=== PATIENT | male | born 1955 | race Hispanic/Latino ===

== ENCOUNTER 2017-11-22 03:49 | Inpatient (IN) | payer BC ==
[2017-11-22 03:50] VITALS: BMI 34.5
--- NOTE | 2017-11-22 04:17 | C.PDOC ---
History Of Present Illness 62 year old male with PMHx of HTN, HLD, DM, Peripheral neuropathy , CAD with 1 STENT is a transferred from [facility] for acute renal failure. Patient was brought to [facility] today for evaluation of altered mental status, hypoglycemia with sugar at 24. At [facility] patient received AMP dextrose 50 with sugar went up to 94 then dropped back down to 32 again after which another AMP was given. Patient last creatinine was 7 on Thursday, today at [facility] BUN was 85, Creatinine 11, K 4.6 not currently on dialysis. On arrival patient's blood sugar was 144 currently alert, awake and oriented. [facility] communicated with Dr. Newman and also Dr. Balbuena. Time Seen by Provider: 11/22/17 03:53 Chief Complaint (Nursing): Abnormal Labs History Per: Patient, EMS History/Exam Limitations: no limitations Onset/Duration Of Symptoms: Days Current Symptoms Are (Timing): Still Present Reports Recently: Seen In ED ([facility]) Recent travel outside of the [place]: No Additional History Per: Patient Past Medical History Reviewed: Historical Data, Nursing Documentation, Vital Signs Vital Signs: Last Vital Signs Temp Pulse 108 H 11/22/17 04:46 Resp 16 11/22/17 04:46 BP 116/61 11/22/17 04:46 Pulse Ox 99 11/22/17 04:46 - Medical History PMH: CAD, Diabetes, HTN, Hypercholesterolemia Other PMH: Peripheral neuropathy Other Surgeries: STENT X1 Family History: States: Unknown Family Hx - Social History Hx Alcohol Use: No Hx Substance Use: No Review Of Systems Constitutional: Positive for: Weakness. Negative for: Fever, Chills, Sweats Eyes: Negative for: Pain, Vision Change ENT: Negative for: Ear Pain, Ear Discharge, Nose Pain Cardiovascular: Positive for: Palpitations, Light Headedness. Negative for: Chest Pain, Orthopnea, Paroxysmal Noc. Dyspnea, Edema Respiratory: Negative for: Cough, Shortness of Breath, Hemoptysis, SOB with Excertion, Pleuritic Pain Gastrointestinal: Negative for: Vomiting, Abdominal Pain, Constipation, Melena Genitourinary: Negative for: Dysuria, Frequency, Incontinence Musculoskeletal: Negative for: Neck Pain, Shoulder Pain Skin: Negative for: Rash Neurological: Positive for: Confusion. Negative for: Weakness, Numbness, Headache, Dizziness Physical Exam - Physical Exam Appears: Non-toxic, No Acute Distress, In Acute Distress Skin: Normal Color, Warm, Dry Head: Atraumatic, Normacephalic Eye(s): bilateral: Normal Inspection Ear(s): Bilateral: Normal Oral Mucosa: Moist Tongue: Normal Appearing Lips: Normal Appearing Teeth: Normal Dentition Gingiva: Normal Appearing Neck: Normal ROM, Supple Chest: Symmetrical Cardiovascular: Rhythm Irregular, No Friction Rub, No Murmur, No JVD Respiratory: Normal Breath Sounds, No Rales, No Rhonchi, No Wheezing Gastrointestinal/Abdominal: Soft, No Tenderness, No Guarding, No Rebound Back: No Normal Inspection, No CVA Tenderness Male Genital: No Normal Inspection Extremity: Normal ROM, No Tenderness, No Swelling Extremity: Bilateral: Atraumatic, No Pedal Edema, Normal Color And Temperature, Normal ROM Neurological/Psych: Oriented x3, Normal Speech Gait: Unable To Assess ED Course And Treatment - Laboratory Results Result Diagrams: 11/22/17 05:25 O2 Sat by Pulse Oximetry: 99 (ON RA) Pulse Ox Interpretation: Normal Critical Care Time - Critical Care Note Total Time (in mins): 45 Documented critical care: time excludes all time spent performing seperately billable procedures. Medical Decision Making Medical Decision Making: Impression: [facility] transfer Plan: * VBG * Labs * CXR * UA 1st EKG showed HR 147 with Aflutter with 2-1 block. QS 92 QT 298 QTC 461 Cardizem 15 mg was pushed and HR went down to 130. 2nd EKG ordered, showed sinus tachycardia at 128, another cardizem 10 mg was pushed. NM 176 QRS 86 QT 316 QTC 461 no ischemic changes 3rd EKG done showed sinus tach with PVC HR at 106 QR 190 QRS 90 QT 352 QTC 462 no ischemic changes Disposition Counseled Patient/Family Regarding: Diagnosis - Disposition Disposition: HOSPITALIZED Disposition Time: 05:53 Condition: GUARDED - POA Present On Arrival: Cath Associated UTI - Clinical Impression Clinical Impression: Hypoglycemia, Fluttering sensation of heart, Atrial flutter - Scribe Statement The provider has reviewed the documentation as recorded by the Scribe Russell Beck All medical record entries made by the Scribe were at my direction and personally dictated by me. I have reviewed the chart and agree that the record accurately reflects my personal performance of the history, physical exam, medical decision making, and the department course for this patient. I have also personally directed, reviewed, and agree with the discharge instructions and disposition.
[2017-11-22] MEDS ORDERED: Magnesium Sulfate 1 gm in D5W 1 GM/100 ML BAG IVPB ONE (05:21)
[2017-11-22 05:28] LABS: BASO # 0.1 K/uL (0.0-0.2); BASO % 0.4 % (0.0-2.0); EOS # 0.1 K/uL (0.0-0.7); EOS % 0.4 % (0.0-4.0); HEMOGLOBIN 9.9 g/dL (12.0-18.0); MEAN CELL VOLUME 91.6 fL (80.0-94.0); MEAN CORPUSCULAR HEMOGLOBIN 29.8 pg (27.0-31.0); MEAN CORPUSCULAR HGB CONC 32.5 g/dL (33.0-37.0); MEAN PLATELET VOLUME 10.3 fL (7.2-11.7); MONO # 0.9 K/uL (0.0-0.8); MONO % 5.5 % (0.0-10.0); NEUT # 14.2 K/uL (1.8-7.0); NEUT % 87.7 % (50.0-75.0); PLATELET COUNT 236 K/uL (130-400); RBC 3.34 Mil/uL (4.40-5.90); RED CELL DISTRIBUTION WIDTH 13.9 % (11.5-14.5); WHITE BLOOD COUNT 16.2 K/uL (4.8-10.8)
[2017-11-22 05:52] LABS: VENOUS BLOOD GAS BASE EXCESS -17.8 mmol/L (0.0-2.0); VENOUS BLOOD GAS PCO2 32 mmHg (40-60); VENOUS BLOOD GAS PO2 37 mm/Hg (30-55); VENOUS BLOOD PH 7.12 (7.32-7.43)
--- NOTE | 2017-11-22 05:53 | CP.PCM.HP ---
<Arely Stark - Last Filed: 11/22/17 05:51> History of Present Illness - History of Present Illness History of Present Illness: HPI: Patient is a 62 year old male with a past medical history of DM, HTN, HLD, CAD w/stent, and [place] (2012), who [place] [facility] [place] [facility] for ARF possibly requiring dialysis. Patient recently went to his PMD who told him his creatinine was increasing. Patient was directed to stop taking his metformin 500mg BID and to continue taking his Glipizide 5mg PO daily approximately 2 months ago. He has been taking his glipizide on an as-needed basis depending on his glucometer readings. He has noticed a decreased appetite over the last few weeks for unknown reasons. On Thursday afternoon, he took his medications, started to feel weak and unable to move. He called his longtime partner to let her know and then the he woke up Thursday afternoon with his partner and paramedics surrounding him. He states he was able to hear them, but unable to move or speak. EMS took his glucose which was 24 and was given an amp of D50. Patient was taken [place] [facility] labs were drawn and showed worsening kidney function. Patient currently feels better but still weak and feels very dehydrated. Patient denies chest pain, dyspnea, abdominal pain, nausea, vomiting , leg pain and swelling. PMD: Dr. 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 Allergies: NKDA Medications: Metoprolol 50mg PO daily, Glipizide 5mg PO daily/prn, statin, asa 81mg po bid Present on Admission - Present on Admission Any Indicators Present on Admission: Yes History of Uncontrolled Diabetes: Yes Review of Systems - Constitutional Constitutional: Weakness. absent: Chills, Fever, Headache - EENT Eyes: absent: Change in Vision Ears: absent: Dizziness - Cardiovascular Cardiovascular: absent: Chest Pain, Dyspnea, Leg Edema, Palpitations - Respiratory Respiratory: absent: Cough, Dyspnea - Gastrointestinal Gastrointestinal: absent: Abdominal Pain, Constipation, Diarrhea, Nausea, Vomiting - Genitourinary Genitourinary: Change in Urinary Stream. absent: Urinary Incontinence - Musculoskeletal Musculoskeletal: Muscle Weakness - Neurological Neurological: Abnormal Movements. absent: Dizziness, Headaches Past Patient History - Infectious Disease Hx of Infectious Diseases: None - Past Social History Smoking Status: Current Some Days Smoker - CARDIAC Hx Hypercholesterolemia: Yes Hx Hypertension: Yes - ENDOCRINE/METABOLIC Hx Diabetes Mellitus Type 2: Yes - PSYCHIATRIC Hx Substance Use: No - SURGICAL HISTORY Hx Surgeries: Yes Hx Coronary Stent: Yes Meds Allergies/Adverse Reactions: Allergies Allergy/AdvReac Type Severity Reaction Status Date / Time No Known Allergies Allergy Verified 11/22/17 00:10 Physical Exam - Head Exam Head Exam: ATRAUMATIC, NORMAL INSPECTION - Eye Exam Eye Exam: EOMI, Normal appearance, PERRL - ENT Exam ENT Exam: Mucous Membranes Dry - Neck Exam Neck exam: Positive for: Normal Inspection - Respiratory Exam Respiratory Exam: Decreased Breath Sounds, Clear to Auscultation Bilateral, NORMAL BREATHING PATTERN. absent: Rales, Rhonchi, Wheezes, Respiratory Distress - Cardiovascular Exam Cardiovascular Exam: Tachycardia, REGULAR RHYTHM, +S1, +S2 - GI/Abdominal Exam GI & Abdominal Exam: Normal Bowel Sounds, Soft. absent: Distended, Firm, Tenderness - Extremities Exam Extremities exam: Positive for: pedal pulses present. Negative for: full ROM ( weakness,fatigue), tenderness - Neurological Exam Neurological exam: Alert, CN II-XII Intact, Oriented x3 - Psychiatric Exam Psychiatric exam: Normal Affect, Normal Mood - Skin Skin Exam: Dry, Intact, Warm Results - Vital Signs Recent Vital Signs: Last Vital Signs Temp Pulse 108 H 11/22/17 04:46 Resp 16 11/22/17 04:46 BP 116/61 11/22/17 04:46 Pulse Ox 99 11/22/17 04:46 - Labs Result Diagrams: 11/22/17 05:25 Labs: Laboratory Results - last 24 hr 11/22/17 11/22/17 03:54 05:25 WBC 16.2 H RBC 3.34 L Hgb 9.9 L Hct 30.6 L MCV 91.6 MCH 29.8 MCHC 32.5 L RDW 13.9 Plt Count 236 MPV 10.3 Neut % (Auto) 87.7 H Lymph % (Auto) 6.0 L [place] % (Auto) 5.5 Eos % (Auto) 0.4 Baso % (Auto) 0.4 Neut # (Auto) 14.2 H Lymph # (Auto) 1.0 [place] # (Auto) 0.9 H Eos # (Auto) 0.1 Baso # (Auto) 0.1 POC Glucose (mg/dL) 144 H Assessment & Plan (1) Acute renal failure Assessment and Plan: At admission- BUN85, Cr 11.1 Automat Car Attendant, Dr. Balbuena, consulted- help appreciated Bladder scan: 160cc Davenport placed UA: +protein, moderate blood, trace LE Abdomen/Pelvic CT ordered: f/u IV Fluids Status: Acute (2) Hypoglycemia Assessment and Plan: Was found to have glucose 24 prior to admission; was given total of two [id number]. Admitted to ICU VBG pH 7.01, anion gap 23 Dextrose+Bicarb 150mEq @150mls/hr Accuchecks Continue to monitor Status: Acute (3) Dehydration Assessment and Plan: IV fluids- dextrose + bicarb 150mEq @150mls/hr Continue to monitor Status: Acute (4) HTN (hypertension) Assessment and Plan: Home medication: Metoprolol 50mg PO daily Continue to monitor Status: Acute (5) CAD (coronary artery disease) Assessment and Plan: Patient takes metoprolol 50mg po daily, asa 81po, and a statin Continue Metoprolol 50mg PO daily, ASA 81mg PO daily, and Crestor 10mg PO HS. Status: Acute (6) Prophylactic measure Assessment and Plan: DVT: Heparin 5000u SC Q12h GI: Protonix 40mg PO Daily Diabetic diet Status: Acute <Jose Francisco Berrios P - Last Filed: 11/22/17 06:44> Results - Vital Signs Recent Vital Signs: Last Vital Signs Temp Pulse 108 H 11/22/17 04:46 Resp 16 11/22/17 04:46 BP 116/61 11/22/17 04:46 Pulse Ox 99 11/22/17 05:54 - Labs Result Diagrams: 11/22/17 05:25 11/22/17 05:25 Labs: Laboratory Results - last 24 hr 11/22/17 11/22/17 11/22/17 03:54 05:25 05:25 WBC 16.2 H RBC 3.34 L Hgb 9.9 L Hct 30.6 L MCV 91.6 MCH 29.8 MCHC 32.5 L RDW 13.9 Plt Count 236 MPV 10.3 Neut % (Auto) 87.7 H Lymph % (Auto) 6.0 L [place] % (Auto) 5.5 Eos % (Auto) 0.4 Baso % (Auto) 0.4 Neut # (Auto) 14.2 H Lymph # (Auto) 1.0 [place] # (Auto) 0.9 H Eos # (Auto) 0.1 Baso # (Auto) 0.1 Neutrophils % (Manual) 83 H Band Neutrophils % 1 Lymphocytes % (Manual) 7 L Monocytes % (Manual) 8 Eosinophils % (Manual) 1 Platelet Estimate Normal pO2 VBG pH VBG pCO2 VBG HCO3 VBG Total CO2 VBG O2 Sat (Calc) VBG Base Excess VBG Potassium Glucose Lactate Crit Value Called To Crit Value Called By Crit Value Read Back Blood Gas Notified Time Sodium Cancelled Potassium Cancelled Chloride Cancelled Carbon Dioxide Cancelled Anion Gap Cancelled BUN Cancelled Creatinine Cancelled Est GFR ( Amer) Cancelled Est GFR (Non-Af Amer) Cancelled POC Glucose (mg/dL) 144 H Random Glucose Cancelled Calcium Cancelled Total Bilirubin Cancelled AST Cancelled ALT Cancelled Alkaline Phosphatase Cancelled Troponin I Cancelled NT-Pro-B Natriuret Pep Cancelled Total Protein Cancelled Albumin Cancelled Globulin Cancelled Albumin/Globulin Ratio Cancelled Venous Blood Potassium 11/22/17 05:45 WBC RBC Hgb Hct MCV MCH MCHC RDW Plt Count MPV Neut % (Auto) Lymph % (Auto) [place] % (Auto) Eos % (Auto) Baso % (Auto) Neut # (Auto) Lymph # (Auto) [place] # (Auto) Eos # (Auto) Baso # (Auto) Neutrophils % (Manual) Band Neutrophils % Lymphocytes % (Manual) Monocytes % (Manual) Eosinophils % (Manual) Platelet Estimate pO2 37 VBG pH 7.12 L* VBG pCO2 32 L VBG HCO3 9.7 VBG Total CO2 11.4 L VBG O2 Sat (Calc) 71.5 H VBG Base Excess -17.8 L VBG Potassium 4.1 Glucose 96 Lactate 1.0 Crit Value Called To Dr berrios Crit Value Called By M.jossue rt Crit Value Read Back Y Blood Gas Notified Time 600 Sodium 141.0 Potassium Chloride 114.0 H Carbon Dioxide Anion Gap BUN Creatinine Est GFR ( Amer) Est GFR (Non-Af Amer) POC Glucose (mg/dL) Random Glucose Calcium Total Bilirubin AST ALT Alkaline Phosphatase Troponin I NT-Pro-B Natriuret Pep Total Protein Albumin Globulin Albumin/Globulin Ratio Venous Blood Potassium 4.1 Attending/Attestation - Attestation I have personally seen and examined this patient.: Yes I have fully participated in the care of the patient.: Yes I have reviewed all pertinent clinical information: Yes Notes (Text): 11/22/17 06:44 See progress note done my me on the same day.
--- NOTE | 2017-11-22 06:00 | CP.PCM.PN ---
Subjective - Date & Time of Evaluation Date of Evaluation: 11/22/17 Time of Evaluation: 05:52 - Subjective Subjective: Assessment * MEENA, ph of 7.01, anion gap, K 4.9, secondary PVC, tachy arrhythmia * Clinically dry, hence above likely pre renal on top of prior renal insufficiency * Hypoglycemia with OHA, could be from worsening renal function, and contributed to dehydration, unable to get up for> 24 hrs * H/o type 2dm * H/o CAD s/p pci and still has 2 more vessel disease * H/o intermittent spastic paralysis in left leg * tobacco abuse Plan * Bicarb drip in dextrose, control of arrhythmia, acidosis, hypoglycemia, hydration, renal function may improve, may not need immediate CLOTH FEEDER. * Monitor calcium, mag, replace * GI/DVT prophylaxis * ICU admission * Abd ct to r/o obstructive causes * Davenport for accurate output * Nephrology consult. Objective - Vital Signs/Intake and Output Vital Signs (last 24 hours): Temp Pulse Resp BP Pulse Ox 108 H 16 116/61 99 11/22/17 04:46 11/22/17 04:46 11/22/17 04:46 11/22/17 04:46 - Medications Medications: Current Medications Heparin Sodium (Porcine) (Heparin) 5,000 units SC Q12 DOLLY Sodium Bicarbonate 150 meq/ (Dextrose) 1,000 mls @ 150 mls/hr IV .Q6H40M DOLLY Magnesium Sulfate/Dextrose (Magnesium Sulfate 1 Gm/100 Ml D5w) 1 gm in 100 mls @ 200 mls/hr IVPB ONCE ONE Stop: 11/22/17 05:50 Pantoprazole Sodium (Protonix Ec Tab) 40 mg PO DAILY DOLLY - Labs Labs: 11/22/17 05:25
[2017-11-22 06:26] LABS: BANDS 1 % (0-2); EOSINOPHIL 1 % (0-4); LYMPHOCYTE 7 % (20-40); MONOCYTE 8 % (0-10); NEUTROPHIL 83 % (50-75); PLATELET ESTIMATE NORMAL (NORMAL); TOTAL CELLS COUNTED 100
[2017-11-22 06:45] LABS: TROPONIN I 0.066 ng/mL (0.00-0.120)
[2017-11-22] MEDS: Sodium Bicarbonate 8.4% 150 MEQ in Dextrose 5% In Water 850 ML IV SCH ×4 (07:00→21:33)
[2017-11-22 07:02] LABS: ALB/GLOB RATIO 1.1 (1.0-2.1); ALBUMIN 3.4 g/dL (3.5-5.0); CALCIUM 6.8 mg/dl (8.6-10.4)
--- NOTE | 2017-11-22 10:09 | CP.PCM.PN ---
Subjective - Date & Time of Evaluation Date of Evaluation: 11/22/17 Time of Evaluation: 10:17 - Subjective Subjective: Seen and examined by me,Patient feels much better. He was not feeling well last 3 weeks. poor appetite and nauseous He was not able to move and very weak when paramedics arrived to pick him. Denies pain,no chest pain,no sob,no fever,Little nauseous and feeling tired Objective - Vital Signs/Intake and Output Vital Signs (last 24 hours): Temp Pulse Resp BP Pulse Ox 105 H 12 122/54 L 99 11/22/17 09:50 11/22/17 09:50 11/22/17 09:01 11/22/17 09:50 - Medications Medications: Current Medications Aspirin (Aspirin Chewable) 81 mg PO DAILY DOLLY Calcitriol (Rocaltrol) 0.5 mcg PO DAILY DOLLY Heparin Sodium (Porcine) (Heparin) 5,000 units SC Q12 DOLLY Sodium Bicarbonate 150 meq/ (Dextrose) 1,000 mls @ 150 mls/hr IV .Q6H40M DOLLY Metoclopramide HCl (Reglan) 10 mg PO ACHS DOLLY Metoprolol Tartrate (Lopressor) 50 mg PO DAILY DOLLY Nicotine (Nicoderm Cq) 1 patch TD DAILY DOLLY Pantoprazole Sodium (Protonix Ec Tab) 40 mg PO DAILY DOLLY Rosuvastatin Calcium (Crestor) 10 mg PO HS DOLLY Sodium Bicarbonate (Sodium Bicarbonate Tab) 650 mg PO TID ODLLY Vitamin B Complex/Vit C/Folic Acid (Nephro-Avelino) 1 tab PO 0800 DOLLY - Labs Labs: 11/22/17 05:25 11/22/17 06:16 - Constitutional Appears: Non-toxic - Head Exam Head Exam: NORMAL INSPECTION - Eye Exam Eye Exam: Normal appearance - ENT Exam ENT Exam: Mucous Membranes Moist - Neck Exam Neck Exam: Full ROM - Respiratory Exam Respiratory Exam: Clear to Ausculation Bilateral, NORMAL BREATHING PATTERN - Cardiovascular Exam Cardiovascular Exam: REGULAR RHYTHM - GI/Abdominal Exam GI & Abdominal Exam: Distended, Soft, Normal Bowel Sounds. absent: Tenderness - Extremities Exam Extremities Exam: Full ROM - Back Exam Back Exam: NORMAL INSPECTION - Neurological Exam Neurological Exam: Awake, Oriented x3 - Psychiatric Exam Psychiatric exam: Normal Mood - Skin Skin Exam: Dry Assessment and Plan - Assessment and Plan (Free Text) Assessment: This is a 62 years old male with history of Chronic renal failure,hypertension, diabetes mellitus ,hyperlipidemia and CAD w/stent, [place] (2012) was brought in for acute renal failure Plan: 1. Acute renal failure No pulmonary edema,no vomting,no leg edema Discussed with Artillery Specialist Dr. Esha Willis dextrose with bicar at 150ml/hour follow creatinine Dr Balbuena discussed with the patient about the plan/may need dialysis if he is not improving Follow CT abdomen and pelvis to r/o obstructive uropathy 2. Diabetes mellitus and s/p Hypoglycemia Was found to have glucose 24mg/dl likely due to oral meds with RF3 Dextrose+Bicarb 150mEq @150mls/hr Montior sugar' Stop his oral meds,Insulin coverage as needed Do HA1c 3. Leukocytosis follow urine and blood cultures follow wbc 4. Dehydration Poor intake and nausea continue fluids Hydrate and follow bun/creatinine 5. HTN continue metoprolol 6.coronary artery disease Continue Metoprolol 50mg PO daily, ASA 81mg PO daily, and Crestor 10mg PO HS. 7. Elevated ProBNP and High LFT Do Echo 7. Prophylactic measure Continue heparin and protonix
[2017-11-22] MEDS: Pantoprazole 40 mg EC Tab PO SCH (10:37)
--- NOTE | 2017-11-22 12:19 | CT ---
PROCEDURE: CT Chest, Abdomen and Pelvis without intravenous contrast HISTORY: MEENA COMPARISON: None. TECHNIQUE: CT scan of the chest, abdomen and pelvis was performed without administration of intravenous contrast. Oral contrast was not administered. Coronal and sagittal reformatted images were obtained. Radiation dose: Total exam DLP = 1598.74 mGy-cm. This CT exam was performed using one or more of the following dose reduction techniques: Automated exposure control, adjustment of the mA and/or kV according to patient size, and/or use of iterative reconstruction technique. FINDINGS: CT CHEST WITHOUT CONTRAST: LUNGS: The lungs are well inflated and clear. No nodule, mass or consolidation. There are no endobronchial lesions. MEDIASTINUM: The heart is normal in size. Normal caliber aorta and pulmonary arterial trunk. No pericardial effusion. There atherosclerotic coronary artery calcifications. LYMPH NODES: No pathologic mediastinal adenopathy. PLEURA: No pneumothorax. No pleural fluid. BONES: No acute fracture. Within normal limits for the patient's age. OTHER FINDINGS: There is a multinodular thyroid gland with a dominant low-attenuation nodule in the left lower pole. CT ABDOMEN AND PELVIS: LIVER: Normal in size. No gross lesion or ductal dilatation. GALLBLADDER AND BILE DUCTS: The gallbladder is distended and there are are multiple small calcified gallstones. PANCREAS: Mild fatty atrophy of the pancreas. No gross lesion or ductal dilatation. SPLEEN: Normal in size. ADRENALS: No discrete nodule. KIDNEYS AND URETERS: Normal in size. There is nonspecific perinephric fat stranding. No hydronephrosis. There is a large exophytic cyst in the interpolar region of the right kidney. There is a smaller simple cyst in the lower pole of the right kidney VASCULATURE: No aortic aneurysm. BOWEL: The small bowel loops are normal in caliber. There is large amount of stool in the ascending and transverse colon. No bowel dilatation or obstruction. APPENDIX: Normal appendix. PERITONEUM: No free fluid. No free air. LYMPH NODES: No enlarged lymph nodes. BLADDER: Indwelling Davenport catheter with subsequent decompression an expected intraluminal air go. REPRODUCTIVE: Unremarkable. BONES: No acute fracture. Within normal limits for the patient's age. OTHER FINDINGS: There is a small sliding hiatal hernia. IMPRESSION: No active pulmonary disease. Clear lungs. Cholelithiasis and distended gallbladder. If clinically indicated, correlation with right upper quadrant ultrasound may be performed. Large exophytic simple cyst in the interpolar region of the right kidney. Extensive nonspecific perinephric fat stranding which may be a sequela of remote infection. Constipation. No bowel obstruction. A preliminary report was provided by [facility].
--- NOTE | 2017-11-22 13:42 | RAD ---
PROCEDURE: CHEST RADIOGRAPH, 1 VIEW HISTORY: Shortness of breath COMPARISON: None available. FINDINGS: LUNGS: The lungs are well inflated and clear. PLEURA: No pneumothorax or pleural fluid seen. CARDIOVASCULAR: Normal. OSSEOUS STRUCTURES: No significant abnormalities. VISUALIZED UPPER ABDOMEN: Normal. OTHER FINDINGS: None. IMPRESSION: No active pulmonary disease.
[2017-11-22 14:13] LABS: SQUAMOUS EPITHIAL 1 /hpf (0-5); URINE BACTERIA RARE (<OCC); URINE BILIRUBIN NEGATIVE (NEGATIVE); URINE BLOOD 3+ (NEGATIVE); URINE CLARITY Hazy (Clear); URINE COLOR Yellow (YELLOW); URINE GLUCOSE (UA) 1+ mg/dL (Normal); URINE LEUKOCYTE ESTERASE 3+ Leu/uL (Negative); URINE PROTEIN 1+ mg/dL (NEGATIVE); URINE UROBILINOGEN NORMAL mg/dL (0.2-1.0)
[2017-11-22 15:08] LABS: FOLATE 6.1 ng/mL
[2017-11-22] MEDS ORDERED: Pneumococcal 23-Valent Vaccine IM ONE (15:31)
--- NOTE | 2017-11-22 17:17 | CP.PCM.CON ---
History of Present Illness - History of Present Illness History of Present Illness: RENAL CONSULT 62 yo M w/ pmh of CKD, HTN, DM, CAD that prsented w/ MEENA. Pt recently went to his home economist this past thursday - blo[place] was drawn and he was found to have a Cr of 7. A renal US was scheduled as an outpt but he developed hypoglycemic episode and altered mental status. He was found to have even worse kidney function and acidosis and admitted for further evaluation. He was recently on metformin but it was discontinued. He has had uremic symptoms of naussea and reduced appetite for about 2 weeks or so. He states he has been urinating normally. He endorses poor po intake last 24-48 hours. He denies any NSAID use. ROS: a full detailed ROS is negative except as in my HPI PMHx: CKD Stage? HTN, HLD, DM, CAD w/stent, CO (2012), parapresis SurgHx: left knee surgery (1986), Cardiac stent (2012) FamHx: father on dialysis SocHx: + smoking hx, no etoh or ivdu all: nkda meds as below. pe: vs as below gen: nad sclera: anicteric op: clear neck: supple no thyromegaly cv:+s1+s2 no rub abd soft no orgnomegaly lungsCTA b/l ext trace edema neuro: A+OX3 very faint asterixis psych: nml affect gu: weinberg skin no rash labs and imaging reviewed reviewed ct imaging no hydronephrosis appreciated imp: arf / acidosis /anemia of renal disease/ UTI? / diabetic kidney disease/ secondary hyperpara plan: MEENA - etiology not clear if just progression or alternative etiology. Will discuss w/ primary home economist to find out baseline renal function prior to this episode. Given uremic symptoms for about 2 weeks suspect may need to initiate [employer] DES[employer]. Discussed in detail w/ pt. Will continue hco3 gtt for now. discussed w/ hospitalist to recheck labs to make sure improving. Currently non- oliguric. Holding metformin. will check iron profile, ferritin, phos, upcr, cpk spep, immunofixation, sflca on calcitriol for secondary hyperpar discussed w/ hospitalist and armhole baster hand. Past Patient History - Infectious Disease Hx of Infectious Diseases: None - Past Social History Smoking Status: Heavy Smoker > 10 Cigarettes Daily - CARDIAC Hx Congestive Heart Failure: Yes Hx Hypercholesterolemia: Yes Hx Hypertension: Yes - RENAL Other/Comment: MEENA - ENDOCRINE/METABOLIC Hx Diabetes Mellitus Type 2: Yes - MUSCULOSKELETAL/RHEUMATOLOGICAL Hx Falls: Yes - PSYCHIATRIC Hx Substance Use: No - SURGICAL HISTORY Hx Surgeries: Yes Hx Coronary Stent: Yes - ANESTHESIA Hx Anesthesia: Yes Hx Anesthesia Reactions: No Meds Allergies/Adverse Reactions: Allergies Allergy/AdvReac Type Severity Reaction Status Date / Time No Known Allergies Allergy Verified 11/22/17 00:10 - Medications Medications: Current Medications Aspirin (Aspirin Chewable) 81 mg PO DAILY [facility] Last Admin: 11/22/17 10:37 Dose: 81 mg Calcitriol (Rocaltrol) 0.5 mcg PO DAILY [facility] Last Admin: 11/22/17 10:37 Dose: 0.5 mcg Heparin Sodium (Porcine) (Heparin) 5,000 units SC Q12 [facility] Last Admin: 11/22/17 10:37 Dose: 5,000 units Sodium Bicarbonate 150 meq/ (Dextrose) 1,000 mls @ 150 mls/hr IV .[id number] [facility] Last Admin: 11/22/17 14:14 Dose: Not Given Metoclopramide HCl (Reglan) 10 mg PO ACHS [facility] Last Admin: 11/22/17 10:42 Dose: 10 mg Metoprolol Tartrate (Lopressor) 50 mg PO DAILY [facility] Last Admin: 11/22/17 10:37 Dose: 50 mg Nicotine (Nicoderm Cq) 1 patch TD DAILY [facility] Last Admin: 11/22/17 10:37 Dose: 1 patch Pantoprazole Sodium (Protonix Ec Tab) 40 mg PO DAILY [facility] Last Admin: 11/22/17 10:37 Dose: 40 mg Rosuvastatin Calcium (Crestor) 10 mg PO HS [facility] Sodium Bicarbonate (Sodium Bicarbonate Tab) 650 mg PO TID [facility] Last Admin: 11/22/17 13:12 Dose: 650 mg Vitamin B Complex/Vit C/Folic Acid (Nephro-Avelino) 1 tab PO 0800 [facility] Results - Vital Signs Recent Vital Signs: Last Vital Signs Temp 98.4 F 11/22/17 16:00 Pulse 92 H 11/22/17 16:50 Resp 16 11/22/17 16:50 BP 107/53 L 11/22/17 16:03 Pulse Ox 97 11/22/17 16:50 - Labs Result Diagrams: 11/22/17 05:25 11/22/17 06:16 Labs: Laboratory Results - last 24 hr 11/22/17 11/22/17 11/22/17 03:54 05:25 05:25 WBC 16.2 H RBC 3.34 L Hgb 9.9 L Hct 30.6 L MCV 91.6 MCH 29.8 MCHC 32.5 L RDW 13.9 Plt Count 236 MPV 10.3 Neut % (Auto) 87.7 H Lymph % (Auto) 6.0 L [place] % (Auto) 5.5 Eos % (Auto) 0.4 Baso % (Auto) 0.4 Neut # (Auto) 14.2 H Lymph # (Auto) 1.0 [place] # (Auto) 0.9 H Eos # (Auto) 0.1 Baso # (Auto) 0.1 Neutrophils % (Manual) 83 H Band Neutrophils % 1 Lymphocytes % (Manual) 7 L Monocytes % (Manual) 8 Eosinophils % (Manual) 1 Platelet Estimate Normal pO2 VBG pH VBG pCO2 VBG HCO3 VBG Total CO2 VBG O2 Sat (Calc) VBG Base Excess VBG Potassium Glucose Lactate Crit Value Called To Crit Value Called By Crit Value Read Back Blood Gas Notified Time Sodium Cancelled Potassium Cancelled Chloride Cancelled Carbon Dioxide Cancelled Anion Gap Cancelled BUN Cancelled Creatinine Cancelled Est GFR ( Amer) Cancelled Est GFR (Non-Af Amer) Cancelled POC Glucose (mg/dL) 144 H Random Glucose Cancelled Calcium Cancelled Total Bilirubin Cancelled AST Cancelled ALT Cancelled Alkaline Phosphatase Cancelled Troponin I Cancelled NT-Pro-B Natriuret Pep Cancelled Total Protein Cancelled Albumin Cancelled Globulin Cancelled Albumin/Globulin Ratio Cancelled Vitamin B12 Folate TSH 3rd Generation Venous Blood Potassium Urine Color Urine Clarity Urine pH Ur Specific [place] Urine Protein Urine Glucose (UA) Urine Ketones Urine Blood Urine Nitrate Urine Bilirubin Urine Urobilinogen Ur Leukocyte Esterase Urine WBC (Auto) Urine RBC (Auto) Ur Squamous Epith Cells Urine Bacteria 11/22/17 11/22/17 11/22/17 05:45 06:16 10:51 WBC RBC Hgb Hct MCV MCH MCHC RDW Plt Count MPV Neut % (Auto) Lymph % (Auto) [place] % (Auto) Eos % (Auto) Baso % (Auto) Neut # (Auto) Lymph # (Auto) [place] # (Auto) Eos # (Auto) Baso # (Auto) Neutrophils % (Manual) Band Neutrophils % Lymphocytes % (Manual) Monocytes % (Manual) Eosinophils % (Manual) Platelet Estimate pO2 37 VBG pH 7.12 L* VBG pCO2 32 L VBG HCO3 9.7 VBG Total CO2 11.4 L VBG O2 Sat (Calc) 71.5 H VBG Base Excess -17.8 L VBG Potassium 4.1 Glucose 96 Lactate 1.0 Crit Value Called To Dr mays Crit Value Called By Nick rt Crit Value Read Back Y Blood Gas Notified Time 600 Sodium 141.0 142 Potassium 3.9 Chloride 114.0 H 113 H Carbon Dioxide 9 L* Anion Gap 23 H BUN 80 H Creatinine 10.5 H* Est GFR ( Amer) 6 Est GFR (Non-Af Amer) 5 POC Glucose (mg/dL) 198 H Random Glucose 91 Calcium 6.8 L Total Bilirubin 0.4 AST 12 L ALT 18 L Alkaline Phosphatase 86 Troponin I 0.0660 NT-Pro-B Natriuret Pep 41924 H Total Protein 6.4 Albumin 3.4 L Globulin 3.0 Albumin/Globulin Ratio 1.1 Vitamin B12 Folate TSH 3rd Generation Venous Blood Potassium 4.1 Urine Color Urine Clarity Urine pH Ur Specific [place] Urine Protein Urine Glucose (UA) Urine Ketones Urine Blood Urine Nitrate Urine Bilirubin Urine Urobilinogen Ur Leukocyte Esterase Urine WBC (Auto) Urine RBC (Auto) Ur Squamous Epith Cells Urine Bacteria 11/22/17 11/22/17 11/22/17 11:33 13:45 13:45 WBC RBC Hgb Hct MCV MCH MCHC RDW Plt Count MPV Neut % (Auto) Lymph % (Auto) [place] % (Auto) Eos % (Auto) Baso % (Auto) Neut # (Auto) Lymph # (Auto) [place] # (Auto) Eos # (Auto) Baso # (Auto) Neutrophils % (Manual) Band Neutrophils % Lymphocytes % (Manual) Monocytes % (Manual) Eosinophils % (Manual) Platelet Estimate pO2 VBG pH VBG pCO2 VBG HCO3 VBG Total CO2 VBG O2 Sat (Calc) VBG Base Excess VBG Potassium Glucose Lactate Crit Value Called To Crit Value Called By Crit Value Read Back Blood Gas Notified Time Sodium Potassium Chloride Carbon Dioxide Anion Gap BUN Creatinine Est GFR ( Amer) Est GFR (Non-Af Amer) POC Glucose (mg/dL) 235 H Random Glucose Calcium Total Bilirubin AST ALT Alkaline Phosphatase Troponin I NT-Pro-B Natriuret Pep Total Protein Albumin Globulin Albumin/Globulin Ratio Vitamin B12 335 Folate 6.1 TSH 3rd Generation 0.42 L Venous Blood Potassium Urine Color Yellow Urine Clarity Hazy Urine pH 5.0 Ur Specific [place] 1.005 Urine Protein 1+ H Urine Glucose (UA) 1+ H Urine Ketones Negative Urine Blood 3+ H Urine Nitrate Negative Urine Bilirubin Negative Urine Urobilinogen Normal Ur Leukocyte Esterase 3+ H Urine WBC (Auto) 41 H Urine RBC (Auto) 82 H Ur Squamous Epith Cells 1 Urine Bacteria Rare 11/22/17 15:48 WBC RBC Hgb Hct MCV MCH MCHC RDW Plt Count MPV Neut % (Auto) Lymph % (Auto) [place] % (Auto) Eos % (Auto) Baso % (Auto) Neut # (Auto) Lymph # (Auto) [place] # (Auto) Eos # (Auto) Baso # (Auto) Neutrophils % (Manual) Band Neutrophils % Lymphocytes % (Manual) Monocytes % (Manual) Eosinophils % (Manual) Platelet Estimate pO2 VBG pH VBG pCO2 VBG HCO3 VBG Total CO2 VBG O2 Sat (Calc) VBG Base Excess VBG Potassium Glucose Lactate Crit Value Called To Crit Value Called By Crit Value Read Back Blood Gas Notified Time Sodium Potassium Chloride Carbon Dioxide Anion Gap BUN Creatinine Est GFR ( Amer) Est GFR (Non-Af Amer) POC Glucose (mg/dL) 177 H Random Glucose Calcium Total Bilirubin AST ALT Alkaline Phosphatase Troponin I NT-Pro-B Natriuret Pep Total Protein Albumin Globulin Albumin/Globulin Ratio Vitamin B12 Folate TSH 3rd Generation Venous Blood Potassium Urine Color Urine Clarity Urine pH Ur Specific [place] Urine Protein Urine Glucose (UA) Urine Ketones Urine Blood Urine Nitrate Urine Bilirubin Urine Urobilinogen Ur Leukocyte Esterase Urine WBC (Auto) Urine RBC (Auto) Ur Squamous Epith Cells Urine Bacteria
[2017-11-22 18:33] LABS: IRON 63 ug/dL (49-181)
[2017-11-22 18:42] LABS: % IRON SATURATION 34 (20-55); TOTAL IRON BINDING CAPACITY 185 ug/dL (250-450)
[2017-11-22 18:43] LABS: ALB/GLOB RATIO 1.1 (1.0-2.1); ALBUMIN 2.9 g/dL (3.5-5.0); CALCIUM 6.2 mg/dl (8.6-10.4)
[2017-11-23] MEDS: Sodium Bicarbonate 8.4% 150 MEQ in Dextrose 5% In Water 850 ML IV SCH ×5 (01:28→22:48)
[2017-11-23 06:39] LABS: BASO % 0.4 % (0.0-2.0); EOS # 0.3 K/uL (0.0-0.7); HEMOGLOBIN 8.4 g/dL (12.0-18.0); LYMPH # 1.4 K/uL (1.0-4.3); MEAN CELL VOLUME 89.8 fL (80.0-94.0); MEAN CORPUSCULAR HEMOGLOBIN 30.4 pg (27.0-31.0); MEAN CORPUSCULAR HGB CONC 33.9 g/dL (33.0-37.0); MEAN PLATELET VOLUME 10.5 fL (7.2-11.7); MONO # 0.9 K/uL (0.0-0.8); MONO % 8.1 % (0.0-10.0); NEUT # 8.8 K/uL (1.8-7.0); NEUT % 76.5 % (50.0-75.0); RBC 2.75 Mil/uL (4.40-5.90); RED CELL DISTRIBUTION WIDTH 13.8 % (11.5-14.5); WHITE BLOOD COUNT 11.5 K/uL (4.8-10.8)
[2017-11-23 06:55] LABS: ALB/GLOB RATIO 1.2 (1.0-2.1); ALBUMIN 2.9 g/dL (3.5-5.0); CALCIUM 5.8 mg/dl (8.6-10.4)
--- NOTE | 2017-11-23 07:35 | CP.CCUPN ---
<Tamica Mckeon - Last Filed: 11/23/17 10:57> CCU Subjective - Physician Review Subjective (Free Text): Patient seen and examined at bedside. Patient is OOB to chair, breathing well, tolerating diet. No acute complaints. Reports his nausea, vomiting, and abdominal pain have resolved. CCU Objective - Vital Signs / Intake & Output Vital Signs (Last 4 hours): Vital Signs Temp Pulse Resp BP Pulse Ox 11/23/17 07:00 96 H 12 137/53 L 88 L 11/23/17 06:00 94 H 10 L 124/57 L 96 11/23/17 05:00 96 H 15 132/52 L 97 11/23/17 04:01 84 11 L 133/58 L 96 11/23/17 04:00 97.5 F L 92 H 11 L 95 Intake and Output (Last 8hrs): Intake & Output 11/22/17 11/23/17 11/23/17 22:59 06:59 14:59 Intake Total 1400 1700 150 Output Total 420 700 Balance 980 1000 150 Weight 227 lb 11.8 oz Intake: Intake, IV Amount 1200 1200 150 Left Wrist 1200 1200 150 Oral 200 500 Output: Urine 420 700 Urethral (Weinberg) 420 700 Other: # Bowel Movements 0 - Physical Exam Head: Positive for: Atraumatic, Normocephalic Pupils: Positive for: PERRL Extroacular Muscles: Positive for: EOMI Conjunctiva: Positive for: Normal Mouth: Positive for: Moist Mucous Membranes Neck: Positive for: Normal Range of Motion Respiratory/Chest: Positive for: Clear to Auscultation Cardiovascular: Positive for: Regular Rate and Rhythm Abdomen: Positive for: Normal Bowel Sounds. Negative for: Tenderness, Distention Upper Extremity: Positive for: Normal Inspection, NORMAL PULSES, Capillary Refill < 2s, Norm 2-Pt Discrimination Lower Extremity: Positive for: Normal Inspection, NORMAL PULSES, Neurovascularly Intact, Capillary Refill < 2 s Neurological: Positive for: GCS=15, CN II-XII Intact Skin: Positive for: Warm, Dry, Normal Color Psychiatric: Positive for: Alert, Oriented x 3, Normal Insight, Normal Concentration - Medications Active Medications: Active Medications Generic Name Dose Route Start Last Admin Trade Name Freq PRN Reason Stop Dose Admin Aspirin 81 mg 11/22/17 10:00 11/22/17 10:37 Aspirin Chewable PO 81 mg DAILY DOLLY Administration Calcitriol 0.5 mcg 11/22/17 10:00 11/22/17 10:37 Rocaltrol PO 0.5 mcg DAILY DOLLY Administration Heparin Sodium (Porcine) 5,000 units 11/22/17 10:00 11/22/17 21:26 Heparin SC 5,000 units Q12 DOLLY Administration Sodium Bicarbonate 150 meq/ 1,000 mls @ 150 mls/hr 11/22/17 05:15 11/23/17 05 :15 Dextrose IV 150 mls/hr .[id number] DOLLY Administration Metoclopramide HCl 10 mg 11/22/17 11:30 11/22/17 21:26 Reglan PO 10 mg ACHS DOLLY Administration Metoprolol Tartrate 50 mg 11/22/17 10:00 11/22/17 10:37 Lopressor PO 50 mg DAILY DOLLY Administration Nicotine 1 patch 11/22/17 10:00 11/22/17 10:37 Nicoderm Cq TD 1 patch DAILY [facility] Administration Pantoprazole Sodium 40 mg 11/22/17 10:00 11/22/17 10:37 Protonix Ec Tab PO 40 mg DAILY [facility] Administration Pneumococcal Polyvalent Vaccine 0.5 ml 11/24/17 10:00 Pneumovax 23 Vaccine IM 11/24/17 10:01 .ONCE ONE Rosuvastatin Calcium 10 mg 11/22/17 22:00 11/22/17 21:26 Crestor PO 10 mg HS DOLLY Administration Sodium Bicarbonate 650 mg 11/22/17 10:00 11/22/17 17:39 Sodium Bicarbonate Tab PO 650 mg TID DOLLY Administration Vitamin B Complex/Vit C/Folic Acid 1 tab 11/23/17 08:00 Nephro-Avelino PO 0800 [facility] - Patient Studies Lab Studies: Lab Studies 11/23/17 11/23/17 11/22/17 Range/Units 06:28 06:23 21:31 WBC 11.5 H (4.8-10.8) K/uL RBC 2.75 L (4.40-5.90) Mil/uL Hgb 8.4 L (12.0-18.0) g/dL Hct 24.7 L (35.0-51.0) % MCV 89.8 (80.0-94.0) fL MCH 30.4 (27.0-31.0) pg MCHC 33.9 (33.0-37.0) g/dL RDW 13.8 (11.5-14.5) % Plt Count 193 (130-400) K/uL MPV 10.5 (7.2-11.7) fL Neut % (Auto) 76.5 H (50.0-75.0) % Lymph % (Auto) 12.0 L (20.0-40.0) % [place] % (Auto) 8.1 (0.0-10.0) % Eos % (Auto) 3.0 (0.0-4.0) % Baso % (Auto) 0.4 (0.0-2.0) % Neut # (Auto) 8.8 H (1.8-7.0) K/uL Lymph # (Auto) 1.4 (1.0-4.3) K/uL [place] # (Auto) 0.9 H (0.0-0.8) K/uL Eos # (Auto) 0.3 (0.0-0.7) K/uL Baso # (Auto) 0.0 (0.0-0.2) K/uL Sodium 138 (132-148) mmol/L Potassium 2.8 L (3.6-5.2) mmol/L Chloride 103 (98-107) mmol/L Carbon Dioxide 18 L (22-30) mmol/L Anion Gap 20 (10-20) BUN 89 H (9-20) mg/dL Creatinine 10.0 H* (0.8-1.5) mg/dL Est GFR ( Amer) 6 Est GFR (Non-Af Amer) 5 POC Glucose (mg/dL) 123 H (65-110) mg/dL Random Glucose 104 (75-110) mg/dL Calcium 5.8 L* (8.6-10.4) mg/dl Phosphorus 8.6 H (2.5-4.5) mg/dL Magnesium 1.4 L (1.6-2.3) mg/dL Iron (49-181) ug/dL TIBC (250-450) ug/dL % Saturation (20-55) Ferritin ng/mL Total Bilirubin 0.4 (0.2-1.3) mg/dL AST 14 L (17-59) U/L ALT 22 (21-72) U/L Alkaline Phosphatase 66 (38-126) U/L Total Creatine Kinase (55-170) U/L Total Protein 5.4 L (6.3-8.3) g/dL Albumin 2.9 L (3.5-5.0) g/dL Globulin 2.5 (2.2-3.9) gm/dL Albumin/Globulin Ratio 1.2 (1.0-2.1) Vitamin B12 (239-931) pg/mL 25-OH Vitamin D Total (30.0-100.0) NG/ML Folate ng/mL TSH 3rd Generation (0.46-4.68) mIU/L Urine Color (YELLOW) Urine Clarity (Clear) Urine pH (5.0-8.0) Ur Specific [place] (1.003-1.030) Urine Protein (NEGATIVE) mg/dL Urine Glucose (UA) (Normal) mg/dL Urine Ketones (NEGATIVE) mg/dL Urine Blood (NEGATIVE) Urine Nitrate (NEGATIVE) Urine Bilirubin (NEGATIVE) Urine Urobilinogen (0.2-1.0) mg/dL Ur Leukocyte Esterase (Negative) Carlos/uL Urine WBC (Auto) (0-5) /hpf Urine RBC (Auto) (0-3) /hpf Ur Squamous Epith Cells (0-5) /hpf Urine Bacteria (<OCC) 11/22/17 11/22/17 11/22/17 Range/Units 18:08 18:08 18:08 WBC (4.8-10.8) K/uL RBC (4.40-5.90) Mil/uL Hgb (12.0-18.0) g/dL Hct (35.0-51.0) % MCV (80.0-94.0) fL MCH (27.0-31.0) pg MCHC (33.0-37.0) g/dL RDW (11.5-14.5) % Plt Count (130-400) K/uL MPV (7.2-11.7) fL Neut % (Auto) (50.0-75.0) % Lymph % (Auto) (20.0-40.0) % [place] % (Auto) (0.0-10.0) % Eos % (Auto) (0.0-4.0) % Baso % (Auto) (0.0-2.0) % Neut # (Auto) (1.8-7.0) K/uL Lymph # (Auto) (1.0-4.3) K/uL [place] # (Auto) (0.0-0.8) K/uL Eos # (Auto) (0.0-0.7) K/uL Baso # (Auto) (0.0-0.2) K/uL Sodium 136 (132-148) mmol/L Potassium 3.6 (3.6-5.2) mmol/L Chloride 106 (98-107) mmol/L Carbon Dioxide 14 L (22-30) mmol/L Anion Gap 20 (10-20) BUN 85 H (9-20) mg/dL Creatinine 10.3 H* (0.8-1.5) mg/dL Est GFR ( Amer) 6 Est GFR (Non-Af Amer) 5 POC Glucose (mg/dL) (65-110) mg/dL Random Glucose 163 H (75-110) mg/dL Calcium 6.2 L (8.6-10.4) mg/dl Phosphorus (2.5-4.5) mg/dL Magnesium (1.6-2.3) mg/dL Iron 63 (49-181) ug/dL TIBC 185 L (250-450) ug/dL % Saturation 34 (20-55) Ferritin 140.0 ng/mL Total Bilirubin 0.2 (0.2-1.3) mg/dL AST 14 L (17-59) U/L ALT 19 L (21-72) U/L Alkaline Phosphatase 72 (38-126) U/L Total Creatine Kinase 206 H (55-170) U/L Total Protein 5.5 L (6.3-8.3) g/dL Albumin 2.9 L (3.5-5.0) g/dL Globulin 2.6 (2.2-3.9) gm/dL Albumin/Globulin Ratio 1.1 (1.0-2.1) Vitamin B12 (239-931) pg/mL 25-OH Vitamin D Total 35.7 (30.0-100.0) NG/ML Folate ng/mL TSH 3rd Generation (0.46-4.68) mIU/L Urine Color (YELLOW) Urine Clarity (Clear) Urine pH (5.0-8.0) Ur Specific [place] (1.003-1.030) Urine Protein (NEGATIVE) mg/dL Urine Glucose (UA) (Normal) mg/dL Urine Ketones (NEGATIVE) mg/dL Urine Blood (NEGATIVE) Urine Nitrate (NEGATIVE) Urine Bilirubin (NEGATIVE) Urine Urobilinogen (0.2-1.0) mg/dL Ur Leukocyte Esterase (Negative) Carlos/uL Urine WBC (Auto) (0-5) /hpf Urine RBC (Auto) (0-3) /hpf Ur Squamous Epith Cells (0-5) /hpf Urine Bacteria (<OCC) 11/22/17 11/22/17 11/22/17 Range/Units 15:48 13:45 13:45 WBC (4.8-10.8) K/uL RBC (4.40-5.90) Mil/uL Hgb (12.0-18.0) g/dL Hct (35.0-51.0) % MCV (80.0-94.0) fL MCH (27.0-31.0) pg MCHC (33.0-37.0) g/dL RDW (11.5-14.5) % Plt Count (130-400) K/uL MPV (7.2-11.7) fL Neut % (Auto) (50.0-75.0) % Lymph % (Auto) (20.0-40.0) % [place] % (Auto) (0.0-10.0) % Eos % (Auto) (0.0-4.0) % Baso % (Auto) (0.0-2.0) % Neut # (Auto) (1.8-7.0) K/uL Lymph # (Auto) (1.0-4.3) K/uL [place] # (Auto) (0.0-0.8) K/uL Eos # (Auto) (0.0-0.7) K/uL Baso # (Auto) (0.0-0.2) K/uL Sodium (132-148) mmol/L Potassium (3.6-5.2) mmol/L Chloride (98-107) mmol/L Carbon Dioxide (22-30) mmol/L Anion Gap (10-20) BUN (9-20) mg/dL Creatinine (0.8-1.5) mg/dL Est GFR ( Amer) Est GFR (Non-Af Amer) POC Glucose (mg/dL) 177 H (65-110) mg/dL Random Glucose (75-110) mg/dL Calcium (8.6-10.4) mg/dl Phosphorus (2.5-4.5) mg/dL Magnesium (1.6-2.3) mg/dL Iron (49-181) ug/dL TIBC (250-450) ug/dL % Saturation (20-55) Ferritin ng/mL Total Bilirubin (0.2-1.3) mg/dL AST (17-59) U/L ALT (21-72) U/L Alkaline Phosphatase (38-126) U/L Total Creatine Kinase (55-170) U/L Total Protein (6.3-8.3) g/dL Albumin (3.5-5.0) g/dL Globulin (2.2-3.9) gm/dL Albumin/Globulin Ratio (1.0-2.1) Vitamin B12 335 (239-931) pg/mL 25-OH Vitamin D Total (30.0-100.0) NG/ML Folate 6.1 ng/mL TSH 3rd Generation 0.42 L (0.46-4.68) mIU/L Urine Color Yellow (YELLOW) Urine Clarity Hazy (Clear) Urine pH 5.0 (5.0-8.0) Ur Specific [place] 1.005 (1.003-1.030) Urine Protein 1+ H (NEGATIVE) mg/dL Urine Glucose (UA) 1+ H (Normal) mg/dL Urine Ketones Negative (NEGATIVE) mg/dL Urine Blood 3+ H (NEGATIVE) Urine Nitrate Negative (NEGATIVE) Urine Bilirubin Negative (NEGATIVE) Urine Urobilinogen Normal (0.2-1.0) mg/dL Ur Leukocyte Esterase 3+ H (Negative) Carlos/uL Urine WBC (Auto) 41 H (0-5) /hpf Urine RBC (Auto) 82 H (0-3) /hpf Ur Squamous Epith Cells 1 (0-5) /hpf Urine Bacteria Rare (<OCC) 11/22/17 11/22/17 Range/Units 11:33 10:51 WBC (4.8-10.8) K/uL RBC (4.40-5.90) Mil/uL Hgb (12.0-18.0) g/dL Hct (35.0-51.0) % MCV (80.0-94.0) fL MCH (27.0-31.0) pg MCHC (33.0-37.0) g/dL RDW (11.5-14.5) % Plt Count (130-400) K/uL MPV (7.2-11.7) fL Neut % (Auto) (50.0-75.0) % Lymph % (Auto) (20.0-40.0) % [place] % (Auto) (0.0-10.0) % Eos % (Auto) (0.0-4.0) % Baso % (Auto) (0.0-2.0) % Neut # (Auto) (1.8-7.0) K/uL Lymph # (Auto) (1.0-4.3) K/uL [place] # (Auto) (0.0-0.8) K/uL Eos # (Auto) (0.0-0.7) K/uL Baso # (Auto) (0.0-0.2) K/uL Sodium (132-148) mmol/L Potassium (3.6-5.2) mmol/L Chloride (98-107) mmol/L Carbon Dioxide (22-30) mmol/L Anion Gap (10-20) BUN (9-20) mg/dL Creatinine (0.8-1.5) mg/dL Est GFR ( Amer) Est GFR (Non-Af Amer) POC Glucose (mg/dL) 235 H 198 H (65-110) mg/dL Random Glucose (75-110) mg/dL Calcium (8.6-10.4) mg/dl Phosphorus (2.5-4.5) mg/dL Magnesium (1.6-2.3) mg/dL Iron (49-181) ug/dL TIBC (250-450) ug/dL % Saturation (20-55) Ferritin ng/mL Total Bilirubin (0.2-1.3) mg/dL AST (17-59) U/L ALT (21-72) U/L Alkaline Phosphatase (38-126) U/L Total Creatine Kinase (55-170) U/L Total Protein (6.3-8.3) g/dL Albumin (3.5-5.0) g/dL Globulin (2.2-3.9) gm/dL Albumin/Globulin Ratio (1.0-2.1) Vitamin B12 (239-931) pg/mL 25-OH Vitamin D Total (30.0-100.0) NG/ML Folate ng/mL TSH 3rd Generation (0.46-4.68) mIU/L Urine Color (YELLOW) Urine Clarity (Clear) Urine pH (5.0-8.0) Ur Specific [place] (1.003-1.030) Urine Protein (NEGATIVE) mg/dL Urine Glucose (UA) (Normal) mg/dL Urine Ketones (NEGATIVE) mg/dL Urine Blood (NEGATIVE) Urine Nitrate (NEGATIVE) Urine Bilirubin (NEGATIVE) Urine Urobilinogen (0.2-1.0) mg/dL Ur Leukocyte Esterase (Negative) Carlos/uL Urine WBC (Auto) (0-5) /hpf Urine RBC (Auto) (0-3) /hpf Ur Squamous Epith Cells (0-5) /hpf Urine Bacteria (<OCC) Laboratory Results - last 24 hr 11/22/17 11/22/17 11/22/17 10:51 11:33 13:45 WBC RBC Hgb Hct MCV MCH MCHC RDW Plt Count MPV Neut % (Auto) Lymph % (Auto) [place] % (Auto) Eos % (Auto) Baso % (Auto) Neut # (Auto) Lymph # (Auto) [place] # (Auto) Eos # (Auto) Baso # (Auto) Sodium Potassium Chloride Carbon Dioxide Anion Gap BUN Creatinine Est GFR ( Amer) Est GFR (Non-Af Amer) POC Glucose (mg/dL) 198 H 235 H Random Glucose Calcium Phosphorus Magnesium Iron TIBC % Saturation Ferritin Total Bilirubin AST ALT Alkaline Phosphatase Total Creatine Kinase Total Protein Albumin Globulin Albumin/Globulin Ratio Vitamin B12 25-OH Vitamin D Total Folate TSH 3rd Generation Urine Color Yellow Urine Clarity Hazy Urine pH 5.0 Ur Specific [place] 1.005 Urine Protein 1+ H Urine Glucose (UA) 1+ H Urine Ketones Negative Urine Blood 3+ H Urine Nitrate Negative Urine Bilirubin Negative Urine Urobilinogen Normal Ur Leukocyte Esterase 3+ H Urine WBC (Auto) 41 H Urine RBC (Auto) 82 H Ur Squamous Epith Cells 1 Urine Bacteria Rare 0611/22/17 11/22/17 13:45 15:48 18:08 WBC RBC Hgb Hct MCV MCH MCHC RDW Plt Count MPV Neut % (Auto) Lymph % (Auto) [place] % (Auto) Eos % (Auto) Baso % (Auto) Neut # (Auto) Lymph # (Auto) [place] # (Auto) Eos # (Auto) Baso # (Auto) Sodium 136 Potassium 3.6 Chloride 106 Carbon Dioxide 14 L Anion Gap 20 BUN 85 H Creatinine 10.3 H* Est GFR ( Amer) 6 Est GFR (Non-Af Amer) 5 POC Glucose (mg/dL) 177 H Random Glucose 163 H Calcium 6.2 L Phosphorus Magnesium Iron TIBC % Saturation Ferritin 140.0 Total Bilirubin 0.2 AST 14 L ALT 19 L Alkaline Phosphatase 72 Total Creatine Kinase 206 H Total Protein 5.5 L Albumin 2.9 L Globulin 2.6 Albumin/Globulin Ratio 1.1 Vitamin B12 335 25-OH Vitamin D Total Folate 6.1 TSH 3rd Generation 0.42 L Urine Color Urine Clarity Urine pH Ur Specific [place] Urine Protein Urine Glucose (UA) Urine Ketones Urine Blood Urine Nitrate Urine Bilirubin Urine Urobilinogen Ur Leukocyte Esterase Urine WBC (Auto) Urine RBC (Auto) Ur Squamous Epith Cells Urine Bacteria 11/22/17 11/22/17 11/22/17 18:08 18:08 21:31 WBC RBC Hgb Hct MCV MCH MCHC RDW Plt Count MPV Neut % (Auto) Lymph % (Auto) [place] % (Auto) Eos % (Auto) Baso % (Auto) Neut # (Auto) Lymph # (Auto) [place] # (Auto) Eos # (Auto) Baso # (Auto) Sodium Potassium Chloride Carbon Dioxide Anion Gap BUN Creatinine Est GFR ( Amer) Est GFR (Non-Af Amer) POC Glucose (mg/dL) 123 H Random Glucose Calcium Phosphorus Magnesium Iron 63 TIBC 185 L % Saturation 34 Ferritin Total Bilirubin AST ALT Alkaline Phosphatase Total Creatine Kinase Total Protein Albumin Globulin Albumin/Globulin Ratio Vitamin B12 25-OH Vitamin D Total 35.7 Folate TSH 3rd Generation Urine Color Urine Clarity Urine pH Ur Specific [place] Urine Protein Urine Glucose (UA) Urine Ketones Urine Blood Urine Nitrate Urine Bilirubin Urine Urobilinogen Ur Leukocyte Esterase Urine WBC (Auto) Urine RBC (Auto) Ur Squamous Epith Cells Urine Bacteria 11/23/17 11/23/17 06:23 06:28 WBC 11.5 H RBC 2.75 L Hgb 8.4 L Hct 24.7 L MCV 89.8 MCH 30.4 MCHC 33.9 RDW 13.8 Plt Count 193 MPV 10.5 Neut % (Auto) 76.5 H Lymph % (Auto) 12.0 L [place] % (Auto) 8.1 Eos % (Auto) 3.0 Baso % (Auto) 0.4 Neut # (Auto) 8.8 H Lymph # (Auto) 1.4 [place] # (Auto) 0.9 H Eos # (Auto) 0.3 Baso # (Auto) 0.0 Sodium 138 Potassium 2.8 L Chloride 103 Carbon Dioxide 18 L Anion Gap 20 BUN 89 H Creatinine 10.0 H* Est GFR ( Amer) 6 Est GFR (Non-Af Amer) 5 POC Glucose (mg/dL) Random Glucose 104 Calcium 5.8 L* Phosphorus 8.6 H Magnesium 1.4 L Iron TIBC % Saturation Ferritin Total Bilirubin 0.4 AST 14 L ALT 22 Alkaline Phosphatase 66 Total Creatine Kinase Total Protein 5.4 L Albumin 2.9 L Globulin 2.5 Albumin/Globulin Ratio 1.2 Vitamin B12 25-OH Vitamin D Total Folate TSH 3rd Generation Urine Color Urine Clarity Urine pH Ur Specific [place] Urine Protein Urine Glucose (UA) Urine Ketones Urine Blood Urine Nitrate Urine Bilirubin Urine Urobilinogen Ur Leukocyte Esterase Urine WBC (Auto) Urine RBC (Auto) Ur Squamous Epith Cells Urine Bacteria Fingerstick Blood Sugar Results: 144 Critical Care Progress Note - Nutrition Nutrition: Nutrition Category Date Time Status Diabetic [Consistent Carbohydrate] [DIET] Diets 11/22/17 Breakfast Active Assessment/Plan - Assessment and Plan (Free Text) Assessment: This is a 62 year old male with PMHx of CKD, HTN, HLD, T2DM, CAD with PCI intervention (2012) admitted reported having an increase in his renal function numbers, causing a change from metformin to glipizide by PMD x 2 months ago. Patient started feeling nausea, vomiting, abdominal pain, weakness, fatigue x 2 weeks. Prior to admission patient was unable to move, paramedics arrived at the scene and he was found to have sugars of 24. Patient was admitted for acute renal failure, in need of dialysis. Plan: Neuro: GCS 15 AAO x 3 Cardio: A: CAD with PCI (2012) A: HTN, HLD - Resumed ASA, Metoprolol, Crestor Pulm: A: Tobacco Use Disorder - Smoking Cessation encouraged - Nicotine Patch daily GI: A: Constipation - Colace and dulcolax A: Cholelithiasis and distended gallbladder noted on CT Scan - Abdominal US ordered Endo: A: Hypoglycemia (on admission) - Hypoglycemic protocol in place A:T2DM - Accuchecks - HA1C 6.5 - Previously on metformin, instructed by PCP to stop and take Glipizide instead x2 months ago - Carb Consistent Diet Renal: A: MEENA on CKD (stage unknown), now in ARF -- Dr. Balbuena consulted -- Dr. Del Cid consulted for permacath placement - Started on bicarb drip @ 150cc/hr A: Secondary hyperparathyroidism - Calcitriol started daily ID: A: UTI - Afebrile, normotensive, leukocytosis with left shift, no bandemia, lactate 1.0 , procal - UA, UC reordered, washburn cultures - CT chest/ab/pelv: No active pulmonary disease. Clear lungs. Cholelithiasis and distended gallbladder. If clinically indicated, correlation with right upper quadrant ultrasound may be performed. Large exophytic simple cyst in the interpolar region of the right kidney. Extensive nonspecific perinephric fat stranding which may be a sequela of remote infection. - Started Rocephin 1 gram IVP daily Heme/ Onc: A: Anemia of Chronic Disease Prophylaxis: - Protonix - SCDs, Hep Q12 - PT/OT - Will have Permacath placement DW Tamica Sharma DO, PGY-1 <Rubin Sy A - Last Filed: 11/23/17 13:03> CCU Objective - Vital Signs / Intake & Output Vital Signs (Last 4 hours): Vital Signs Pulse Resp BP Pulse Ox 11/23/17 11:01 80 14 96 11/23/17 11:00 80 18 112/86 96 11/23/17 10:00 78 12 110/50 L 95 11/23/17 09:00 98 H 13 115/52 L 95 Intake and Output (Last 8hrs): Intake & Output 11/22/17 11/23/17 11/23/17 22:59 06:59 14:59 Intake Total 1400 1700 1200 Output Total 420 700 Balance 980 1000 1200 Weight 227 lb 11.8 oz Intake: Intake, IV Amount 1200 1200 1200 Left Wrist 1200 1200 900 Right Forearm 300 Oral 200 500 Output: Urine 420 700 Urethral ([place]) 420 700 Other: # Bowel Movements 0 - Medications Active Medications: Active Medications Generic Name Dose Route Start Last Admin Trade Name Freq PRN Reason Stop Dose Admin Aspirin 81 mg 11/22/17 10:00 11/23/17 09:17 Aspirin Chewable PO 81 mg DAILY DOLLY Administration Bisacodyl 10 mg 11/23/17 08:[address] ONCE PRN Constipation Calcitriol 0.5 mcg 11/22/17 10:00 11/23/17 09:13 Rocaltrol PO 0.5 mcg DAILY DOLLY Administration Dextrose 0 ml 11/23/17 11:07 Dextrose 50% Inj IV STAT PRN Hypoglycemia Protocol Protocol Dextrose 0 gm 11/23/17 11:07 Glutose 15 PO ONCE PRN Hypoglycemia Protocol Protocol Docusate Sodium 100 mg 11/23/17 10:00 11/23/17 09:17 Colace PO 100 mg TID DOLLY Administration Glucagon 0 mg 11/23/17 11:07 Glucagen Diagnostic Kit IM STAT PRN Hypoglycemia Protocol Protocol Heparin Sodium (Porcine) 5,000 units 11/22/17 10:00 11/23/17 09:17 Heparin SC 5,000 units Q12 DOLLY Administration Sodium Bicarbonate 150 meq/ 1,000 mls @ 150 mls/hr 11/22/17 05:15 11/23/17 05 :15 Dextrose IV 150 mls/hr .Q6H40M DOLLY Administration Ceftriaxone Sodium 1 gm/ 100 mls @ 100 mls/hr 11/23/17 10:00 11/23/17 11:09 Sodium Chloride IVPB 100 mls/hr DAILY DOLLY Administration Protocol Dextrose 1,000 mls @ 0 mls/hr 11/23/17 11:07 Dextrose 5% In Water 1000 Ml IV .Q0M PRN Hypoglycemia Protocol Protocol Per Protocol Insulin Human Regular 0 unit 11/23/17 11:30 11/23/17 12:06 Novolin R SC 3 u ACHS DOLLY Administration Protocol Metoclopramide HCl 10 mg 11/22/17 11:30 11/23/17 12:08 Reglan PO 10 mg ACHS DOLLY Administration Metoprolol Tartrate 50 mg 11/22/17 10:00 11/23/17 09:17 Lopressor PO 50 mg DAILY DOLLY Administration Nicotine 1 patch 11/22/17 10:00 11/23/17 09:13 Nicoderm Cq TD 1 patch DAILY DOLLY Administration Pantoprazole Sodium 40 mg 11/22/17 10:00 11/23/17 09:17 Protonix Ec Tab PO 40 mg DAILY DOLLY Administration Pneumococcal Polyvalent Vaccine 0.5 ml 11/24/17 10:00 Pneumovax 23 Vaccine IM 11/24/17 10:01 .ONCE ONE Rosuvastatin Calcium 10 mg 11/22/17 22:00 11/22/17 21:26 Crestor PO 10 mg HS DOLLY Administration Sodium Bicarbonate 650 mg 11/22/17 10:00 11/23/17 09:17 Sodium Bicarbonate Tab PO 650 mg TID DOLLY Administration Vitamin B Complex/Vit C/Folic Acid 1 tab 11/23/17 08:00 11/23/17 08:38 Nephro-Avelino PO 1 tab 0800 DOLLY Administration - Patient Studies Lab Studies: Lab Studies 11/23/17 11/23/17 11/23/17 Range/Units 11:27 08:38 08:38 WBC (4.8-10.8) K/uL RBC (4.40-5.90) Mil/uL Hgb (12.0-18.0) g/dL Hct (35.0-51.0) % MCV (80.0-94.0) fL MCH (27.0-31.0) pg MCHC (33.0-37.0) g/dL RDW (11.5-14.5) % Plt Count (130-400) K/uL MPV (7.2-11.7) fL Neut % (Auto) (50.0-75.0) % Lymph % (Auto) (20.0-40.0) % [place] % (Auto) (0.0-10.0) % Eos % (Auto) (0.0-4.0) % Baso % (Auto) (0.0-2.0) % Neut # (Auto) (1.8-7.0) K/uL Lymph # (Auto) (1.0-4.3) K/uL [place] # (Auto) (0.0-0.8) K/uL Eos # (Auto) (0.0-0.7) K/uL Baso # (Auto) (0.0-0.2) K/uL Sodium (132-148) mmol/L Potassium (3.6-5.2) mmol/L Chloride (98-107) mmol/L Carbon Dioxide (22-30) mmol/L Anion Gap (10-20) BUN (9-20) mg/dL Creatinine (0.8-1.5) mg/dL Est GFR ( Amer) Est GFR (Non-Af Amer) POC Glucose (mg/dL) 294 H (65-110) mg/dL Random Glucose (75-110) mg/dL Hemoglobin A1c (4.2-6.5) % Calcium (8.6-10.4) mg/dl Phosphorus (2.5-4.5) mg/dL Magnesium (1.6-2.3) mg/dL Iron (49-181) ug/dL TIBC (250-450) ug/dL % Saturation (20-55) Ferritin ng/mL Total Bilirubin (0.2-1.3) mg/dL AST (17-59) U/L ALT (21-72) U/L Alkaline Phosphatase (38-126) U/L Total Creatine Kinase (55-170) U/L Total Protein (6.3-8.3) g/dL Albumin (3.5-5.0) g/dL Globulin (2.2-3.9) gm/dL Albumin/Globulin Ratio (1.0-2.1) Vitamin B12 (239-931) pg/mL 25-OH Vitamin D Total (30.0-100.0) NG/ML Folate ng/mL TSH 3rd Generation (0.46-4.68) mIU/L Urine Color Colorless (YELLOW) Urine Clarity Clear (Clear) Urine pH 5.0 (5.0-8.0) Ur Specific [place] 1.005 (1.003-1.030) Urine Protein Negative (NEGATIVE) mg/dL Urine Glucose (UA) 1+ H (Normal) mg/dL Urine Ketones Negative (NEGATIVE) mg/dL Urine Blood 1+ H (NEGATIVE) Urine Nitrate Negative (NEGATIVE) Urine Bilirubin Negative (NEGATIVE) Urine Urobilinogen Normal (0.2-1.0) mg/dL Ur Leukocyte Esterase Neg (Negative) [place]/uL Urine WBC (Auto) 1 (0-5) /hpf Urine RBC (Auto) 11 H (0-3) /hpf Ur Squamous Epith Cells (0-5) /hpf Urine Bacteria Rare (<OCC) Blood Type AB NEGATIVE Blood Type Confirm AB NEGATIVE Antibody Screen Negative 11/23/17 11/23/17 11/23/17 Range/Units 07:35 06:28 06:23 WBC 11.5 H (4.8-10.8) K/uL RBC 2.75 L (4.40-5.90) Mil/uL Hgb 8.4 L (12.0-18.0) g/dL Hct 24.7 L (35.0-51.0) % MCV 89.8 (80.0-94.0) fL MCH 30.4 (27.0-31.0) pg MCHC 33.9 (33.0-37.0) g/dL RDW 13.8 (11.5-14.5) % Plt Count 193 (130-400) K/uL MPV 10.5 (7.2-11.7) fL Neut % (Auto) 76.5 H (50.0-75.0) % Lymph % (Auto) 12.0 L (20.0-40.0) % [place] % (Auto) 8.1 (0.0-10.0) % Eos % (Auto) 3.0 (0.0-4.0) % Baso % (Auto) 0.4 (0.0-2.0) % Neut # (Auto) 8.8 H (1.8-7.0) K/uL Lymph # (Auto) 1.4 (1.0-4.3) K/uL [place] # (Auto) 0.9 H (0.0-0.8) K/uL Eos # (Auto) 0.3 (0.0-0.7) K/uL Baso # (Auto) 0.0 (0.0-0.2) K/uL Sodium 138 (132-148) mmol/L Potassium 2.8 L (3.6-5.2) mmol/L Chloride 103 (98-107) mmol/L Carbon Dioxide 18 L (22-30) mmol/L Anion Gap 20 (10-20) BUN 89 H (9-20) mg/dL Creatinine 10.0 H* (0.8-1.5) mg/dL Est GFR ( Amer) 6 Est GFR (Non-Af Amer) 5 POC Glucose (mg/dL) 113 H (65-110) mg/dL Random Glucose 104 (75-110) mg/dL Hemoglobin A1c (4.2-6.5) % Calcium 5.8 L* (8.6-10.4) mg/dl Phosphorus 8.6 H (2.5-4.5) mg/dL Magnesium 1.4 L (1.6-2.3) mg/dL Iron (49-181) ug/dL TIBC (250-450) ug/dL % Saturation (20-55) Ferritin ng/mL Total Bilirubin 0.4 (0.2-1.3) mg/dL AST 14 L (17-59) U/L ALT 22 (21-72) U/L Alkaline Phosphatase 66 (38-126) U/L Total Creatine Kinase (55-170) U/L Total Protein 5.4 L (6.3-8.3) g/dL Albumin 2.9 L (3.5-5.0) g/dL Globulin 2.5 (2.2-3.9) gm/dL Albumin/Globulin Ratio 1.2 (1.0-2.1) Vitamin B12 (239-931) pg/mL 25-OH Vitamin D Total (30.0-100.0) NG/ML Folate ng/mL TSH 3rd Generation (0.46-4.68) mIU/L Urine Color (YELLOW) Urine Clarity (Clear) Urine pH (5.0-8.0) Ur Specific [place] (1.003-1.030) Urine Protein (NEGATIVE) mg/dL Urine Glucose (UA) (Normal) mg/dL Urine Ketones (NEGATIVE) mg/dL Urine Blood (NEGATIVE) Urine Nitrate (NEGATIVE) Urine Bilirubin (NEGATIVE) Urine Urobilinogen (0.2-1.0) mg/dL Ur Leukocyte Esterase (Negative) [place]/uL Urine WBC (Auto) (0-5) /hpf Urine RBC (Auto) (0-3) /hpf Ur Squamous Epith Cells (0-5) /hpf Urine Bacteria (<OCC) Blood Type Blood Type Confirm Antibody Screen 11/22/17 11/22/17 11/22/17 Range/Units 21:31 18:08 18:08 WBC (4.8-10.8) K/uL RBC (4.40-5.90) Mil/uL Hgb (12.0-18.0) g/dL Hct (35.0-51.0) % MCV (80.0-94.0) fL MCH (27.0-31.0) pg MCHC (33.0-37.0) g/dL RDW (11.5-14.5) % Plt Count (130-400) K/uL MPV (7.2-11.7) fL Neut % (Auto) (50.0-75.0) % Lymph % (Auto) (20.0-40.0) % [place] % (Auto) (0.0-10.0) % Eos % (Auto) (0.0-4.0) % Baso % (Auto) (0.0-2.0) % Neut # (Auto) (1.8-7.0) K/uL Lymph # (Auto) (1.0-4.3) K/uL [place] # (Auto) (0.0-0.8) K/uL Eos # (Auto) (0.0-0.7) K/uL Baso # (Auto) (0.0-0.2) K/uL Sodium (132-148) mmol/L Potassium (3.6-5.2) mmol/L Chloride (98-107) mmol/L Carbon Dioxide (22-30) mmol/L Anion Gap (10-20) BUN (9-20) mg/dL Creatinine (0.8-1.5) mg/dL Est GFR ( Amer) Est GFR (Non-Af Amer) POC Glucose (mg/dL) 123 H (65-110) mg/dL Random Glucose (75-110) mg/dL Hemoglobin A1c (4.2-6.5) % Calcium (8.6-10.4) mg/dl Phosphorus (2.5-4.5) mg/dL Magnesium (1.6-2.3) mg/dL Iron 63 (49-181) ug/dL TIBC 185 L (250-450) ug/dL % Saturation 34 (20-55) Ferritin ng/mL Total Bilirubin (0.2-1.3) mg/dL AST (17-59) U/L ALT (21-72) U/L Alkaline Phosphatase (38-126) U/L Total Creatine Kinase (55-170) U/L Total Protein (6.3-8.3) g/dL Albumin (3.5-5.0) g/dL Globulin (2.2-3.9) gm/dL Albumin/Globulin Ratio (1.0-2.1) Vitamin B12 (239-931) pg/mL 25-OH Vitamin D Total 35.7 (30.0-100.0) NG/ML Folate ng/mL TSH 3rd Generation (0.46-4.68) mIU/L Urine Color (YELLOW) Urine Clarity (Clear) Urine pH (5.0-8.0) Ur Specific [place] (1.003-1.030) Urine Protein (NEGATIVE) mg/dL Urine Glucose (UA) (Normal) mg/dL Urine Ketones (NEGATIVE) mg/dL Urine Blood (NEGATIVE) Urine Nitrate (NEGATIVE) Urine Bilirubin (NEGATIVE) Urine Urobilinogen (0.2-1.0) mg/dL Ur Leukocyte Esterase (Negative) [place]/uL Urine WBC (Auto) (0-5) /hpf Urine RBC (Auto) (0-3) /hpf Ur Squamous Epith Cells (0-5) /hpf Urine Bacteria (<OCC) Blood Type Blood Type Confirm Antibody Screen 11/22/17 11/22/17 11/22/17 Range/Units 18:08 15:48 13:45 WBC (4.8-10.8) K/uL RBC (4.40-5.90) Mil/uL Hgb (12.0-18.0) g/dL Hct (35.0-51.0) % MCV (80.0-94.0) fL MCH (27.0-31.0) pg MCHC (33.0-37.0) g/dL RDW (11.5-14.5) % Plt Count (130-400) K/uL MPV (7.2-11.7) fL Neut % (Auto) (50.0-75.0) % Lymph % (Auto) (20.0-40.0) % [place] % (Auto) (0.0-10.0) % Eos % (Auto) (0.0-4.0) % Baso % (Auto) (0.0-2.0) % Neut # (Auto) (1.8-7.0) K/uL Lymph # (Auto) (1.0-4.3) K/uL [place] # (Auto) (0.0-0.8) K/uL Eos # (Auto) (0.0-0.7) K/uL Baso # (Auto) (0.0-0.2) K/uL Sodium 136 (132-148) mmol/L Potassium 3.6 (3.6-5.2) mmol/L Chloride 106 (98-107) mmol/L Carbon Dioxide 14 L (22-30) mmol/L Anion Gap 20 (10-20) BUN 85 H (9-20) mg/dL Creatinine 10.3 H* (0.8-1.5) mg/dL Est GFR ( Amer) 6 Est GFR (Non-Af Amer) 5 POC Glucose (mg/dL) 177 H (65-110) mg/dL Random Glucose 163 H (75-110) mg/dL Hemoglobin A1c (4.2-6.5) % Calcium 6.2 L (8.6-10.4) mg/dl Phosphorus (2.5-4.5) mg/dL Magnesium (1.6-2.3) mg/dL Iron (49-181) ug/dL TIBC (250-450) ug/dL % Saturation (20-55) Ferritin 140.0 ng/mL Total Bilirubin 0.2 (0.2-1.3) mg/dL AST 14 L (17-59) U/L ALT 19 L (21-72) U/L Alkaline Phosphatase 72 (38-126) U/L Total Creatine Kinase 206 H (55-170) U/L Total Protein 5.5 L (6.3-8.3) g/dL Albumin 2.9 L (3.5-5.0) g/dL Globulin 2.6 (2.2-3.9) gm/dL Albumin/Globulin Ratio 1.1 (1.0-2.1) Vitamin B12 335 (239-931) pg/mL 25-OH Vitamin D Total (30.0-100.0) NG/ML Folate 6.1 ng/mL TSH 3rd Generation 0.42 L (0.46-4.68) mIU/L Urine Color (YELLOW) Urine Clarity (Clear) Urine pH (5.0-8.0) Ur Specific [place] (1.003-1.030) Urine Protein (NEGATIVE) mg/dL Urine Glucose (UA) (Normal) mg/dL Urine Ketones (NEGATIVE) mg/dL Urine Blood (NEGATIVE) Urine Nitrate (NEGATIVE) Urine Bilirubin (NEGATIVE) Urine Urobilinogen (0.2-1.0) mg/dL Ur Leukocyte Esterase (Negative) [place]/uL Urine WBC (Auto) (0-5) /hpf Urine RBC (Auto) (0-3) /hpf Ur Squamous Epith Cells (0-5) /hpf Urine Bacteria (<OCC) Blood Type Blood Type Confirm Antibody Screen 11/22/17 11/22/17 Range/Units 13:45 13:45 WBC (4.8-10.8) K/uL RBC (4.40-5.90) Mil/uL Hgb (12.0-18.0) g/dL Hct (35.0-51.0) % MCV (80.0-94.0) fL MCH (27.0-31.0) pg MCHC (33.0-37.0) g/dL RDW (11.5-14.5) % Plt Count (130-400) K/uL MPV (7.2-11.7) fL Neut % (Auto) (50.0-75.0) % Lymph % (Auto) (20.0-40.0) % [place] % (Auto) (0.0-10.0) % Eos % (Auto) (0.0-4.0) % Baso % (Auto) (0.0-2.0) % Neut # (Auto) (1.8-7.0) K/uL Lymph # (Auto) (1.0-4.3) K/uL [place] # (Auto) (0.0-0.8) K/uL Eos # (Auto) (0.0-0.7) K/uL Baso # (Auto) (0.0-0.2) K/uL Sodium (132-148) mmol/L Potassium (3.6-5.2) mmol/L Chloride (98-107) mmol/L Carbon Dioxide (22-30) mmol/L Anion Gap (10-20) BUN (9-20) mg/dL Creatinine (0.8-1.5) mg/dL Est GFR ( Amer) Est GFR (Non-Af Amer) POC Glucose (mg/dL) (65-110) mg/dL Random Glucose (75-110) mg/dL Hemoglobin A1c 6.5 (4.2-6.5) % Calcium (8.6-10.4) mg/dl Phosphorus (2.5-4.5) mg/dL Magnesium (1.6-2.3) mg/dL Iron (49-181) ug/dL TIBC (250-450) ug/dL % Saturation (20-55) Ferritin ng/mL Total Bilirubin (0.2-1.3) mg/dL AST (17-59) U/L ALT (21-72) U/L Alkaline Phosphatase (38-126) U/L Total Creatine Kinase (55-170) U/L Total Protein (6.3-8.3) g/dL Albumin (3.5-5.0) g/dL Globulin (2.2-3.9) gm/dL Albumin/Globulin Ratio (1.0-2.1) Vitamin B12 (239-931) pg/mL 25-OH Vitamin D Total (30.0-100.0) NG/ML Folate ng/mL TSH 3rd Generation (0.46-4.68) mIU/L Urine Color Yellow (YELLOW) Urine Clarity Hazy (Clear) Urine pH 5.0 (5.0-8.0) Ur Specific [place] 1.005 (1.003-1.030) Urine Protein 1+ H (NEGATIVE) mg/dL Urine Glucose (UA) 1+ H (Normal) mg/dL Urine Ketones Negative (NEGATIVE) mg/dL Urine Blood 3+ H (NEGATIVE) Urine Nitrate Negative (NEGATIVE) Urine Bilirubin Negative (NEGATIVE) Urine Urobilinogen Normal (0.2-1.0) mg/dL Ur Leukocyte Esterase 3+ H (Negative) [place]/uL Urine WBC (Auto) 41 H (0-5) /hpf Urine RBC (Auto) 82 H (0-3) /hpf Ur Squamous Epith Cells 1 (0-5) /hpf Urine Bacteria Rare (<OCC) Blood Type Blood Type Confirm Antibody Screen Laboratory Results - last 24 hr 06/11/22/17 11/22/17 13:45 13:45 13:45 WBC RBC Hgb Hct MCV MCH MCHC RDW Plt Count MPV Neut % (Auto) Lymph % (Auto) [place] % (Auto) Eos % (Auto) Baso % (Auto) Neut # (Auto) Lymph # (Auto) [place] # (Auto) Eos # (Auto) Baso # (Auto) Sodium Potassium Chloride Carbon Dioxide Anion Gap BUN Creatinine Est GFR ( Amer) Est GFR (Non-Af Amer) POC Glucose (mg/dL) Random Glucose Hemoglobin A1c 6.5 Calcium Phosphorus Magnesium Iron TIBC % Saturation Ferritin Total Bilirubin AST ALT Alkaline Phosphatase Total Creatine Kinase Total Protein Albumin Globulin Albumin/Globulin Ratio Vitamin B12 335 25-OH Vitamin D Total Folate 6.1 TSH 3rd Generation 0.42 L Urine Color Yellow Urine Clarity Hazy Urine pH 5.0 Ur Specific [place] 1.005 Urine Protein 1+ H Urine Glucose (UA) 1+ H Urine Ketones Negative Urine Blood 3+ H Urine Nitrate Negative Urine Bilirubin Negative Urine Urobilinogen Normal Ur Leukocyte Esterase 3+ H Urine WBC (Auto) 41 H Urine RBC (Auto) 82 H Ur Squamous Epith Cells 1 Urine Bacteria Rare Blood Type Blood Type Confirm Antibody Screen 11/22/17 11/22/17 11/22/17 15:48 18:08 18:08 WBC RBC Hgb Hct MCV MCH MCHC RDW Plt Count MPV Neut % (Auto) Lymph % (Auto) [place] % (Auto) Eos % (Auto) Baso % (Auto) Neut # (Auto) Lymph # (Auto) [place] # (Auto) Eos # (Auto) Baso # (Auto) Sodium 136 Potassium 3.6 Chloride 106 Carbon Dioxide 14 L Anion Gap 20 BUN 85 H Creatinine 10.3 H* Est GFR ( Amer) 6 Est GFR (Non-Af Amer) 5 POC Glucose (mg/dL) 177 H Random Glucose 163 H Hemoglobin A1c Calcium 6.2 L Phosphorus Magnesium Iron TIBC % Saturation Ferritin 140.0 Total Bilirubin 0.2 AST 14 L ALT 19 L Alkaline Phosphatase 72 Total Creatine Kinase 206 H Total Protein 5.5 L Albumin 2.9 L Globulin 2.6 Albumin/Globulin Ratio 1.1 Vitamin B12 25-OH Vitamin D Total 35.7 Folate TSH 3rd Generation Urine Color Urine Clarity Urine pH Ur Specific [place] Urine Protein Urine Glucose (UA) Urine Ketones Urine Blood Urine Nitrate Urine Bilirubin Urine Urobilinogen Ur Leukocyte Esterase Urine WBC (Auto) Urine RBC (Auto) Ur Squamous Epith Cells Urine Bacteria Blood Type Blood Type Confirm Antibody Screen 11/22/17 11/22/17 11/23/17 18:08 21:31 06:23 WBC RBC Hgb Hct MCV MCH MCHC RDW Plt Count MPV Neut % (Auto) Lymph % (Auto) [place] % (Auto) Eos % (Auto) Baso % (Auto) Neut # (Auto) Lymph # (Auto) [place] # (Auto) Eos # (Auto) Baso # (Auto) Sodium 138 Potassium 2.8 L Chloride 103 Carbon Dioxide 18 L Anion Gap 20 BUN 89 H Creatinine 10.0 H* Est GFR ( Amer) 6 Est GFR (Non-Af Amer) 5 POC Glucose (mg/dL) 123 H Random Glucose 104 Hemoglobin A1c Calcium 5.8 L* Phosphorus 8.6 H Magnesium 1.4 L Iron 63 TIBC 185 L % Saturation 34 Ferritin Total Bilirubin 0.4 AST 14 L ALT 22 Alkaline Phosphatase 66 Total Creatine Kinase Total Protein 5.4 L Albumin 2.9 L Globulin 2.5 Albumin/Globulin Ratio 1.2 Vitamin B12 25-OH Vitamin D Total Folate TSH 3rd Generation Urine Color Urine Clarity Urine pH Ur Specific [place] Urine Protein Urine Glucose (UA) Urine Ketones Urine Blood Urine Nitrate Urine Bilirubin Urine Urobilinogen Ur Leukocyte Esterase Urine WBC (Auto) Urine RBC (Auto) Ur Squamous Epith Cells Urine Bacteria Blood Type Blood Type Confirm Antibody Screen 11/23/17 11/23/17 11/23/17 06:28 07:35 08:38 WBC 11.5 H RBC 2.75 L Hgb 8.4 L Hct 24.7 L MCV 89.8 MCH 30.4 MCHC 33.9 RDW 13.8 Plt Count 193 MPV 10.5 Neut % (Auto) 76.5 H Lymph % (Auto) 12.0 L [place] % (Auto) 8.1 Eos % (Auto) 3.0 Baso % (Auto) 0.4 Neut # (Auto) 8.8 H Lymph # (Auto) 1.4 [place] # (Auto) 0.9 H Eos # (Auto) 0.3 Baso # (Auto) 0.0 Sodium Potassium Chloride Carbon Dioxide Anion Gap BUN Creatinine Est GFR ( Amer) Est GFR (Non-Af Amer) POC Glucose (mg/dL) 113 H Random Glucose Hemoglobin A1c Calcium Phosphorus Magnesium Iron TIBC % Saturation Ferritin Total Bilirubin AST ALT Alkaline Phosphatase Total Creatine Kinase Total Protein Albumin Globulin Albumin/Globulin Ratio Vitamin B12 25-OH Vitamin D Total Folate TSH 3rd Generation Urine Color Colorless Urine Clarity Clear Urine pH 5.0 Ur Specific [place] 1.005 Urine Protein Negative Urine Glucose (UA) 1+ H Urine Ketones Negative Urine Blood 1+ H Urine Nitrate Negative Urine Bilirubin Negative Urine Urobilinogen Normal Ur Leukocyte Esterase Neg Urine WBC (Auto) 1 Urine RBC (Auto) 11 H Ur Squamous Epith Cells Urine Bacteria Rare Blood Type Blood Type Confirm Antibody Screen 11/23/17 11/23/17 08:38 11:27 WBC RBC Hgb Hct MCV MCH MCHC RDW Plt Count MPV Neut % (Auto) Lymph % (Auto) [place] % (Auto) Eos % (Auto) Baso % (Auto) Neut # (Auto) Lymph # (Auto) [place] # (Auto) Eos # (Auto) Baso # (Auto) Sodium Potassium Chloride Carbon Dioxide Anion Gap BUN Creatinine Est GFR ( Amer) Est GFR (Non-Af Amer) POC Glucose (mg/dL) 294 H Random Glucose Hemoglobin A1c Calcium Phosphorus Magnesium Iron TIBC % Saturation Ferritin Total Bilirubin AST ALT Alkaline Phosphatase Total Creatine Kinase Total Protein Albumin Globulin Albumin/Globulin Ratio Vitamin B12 25-OH Vitamin D Total Folate TSH 3rd Generation Urine Color Urine Clarity Urine pH Ur Specific [place] Urine Protein Urine Glucose (UA) Urine Ketones Urine Blood Urine Nitrate Urine Bilirubin Urine Urobilinogen Ur Leukocyte Esterase Urine WBC (Auto) Urine RBC (Auto) Ur Squamous Epith Cells Urine Bacteria Blood Type AB NEGATIVE Blood Type Confirm AB NEGATIVE Antibody Screen Negative Critical Care Progress Note - Nutrition Nutrition: Nutrition Category Date Time Status Consistent Carbohydrate [DIET] Diets 11/23/17 Dinner Active NPO Diet [DIET] Diets 11/23/17 Lunch Active Attending/Attestation - Attestation I have personally seen and examined this patient.: Yes I have fully participated in the care of the patient.: Yes I have reviewed all pertinent clinical information: Yes Notes (Text): 11/23/17 12:57 CCM No new complaint denes pain or sob Alert ,nad Neck- no jvdlungs- bilat bs Heawrt-rr aBd- benign eXt- nontender Labs,r-[id number] A&P MEENA s/p Hypoglycemia DM CAD/stents UTI Spastic Paralysis of LE(intermittent) cont meds start Ab for UTI Nephrology f/u re HD/ timing maintain optimal lytes DVT prophylaxis BP and BS control d/c weinberg whe OK with Nephrology d/w housestaff
[2017-11-23] MEDS: Magnesium Sulfate 1 gm in D5W 1 GM/100 ML BAG IVPB SCH ×2 (08:34→09:16)
[2017-11-23] MEDS: Multivitamin Vitamin B Complex (Nephro-Vite) Tab PO SCH (08:38)
[2017-11-23 09:13] LABS: URINE BACTERIA RARE (<OCC); URINE BILIRUBIN NEGATIVE (NEGATIVE); URINE BLOOD 1+ (NEGATIVE); URINE CLARITY Clear (Clear); URINE COLOR Colorless (YELLOW); URINE GLUCOSE (UA) 1+ mg/dL (Normal); URINE LEUKOCYTE ESTERASE NEG Leu/uL (Negative); URINE PROTEIN NEGATIVE (NEGATIVE); URINE UROBILINOGEN NORMAL mg/dL (0.2-1.0)
[2017-11-23] MEDS: Pantoprazole 40 mg EC Tab PO SCH (09:17)
[2017-11-23] MEDS ORDERED: Glucagon Recombinant 1 mg Inj IM PRN (11:07)
[2017-11-23] MEDS ORDERED: Dextrose 50% SYRINGE Inj (50 ml) IV PRN (11:07)
[2017-11-23] MEDS: (Novolin R) Insulin Human Regular 100 units/ml vial SC SCH ×3 (12:06→21:26)
[2017-11-23 13:05] LABS: INR 1.1; PROTHROMBIN TIME 12.1 SECONDS (9.7-12.2)
[2017-11-23 15:27] LABS: CALCIUM 5.6 mg/dl (8.6-10.4)
[2017-11-23] MEDS: Ferric Sodium Gluconat Complex 62.5 mg/5 ml Vial IVPB SCH (15:30)
--- NOTE | 2017-11-23 15:32 | CP.PCM.CON ---
<José MigueljaxGuilherme - Last Filed: 11/23/17 15:29> History of Present Illness - History of Present Illness History of Present Illness: General Surgery Consult Note for Dr. Del Cid This is a 62M with a PMH of HTN and DM. He reports declining renal function over the past few years he said that earlie rthis year his Cr increased from 2-> 11. He was admitted to [facility] due to hypoglycemia and transferred to [facility] for dialysis. He denies any dialysis in the past. He reports he is feeling better. He denies any chest pain or SOB. PMH: HTN, HLD, DM, CAD w/stent, PR (2012), parapresis PSH: left knee surgery (1986), Cardiac stent (2012) All: NKDA Social: 40 pack years, denies ETOH or drugs Review of Systems - Review of Systems All systems: reviewed and no additional remarkable complaints except - Constitutional Constitutional: absent: Anorexia, Chills - EENT Eyes: absent: Blind Spots, Change in Vision Ears: absent: Ear Discharge, Tinnitus - Cardiovascular Cardiovascular: Chest Pain, Dyspnea - Respiratory Respiratory: Cough, Dyspnea, Chest Congestion - Genitourinary Genitourinary: absent: Difficulty Urinating, Dysuria - Musculoskeletal Musculoskeletal: absent: Arthralgias, Atrophy Past Patient History - Infectious Disease Hx of Infectious Diseases: None - Past Social History Smoking Status: Heavy Smoker > 10 Cigarettes Daily - CARDIAC Hx Congestive Heart Failure: Yes Hx Hypercholesterolemia: Yes Hx Hypertension: Yes - RENAL Other/Comment: MEENA - ENDOCRINE/METABOLIC Hx Diabetes Mellitus Type 2: Yes - MUSCULOSKELETAL/RHEUMATOLOGICAL Hx Falls: Yes - PSYCHIATRIC Hx Substance Use: No - SURGICAL HISTORY Hx Surgeries: Yes Hx Coronary Stent: Yes - ANESTHESIA Hx Anesthesia: Yes Hx Anesthesia Reactions: No Meds Allergies/Adverse Reactions: Allergies Allergy/AdvReac Type Severity Reaction Status Date / Time No Known Allergies Allergy Verified 11/22/17 00:10 - Medications Medications: Current Medications Aspirin (Aspirin Chewable) 81 mg PO DAILY [facility] Last Admin: 11/23/17 09:17 Dose: 81 mg Bisacodyl (Dulcolax) 10 mg IN ONCE PRN PRN Reason: Constipation Calcium Acetate (Phoslo) 1,334 mg PO TID [facility] Dextrose (Dextrose 50% Inj) 0 ml IV STAT PRN; Protocol PRN Reason: Hypoglycemia Protocol Dextrose (Glutose 15) 0 gm PO ONCE PRN; Protocol PRN Reason: Hypoglycemia Protocol Docusate Sodium (Colace) 100 mg PO TID [facility] Last Admin: 11/23/17 13:35 Dose: Not Given Epoetin Jed (Procrit) 10,000 unit SC MWF [facility] Ferric Sodium Gluconate Complex (Ferrlecit) 125 mg IVPB DAILY [facility] Stop: 11/30/17 10:01 Glucagon (Glucagen Diagnostic Kit) 0 mg IM STAT PRN; Protocol PRN Reason: Hypoglycemia Protocol Heparin Sodium (Porcine) (Heparin) 5,000 units SC Q12 [facility] Last Admin: 11/23/17 09:17 Dose: 5,000 units Sodium Bicarbonate 150 meq/ (Dextrose) 1,000 mls @ 150 mls/hr IV .Q6H40M [facility] Last Admin: 11/23/17 13:34 Dose: 150 mls/hr Ceftriaxone Sodium 1 gm/ (Sodium Chloride) 100 mls @ 100 mls/hr IVPB DAILY [facility] PRN Reason: Protocol Last Admin: 11/23/17 11:09 Dose: 100 mls/hr Dextrose (Dextrose 5% In Water 1000 Ml) 1,000 mls @ 0 mls/hr IV .Q0M PRN; Protocol; Per Protocol PRN Reason: Hypoglycemia Protocol Calcium Gluconate 2,000 mg/ (Sodium Chloride) 270 mls @ 0 mls/hr IVPB ONCE ONE PRN Reason: Per Protocol Stop: 11/23/17 15:31 Insulin Human Regular (Novolin R) [address] [facility] PRN Reason: Protocol Last Admin: 11/23/17 12:06 Dose: 3 u Metoclopramide HCl (Reglan) 10 mg PO ACHS [facility] Last Admin: 11/23/17 12:08 Dose: 10 mg Metoprolol Tartrate (Lopressor) 50 mg PO DAILY [facility] Last Admin: 11/23/17 09:17 Dose: 50 mg Nicotine (Nicoderm Cq) 1 patch TD DAILY [facility] Last Admin: 11/23/17 09:13 Dose: 1 patch Pantoprazole Sodium (Protonix Ec Tab) 40 mg PO DAILY [facility] Last Admin: 11/23/17 09:17 Dose: 40 mg Pneumococcal Polyvalent Vaccine (Pneumovax 23 Vaccine) 0.5 ml IM .ONCE ONE Stop: 11/24/17 10:01 Rosuvastatin Calcium (Crestor) 10 mg PO HS [facility] Last Admin: 11/22/17 21:26 Dose: 10 mg Sodium Bicarbonate (Sodium Bicarbonate Tab) 650 mg PO TID [facility] Last Admin: 11/23/17 13:35 Dose: Not Given Vitamin B Complex/Vit C/Folic Acid (Nephro-Avelino) 1 tab PO 0800 [facility] Last Admin: 11/23/17 08:38 Dose: 1 tab Physical Exam - Constitutional Appears: Non-toxic, No Acute Distress - Head Exam Head Exam: ATRAUMATIC, NORMOCEPHALIC - Eye Exam Eye Exam: EOMI, Normal appearance - ENT Exam ENT Exam: Mucous Membranes Moist - Respiratory Exam Respiratory Exam: NORMAL BREATHING PATTERN - Cardiovascular Exam Cardiovascular Exam: +S1, +S2 - GI/Abdominal Exam GI & Abdominal Exam: Soft. absent: Distended, Firm, Guarding, Hernia - Neurological Exam Neurological exam: Alert, Oriented x3 - Psychiatric Exam Psychiatric exam: Normal Affect, Normal Mood - Skin Skin Exam: Dry, Intact Results - Vital Signs Recent Vital Signs: Last Vital Signs Temp 98.4 F 11/23/17 12:00 Pulse 89 11/23/17 14:01 Resp 18 11/23/17 14:01 BP 126/60 11/23/17 14:00 Pulse Ox 96 11/23/17 14:01 - Labs Result Diagrams: 11/23/17 06:28 11/23/17 15:03 Labs: Laboratory Results - last 24 hr 11/22/17 11/22/17 11/22/17 13:45 15:48 18:08 WBC RBC Hgb Hct MCV MCH MCHC RDW Plt Count MPV Neut % (Auto) Lymph % (Auto) [place] % (Auto) Eos % (Auto) Baso % (Auto) Neut # (Auto) Lymph # (Auto) [place] # (Auto) Eos # (Auto) Baso # (Auto) PT INR APTT Sodium 136 Potassium 3.6 Chloride 106 Carbon Dioxide 14 L Anion Gap 20 BUN 85 H Creatinine 10.3 H* Est GFR ( Amer) 6 Est GFR (Non-Af Amer) 5 POC Glucose (mg/dL) 177 H Random Glucose 163 H Hemoglobin A1c 6.5 Calcium 6.2 L Phosphorus Magnesium Iron TIBC % Saturation Ferritin 140.0 Total Bilirubin 0.2 AST 14 L ALT 19 L Alkaline Phosphatase 72 Total Creatine Kinase 206 H Total Protein 5.5 L Albumin 2.9 L Globulin 2.6 Albumin/Globulin Ratio 1.1 25-OH Vitamin D Total Urine Color Urine Clarity Urine pH Ur Specific [place] Urine Protein Urine Glucose (UA) Urine Ketones Urine Blood Urine Nitrate Urine Bilirubin Urine Urobilinogen Ur Leukocyte Esterase Urine WBC (Auto) Urine RBC (Auto) Urine Bacteria Blood Type Blood Type Confirm Antibody Screen 11/22/17 11/22/17 11/22/17 18:08 18:08 21:31 WBC RBC Hgb Hct MCV MCH MCHC RDW Plt Count MPV Neut % (Auto) Lymph % (Auto) [place] % (Auto) Eos % (Auto) Baso % (Auto) Neut # (Auto) Lymph # (Auto) [place] # (Auto) Eos # (Auto) Baso # (Auto) PT INR APTT Sodium Potassium Chloride Carbon Dioxide Anion Gap BUN Creatinine Est GFR ( Amer) Est GFR (Non-Af Amer) POC Glucose (mg/dL) 123 H Random Glucose Hemoglobin A1c Calcium Phosphorus Magnesium Iron 63 TIBC 185 L % Saturation 34 Ferritin Total Bilirubin AST ALT Alkaline Phosphatase Total Creatine Kinase Total Protein Albumin Globulin Albumin/Globulin Ratio 25-OH Vitamin D Total 35.7 Urine Color Urine Clarity Urine pH Ur Specific [place] Urine Protein Urine Glucose (UA) Urine Ketones Urine Blood Urine Nitrate Urine Bilirubin Urine Urobilinogen Ur Leukocyte Esterase Urine WBC (Auto) Urine RBC (Auto) Urine Bacteria Blood Type Blood Type Confirm Antibody Screen 11/23/17 11/23/17 11/23/17 06:23 06:28 07:35 WBC 11.5 H RBC 2.75 L Hgb 8.4 L Hct 24.7 L MCV 89.8 MCH 30.4 MCHC 33.9 RDW 13.8 Plt Count 193 MPV 10.5 Neut % (Auto) 76.5 H Lymph % (Auto) 12.0 L [place] % (Auto) 8.1 Eos % (Auto) 3.0 Baso % (Auto) 0.4 Neut # (Auto) 8.8 H Lymph # (Auto) 1.4 [place] # (Auto) 0.9 H Eos # (Auto) 0.3 Baso # (Auto) 0.0 PT INR APTT Sodium 138 Potassium 2.8 L Chloride 103 Carbon Dioxide 18 L Anion Gap 20 BUN 89 H Creatinine 10.0 H* Est GFR ( Amer) 6 Est GFR (Non-Af Amer) 5 POC Glucose (mg/dL) 113 H Random Glucose 104 Hemoglobin A1c Calcium 5.8 L* Phosphorus 8.6 H Magnesium 1.4 L Iron TIBC % Saturation Ferritin Total Bilirubin 0.4 AST 14 L ALT 22 Alkaline Phosphatase 66 Total Creatine Kinase Total Protein 5.4 L Albumin 2.9 L Globulin 2.5 Albumin/Globulin Ratio 1.2 25-OH Vitamin D Total Urine Color Urine Clarity Urine pH Ur Specific [place] Urine Protein Urine Glucose (UA) Urine Ketones Urine Blood Urine Nitrate Urine Bilirubin Urine Urobilinogen Ur Leukocyte Esterase Urine WBC (Auto) Urine RBC (Auto) Urine Bacteria Blood Type Blood Type Confirm Antibody Screen 11/23/17 11/23/17 11/23/17 08:38 08:38 11:27 WBC RBC Hgb Hct MCV MCH MCHC RDW Plt Count MPV Neut % (Auto) Lymph % (Auto) [place] % (Auto) Eos % (Auto) Baso % (Auto) Neut # (Auto) Lymph # (Auto) [place] # (Auto) Eos # (Auto) Baso # (Auto) PT INR APTT Sodium Potassium Chloride Carbon Dioxide Anion Gap BUN Creatinine Est GFR ( Amer) Est GFR (Non-Af Amer) POC Glucose (mg/dL) 294 H Random Glucose Hemoglobin A1c Calcium Phosphorus Magnesium Iron TIBC % Saturation Ferritin Total Bilirubin AST ALT Alkaline Phosphatase Total Creatine Kinase Total Protein Albumin Globulin Albumin/Globulin Ratio 25-OH Vitamin D Total Urine Color Colorless Urine Clarity Clear Urine pH 5.0 Ur Specific [place] 1.005 Urine Protein Negative Urine Glucose (UA) 1+ H Urine Ketones Negative Urine Blood 1+ H Urine Nitrate Negative Urine Bilirubin Negative Urine Urobilinogen Normal Ur Leukocyte Esterase Neg Urine WBC (Auto) 1 Urine RBC (Auto) 11 H Urine Bacteria Rare Blood Type AB NEGATIVE Blood Type Confirm AB NEGATIVE Antibody Screen Negative 11/23/17 11/23/17 12:53 15:03 WBC RBC Hgb Hct MCV MCH MCHC RDW Plt Count MPV Neut % (Auto) Lymph % (Auto) [place] % (Auto) Eos % (Auto) Baso % (Auto) Neut # (Auto) Lymph # (Auto) [place] # (Auto) Eos # (Auto) Baso # (Auto) PT 12.1 INR 1.1 APTT 26 Sodium 135 Potassium 3.4 L Chloride 99 Carbon Dioxide 20 L Anion Gap 19 BUN 88 H Creatinine 9.3 H* Est GFR ( Amer) 7 Est GFR (Non-Af Amer) 6 POC Glucose (mg/dL) Random Glucose 197 H Hemoglobin A1c Calcium 5.6 L* Phosphorus Magnesium Iron TIBC % Saturation Ferritin Total Bilirubin AST ALT Alkaline Phosphatase Total Creatine Kinase Total Protein Albumin Globulin Albumin/Globulin Ratio 25-OH Vitamin D Total Urine Color Urine Clarity Urine pH Ur Specific [place] Urine Protein Urine Glucose (UA) Urine Ketones Urine Blood Urine Nitrate Urine Bilirubin Urine Urobilinogen Ur Leukocyte Esterase Urine WBC (Auto) Urine RBC (Auto) Urine Bacteria Blood Type Blood Type Confirm Antibody Screen Assessment & Plan - Assessment and Plan (Free Text) Assessment: 62M with ESRD in need of dialysis Correct calcium NPO after midnight AM labs OR tomorrow AM D/W Dr Nehemias Samayoa PGY2 <Gareth Del Cid B - Last Filed: 11/29/17 19:49> Meds - Medications Medications: Current Medications Albuterol/Ipratropium (Duoneb 3 Mg/0.5 Mg (3 Ml) Ud) 3 ml INH RQ6 [facility] Last Admin: 11/29/17 04:52 Dose: Not Given Aspirin (Aspirin Chewable) 81 mg PO DAILY [facility] Last Admin: 11/29/17 10:35 Dose: 81 mg Calcium Acetate (Phoslo) 1,334 mg PO TID [facility] Last Admin: 11/29/17 17:07 Dose: 1,334 mg Dextrose (Dextrose 50% Inj) 0 ml IV STAT PRN; Protocol PRN Reason: Hypoglycemia Protocol Dextrose (Glutose 15) 0 gm PO ONCE PRN; Protocol PRN Reason: Hypoglycemia Protocol Diltiazem HCl (Cardizem) 30 mg PO TID [facility] Last Admin: 11/29/17 17:07 Dose: 30 mg Docusate Sodium (Colace) 100 mg PO DAILY [facility] Last Admin: 11/29/17 10:35 Dose: 100 mg Epoetin Jed (Procrit) 10,000 unit SC MWF [facility] Last Admin: 11/27/17 13:51 Dose: Not Given Ferric Sodium Gluconate Complex (Ferrlecit) 125 mg IVPB DAILY [facility] Stop: 11/30/17 10:01 Last Admin: 11/29/17 10:35 Dose: 125 mg Glucagon (Glucagen Diagnostic Kit) 0 mg IM STAT PRN; Protocol PRN Reason: Hypoglycemia Protocol Heparin Sodium (Porcine) (Heparin) 5,000 units SC Q12 [facility] Last Admin: 11/29/17 10:35 Dose: 5,000 units Ceftriaxone Sodium 1 gm/ (Sodium Chloride) 100 mls @ 100 mls/hr IVPB DAILY [facility] PRN Reason: Protocol Last Admin: 11/29/17 10:38 Dose: 100 mls/hr Dextrose (Dextrose 5% In Water 1000 Ml) 1,000 mls @ 0 mls/hr IV .Q0M PRN; Protocol; Per Protocol PRN Reason: Hypoglycemia Protocol Insulin Human Regular (Novolin R) 0 unit SC ACHS [facility] PRN Reason: Protocol Last Admin: 11/29/17 17:07 Dose: 1 unit Metoclopramide HCl (Reglan) 10 mg PO ACHS [facility] Last Admin: 11/29/17 17:07 Dose: 10 mg Metoprolol Succinate (Toprol Xl) 100 mg PO DAILY [facility] Last Admin: 11/29/17 10:35 Dose: 100 mg Nicotine (Nicoderm Cq) 1 patch TD DAILY [facility] Last Admin: 11/29/17 13:06 Dose: 1 patch Pantoprazole Sodium (Protonix Ec Tab) 40 mg PO DAILY [facility] Last Admin: 11/29/17 10:35 Dose: 40 mg Rosuvastatin Calcium (Crestor) 10 mg PO HS [facility] Last Admin: 11/28/17 21:53 Dose: 10 mg Vitamin B Complex/Vit C/Folic Acid (Nephro-Avelino) 1 tab PO 0800 [facility] Last Admin: 11/29/17 07:46 Dose: 1 tab Results - Vital Signs Recent Vital Signs: Last Vital Signs Temp 97.6 F 11/29/17 15:09 Pulse 97 H 11/29/17 15:09 Resp 20 11/29/17 15:09 BP 109/65 11/29/17 15:09 Pulse Ox 95 11/29/17 15:09 - Labs Result Diagrams: 11/29/17 07:43 11/29/17 07:43 Labs: Laboratory Results - last 24 hr 11/24/17 11/28/17 11/29/17 13:54 21:58 06:47 WBC RBC Hgb Hct MCV MCH MCHC RDW Plt Count MPV Neut % (Auto) Lymph % (Auto) [place] % (Auto) Eos % (Auto) Baso % (Auto) Neut # (Auto) Lymph # (Auto) [place] # (Auto) Eos # (Auto) Baso # (Auto) Differential Comment Sodium Potassium Chloride Carbon Dioxide Anion Gap BUN Creatinine Est GFR ( Amer) Est GFR (Non-Af Amer) POC Glucose (mg/dL) 192 H 147 H Random Glucose Calcium Total Bilirubin AST ALT Alkaline Phosphatase Total Protein Albumin Globulin Albumin/Globulin Ratio Striated Muscle Ab TNP Anti-Myocardial Ab Negative Anti-Parietal Cell Ab <20.0 11/29/17 11/29/17 11/29/17 07:43 07:43 11:40 WBC 21.6 H RBC 2.80 L Hgb 8.6 L Hct 26.8 L MCV 95.6 H MCH 30.7 MCHC 32.1 L RDW 13.7 Plt Count 260 MPV 9.4 Neut % (Auto) 79.3 H Lymph % (Auto) 11.2 L [place] % (Auto) 6.4 Eos % (Auto) 2.3 Baso % (Auto) 0.8 Neut # (Auto) 17.1 H Lymph # (Auto) 2.4 [place] # (Auto) 1.4 H Eos # (Auto) 0.5 Baso # (Auto) 0.2 Differential Comment Sodium 138 Potassium 4.1 Chloride 101 Carbon Dioxide 28 Anion Gap 14 BUN 25 H Creatinine 5.1 H Est GFR ( Amer) 14 Est GFR (Non-Af Amer) 12 POC Glucose (mg/dL) 198 H Random Glucose 137 H Calcium 8.7 Total Bilirubin 0.4 AST 24 ALT 21 Alkaline Phosphatase 79 Total Protein 6.0 L Albumin 3.3 L Globulin 2.7 Albumin/Globulin Ratio 1.2 Striated Muscle Ab Anti-Myocardial Ab Anti-Parietal Cell Ab 11/29/17 16:10 WBC RBC Hgb Hct MCV MCH MCHC RDW Plt Count MPV Neut % (Auto) Lymph % (Auto) [place] % (Auto) Eos % (Auto) Baso % (Auto) Neut # (Auto) Lymph # (Auto) [place] # (Auto) Eos # (Auto) Baso # (Auto) Differential Comment Sodium Potassium Chloride Carbon Dioxide Anion Gap BUN Creatinine Est GFR ( Amer) Est GFR (Non-Af Amer) POC Glucose (mg/dL) 197 H Random Glucose Calcium Total Bilirubin AST ALT Alkaline Phosphatase Total Protein Albumin Globulin Albumin/Globulin Ratio Striated Muscle Ab Anti-Myocardial Ab Anti-Parietal Cell Ab Attending/Attestation - Attestation I have personally seen and examined this patient.: Yes I have fully participated in the care of the patient.: Yes I have reviewed all pertinent clinical information: Yes Notes (Text): Pt was seen and examined at bedside Agree with above note and assessment Pt with Uncontrolled DM and ESRD Labs and radiology reviewed Ass: ESRD, Uncontrolled DM Plan : OR for permacath insertion Consent NPO, IVF C/W IV antibiotics c.w current mx Plan d.w pt in detail Risk and benefit explained in detail.
--- NOTE | 2017-11-23 15:39 | CP.PCM.PN ---
Subjective - Date & Time of Evaluation Date of Evaluation: 11/23/17 Time of Evaluation: 15:30 - Subjective Subjective: Patient was seen and examined by me. The patient is pending permacath placement tomorrow morning. When he intiaolly came to [facility] he was acidotic and critically low blood sugar. Currently he remains on an D5W with bicarb ggt. The accuchecks are better and his serum bicarbs higher. Objective - Vital Signs/Intake and Output Vital Signs (last 24 hours): Temp Pulse Resp BP Pulse Ox 98.4 F 89 18 126/60 96 11/23/17 12:00 11/23/17 14:01 11/23/17 14:01 11/23/17 14:00 11/23/17 14:01 Intake and Output: 11/23/17 11/23/17 06:59 18:59 Intake Total 2400 1850 Output Total 900 Balance 1500 1850 - Medications Medications: Current Medications Aspirin (Aspirin Chewable) 81 mg PO DAILY [facility] Last Admin: 11/23/17 09:17 Dose: 81 mg Bisacodyl (Dulcolax) 10 mg UT ONCE PRN PRN Reason: Constipation Calcium Acetate (Phoslo) 1,334 mg PO TID [facility] Dextrose (Dextrose 50% Inj) 0 ml IV STAT PRN; Protocol PRN Reason: Hypoglycemia Protocol Dextrose (Glutose 15) 0 gm PO ONCE PRN; Protocol PRN Reason: Hypoglycemia Protocol Docusate Sodium (Colace) 100 mg PO TID [facility] Last Admin: 11/23/17 13:35 Dose: Not Given Epoetin Jed (Procrit) 10,000 unit SC MWF [facility] Ferric Sodium Gluconate Complex (Ferrlecit) 125 mg IVPB DAILY [facility] Stop: 11/30/17 10:01 Glucagon (Glucagen Diagnostic Kit) 0 mg IM STAT PRN; Protocol PRN Reason: Hypoglycemia Protocol Heparin Sodium (Porcine) (Heparin) 5,000 units SC Q12 [facility] Last Admin: 11/23/17 09:17 Dose: 5,000 units Sodium Bicarbonate 150 meq/ (Dextrose) 1,000 mls @ 150 mls/hr IV .Q6H40M [facility] Last Admin: 11/23/17 13:34 Dose: 150 mls/hr Ceftriaxone Sodium 1 gm/ (Sodium Chloride) 100 mls @ 100 mls/hr IVPB DAILY [facility] PRN Reason: Protocol Last Admin: 11/23/17 11:09 Dose: 100 mls/hr Dextrose (Dextrose 5% In Water 1000 Ml) 1,000 mls @ 0 mls/hr IV .Q0M PRN; Protocol; Per Protocol PRN Reason: Hypoglycemia Protocol Insulin Human Regular (Novolin R) 0 unit SC [facility] PRN Reason: Protocol Last Admin: 11/23/17 12:06 Dose: 3 u Metoclopramide HCl (Reglan) 10 mg PO [facility] Last Admin: 11/23/17 12:08 Dose: 10 mg Metoprolol Tartrate (Lopressor) 50 mg PO DAILY [facility] Last Admin: 11/23/17 09:17 Dose: 50 mg Nicotine (Nicoderm Cq) 1 patch TD DAILY [facility] Last Admin: 11/23/17 09:13 Dose: 1 patch Pantoprazole Sodium (Protonix Ec Tab) 40 mg PO DAILY [facility] Last Admin: 11/23/17 09:17 Dose: 40 mg Pneumococcal Polyvalent Vaccine (Pneumovax 23 Vaccine) 0.5 ml IM .ONCE ONE Stop: 11/24/17 10:01 Rosuvastatin Calcium (Crestor) 10 mg PO HS [facility] Last Admin: 11/22/17 21:26 Dose: 10 mg Sodium Bicarbonate (Sodium Bicarbonate Tab) 650 mg PO TID [facility] Last Admin: 11/23/17 13:35 Dose: Not Given Vitamin B Complex/Vit C/Folic Acid (Nephro-Avelino) 1 tab PO 0800 [facility] Last Admin: 11/23/17 08:38 Dose: 1 tab - Labs Labs: 11/23/17 06:28 11/23/17 15:03 PT 12.1 SECONDS (9.7-12.2) 11/23/17 12:53 INR 1.1 11/23/17 12:53 APTT 26 SECONDS (21-34) 11/23/17 12:53 - Constitutional Appears: Unkempt, Chronically Ill - Head Exam Head Exam: NORMAL INSPECTION, NORMOCEPHALIC - Eye Exam Eye Exam: EOMI, Normal appearance - ENT Exam ENT Exam: Mucous Membranes Moist - Respiratory Exam Respiratory Exam: Clear to Ausculation Bilateral, NORMAL BREATHING PATTERN - Cardiovascular Exam Cardiovascular Exam: REGULAR RHYTHM - Neurological Exam Neurological Exam: Alert, Awake, Oriented x3 Neuro motor strength exam: Left Upper Extremity: 5, Right Upper Extremity: 5 - Psychiatric Exam Psychiatric exam: Depressed, Flat Affect - Skin Skin Exam: Normal Color, Warm Assessment and Plan - Assessment and Plan (Free Text) Assessment: 1. Acute renal failure 11/23: Pending permacath placment tommorow morning. At this time remains on bicarb ggt. Dr Balbuena discussed with the patient about the plan/may need dialysis if he is not improving Follow CT abdomen and pelvis to r/o obstructive uropathy 2. Diabetes mellitus and s/p Hypoglycemia 11/23: Accuchecks are better, on D5 with bicarb at this time. Not clear why he was taking so much sulfonyurea outpatient when in renal failure. 3. Leukocytosis 11/23: Now decrease to 11. Remains on IV abx 4. Dehydration Poor intake and nausea continue fluids Hydrate and follow bun/creatinine 5. HTN Remains in systolic in the 120s. 6. Coronary artery disease Continue Metoprolol 50mg PO daily, ASA 81mg PO daily, and Crestor 10mg PO HS. 7. Elevated ProBNP and High LFT Do Echo 7. Prophylactic measure Continue heparin and protonix
--- NOTE | 2017-11-23 16:22 | US ---
Right upper quadrant abdominal ultrasound History: Abdominal pain. Comparison: CT dated 11/22/2017 Technique: Real-time sonography was performed through the right upper quadrant of the abdomen. Findings: Liver: 16.4 centimeters in length. Increased echogenicity of the hepatic parenchymal cortex suggestive for fatty infiltration versus hepatic parenchymal disease. Clinical correlation. Gallbladder: Cholelithiasis. A calculus measures up to 8 millimeters at the level of the neck of the gallbladder. Normal wall thickness of 1.9 millimeters. Negative sonographic Norris's sign. Common bile duct measures 3 millimeters, within normal limits. Limited visualization of the pancreas. Visualized aorta and IVC are preserved. Right kidney: 12.9 x 7.8 x 6.6 centimeters. No calculi or hydronephrosis. Midpole hypoechoic cyst measures 6.9 x 5.0 x 7.9 centimeters. Additional lower pole hypoechoic cyst measures 2.3 x 1.9 x 1.7 centimeters. Impression: Increased echogenicity of the hepatic parenchymal cortex suggestive for fatty infiltration versus hepatic parenchymal disease. Clinical correlation. Limited visualization of the pancreas. Two right renal cysts.
--- NOTE | 2017-11-23 16:29 | CP.PCM.PN ---
Subjective - Date & Time of Evaluation Date of Evaluation: 11/23/17 Time of Evaluation: 16:21 - Subjective Subjective: RENAL CONSULT Note covering for Dr Ríos/Dr Aguirre 62 yo M w/ pmh of CKD, HTN, DM, CAD that prsented w/ MEENA. Pt recently went to his singer back tender this past thursday - bloowork was drawn and he was found to have a Cr of 7. A renal US was scheduled as an outpt but he developed hypoglycemic episode and altered mental status. He was found to have even worse kidney function and acidosis and admitted for further evaluation. He was recently on metformin but it was discontinued. He has had uremic symptoms of naussea and reduced appetite for about 2 weeks or so. He states he has been urinating normally. He endorses poor po intake last 24-48 hours. He denies any NSAID use. ROS: a full detailed ROS is negative except as in my HPI. denies CP/SOB/nausea/ vomitting. report of serum cr 2-3 range approx 3-4 months ago. PMHx: CKD Stage? HTN, HLD, DM, CAD w/stent, AR (2012), parapresis SurgHx: left knee surgery (1986), Cardiac stent (2012) FamHx: father on dialysis SocHx: + smoking hx, no etoh or ivdu all: nkda meds as below. pe: vs as below gen: nad sclera: anicteric op: clear neck: supple no thyromegaly cv:+s1+s2 no rub abd soft no orgnomegaly lungsCTA b/l ext trace edema neuro: A+OX3 very faint asterixis psych: nml affect gu: weinberg skin no rash labs and imaging reviewed reviewed ct imaging no hydronephrosis appreciated imp: arf / acidosis /anemia of renal disease/ UTI? / diabetic kidney disease/ secondary hyperpara/hypokalemia/smoker/obesity/CKD stage 3/4 plan: will check GN work up as ordered to r/o causea of MEENA. no obstruction on imaging. non oliguric plan for HD initiation once permacath in place. start epogen, IV iron and nephrovite for anemia. PRBC as needed. anemia work up with SPEP/DREW and serum FLC assay Vit D 35, pending PTH. started phos binders and hold cacitriol due to high phos levels bicarb supplements, continue. will lower bicarb drip to 75 ml/hr check HIV/Hep B and C serology SW consultfor outpt HD placement with Dr Aguirre Thanks for consult Please call if any Qs d/w ICU team and primary singer back tender as well Objective - Vital Signs/Intake and Output Vital Signs (last 24 hours): Temp Pulse Resp BP Pulse Ox 98.4 F 91 H 13 122/87 97 11/23/17 12:00 11/23/17 15:01 11/23/17 15:01 11/23/17 15:00 11/23/17 15:01 Intake and Output: 11/23/17 11/23/17 06:59 18:59 Intake Total 2400 2000 Output Total 900 Balance 1500 2000 - Medications Medications: Current Medications Aspirin (Aspirin Chewable) 81 mg PO DAILY [facility] Last Admin: 11/23/17 09:17 Dose: 81 mg Bisacodyl (Dulcolax) 10 mg NC ONCE PRN PRN Reason: Constipation Calcium Acetate (Phoslo) 1,334 mg PO TID [facility] Dextrose (Dextrose 50% Inj) 0 ml IV STAT PRN; Protocol PRN Reason: Hypoglycemia Protocol Dextrose (Glutose 15) 0 gm PO ONCE PRN; Protocol PRN Reason: Hypoglycemia Protocol Docusate Sodium (Colace) 100 mg PO TID [facility] Last Admin: 11/23/17 13:35 Dose: Not Given Epoetin Jed (Procrit) 10,000 unit SC MWF [facility] Ferric Sodium Gluconate Complex (Ferrlecit) 125 mg IVPB DAILY [facility] Stop: 11/30/17 10:01 Glucagon (Glucagen Diagnostic Kit) 0 mg IM STAT PRN; Protocol PRN Reason: Hypoglycemia Protocol Heparin Sodium (Porcine) (Heparin) 5,000 units SC Q12 [facility] Last Admin: 11/23/17 09:17 Dose: 5,000 units Sodium Bicarbonate 150 meq/ (Dextrose) 1,000 mls @ 150 mls/hr IV .Q6H40M [facility] Last Admin: 11/23/17 13:34 Dose: 150 mls/hr Ceftriaxone Sodium 1 gm/ (Sodium Chloride) 100 mls @ 100 mls/hr IVPB DAILY [facility] PRN Reason: Protocol Last Admin: 11/23/17 11:09 Dose: 100 mls/hr Dextrose (Dextrose 5% In Water 1000 Ml) 1,000 mls @ 0 mls/hr IV .Q0M PRN; Protocol; Per Protocol PRN Reason: Hypoglycemia Protocol Insulin Human Regular (Novolin R) 0 unit [facility] PRN Reason: Protocol Last Admin: 11/23/17 12:06 Dose: 3 u Metoclopramide HCl (Reglan) 10 mg PO ACHS [facility] Last Admin: 11/23/17 12:08 Dose: 10 mg Metoprolol Tartrate (Lopressor) 50 mg PO DAILY [facility] Last Admin: 11/23/17 09:17 Dose: 50 mg Nicotine (Nicoderm Cq) 1 patch TD DAILY [facility] Last Admin: 11/23/17 09:13 Dose: 1 patch Pantoprazole Sodium (Protonix Ec Tab) 40 mg PO DAILY [facility] Last Admin: 11/23/17 09:17 Dose: 40 mg Pneumococcal Polyvalent Vaccine (Pneumovax 23 Vaccine) 0.5 ml IM .ONCE ONE Stop: 11/24/17 10:01 Rosuvastatin Calcium (Crestor) 10 mg PO HS [facility] Last Admin: 11/22/17 21:26 Dose: 10 mg Sodium Bicarbonate (Sodium Bicarbonate Tab) 650 mg PO TID [facility] Last Admin: 11/23/17 13:35 Dose: Not Given Vitamin B Complex/Vit C/Folic Acid (Nephro-Avelino) 1 tab PO 0800 [facility] Last Admin: 11/23/17 08:38 Dose: 1 tab - Labs Labs: 11/23/17 06:28 11/23/17 15:03 PT 12.1 SECONDS (9.7-12.2) 11/23/17 12:53 INR 1.1 11/23/17 12:53 APTT 26 SECONDS (21-34) 11/23/17 12:53
[2017-11-23] MEDS: Epoetin Alfa 10,000 unit/ml Dialysis SC SCH (16:32)
[2017-11-23] MEDS ORDERED: Metoprolol 1 mg/ml Inj IVP ONE (17:27)
[2017-11-24] MEDS: Sodium Bicarbonate 8.4% 150 MEQ in Dextrose 5% In Water 850 ML IV SCH (06:28)
[2017-11-24 06:46] LABS: BASO # 0.1 K/uL (0.0-0.2); BASO % 0.4 % (0.0-2.0); EOS # 0.4 K/uL (0.0-0.7); EOS % 2.7 % (0.0-4.0); HEMOGLOBIN 8.1 g/dL (12.0-18.0); LYMPH # 1.2 K/uL (1.0-4.3); LYMPH % 9.1 % (20.0-40.0); MEAN CELL VOLUME 89.4 fL (80.0-94.0); MEAN CORPUSCULAR HEMOGLOBIN 30.8 pg (27.0-31.0); MEAN CORPUSCULAR HGB CONC 34.5 g/dL (33.0-37.0); MEAN PLATELET VOLUME 10.6 fL (7.2-11.7); MONO % 7.4 % (0.0-10.0); NEUT # 10.9 K/uL (1.8-7.0); NEUT % 80.4 % (50.0-75.0); PLATELET COUNT 219 K/uL (130-400); RBC 2.63 Mil/uL (4.40-5.90); RED CELL DISTRIBUTION WIDTH 13.8 % (11.5-14.5); WHITE BLOOD COUNT 13.6 K/uL (4.8-10.8)
[2017-11-24 06:57] LABS: ALB/GLOB RATIO 1.2 (1.0-2.1); ALBUMIN 3.1 g/dL (3.5-5.0); CALCIUM 6.4 mg/dl (8.6-10.4)
[2017-11-24] MEDS: (Novolin R) Insulin Human Regular 100 units/ml vial SC SCH ×4 (07:30→21:19)
[2017-11-24] MEDS ORDERED: ceFAZolin IV 1 gm in Dextrose 1 GM/50 ML BAG IVPB ONE ×2 (07:31→08:23)
[2017-11-24] MEDS ORDERED: HEPARIN-NS 5,000 UNITS/500 ML 5,000 UNIT/500 ML BAG IV ONE (07:32)
[2017-11-24] MEDS ORDERED: Lidocaine Hydrochloride 0 ML INJ ONE (07:32)
[2017-11-24] MEDS ORDERED: Sodium Chloride 0.9% 20 ML IV ONE (07:33)
[2017-11-24] MEDS ORDERED: Bupivacaine 0.25% Inj(30mL) IJ ONE (07:45)
[2017-11-24] MEDS: Multivitamin Vitamin B Complex (Nephro-Vite) Tab PO SCH ×2 (08:00→12:00)
[2017-11-24] MEDS ORDERED: Lidocaine/Epinephrine 1% 1:100000 10 ML IJ ONE (08:16)
[2017-11-24] MEDS ORDERED: Propofol 10 mg/ml Inj (20 ML) ONE (08:26)
[2017-11-24 09:23] LABS: BANDS 2 % (0-2); EOSINOPHIL 4 % (0-4); LYMPHOCYTE 6 % (20-40); MONOCYTE 2 % (0-10); NEUTROPHIL 86 % (50-75); PLATELET ESTIMATE NORMAL (NORMAL); TOTAL CELLS COUNTED 100
--- NOTE | 2017-11-24 09:36 | PCM.SURG1 ---
Surgeon's Initial Post Op Note - Surgeon's Notes Surgeon: Dr. Del Cid Feather Washer: Dr. Samayoa PGY2 Type of Anesthesia: General LMA Pre-Operative Diagnosis: ESRD Operative Findings: See operative dictation Post-Operative Diagnosis: ESRD Operation Performed: R IJ permacath insertion Specimen/Specimens Removed: none Estimated Blood Loss: EBL {In ML}: 5 Blood Products Given: N/A Drains Used: No Drains Post-Op Condition: Good Date of Surgery/Procedure: 11/24/17 Time of Surgery/Procedure: 09:36
[2017-11-24] MEDS: Magnesium Sulfate 1 gm in D5W 1 GM/100 ML BAG IVPB SCH ×2 (09:47→09:48)
[2017-11-24] MEDS ORDERED: Pneumococcal 23-Valent Vaccine IM ONE ×2 (10:00→16:30)
[2017-11-24] MEDS ORDERED: Potassium Chloride 20 mEq ER Tab PO ONE (10:00)
[2017-11-24] MEDS: Ferric Sodium Gluconat Complex 62.5 mg/5 ml Vial IVPB SCH (10:13)
[2017-11-24] MEDS: Pantoprazole 40 mg EC Tab PO SCH (10:29)
--- NOTE | 2017-11-24 10:29 | CP.CCUPN ---
<Tamica Mckeon - Last Filed: 11/24/17 10:26> CCU Subjective - Physician Review Subjective (Free Text): Patient seen and examined at bedside. Patient is OOB to chair, breathing well, tolerating diet. No acute complaints. Patient is s/p permacath placement. He is for dialysis. CCU Objective - Vital Signs / Intake & Output Vital Signs (Last 4 hours): Vital Signs Pulse Resp Pulse Ox 11/24/17 07:01 99 H 12 99 Intake and Output (Last 8hrs): Intake & Output 11/23/17 11/24/17 11/24/17 22:59 06:59 14:59 Intake Total 1550 675 200 Output Total 1005 1230 200 Balance 545 -555 0 Weight 245 lb Intake: IV 200 Intake, IV Amount 1250 675 Left Wrist 900 675 Right Forearm 350 Oral 300 Output: Urine 1005 1230 200 Urethral ([place]) 1005 1230 Other: # Bowel Movements 1 - Physical Exam Head: Positive for: Atraumatic, Normocephalic Pupils: Positive for: PERRL Extroacular Muscles: Positive for: EOMI Conjunctiva: Positive for: Normal Mouth: Positive for: Moist Mucous Membranes Neck: Positive for: Normal Range of Motion Respiratory/Chest: Positive for: Clear to Auscultation Cardiovascular: Positive for: Regular Rate and Rhythm Abdomen: Positive for: Normal Bowel Sounds. Negative for: Tenderness, Distention Upper Extremity: Positive for: Normal Inspection, NORMAL PULSES, Capillary Refill < 2s, Norm 2-Pt Discrimination Lower Extremity: Positive for: Normal Inspection, NORMAL PULSES, Neurovascularly Intact, Capillary Refill < 2 s Neurological: Positive for: GCS=15, CN II-XII Intact Skin: Positive for: Warm, Dry, Normal Color Psychiatric: Positive for: Alert, Oriented x 3, Normal Insight, Normal Concentration - Medications Active Medications: Active Medications Generic Name Dose Route Start Last Admin Trade Name Freq PRN Reason Stop Dose Admin Aspirin 81 mg 11/22/17 10:00 11/24/17 10:12 Aspirin Chewable PO 81 mg DAILY DOLLY Administration Bisacodyl 10 mg 11/23/17 08:00 Dulcolax [place] ONCE PRN Constipation Calcium Acetate 1,334 mg 11/23/17 18:00 11/23/17 17:16 Phoslo PO 1,334 mg TID DOLLY Administration Calcium Gluconate 4.65 meq 11/24/17 11:00 Calcium Gluconate IVP 11/24/17 11:01 ONCE ONE Dextrose 0 ml 11/23/17 11:07 Dextrose 50% Inj IV STAT PRN Hypoglycemia Protocol Protocol Dextrose 0 gm 11/23/17 11:07 Glutose 15 PO ONCE PRN Hypoglycemia Protocol Protocol Docusate Sodium 100 mg 11/23/17 10:00 11/24/17 10:12 Colace PO Not Given TID DOLLY Epoetin Jed 10,000 unit 11/23/17 15:00 11/23/17 16:32 Procrit SC Not Given MWF DOLLY Ferric Sodium Gluconate Complex 125 mg 11/23/17 14:30 11/24/17 10:13 Ferrlecit IVPB 11/30/17 10:01 125 mg DAILY DOLLY Administration Glucagon 0 mg 11/23/17 11:07 Glucagen Diagnostic Kit IM STAT PRN Hypoglycemia Protocol Protocol Heparin Sodium (Porcine) 5,000 units 11/22/17 10:00 11/24/17 10:14 Heparin SC 5,000 units Q12 DOLLY Administration Ceftriaxone Sodium 1 gm/ 100 mls @ 100 mls/hr 11/23/17 10:00 11/24/17 10:16 Sodium Chloride IVPB 100 mls/hr DAILY DOLLY Administration Protocol Dextrose 1,000 mls @ 0 mls/hr 11/23/17 11:07 Dextrose 5% In Water 1000 Ml IV .Q0M PRN Hypoglycemia Protocol Protocol Per Protocol Potassium Chloride 20 meq in 100 mls @ 50 mls/hr 11/24/17 11:00 Potassium Chloride 20 Meq/100 Ml IVPB 11/24/17 12:59 ONCE ONE Insulin Human Regular 0 unit 11/23/17 11:30 11/23/17 21:26 Novolin R SC Not Given ACHS DOLLY Protocol Metoclopramide HCl 10 mg 11/22/17 11:30 11/24/17 08:00 Reglan PO Not Given ACHS DOLLY Metoprolol Tartrate 50 mg 11/22/17 10:00 11/23/17 09:17 Lopressor PO 50 mg DAILY DOLLY Administration Nicotine 1 patch 11/22/17 10:00 11/23/17 09:13 Nicoderm Cq TD 1 patch DAILY DOLLY Administration Pantoprazole Sodium 40 mg 11/22/17 10:00 11/23/17 09:17 Protonix Ec Tab PO 40 mg DAILY DOLLY Administration Rosuvastatin Calcium 10 mg 11/22/17 22:00 11/23/17 21:25 Crestor PO 10 mg HS DOLLY Administration Vitamin B Complex/Vit C/Folic Acid 1 tab 11/23/17 08:00 11/23/17 08:38 Nephro-Avelino PO 1 tab 0800 DOLLY Administration - Patient Studies Lab Studies: Microbiology Studies 11/23/17 08:38 Blood Culture - Preliminary Blood-Venous NO GROWTH AFTER 24 HOURS 11/23/17 08:38 Blood Culture - Preliminary Blood-Venous NO GROWTH AFTER 24 HOURS 11/22/17 15:30 MRSA Culture (Admit) - Final Naris MRSA NOT DETECTED Lab Studies 11/24/17 11/24/17 11/23/17 Range/Units 06:32 06:20 21:08 WBC 13.6 H (4.8-10.8) K/uL RBC 2.63 L (4.40-5.90) Mil/uL Hgb 8.1 L (12.0-18.0) g/dL Hct 23.5 L (35.0-51.0) % MCV 89.4 (80.0-94.0) fL MCH 30.8 (27.0-31.0) pg MCHC 34.5 (33.0-37.0) g/dL RDW 13.8 (11.5-14.5) % Plt Count 219 (130-400) K/uL MPV 10.6 (7.2-11.7) fL Neut % (Auto) 80.4 H (50.0-75.0) % Lymph % (Auto) 9.1 L (20.0-40.0) % Lares % (Auto) 7.4 (0.0-10.0) % Eos % (Auto) 2.7 (0.0-4.0) % Baso % (Auto) 0.4 (0.0-2.0) % Neut # (Auto) 10.9 H (1.8-7.0) K/uL Lymph # (Auto) 1.2 (1.0-4.3) K/uL Lares # (Auto) 1.0 H (0.0-0.8) K/uL Eos # (Auto) 0.4 (0.0-0.7) K/uL Baso # (Auto) 0.1 (0.0-0.2) K/uL Neutrophils % (Manual) 86 H (50-75) % Band Neutrophils % 2 (0-2) % Lymphocytes % (Manual) 6 L (20-40) % Monocytes % (Manual) 2 (0-10) % Eosinophils % (Manual) 4 (0-4) % Platelet Estimate Normal (NORMAL) RBC Morphology Normal PT (9.7-12.2) SECONDS INR APTT (21-34) SECONDS Sodium 140 (132-148) mmol/L Potassium 3.0 L (3.6-5.2) mmol/L Chloride 97 L (98-107) mmol/L Carbon Dioxide 25 (22-30) mmol/L Anion Gap 22 H (10-20) BUN 87 H (9-20) mg/dL Creatinine 9.6 H* (0.8-1.5) mg/dL Est GFR ( Amer) 7 Est GFR (Non-Af Amer) 6 POC Glucose (mg/dL) 180 H (65-110) mg/dL Random Glucose 126 H (75-110) mg/dL Calcium 6.4 L (8.6-10.4) mg/dl Phosphorus 7.9 H (2.5-4.5) mg/dL Magnesium 1.6 (1.6-2.3) mg/dL Total Bilirubin 0.3 (0.2-1.3) mg/dL AST 17 D (17-59) U/L ALT 23 (21-72) U/L Alkaline Phosphatase 74 (38-126) U/L Total Protein 5.7 L (6.3-8.3) g/dL Albumin 3.1 L (3.5-5.0) g/dL Globulin 2.6 (2.2-3.9) gm/dL Albumin/Globulin Ratio 1.2 (1.0-2.1) 11/23/17 11/23/17 11/23/17 Range/Units 16:13 15:03 12:53 WBC (4.8-10.8) K/uL RBC (4.40-5.90) Mil/uL Hgb (12.0-18.0) g/dL Hct (35.0-51.0) % MCV (80.0-94.0) fL MCH (27.0-31.0) pg MCHC (33.0-37.0) g/dL RDW (11.5-14.5) % Plt Count (130-400) K/uL MPV (7.2-11.7) fL Neut % (Auto) (50.0-75.0) % Lymph % (Auto) (20.0-40.0) % Lares % (Auto) (0.0-10.0) % Eos % (Auto) (0.0-4.0) % Baso % (Auto) (0.0-2.0) % Neut # (Auto) (1.8-7.0) K/uL Lymph # (Auto) (1.0-4.3) K/uL Lares # (Auto) (0.0-0.8) K/uL Eos # (Auto) (0.0-0.7) K/uL Baso # (Auto) (0.0-0.2) K/uL Neutrophils % (Manual) (50-75) % Band Neutrophils % (0-2) % Lymphocytes % (Manual) (20-40) % Monocytes % (Manual) (0-10) % Eosinophils % (Manual) (0-4) % Platelet Estimate (NORMAL) RBC Morphology PT 12.1 (9.7-12.2) SECONDS INR 1.1 APTT 26 (21-34) SECONDS Sodium 135 (132-148) mmol/L Potassium 3.4 L (3.6-5.2) mmol/L Chloride 99 (98-107) mmol/L Carbon Dioxide 20 L (22-30) mmol/L Anion Gap 19 (10-20) BUN 88 H (9-20) mg/dL Creatinine 9.3 H* (0.8-1.5) mg/dL Est GFR ( Amer) 7 Est GFR (Non-Af Amer) 6 POC Glucose (mg/dL) 196 H (65-110) mg/dL Random Glucose 197 H (75-110) mg/dL Calcium 5.6 L* (8.6-10.4) mg/dl Phosphorus (2.5-4.5) mg/dL Magnesium (1.6-2.3) mg/dL Total Bilirubin (0.2-1.3) mg/dL AST (17-59) U/L ALT (21-72) U/L Alkaline Phosphatase (38-126) U/L Total Protein (6.3-8.3) g/dL Albumin (3.5-5.0) g/dL Globulin (2.2-3.9) gm/dL Albumin/Globulin Ratio (1.0-2.1) //18 Range/Units 11:27 WBC (4.8-10.8) K/uL RBC (4.40-5.90) Mil/uL Hgb (12.0-18.0) g/dL Hct (35.0-51.0) % MCV (80.0-94.0) fL MCH (27.0-31.0) pg MCHC (33.0-37.0) g/dL RDW (11.5-14.5) % Plt Count (130-400) K/uL MPV (7.2-11.7) fL Neut % (Auto) (50.0-75.0) % Lymph % (Auto) (20.0-40.0) % Lares % (Auto) (0.0-10.0) % Eos % (Auto) (0.0-4.0) % Baso % (Auto) (0.0-2.0) % Neut # (Auto) (1.8-7.0) K/uL Lymph # (Auto) (1.0-4.3) K/uL Lares # (Auto) (0.0-0.8) K/uL Eos # (Auto) (0.0-0.7) K/uL Baso # (Auto) (0.0-0.2) K/uL Neutrophils % (Manual) (50-75) % Band Neutrophils % (0-2) % Lymphocytes % (Manual) (20-40) % Monocytes % (Manual) (0-10) % Eosinophils % (Manual) (0-4) % Platelet Estimate (NORMAL) RBC Morphology PT (9.7-12.2) SECONDS INR APTT (21-34) SECONDS Sodium (132-148) mmol/L Potassium (3.6-5.2) mmol/L Chloride (98-107) mmol/L Carbon Dioxide (22-30) mmol/L Anion Gap (10-20) BUN (9-20) mg/dL Creatinine (0.8-1.5) mg/dL Est GFR ( Amer) Est GFR (Non-Af Amer) POC Glucose (mg/dL) 294 H (65-110) mg/dL Random Glucose (75-110) mg/dL Calcium (8.6-10.4) mg/dl Phosphorus (2.5-4.5) mg/dL Magnesium (1.6-2.3) mg/dL Total Bilirubin (0.2-1.3) mg/dL AST (17-59) U/L ALT (21-72) U/L Alkaline Phosphatase (38-126) U/L Total Protein (6.3-8.3) g/dL Albumin (3.5-5.0) g/dL Globulin (2.2-3.9) gm/dL Albumin/Globulin Ratio (1.0-2.1) Laboratory Results - last 24 hr 11/23/17 11/23/17 11/23/17 11:27 12:53 15:03 WBC RBC Hgb Hct MCV MCH MCHC RDW Plt Count MPV Neut % (Auto) Lymph % (Auto) Lares % (Auto) Eos % (Auto) Baso % (Auto) Neut # (Auto) Lymph # (Auto) Lares # (Auto) Eos # (Auto) Baso # (Auto) Neutrophils % (Manual) Band Neutrophils % Lymphocytes % (Manual) Monocytes % (Manual) Eosinophils % (Manual) Platelet Estimate RBC Morphology PT 12.1 INR 1.1 APTT 26 Sodium 135 Potassium 3.4 L Chloride 99 Carbon Dioxide 20 L Anion Gap 19 BUN 88 H Creatinine 9.3 H* Est GFR ( Amer) 7 Est GFR (Non-Af Amer) 6 POC Glucose (mg/dL) 294 H Random Glucose 197 H Calcium 5.6 L* Phosphorus Magnesium Total Bilirubin AST ALT Alkaline Phosphatase Total Protein Albumin Globulin Albumin/Globulin Ratio 11/23/17 11/23/17 11/24/17 16:13 21:08 06:20 WBC RBC Hgb Hct MCV MCH MCHC RDW Plt Count MPV Neut % (Auto) Lymph % (Auto) Lares % (Auto) Eos % (Auto) Baso % (Auto) Neut # (Auto) Lymph # (Auto) Lares # (Auto) Eos # (Auto) Baso # (Auto) Neutrophils % (Manual) Band Neutrophils % Lymphocytes % (Manual) Monocytes % (Manual) Eosinophils % (Manual) Platelet Estimate RBC Morphology PT INR APTT Sodium 140 Potassium 3.0 L Chloride 97 L Carbon Dioxide 25 Anion Gap 22 H BUN 87 H Creatinine 9.6 H* Est GFR ( Amer) 7 Est GFR (Non-Af Amer) 6 POC Glucose (mg/dL) 196 H 180 H Random Glucose 126 H Calcium 6.4 L Phosphorus 7.9 H Magnesium 1.6 Total Bilirubin 0.3 AST 17 D ALT 23 Alkaline Phosphatase 74 Total Protein 5.7 L Albumin 3.1 L Globulin 2.6 Albumin/Globulin Ratio 1.2 11/24/17 06:32 WBC 13.6 H RBC 2.63 L Hgb 8.1 L Hct 23.5 L MCV 89.4 MCH 30.8 MCHC 34.5 RDW 13.8 Plt Count 219 MPV 10.6 Neut % (Auto) 80.4 H Lymph % (Auto) 9.1 L Lares % (Auto) 7.4 Eos % (Auto) 2.7 Baso % (Auto) 0.4 Neut # (Auto) 10.9 H Lymph # (Auto) 1.2 Lares # (Auto) 1.0 H Eos # (Auto) 0.4 Baso # (Auto) 0.1 Neutrophils % (Manual) 86 H Band Neutrophils % 2 Lymphocytes % (Manual) 6 L Monocytes % (Manual) 2 Eosinophils % (Manual) 4 Platelet Estimate Normal RBC Morphology Normal PT INR APTT Sodium Potassium Chloride Carbon Dioxide Anion Gap BUN Creatinine Est GFR ( Amer) Est GFR (Non-Af Amer) POC Glucose (mg/dL) Random Glucose Calcium Phosphorus Magnesium Total Bilirubin AST ALT Alkaline Phosphatase Total Protein Albumin Globulin Albumin/Globulin Ratio EKG/Cardiology Studies: Cardiology / EKG Studies 11/23/17 17:28 EKG [ELECTROCARDIOGRAM] Stat Comment: Mode Of Transportation: BED Reason For Exam: change in rhythm Fingerstick Blood Sugar Results: 180 Critical Care Progress Note - Nutrition Nutrition: Nutrition Category Date Time Status Renal Diet [DIET] Diets 11/24/17 Breakfast Active Assessment/Plan - Assessment and Plan (Free Text) Assessment: This is a 62 year old male with PMHx of CKD, HTN, HLD, T2DM, CAD with PCI intervention (2012) admitted reported having an increase in his renal function numbers, causing a change from metformin to glipizide by PMD x 2 months ago. Patient started feeling nausea, vomiting, abdominal pain, weakness, fatigue x 2 weeks. Prior to admission patient was unable to move, paramedics arrived at the scene and he was found to have sugars of 24. Patient was admitted for acute renal failure, in need of dialysis. Plan: Neuro: GCS 15 AAO x 3 Cardio: A: CAD with PCI (2012) A: HTN, HLD - Resumed ASA, Metoprolol, Crestor Pulm: A: Tobacco Use Disorder - Smoking Cessation encouraged - Nicotine Patch daily - Duonebs Q6H GI: A: Constipation - Colace and dulcolax A: Cholelithiasis and distended gallbladder noted on CT Scan - Abdominal US ordered: cholelithiasis, no CBD dilatation Endo: A: Hypoglycemia (on admission) - Hypoglycemic protocol in place A:T2DM - Accuchecks - HA1C 6.5 - Previously on metformin, instructed by PCP to stop and take Glipizide instead x2 months ago - Carb Consistent Diet Renal: A: MEENA on CKD (stage unknown), now in ARF -- Dr. Balbuena consulted -- Dr. Del Cid consulted for permacath placement - Started on bicarb drip @ 150cc/hr - Phoslo, Procit, Ferrlicit A: Secondary hyperparathyroidism - Given Calcium gluconate x2 doses ID: A: UTI - Afebrile, normotensive, leukocytosis with left shift, no bandemia, lactate 1.0 , procal - UA, UC reordered, washburn cultures - negative to date - CT chest/ab/pelv: No active pulmonary disease. Clear lungs. Cholelithiasis and distended gallbladder. If clinically indicated, correlation with right upper quadrant ultrasound may be performed. Large exophytic simple cyst in the interpolar region of the right kidney. Extensive nonspecific perinephric fat stranding which may be a sequela of remote infection. - Started Rocephin 1 gram IVP daily Heme/ Onc: A: Anemia of Chronic Disease - Ferrlicit Prophylaxis: - Protonix - SCDs, Hep Q12 - PT/OT - Will have Permacath placement Disposition: If patient is stable after 1st dialysis will downgrade to telemetry. DW Tamica Mead DO, PGY-1 <Britton Daniels S - Last Filed: 11/24/17 17:47> CCU Objective - Vital Signs / Intake & Output Vital Signs (Last 4 hours): Vital Signs Temp Pulse Pulse Resp BP BP Pulse Ox 11/24/17 16:15 98 F 87 19 143/71 96 11/24/17 16:00 98 F 88 16 131/77 94 L 11/24/17 15:48 131/77 11/24/17 15:08 118/62 11/24/17 15:00 88 15 144/82 95 11/24/17 14:45 154/74 H 11/24/17 14:30 150/75 11/24/17 14:20 84 20 134/79 11/24/17 14:15 143/78 11/24/17 14:00 82 18 134/79 135/72 96 Intake and Output (Last 8hrs): Intake & Output 11/24/17 11/24/17 11/24/17 06:59 14:59 22:59 Intake Total 675 1120 50 Output Total 1230 200 Balance -555 920 50 Weight 245 lb 245 lb 13.047 oz Intake: IV 200 Intake, IV Amount 675 625 Left Wrist 675 325 Right Forearm 300 Oral 295 50 Output: Urine 1230 200 Urethral ([place]) 1230 - Medications Active Medications: Active Medications Generic Name Dose Route Start Last Admin Trade Name Freq PRN Reason Stop Dose Admin Albuterol/Ipratropium 3 ml 11/24/17 14:00 Duoneb 3 Mg/0.5 Mg (3 Ml) Ud INH RQ6 DOLLY Aspirin 81 mg 11/22/17 10:00 11/24/17 10:12 Aspirin Chewable PO 81 mg DAILY DOLLY Administration Bisacodyl 10 mg 11/23/17 08:00 Dulcolax [place] ONCE PRN Constipation Calcium Acetate 1,334 mg 11/23/17 18:00 11/24/17 17:01 Phoslo PO 1,334 mg TID DOLLY Administration Dextrose 0 ml 11/23/17 11:07 Dextrose 50% Inj IV STAT PRN Hypoglycemia Protocol Protocol Dextrose 0 gm 11/23/17 11:07 Glutose 15 PO ONCE PRN Hypoglycemia Protocol Protocol Docusate Sodium 100 mg 11/23/17 10:00 11/24/17 17:00 Colace PO Not Given TID DOLLY Epoetin Jed 10,000 unit 11/23/17 15:00 11/23/17 16:32 Procrit SC Not Given MWF DOLLY Ferric Sodium Gluconate Complex 125 mg 11/23/17 14:30 11/24/17 10:13 Ferrlecit IVPB 11/30/17 10:01 125 mg DAILY DOLLY Administration Glucagon 0 mg 11/23/17 11:07 Glucagen Diagnostic Kit IM STAT PRN Hypoglycemia Protocol Protocol Heparin Sodium (Porcine) 5,000 units 11/22/17 10:00 11/24/17 10:14 Heparin SC 5,000 units Q12 DOLLY Administration Ceftriaxone Sodium 1 gm/ 100 mls @ 100 mls/hr 11/23/17 10:00 11/24/17 10:16 Sodium Chloride IVPB 100 mls/hr DAILY DOLLY Administration Protocol Dextrose 1,000 mls @ 0 mls/hr 11/23/17 11:07 Dextrose 5% In Water 1000 Ml IV .Q0M PRN Hypoglycemia Protocol Protocol Per Protocol Insulin Human Regular 0 unit 11/23/17 11:30 11/24/17 16:54 Novolin R SC Not Given ACHS DOLLY Protocol Metoclopramide HCl 10 mg 11/22/17 11:30 11/24/17 17:00 Reglan PO 10 mg ACHS DOLLY Administration Metoprolol Tartrate 50 mg 11/22/17 10:00 11/24/17 10:29 Lopressor PO 50 mg DAILY DOLLY Administration Nicotine 1 patch 11/22/17 10:00 11/24/17 10:34 Nicoderm Cq TD 1 patch DAILY DOLLY Administration Pantoprazole Sodium 40 mg 11/22/17 10:00 11/24/17 10:29 Protonix Ec Tab PO 40 mg DAILY DOLLY Administration Rosuvastatin Calcium 10 mg 11/22/17 22:00 11/23/17 21:25 Crestor PO 10 mg HS DOLLY Administration Vitamin B Complex/Vit C/Folic Acid 1 tab 11/23/17 08:00 11/24/17 12:00 Nephro-Avelino PO 1 tab 0800 DOLLY Administration - Patient Studies Lab Studies: Microbiology Studies 11/23/17 08:38 Blood Culture - Preliminary Blood-Venous NO GROWTH AFTER 24 HOURS 11/23/17 08:38 Blood Culture - Preliminary Blood-Venous NO GROWTH AFTER 24 HOURS 11/22/17 15:30 MRSA Culture (Admit) - Final Naris MRSA NOT DETECTED Lab Studies 11/24/17 11/24/17 11/24/17 Range/Units 16:31 13:54 13:54 WBC (4.8-10.8) K/uL RBC (4.40-5.90) Mil/uL Hgb (12.0-18.0) g/dL Hct (35.0-51.0) % MCV (80.0-94.0) fL MCH (27.0-31.0) pg MCHC (33.0-37.0) g/dL RDW (11.5-14.5) % Plt Count (130-400) K/uL MPV (7.2-11.7) fL Neut % (Auto) (50.0-75.0) % Lymph % (Auto) (20.0-40.0) % Lares % (Auto) (0.0-10.0) % Eos % (Auto) (0.0-4.0) % Baso % (Auto) (0.0-2.0) % Neut # (Auto) (1.8-7.0) K/uL Lymph # (Auto) (1.0-4.3) K/uL Lares # (Auto) (0.0-0.8) K/uL Eos # (Auto) (0.0-0.7) K/uL Baso # (Auto) (0.0-0.2) K/uL Neutrophils % (Manual) (50-75) % Band Neutrophils % (0-2) % Lymphocytes % (Manual) (20-40) % Monocytes % (Manual) (0-10) % Eosinophils % (Manual) (0-4) % Platelet Estimate (NORMAL) RBC Morphology Sodium (132-148) mmol/L Potassium (3.6-5.2) mmol/L Chloride (98-107) mmol/L Carbon Dioxide (22-30) mmol/L Anion Gap (10-20) BUN (9-20) mg/dL Creatinine (0.8-1.5) mg/dL Est GFR ( Amer) Est GFR (Non-Af Amer) POC Glucose (mg/dL) 128 H (65-110) mg/dL Random Glucose (75-110) mg/dL Calcium (8.6-10.4) mg/dl Phosphorus (2.5-4.5) mg/dL Magnesium (1.6-2.3) mg/dL Total Bilirubin (0.2-1.3) mg/dL AST (17-59) U/L ALT (21-72) U/L Alkaline Phosphatase (38-126) U/L Total Protein (6.3-8.3) g/dL Albumin (3.5-5.0) g/dL Globulin (2.2-3.9) gm/dL Albumin/Globulin Ratio (1.0-2.1) Procalcitonin (0.19-0.49) NG/ML PTH Intact Whole Molec (14-64) pg/mL Whole Blood Lead (<5) mcg/dL Hep Bs Antigen (NEGATIVE) Hep Bs Antibody Negative (NEGATIVE) Hep B Core IgM Ab (NEGATIVE) Hepatitis C Antibody (NEGATIVE) HIV 1&2 Antibody Screen Negative (NEGATIVE) 11/24/17 11/24/17 11/24/17 Range/Units 13:54 11:29 06:32 WBC 13.6 H (4.8-10.8) K/uL RBC 2.63 L (4.40-5.90) Mil/uL Hgb 8.1 L (12.0-18.0) g/dL Hct 23.5 L (35.0-51.0) % MCV 89.4 (80.0-94.0) fL MCH 30.8 (27.0-31.0) pg MCHC 34.5 (33.0-37.0) g/dL RDW 13.8 (11.5-14.5) % Plt Count 219 (130-400) K/uL MPV 10.6 (7.2-11.7) fL Neut % (Auto) 80.4 H (50.0-75.0) % Lymph % (Auto) 9.1 L (20.0-40.0) % Lares % (Auto) 7.4 (0.0-10.0) % Eos % (Auto) 2.7 (0.0-4.0) % Baso % (Auto) 0.4 (0.0-2.0) % Neut # (Auto) 10.9 H (1.8-7.0) K/uL Lymph # (Auto) 1.2 (1.0-4.3) K/uL Lares # (Auto) 1.0 H (0.0-0.8) K/uL Eos # (Auto) 0.4 (0.0-0.7) K/uL Baso # (Auto) 0.1 (0.0-0.2) K/uL Neutrophils % (Manual) 86 H (50-75) % Band Neutrophils % 2 (0-2) % Lymphocytes % (Manual) 6 L (20-40) % Monocytes % (Manual) 2 (0-10) % Eosinophils % (Manual) 4 (0-4) % Platelet Estimate Normal (NORMAL) RBC Morphology Normal Sodium (132-148) mmol/L Potassium (3.6-5.2) mmol/L Chloride (98-107) mmol/L Carbon Dioxide (22-30) mmol/L Anion Gap (10-20) BUN (9-20) mg/dL Creatinine (0.8-1.5) mg/dL Est GFR ( Amer) Est GFR (Non-Af Amer) POC Glucose (mg/dL) 208 H (65-110) mg/dL Random Glucose (75-110) mg/dL Calcium (8.6-10.4) mg/dl Phosphorus (2.5-4.5) mg/dL Magnesium (1.6-2.3) mg/dL Total Bilirubin (0.2-1.3) mg/dL AST (17-59) U/L ALT (21-72) U/L Alkaline Phosphatase (38-126) U/L Total Protein (6.3-8.3) g/dL Albumin (3.5-5.0) g/dL Globulin (2.2-3.9) gm/dL Albumin/Globulin Ratio (1.0-2.1) Procalcitonin (0.19-0.49) NG/ML PTH Intact Whole Molec (14-64) pg/mL Whole Blood Lead (<5) mcg/dL Hep Bs Antigen Negative (NEGATIVE) Hep Bs Antibody (NEGATIVE) Hep B Core IgM Ab Negative (NEGATIVE) Hepatitis C Antibody Negative (NEGATIVE) HIV 1&2 Antibody Screen (NEGATIVE) 11/24/17 11/24/17 11/23/17 Range/Units 06:20 06:20 21:08 WBC (4.8-10.8) K/uL RBC (4.40-5.90) Mil/uL Hgb (12.0-18.0) g/dL Hct (35.0-51.0) % MCV (80.0-94.0) fL MCH (27.0-31.0) pg MCHC (33.0-37.0) g/dL RDW (11.5-14.5) % Plt Count (130-400) K/uL MPV (7.2-11.7) fL Neut % (Auto) (50.0-75.0) % Lymph % (Auto) (20.0-40.0) % Lares % (Auto) (0.0-10.0) % Eos % (Auto) (0.0-4.0) % Baso % (Auto) (0.0-2.0) % Neut # (Auto) (1.8-7.0) K/uL Lymph # (Auto) (1.0-4.3) K/uL Lares # (Auto) (0.0-0.8) K/uL Eos # (Auto) (0.0-0.7) K/uL Baso # (Auto) (0.0-0.2) K/uL Neutrophils % (Manual) (50-75) % Band Neutrophils % (0-2) % Lymphocytes % (Manual) (20-40) % Monocytes % (Manual) (0-10) % Eosinophils % (Manual) (0-4) % Platelet Estimate (NORMAL) RBC Morphology Sodium 140 (132-148) mmol/L Potassium 3.0 L (3.6-5.2) mmol/L Chloride 97 L (98-107) mmol/L Carbon Dioxide 25 (22-30) mmol/L Anion Gap 22 H (10-20) BUN 87 H (9-20) mg/dL Creatinine 9.6 H* (0.8-1.5) mg/dL Est GFR ( Amer) 7 Est GFR (Non-Af Amer) 6 POC Glucose (mg/dL) 180 H (65-110) mg/dL Random Glucose 126 H (75-110) mg/dL Calcium 6.4 L (8.6-10.4) mg/dl Phosphorus 7.9 H (2.5-4.5) mg/dL Magnesium 1.6 (1.6-2.3) mg/dL Total Bilirubin 0.3 (0.2-1.3) mg/dL AST 17 D (17-59) U/L ALT 23 (21-72) U/L Alkaline Phosphatase 74 (38-126) U/L Total Protein 5.7 L (6.3-8.3) g/dL Albumin 3.1 L (3.5-5.0) g/dL Globulin 2.6 (2.2-3.9) gm/dL Albumin/Globulin Ratio 1.2 (1.0-2.1) Procalcitonin 0.40 (0.19-0.49) NG/ML PTH Intact Whole Molec (14-64) pg/mL Whole Blood Lead (<5) mcg/dL Hep Bs Antigen (NEGATIVE) Hep Bs Antibody (NEGATIVE) Hep B Core IgM Ab (NEGATIVE) Hepatitis C Antibody (NEGATIVE) HIV 1&2 Antibody Screen (NEGATIVE) 11/22/17 11/22/17 Range/Units 18:08 13:45 WBC (4.8-10.8) K/uL RBC (4.40-5.90) Mil/uL Hgb (12.0-18.0) g/dL Hct (35.0-51.0) % MCV (80.0-94.0) fL MCH (27.0-31.0) pg MCHC (33.0-37.0) g/dL RDW (11.5-14.5) % Plt Count (130-400) K/uL MPV (7.2-11.7) fL Neut % (Auto) (50.0-75.0) % Lymph % (Auto) (20.0-40.0) % Lares % (Auto) (0.0-10.0) % Eos % (Auto) (0.0-4.0) % Baso % (Auto) (0.0-2.0) % Neut # (Auto) (1.8-7.0) K/uL Lymph # (Auto) (1.0-4.3) K/uL Lares # (Auto) (0.0-0.8) K/uL Eos # (Auto) (0.0-0.7) K/uL Baso # (Auto) (0.0-0.2) K/uL Neutrophils % (Manual) (50-75) % Band Neutrophils % (0-2) % Lymphocytes % (Manual) (20-40) % Monocytes % (Manual) (0-10) % Eosinophils % (Manual) (0-4) % Platelet Estimate (NORMAL) RBC Morphology Sodium (132-148) mmol/L Potassium (3.6-5.2) mmol/L Chloride (98-107) mmol/L Carbon Dioxide (22-30) mmol/L Anion Gap (10-20) BUN (9-20) mg/dL Creatinine (0.8-1.5) mg/dL Est GFR ( Amer) Est GFR (Non-Af Amer) POC Glucose (mg/dL) (65-110) mg/dL Random Glucose (75-110) mg/dL Calcium (8.6-10.4) mg/dl Phosphorus (2.5-4.5) mg/dL Magnesium (1.6-2.3) mg/dL Total Bilirubin (0.2-1.3) mg/dL AST (17-59) U/L ALT (21-72) U/L Alkaline Phosphatase (38-126) U/L Total Protein (6.3-8.3) g/dL Albumin (3.5-5.0) g/dL Globulin (2.2-3.9) gm/dL Albumin/Globulin Ratio (1.0-2.1) Procalcitonin (0.19-0.49) NG/ML PTH Intact Whole Molec 328 H (14-64) pg/mL Whole Blood Lead 2 (<5) mcg/dL Hep Bs Antigen (NEGATIVE) Hep Bs Antibody (NEGATIVE) Hep B Core IgM Ab (NEGATIVE) Hepatitis C Antibody (NEGATIVE) HIV 1&2 Antibody Screen (NEGATIVE) Laboratory Results - last 24 hr 11/22/17 11/22/17 11/23/17 13:45 18:08 21:08 WBC RBC Hgb Hct MCV MCH MCHC RDW Plt Count MPV Neut % (Auto) Lymph % (Auto) Lares % (Auto) Eos % (Auto) Baso % (Auto) Neut # (Auto) Lymph # (Auto) Lares # (Auto) Eos # (Auto) Baso # (Auto) Neutrophils % (Manual) Band Neutrophils % Lymphocytes % (Manual) Monocytes % (Manual) Eosinophils % (Manual) Platelet Estimate RBC Morphology Sodium Potassium Chloride Carbon Dioxide Anion Gap BUN Creatinine Est GFR ( Amer) Est GFR (Non-Af Amer) POC Glucose (mg/dL) 180 H Random Glucose Calcium Phosphorus Magnesium Total Bilirubin AST ALT Alkaline Phosphatase Total Protein Albumin Globulin Albumin/Globulin Ratio Procalcitonin PTH Intact Whole Molec 328 H Whole Blood Lead 2 Hep Bs Antigen Hep Bs Antibody Hep B Core IgM Ab Hepatitis C Antibody HIV 1&2 Antibody Screen 11/24/17 11/24/17 11/24/17 06:20 06:20 06:32 WBC 13.6 H RBC 2.63 L Hgb 8.1 L Hct 23.5 L MCV 89.4 MCH 30.8 MCHC 34.5 RDW 13.8 Plt Count 219 MPV 10.6 Neut % (Auto) 80.4 H Lymph % (Auto) 9.1 L Lares % (Auto) 7.4 Eos % (Auto) 2.7 Baso % (Auto) 0.4 Neut # (Auto) 10.9 H Lymph # (Auto) 1.2 Lares # (Auto) 1.0 H Eos # (Auto) 0.4 Baso # (Auto) 0.1 Neutrophils % (Manual) 86 H Band Neutrophils % 2 Lymphocytes % (Manual) 6 L Monocytes % (Manual) 2 Eosinophils % (Manual) 4 Platelet Estimate Normal RBC Morphology Normal Sodium 140 Potassium 3.0 L Chloride 97 L Carbon Dioxide 25 Anion Gap 22 H BUN 87 H Creatinine 9.6 H* Est GFR ( Amer) 7 Est GFR (Non-Af Amer) 6 POC Glucose (mg/dL) Random Glucose 126 H Calcium 6.4 L Phosphorus 7.9 H Magnesium 1.6 Total Bilirubin 0.3 AST 17 D ALT 23 Alkaline Phosphatase 74 Total Protein 5.7 L Albumin 3.1 L Globulin 2.6 Albumin/Globulin Ratio 1.2 Procalcitonin 0.40 PTH Intact Whole Molec Whole Blood Lead Hep Bs Antigen Hep Bs Antibody Hep B Core IgM Ab Hepatitis C Antibody HIV 1&2 Antibody Screen 11/24/17 11/24/17 11/24/17 11:29 13:54 13:54 WBC RBC Hgb Hct MCV MCH MCHC RDW Plt Count MPV Neut % (Auto) Lymph % (Auto) Lares % (Auto) Eos % (Auto) Baso % (Auto) Neut # (Auto) Lymph # (Auto) Lares # (Auto) Eos # (Auto) Baso # (Auto) Neutrophils % (Manual) Band Neutrophils % Lymphocytes % (Manual) Monocytes % (Manual) Eosinophils % (Manual) Platelet Estimate RBC Morphology Sodium Potassium Chloride Carbon Dioxide Anion Gap BUN Creatinine Est GFR ( Amer) Est GFR (Non-Af Amer) POC Glucose (mg/dL) 208 H Random Glucose Calcium Phosphorus Magnesium Total Bilirubin AST ALT Alkaline Phosphatase Total Protein Albumin Globulin Albumin/Globulin Ratio Procalcitonin PTH Intact Whole Molec Whole Blood Lead Hep Bs Antigen Negative Hep Bs Antibody Negative Hep B Core IgM Ab Negative Hepatitis C Antibody Negative HIV 1&2 Antibody Screen 11/24/17 11/24/17 13:54 16:31 WBC RBC Hgb Hct MCV MCH MCHC RDW Plt Count MPV Neut % (Auto) Lymph % (Auto) Lares % (Auto) Eos % (Auto) Baso % (Auto) Neut # (Auto) Lymph # (Auto) Lares # (Auto) Eos # (Auto) Baso # (Auto) Neutrophils % (Manual) Band Neutrophils % Lymphocytes % (Manual) Monocytes % (Manual) Eosinophils % (Manual) Platelet Estimate RBC Morphology Sodium Potassium Chloride Carbon Dioxide Anion Gap BUN Creatinine Est GFR ( Amer) Est GFR (Non-Af Amer) POC Glucose (mg/dL) 128 H Random Glucose Calcium Phosphorus Magnesium Total Bilirubin AST ALT Alkaline Phosphatase Total Protein Albumin Globulin Albumin/Globulin Ratio Procalcitonin PTH Intact Whole Molec Whole Blood Lead Hep Bs Antigen Hep Bs Antibody Hep B Core IgM Ab Hepatitis C Antibody HIV 1&2 Antibody Screen Negative EKG/Cardiology Studies: Cardiology / EKG Studies 11/23/17 17:28 EKG [ELECTROCARDIOGRAM] Stat Comment: Mode Of Transportation: BED Reason For Exam: change in rhythm Critical Care Progress Note - Nutrition Nutrition: Nutrition Category Date Time Status Renal Diet [DIET] Diets 11/24/17 Breakfast Active Attending/Attestation - Attestation I have personally seen and examined this patient.: Yes I have fully participated in the care of the patient.: Yes I have reviewed all pertinent clinical information: Yes Notes (Text): 11/24/17 17:46 Patient seen and examined in the intensive care unit. 62-year-old white male was admitted for acute renal failure, in need of dialysis and hypoglycemia status post permacath placement transfer to floor post dialysis
--- NOTE | 2017-11-24 10:42 | RAD ---
HISTORY: Central line placement COMPARISON: 11/22/2017 FINDINGS: LUNGS: No active pulmonary disease. PLEURA: No pneumothorax following catheter placement. CARDIOVASCULAR: Satisfactory position of dialysis catheter inserted via right IJ approach. OSSEOUS STRUCTURES: No significant abnormalities. VISUALIZED UPPER ABDOMEN: Normal. OTHER FINDINGS: None. IMPRESSION: No adverse findings/ no pneumothorax following venous access catheter placement. No active pulmonary disease.
[2017-11-24] MEDS ORDERED: Calcium Gluconate 4.65 mEq/10 ml Inj IVP ONE (11:00)
--- NOTE | 2017-11-24 11:04 | RAD ---
PROCEDURE: Intraoperative Fluoroscopy. HISTORY: RENAL FAILURE FINDINGS: Fluoroscopic assistance was provided for right-sided dialysis catheter placement. Please refer to the operative report from SOCORRO Martinez.
--- NOTE | 2017-11-24 12:22 | CARD ---
APPROVED REPORT EKG Measurement Heart [id number] <Conclusion> Sinus tachycardia with frequent premature ventricular complexes Possible Inferior infarct, age undetermined Abnormal ECG
--- NOTE | 2017-11-24 12:22 | CARD ---
APPROVED REPORT EKG Measurement Heart [id number] CT 176P [id number] <Conclusion> Sinus tachycardia with occasional premature ventricular complexes Otherwise normal ECG
--- NOTE | 2017-11-24 12:23 | CARD ---
APPROVED REPORT EKG Measurement Heart [id number] <Conclusion> poss sinus tach Cannot rule out Inferior infarct, age undetermined Abnormal ECG
--- NOTE | 2017-11-24 12:27 | CP.PCM.PN ---
Subjective - Date & Time of Evaluation Date of Evaluation: 11/24/17 Time of Evaluation: 12:26 - Subjective Subjective: RENAL CONSULT Note covering for Dr Ríos/Dr Aguirre 62 yo M w/ pmh of CKD, HTN, DM, CAD that prsented w/ MEENA. Pt recently went to his keno terminal operator this past thursday - bloowork was drawn and he was found to have a Cr of 7. A renal US was scheduled as an outpt but he developed hypoglycemic episode and altered mental status. He was found to have even worse kidney function and acidosis and admitted for further evaluation. He was recently on metformin but it was discontinued. He has had uremic symptoms of naussea and reduced appetite for about 2 weeks or so. He states he has been urinating normally. He endorses poor po intake last 24-48 hours. He denies any NSAID use. ROS: a full detailed ROS is negative except as in my HPI. denies CP/SOB/nausea/ vomitting. report of serum cr 2-3 range approx 3-4 months ago. PMHx: CKD Stage? HTN, HLD, DM, CAD w/stent, DE (2012), parapresis SurgHx: left knee surgery (1986), Cardiac stent (2012) FamHx: father on dialysis SocHx: + smoking hx, no etoh or ivdu all: nkda meds as below. pe: vs as below gen: nad sclera: anicteric op: clear neck: supple no thyromegaly cv:+s1+s2 no rub abd soft no orgnomegaly lungs CTA b/l ext trace edema neuro: A+OX3 very faint asterixis psych: nml affect gu: weinberg skin no rash labs and imaging reviewed reviewed ct imaging no hydronephrosis appreciated imp: arf / acidosis /anemia of renal disease/ UTI? / diabetic kidney disease/ secondary hyperpara/hypokalemia/smoker/obesity/CKD stage 3/4 plan: will check GN work up as ordered to r/o causes of MEENA. no obstruction on imaging. non oliguric plan for HD initiation once permacath in place. 1st HD today and next HD tomorrow start epogen, IV iron and nephrovite for anemia. PRBC as needed. anemia work up with SPEP/DREW and serum FLC assay Vit D 35, pending PTH. started phos binders and hold cacitriol due to high phos levels stop bicarb drip/supplements supplement lytes as needed check HIV/Hep B and C serology SW consult for outpt HD placement with Dr Aguirre Thanks for consult Please call if any Qs d/w ICU team and primary keno terminal operator as well Objective - Vital Signs/Intake and Output Vital Signs (last 24 hours): Temp Pulse Resp BP Pulse Ox 97.7 F 80 19 108/56 L 97 11/24/17 12:00 11/24/17 12:00 11/24/17 12:00 11/24/17 12:00 11/24/17 12:00 Intake and Output: 11/24/17 11/24/17 06:59 18:59 Intake Total 1275 1000 Output Total 1790 200 Balance -515 800 - Medications Medications: Current Medications Albuterol/Ipratropium (Duoneb 3 Mg/0.5 Mg (3 Ml) Ud) 3 ml INH RQ6 [facility] Aspirin (Aspirin Chewable) 81 mg PO DAILY [facility] Last Admin: 11/24/17 10:12 Dose: 81 mg Bisacodyl (Dulcolax) 10 mg AR ONCE PRN PRN Reason: Constipation Calcium Acetate (Phoslo) 1,334 mg PO TID [facility] Last Admin: 11/24/17 10:30 Dose: Not Given Dextrose (Dextrose 50% Inj) 0 ml IV STAT PRN; Protocol PRN Reason: Hypoglycemia Protocol Dextrose (Glutose 15) 0 gm PO ONCE PRN; Protocol PRN Reason: Hypoglycemia Protocol Docusate Sodium (Colace) 100 mg PO TID [facility] Last Admin: 11/24/17 10:12 Dose: Not Given Epoetin Jed (Procrit) 10,000 unit SC MWF [facility] Last Admin: 11/23/17 16:32 Dose: Not Given Ferric Sodium Gluconate Complex (Ferrlecit) 125 mg IVPB DAILY [facility] Stop: 11/30/17 10:01 Last Admin: 11/24/17 10:13 Dose: 125 mg Glucagon (Glucagen Diagnostic Kit) 0 mg IM STAT PRN; Protocol PRN Reason: Hypoglycemia Protocol Heparin Sodium (Porcine) (Heparin) 5,000 units SC Q12 [facility] Last Admin: 11/24/17 10:14 Dose: 5,000 units Ceftriaxone Sodium 1 gm/ (Sodium Chloride) 100 mls @ 100 mls/hr IVPB DAILY [facility] PRN Reason: Protocol Last Admin: 11/24/17 10:16 Dose: 100 mls/hr Dextrose (Dextrose 5% In Water 1000 Ml) 1,000 mls @ 0 mls/hr IV .Q0M PRN; Protocol; Per Protocol PRN Reason: Hypoglycemia Protocol Potassium Chloride (Potassium Chloride 20 Meq/100 Ml) 20 meq in 100 mls @ 50 mls/hr IVPB ONCE ONE Stop: 11/24/17 12:59 Last Admin: 11/24/17 10:29 Dose: 50 mls/hr Insulin Human Regular (Novolin R) 0 unit SC ACHS [facility] PRN Reason: Protocol Last Admin: 11/24/17 07:30 Dose: Not Given Metoclopramide HCl (Reglan) 10 mg PO ACHS [facility] Last Admin: 11/24/17 08:00 Dose: Not Given Metoprolol Tartrate (Lopressor) 50 mg PO DAILY [facility] Last Admin: 11/24/17 10:29 Dose: 50 mg Nicotine (Nicoderm Cq) 1 patch TD DAILY [facility] Last Admin: 11/24/17 10:34 Dose: 1 patch Pantoprazole Sodium (Protonix Ec Tab) 40 mg PO DAILY [facility] Last Admin: 11/24/17 10:29 Dose: 40 mg Rosuvastatin Calcium (Crestor) 10 mg PO HS [facility] Last Admin: 11/23/17 21:25 Dose: 10 mg Vitamin B Complex/Vit C/Folic Acid (Nephro-Avelino) 1 tab PO 0800 [facility] Last Admin: 11/24/17 08:00 Dose: Not Given - Labs Labs: 11/24/17 06:32 11/24/17 06:20 PT 12.1 SECONDS (9.7-12.2) 11/23/17 12:53 INR 1.1 11/23/17 12:53 APTT 26 SECONDS (21-34) 11/23/17 12:53
--- NOTE | 2017-11-24 14:56 | CP.PCM.PN ---
Subjective - Date & Time of Evaluation Date of Evaluation: 11/24/17 Time of Evaluation: 14:00 - Subjective Subjective: Patient had placement R IJ Permacather for HD cathter earlier this morning. When I saw him this afternoon he was getting HD Later today he will be transferred out of the ICU He denied shortness of breath, denied chest pain, denied palpitations. Objective - Vital Signs/Intake and Output Vital Signs (last 24 hours): Temp Pulse Resp BP Pulse Ox 98 F 84 20 135/72 97 11/24/17 13:45 11/24/17 13:45 11/24/17 13:45 11/24/17 14:00 11/24/17 13:45 Intake and Output: 11/24/17 11/24/17 06:59 18:59 Intake Total 1275 1000 Output Total 1790 200 Balance -515 800 - Medications Medications: Current Medications Albuterol/Ipratropium (Duoneb 3 Mg/0.5 Mg (3 Ml) Ud) 3 ml INH RQ6 [facility] Aspirin (Aspirin Chewable) 81 mg PO DAILY [facility] Last Admin: 11/24/17 10:12 Dose: 81 mg Bisacodyl (Dulcolax) 10 mg NC ONCE PRN PRN Reason: Constipation Calcium Acetate (Phoslo) 1,334 mg PO TID [facility] Last Admin: 11/24/17 10:30 Dose: Not Given Dextrose (Dextrose 50% Inj) 0 ml IV STAT PRN; Protocol PRN Reason: Hypoglycemia Protocol Dextrose (Glutose 15) 0 gm PO ONCE PRN; Protocol PRN Reason: Hypoglycemia Protocol Docusate Sodium (Colace) 100 mg PO TID [facility] Last Admin: 11/24/17 10:12 Dose: Not Given Epoetin Jed (Procrit) 10,000 unit SC MWF [facility] Last Admin: 11/23/17 16:32 Dose: Not Given Ferric Sodium Gluconate Complex (Ferrlecit) 125 mg IVPB DAILY [facility] Stop: 11/30/17 10:01 Last Admin: 11/24/17 10:13 Dose: 125 mg Glucagon (Glucagen Diagnostic Kit) 0 mg IM STAT PRN; Protocol PRN Reason: Hypoglycemia Protocol Heparin Sodium (Porcine) (Heparin) 5,000 units SC Q12 [facility] Last Admin: 11/24/17 10:14 Dose: 5,000 units Ceftriaxone Sodium 1 gm/ (Sodium Chloride) 100 mls @ 100 mls/hr IVPB DAILY [facility] PRN Reason: Protocol Last Admin: 11/24/17 10:16 Dose: 100 mls/hr Dextrose (Dextrose 5% In Water 1000 Ml) 1,000 mls @ 0 mls/hr IV .Q0M PRN; Protocol; Per Protocol PRN Reason: Hypoglycemia Protocol Insulin Human Regular (Novolin R) [address] [facility] PRN Reason: Protocol Last Admin: 11/24/17 07:30 Dose: Not Given Metoclopramide HCl (Reglan) [address] [facility] Last Admin: 11/24/17 08:00 Dose: Not Given Metoprolol Tartrate (Lopressor) 50 mg PO DAILY [facility] Last Admin: 11/24/17 10:29 Dose: 50 mg Nicotine (Nicoderm Cq) 1 patch TD DAILY [facility] Last Admin: 11/24/17 10:34 Dose: 1 patch Pantoprazole Sodium (Protonix Ec Tab) 40 mg PO DAILY [facility] Last Admin: 11/24/17 10:29 Dose: 40 mg Rosuvastatin Calcium (Crestor) 10 mg PO HS [facility] Last Admin: 11/23/17 21:25 Dose: 10 mg Vitamin B Complex/Vit C/Folic Acid (Nephro-Avelino) 1 tab PO 0800 [facility] Last Admin: 11/24/17 08:00 Dose: Not Given - Labs Labs: 11/24/17 06:32 11/24/17 06:20 PT 12.1 SECONDS (9.7-12.2) 11/23/17 12:53 INR 1.1 11/23/17 12:53 APTT 26 SECONDS (21-34) 11/23/17 12:53 - Constitutional Appears: Unkempt, Older Than Stated Age - Head Exam Head Exam: NORMAL INSPECTION, NORMOCEPHALIC - Eye Exam Eye Exam: EOMI, Normal appearance - ENT Exam ENT Exam: Mucous Membranes Moist - Respiratory Exam Respiratory Exam: Clear to Ausculation Bilateral, NORMAL BREATHING PATTERN - Cardiovascular Exam Cardiovascular Exam: REGULAR RHYTHM - GI/Abdominal Exam GI & Abdominal Exam: Soft - Neurological Exam Neurological Exam: Alert, Awake, Oriented x3 Neuro motor strength exam: Left Upper Extremity: 5, Right Upper Extremity: 5, Left Lower Extremity: 5, Right Lower Extremity: 5 - Psychiatric Exam Psychiatric exam: Depressed, Flat Affect - Skin Skin Exam: Normal Color, Warm Assessment and Plan - Assessment and Plan (Free Text) Assessment: 1. Acute renal failure 11/24: This morning had R IJ perm cath. The patient is currently getting HD. After this transfer out of the ICU 11/23: Pending permacath placment tomorrow morning - at this time remains on bicarb ggt. 2. Diabetes mellitus and s/p Hypoglycemia 11/24: Current accuchecks are 190s, 180s, 206 11/23: Accuchecks are better, on D5 with bicarb at this time. Not clear why he was taking so much sulfonyurea outpatient when in renal failure. 3. Leukocytosis 11/23: Now decrease to 11. Remains on IV abx 4. Dehydration Poor intake and nausea continue fluids Hydrate and follow bun/creatinine 5. HTN 11/24: stable in the 130s systolic and 140s. Remains in systolic in the 120s. 6. Coronary artery disease Continue Metoprolol 50mg PO daily, ASA 81mg PO daily, and Crestor 10mg PO HS. 7. Elevated ProBNP and High LFT Do Echo 7. Prophylactic measure Continue heparin and protonix
[2017-11-24 14:57] LABS: HEPATITIS B SURFACE AG Negative (NEGATIVE)
[2017-11-24 15:03] LABS: HEPATITIS B CORE AB NEGATIVE (NEGATIVE)
[2017-11-24 15:15] LABS: HEPATITIS C ANTIBODY NEGATIVE (NEGATIVE)
[2017-11-24] MEDS ORDERED: Pneumoc 13 Val Conjugate Vaccine Inj IM ONE (16:15)
--- NOTE | 2017-11-24 19:33 | CARD ---
APPROVED REPORT EKG Measurement Heart [id number] <Conclusion> Accelerated Junctional rhythm Abnormal ECG
[2017-11-24] MEDS: Albuterol-Ipratrop 3 mg / 0.5 (3 ml) UD INH SCH (20:00)
[2017-11-25] MEDS: Albuterol-Ipratrop 3 mg / 0.5 (3 ml) UD INH SCH ×4 (01:11→19:51)
[2017-11-25 06:40] LABS: BASO % 0.2 % (0.0-2.0); EOS # 0.2 K/uL (0.0-0.7); EOS % 1.7 % (0.0-4.0); HEMOGLOBIN 8.5 g/dL (12.0-18.0); LYMPH # 1.2 K/uL (1.0-4.3); LYMPH % 9.7 % (20.0-40.0); MEAN CELL VOLUME 90.9 fL (80.0-94.0); MEAN CORPUSCULAR HEMOGLOBIN 30.4 pg (27.0-31.0); MEAN CORPUSCULAR HGB CONC 33.4 g/dL (33.0-37.0); MEAN PLATELET VOLUME 10.5 fL (7.2-11.7); MONO % 7.6 % (0.0-10.0); NEUT # 10.3 K/uL (1.8-7.0); NEUT % 80.8 % (50.0-75.0); PLATELET COUNT 220 K/uL (130-400); RBC 2.82 Mil/uL (4.40-5.90); RED CELL DISTRIBUTION WIDTH 13.9 % (11.5-14.5); WHITE BLOOD COUNT 12.7 K/uL (4.8-10.8)
[2017-11-25 06:44] LABS: ALB/GLOB RATIO 1.2 (1.0-2.1); ALBUMIN 3.2 g/dL (3.5-5.0); CALCIUM 7.2 mg/dl (8.6-10.4)
--- NOTE | 2017-11-25 07:52 | CP.PCM.PN ---
<Bart Bedoya R - Last Filed: 11/25/17 14:46> Subjective - Date & Time of Evaluation Date of Evaluation: 11/25/17 Time of Evaluation: 07:45 - Subjective Subjective: PGY-[address] Osman. No acute events noted overnight. Had permacath placed yesterday and was successfully dialyzed post procedure. To have HD again today as per Dr Caal's note. Denied pain or discomfort. Stated he felt better after HD yesterday. Inquired about his Cr levels. Inquired about fdc HD. Objective - Vital Signs/Intake and Output Vital Signs (last 24 hours): Temp Pulse Resp BP Pulse Ox 98.5 F 101 H 16 146/62 94 L 11/25/17 04:00 11/25/17 06:00 11/25/17 06:00 11/25/17 06:00 11/25/17 06:00 Intake and Output: 11/25/17 11/25/17 06:59 18:59 Intake Total 340 Output Total 450 Balance -110 - Medications Medications: Current Medications Albuterol/Ipratropium (Duoneb 3 Mg/0.5 Mg (3 Ml) Ud) 3 ml INH RQ6 [facility] Last Admin: 11/25/17 01:11 Dose: Not Given Aspirin (Aspirin Chewable) 81 mg PO DAILY [facility] Last Admin: 11/24/17 10:12 Dose: 81 mg Bisacodyl (Dulcolax) 10 mg NM ONCE PRN PRN Reason: Constipation Calcium Acetate (Phoslo) 1,334 mg PO TID [facility] Last Admin: 11/24/17 17:01 Dose: 1,334 mg Dextrose (Dextrose 50% Inj) 0 ml IV STAT PRN; Protocol PRN Reason: Hypoglycemia Protocol Dextrose (Glutose 15) 0 gm PO ONCE PRN; Protocol PRN Reason: Hypoglycemia Protocol Docusate Sodium (Colace) 100 mg PO TID [facility] Last Admin: 11/24/17 17:00 Dose: Not Given Epoetin Jed (Procrit) 10,000 unit SC MWF [facility] Last Admin: 11/23/17 16:32 Dose: Not Given Ferric Sodium Gluconate Complex (Ferrlecit) 125 mg IVPB DAILY [facility] Stop: 11/30/17 10:01 Last Admin: 11/24/17 10:13 Dose: 125 mg Glucagon (Glucagen Diagnostic Kit) 0 mg IM STAT PRN; Protocol PRN Reason: Hypoglycemia Protocol Heparin Sodium (Porcine) (Heparin) 5,000 units SC Q12 [facility] Last Admin: 11/24/17 21:16 Dose: 5,000 units Ceftriaxone Sodium 1 gm/ (Sodium Chloride) 100 mls @ 100 mls/hr IVPB DAILY [facility] PRN Reason: Protocol Last Admin: 11/24/17 10:16 Dose: 100 mls/hr Dextrose (Dextrose 5% In Water 1000 Ml) 1,000 mls @ 0 mls/hr IV .Q0M PRN; Protocol; Per Protocol PRN Reason: Hypoglycemia Protocol Insulin Human Regular (Novolin R) 0 unit SC ACHS [facility] PRN Reason: Protocol Last Admin: 11/24/17 21:19 Dose: Not Given Metoclopramide HCl (Reglan) 10 mg PO ACHS [facility] Last Admin: 11/24/17 21:16 Dose: 10 mg Metoprolol Tartrate (Lopressor) 50 mg PO DAILY [facility] Last Admin: 11/24/17 10:29 Dose: 50 mg Nicotine (Nicoderm Cq) 1 patch TD DAILY [facility] Last Admin: 11/24/17 10:34 Dose: 1 patch Pantoprazole Sodium (Protonix Ec Tab) 40 mg PO DAILY [facility] Last Admin: 11/24/17 10:29 Dose: 40 mg Rosuvastatin Calcium (Crestor) 10 mg PO HS [facility] Last Admin: 11/24/17 21:19 Dose: 10 mg Vitamin B Complex/Vit C/Folic Acid (Nephro-Avelino) 1 tab PO 0800 [facility] Last Admin: 11/24/17 12:00 Dose: 1 tab - Labs Labs: 11/25/17 06:19 11/25/17 06:19 PT 12.1 SECONDS (9.7-12.2) 11/23/17 12:53 INR 1.1 11/23/17 12:53 APTT 26 SECONDS (21-34) 11/23/17 12:53 - Constitutional Appears: Well, No Acute Distress, Other (obese) - Head Exam Head Exam: ATRAUMATIC, NORMAL INSPECTION - Eye Exam Eye Exam: EOMI Pupil Exam: PERRL - ENT Exam ENT Exam: Mucous Membranes Moist - Neck Exam Neck Exam: Full ROM, Normal Inspection. absent: Tenderness - Respiratory Exam Respiratory Exam: Clear to Ausculation Bilateral, NORMAL BREATHING PATTERN. absent: Rales, Rhonchi, Wheezes - Cardiovascular Exam Cardiovascular Exam: Tachycardia, REGULAR RHYTHM, +S1, +S2. absent: JVD, Murmur - GI/Abdominal Exam GI & Abdominal Exam: Soft, Normal Bowel Sounds. absent: Distended, Firm, Guarding, Rigid, Tenderness - Extremities Exam Extremities Exam: Full ROM, Normal Capillary Refill, Normal Inspection. absent : Tenderness - Neurological Exam Neurological Exam: Alert, Awake, Oriented x3 - Psychiatric Exam Psychiatric exam: Normal Affect, Normal Mood - Skin Skin Exam: Intact, Normal Color, Warm Assessment and Plan - Assessment and Plan (Free Text) Assessment: This is a 62 year old male with PMHx of CKD, HTN, HLD, T2DM, CAD with PCI intervention (2012) admitted reported having an increase in his renal function numbers, causing a change from metformin to glipizide by PMD x 2 months ago. Patient started feeling nausea, vomiting, abdominal pain, weakness, fatigue x 2 weeks. Prior to admission patient was unable to move, paramedics arrived at the scene and he was found to have sugars of 24. Patient was admitted for acute renal failure: Plan: MEENA on CKD (stage unknown), now in ARF Likely diabetic kidney disease Dr. Balbuena consulted Dr. Del Cid consulted for permacath placement * Permacath placed 11/24 - had successful dialysis after placement hepatitis panel negative, hiv negative, serum immunofixation negative, Started on bicarb drip @ 150cc/hr - now discontinued Phoslo given Procit 10,000u sc mwf Ferrlicit 125mg ivp qd for 8 days Supraventricular Tachycardia 20 min runs of SVT with rate in 150s x20 minutes Start cardizem 30mg po tid f/u ekg CAD SC in 2012 -> with PCI asa 81mg po qd metoprolol tartrate 50mg po qd rosuvastatin 10mg po hs HTN metoprolol tartrate 50mg po qd HLD rosuvastatin 10mg po hs Tobacco Use Disorder Smoking Cessation encouraged Nicotine Patch daily Duonebs Q6H Constipation colace 100mg po tid dulcolax 10MG po prn Cholelithiasis and distended gallbladder noted on CT Scan Abdominal US ordered: cholelithiasis, no CBD dilatation Hypoglycemia Hypoglycemic protocol in place T2DM Accuchecks HA1C 6.5 Previously on metformin, instructed by PCP to stop and take Glipizide instead x2 months ago Carb Consistent Diet Secondary hyperparathyroidism Given Calcium gluconate x2 doses UTI - Gram + Cocci Afebrile, normotensive, leukocytosis with left shift, no bandemia, lactate 1.0, procal normal UA, UC reordered, washburn cultures - negative to date CT chest/ab/pelv: No active pulmonary disease. Clear lungs. Cholelithiasis and distended gallbladder. If clinically indicated, correlation with right upper quadrant ultrasound may be performed. Large exophytic simple cyst in the interpolar region of the right kidney. Extensive nonspecific perinephric fat stranding which may be a sequela of remote infection. Started Rocephin 1 gram IVP daily 11/23 Anemia of Renal Disease Ferrlicit 125mg ivp qd for 8 days Prophylaxis: Protonix SCDs, Hep Q12 PT/OT Permacath placed 11/24 Disposition: SW consult for outpt HD placement with Dr Carla Osman, Bart Bedoya DO, PGY-2 <Gil Osman H - Last Filed: 11/25/17 16:40> Objective - Vital Signs/Intake and Output Vital Signs (last 24 hours): Temp Pulse Resp BP Pulse Ox 99.0 F 85 17 131/75 99 11/25/17 12:00 11/25/17 15:00 11/25/17 15:00 11/25/17 13:19 11/25/17 15:00 Intake and Output: 11/25/17 11/25/17 06:59 18:59 Intake Total 340 Output Total 450 Balance -110 - Medications Medications: Current Medications Albuterol/Ipratropium (Duoneb 3 Mg/0.5 Mg (3 Ml) Ud) 3 ml INH RQ6 [facility] Last Admin: 11/25/17 14:00 Dose: 3 ml Aspirin (Aspirin Chewable) 81 mg PO DAILY [facility] Last Admin: 11/24/17 10:12 Dose: 81 mg Bisacodyl (Dulcolax) 10 mg NM ONCE PRN PRN Reason: Constipation Calcium Acetate (Phoslo) 1,334 mg PO TID [facility] Last Admin: 11/25/17 15:29 Dose: 1,334 mg Dextrose (Dextrose 50% Inj) 0 ml IV STAT PRN; Protocol PRN Reason: Hypoglycemia Protocol Dextrose (Glutose 15) 0 gm PO ONCE PRN; Protocol PRN Reason: Hypoglycemia Protocol Diltiazem HCl (Cardizem) 30 mg PO TID [facility] Last Admin: 11/25/17 15:32 Dose: 30 mg Docusate Sodium (Colace) 100 mg PO TID [facility] Last Admin: 11/25/17 15:32 Dose: Not Given Epoetin Jed (Procrit) 10,000 unit SC MWF [facility] Last Admin: 11/25/17 12:36 Dose: 10,000 unit Ferric Sodium Gluconate Complex (Ferrlecit) 125 mg IVPB DAILY [facility] Stop: 11/30/17 10:01 Last Admin: 11/25/17 12:37 Dose: 125 mg Glucagon (Glucagen Diagnostic Kit) 0 mg IM STAT PRN; Protocol PRN Reason: Hypoglycemia Protocol Heparin Sodium (Porcine) (Heparin) 5,000 units SC Q12 [facility] Last Admin: 11/25/17 13:27 Dose: 5,000 units Ceftriaxone Sodium 1 gm/ (Sodium Chloride) 100 mls @ 100 mls/hr IVPB DAILY [facility] PRN Reason: Protocol Last Admin: 11/25/17 13:27 Dose: 100 mls/hr Dextrose (Dextrose 5% In Water 1000 Ml) 1,000 mls @ 0 mls/hr IV .Q0M PRN; Protocol; Per Protocol PRN Reason: Hypoglycemia Protocol Insulin Human Regular (Novolin R) 0 unit SC [facility] PRN Reason: Protocol Last Admin: 11/25/17 15:29 Dose: Not Given Metoclopramide HCl (Reglan) 10 mg PO ACHS [facility] Last Admin: 11/25/17 11:28 Dose: 10 mg Metoprolol Tartrate (Lopressor) 50 mg PO DAILY [facility] Last Admin: 11/25/17 15:29 Dose: 50 mg Nicotine (Nicoderm Cq) 1 patch TD DAILY [facility] Last Admin: 11/25/17 15:29 Dose: 1 patch Pantoprazole Sodium (Protonix Ec Tab) 40 mg PO DAILY [facility] Last Admin: 11/25/17 15:27 Dose: 40 mg Rosuvastatin Calcium (Crestor) 10 mg PO HS [facility] Last Admin: 11/24/17 21:19 Dose: 10 mg Vitamin B Complex/Vit C/Folic Acid (Nephro-Avelino) 1 tab PO 0800 [facility] Last Admin: 11/25/17 15:31 Dose: 1 tab - Labs Labs: 11/25/17 06:19 11/25/17 06:19 PT 12.1 SECONDS (9.7-12.2) 11/23/17 12:53 INR 1.1 11/23/17 12:53 APTT 26 SECONDS (21-34) 11/23/17 12:53 Attending/Attestation - Attestation I have personally seen and examined this patient.: Yes I have fully participated in the care of the patient.: Yes I have reviewed all pertinent clinical information, including history, physical exam and plan: Yes Notes (Text): 11/25/17 16:40 Medical attending: Patient was seen and examined by me, agrees the above note by the medical management trainer. He had his second session of hemodialysis today he tolerated this well. Earlier in the morning he had a very short run of tachycardia. For the time being will start him on a small dose of Cardizem just to see how well he does. However should this continue will have to get a cardiology consult Thank you very much, Gil Osman
[2017-11-25] MEDS: (Novolin R) Insulin Human Regular 100 units/ml vial SC SCH ×4 (09:02→21:41)
[2017-11-25 09:08] LABS: BANDS 1 % (0-2); EOSINOPHIL 2 % (0-4); HYPOCHROMIC SLIGHT; LYMPHOCYTE 8 % (20-40); MONOCYTE 6 % (0-10); NEUTROPHIL 83 % (50-75); PLATELET ESTIMATE NORMAL (NORMAL); TOTAL CELLS COUNTED 100
[2017-11-25] MEDS ORDERED: Potassium Chloride 20 mEq ER Tab PO ONE ×2 (10:00→10:11)
[2017-11-25] MEDS: Epoetin Alfa 10,000 unit/ml Dialysis SC SCH (12:36)
[2017-11-25] MEDS: Ferric Sodium Gluconat Complex 62.5 mg/5 ml Vial IVPB SCH (12:37)
[2017-11-25] MEDS: Pantoprazole 40 mg EC Tab PO SCH (15:27)
[2017-11-25] MEDS: Multivitamin Vitamin B Complex (Nephro-Vite) Tab PO SCH (15:31)
--- NOTE | 2017-11-25 15:33 | CP.PCM.PN ---
Subjective - Date & Time of Evaluation Date of Evaluation: 11/25/17 Time of Evaluation: 12:30 - Subjective Subjective: Dialysis note Patient seen on hemodialysis. Vital signs stable Balderas appeared to tolerate hemodialysis and this is second hemodialysis treatment from right subclavian catheter. No nausea or vomiting Objective - Vital Signs/Intake and Output Vital Signs (last 24 hours): Temp Pulse Resp BP Pulse Ox 97.6 F 108 H 14 131/75 99 11/25/17 10:30 11/25/17 13:19 11/25/17 13:19 11/25/17 13:19 11/25/17 13:19 Intake and Output: 11/25/17 11/25/17 06:59 18:59 Intake Total 340 Output Total 450 Balance -110 - Medications Medications: Current Medications Albuterol/Ipratropium (Duoneb 3 Mg/0.5 Mg (3 Ml) Ud) 3 ml INH RQ6 [facility] Last Admin: 11/25/17 14:00 Dose: 3 ml Aspirin (Aspirin Chewable) 81 mg PO DAILY [facility] Last Admin: 11/24/17 10:12 Dose: 81 mg Bisacodyl (Dulcolax) 10 mg AL ONCE PRN PRN Reason: Constipation Calcium Acetate (Phoslo) 1,334 mg PO TID [facility] Last Admin: 11/24/17 17:01 Dose: 1,334 mg Dextrose (Dextrose 50% Inj) 0 ml IV STAT PRN; Protocol PRN Reason: Hypoglycemia Protocol Dextrose (Glutose 15) 0 gm PO ONCE PRN; Protocol PRN Reason: Hypoglycemia Protocol Diltiazem HCl (Cardizem) 30 mg PO TID [facility] Docusate Sodium (Colace) 100 mg PO TID [facility] Last Admin: 11/24/17 17:00 Dose: Not Given Epoetin Jed (Procrit) 10,000 unit SC MWF [facility] Last Admin: 11/25/17 12:36 Dose: 10,000 unit Ferric Sodium Gluconate Complex (Ferrlecit) 125 mg IVPB DAILY [facility] Stop: 11/30/17 10:01 Last Admin: 11/25/17 12:37 Dose: 125 mg Glucagon (Glucagen Diagnostic Kit) 0 mg IM STAT PRN; Protocol PRN Reason: Hypoglycemia Protocol Heparin Sodium (Porcine) (Heparin) 5,000 units SC Q12 [facility] Last Admin: 11/24/17 21:16 Dose: 5,000 units Ceftriaxone Sodium 1 gm/ (Sodium Chloride) 100 mls @ 100 mls/hr IVPB DAILY [facility] PRN Reason: Protocol Last Admin: 11/24/17 10:16 Dose: 100 mls/hr Dextrose (Dextrose 5% In Water 1000 Ml) 1,000 mls @ 0 mls/hr IV .Q0M PRN; Protocol; Per Protocol PRN Reason: Hypoglycemia Protocol Insulin Human Regular (Novolin R) 0 unit SC ACHS [facility] PRN Reason: Protocol Last Admin: 11/25/17 09:02 Dose: Not Given Metoclopramide HCl (Reglan) 10 mg PO ACHS [facility] Last Admin: 11/24/17 21:16 Dose: 10 mg Metoprolol Tartrate (Lopressor) 50 mg PO DAILY [facility] Last Admin: 11/24/17 10:29 Dose: 50 mg Nicotine (Nicoderm Cq) 1 patch TD DAILY [facility] Last Admin: 11/24/17 10:34 Dose: 1 patch Pantoprazole Sodium (Protonix Ec Tab) 40 mg PO DAILY [facility] Last Admin: 11/24/17 10:29 Dose: 40 mg Rosuvastatin Calcium (Crestor) 10 mg PO HS [facility] Last Admin: 11/24/17 21:19 Dose: 10 mg Vitamin B Complex/Vit C/Folic Acid (Nephro-Avelino) 1 tab PO 0800 [facility] Last Admin: 11/24/17 12:00 Dose: 1 tab - Labs Labs: 11/25/17 06:19 11/25/17 06:19 PT 12.1 SECONDS (9.7-12.2) 11/23/17 12:53 INR 1.1 11/23/17 12:53 APTT 26 SECONDS (21-34) 11/23/17 12:53 - Constitutional Appears: No Acute Distress - Eye Exam Eye Exam: Conjunctival injection - ENT Exam ENT Exam: Mucous Membranes Moist - Neck Exam Neck Exam: absent: Lymphadenopathy - Respiratory Exam Respiratory Exam: absent: Chest Wall Tenderness - Cardiovascular Exam Cardiovascular Exam: absent: Gallop, JVD, Rubs - GI/Abdominal Exam GI & Abdominal Exam: Soft, Normal Bowel Sounds - Extremities Exam Extremities Exam: absent: Calf Tenderness - Back Exam Back Exam: absent: CVA tenderness (L), CVA tenderness (R) - Neurological Exam Neurological Exam: Alert - Psychiatric Exam Psychiatric exam: Normal Affect - Skin Skin Exam: absent: Cyanosis Assessment and Plan (1) CAD (coronary artery disease) Status: Acute (2) HTN (hypertension) Status: Acute - Assessment and Plan (Free Text) Assessment: Patient appears to have end stage renal disease perhaps and receiving hemodialysis the second treatment today the first treatment was yesterday. Vital signs stable Sodium bath 138 Potassium bath 2 mEq Bicarbonate bath 34 Ultrafiltration up to 2000 as tolerated Hyperphosphatemia continue phosphorus binders PTH still pending arf / acidosis /anemia of renal disease/ UTI? / diabetic kidney disease/ secondary hyperpara/hypokalemia/smoker/obesity/
--- NOTE | 2017-11-25 18:38 | OP ---
PROCEDURE DATE: 11/24/2017 PREOPERATIVE DIAGNOSES: 1. Acute renal failure. 2. Need for hemodialysis. 3. Morbid obesity. 4. Uncontrolled diabetes. POSTOPERATIVE DIAGNOSES: 1. Acute renal failure. 2. Need for hemodialysis. 3. Morbid obesity. 4. Uncontrolled diabetes. PROCEDURES: 1. Right internal jugular Perma-Cath insertion. 2. Ultrasound guided venous access. 3. Intraoperative fluoroscopy. SURGEON: Gareth Del Cid MD MOTORCYCLE TECHNICIAN: Guilherme Samayoa DO ANESTHESIA: General endotracheal tube LMA. ESTIMATED BLOOD LOSS: Around 30 mL. DRAINS: None. PATHOLOGY: None. COMPLICATIONS: None. INTRAOPERATIVE FINDINGS: The patient had a patent right IJ on ultrasound and on intraoperative steps, this is a 62-year-old male who was diagnosed with acute renal failure due to uncontrolled diabetes and sudden hypoglycemic attack, and the patient was consented for Perma-Cath insertion for the dialysis and the patient was explained about the risk and benefits of the procedure. The patient agreed with the procedure. The patient was brought to the OR, placed supine on the operating table after induction of the anesthesia. The upper neck and the chest was prepped and draped in usual sterile fashion and under ultrasound guidance, the right IJ venous access was done, guidewire was placed, and the intraoperative fluoroscopy confirmation was done. Now the incision was made in the right infraclavicular area and a catheter was done from the infraclavicular incision up to the right IJ insertion site and now the guidewire site was dilated with gradual dilatation and the large sheath was placed and now the catheter was placed into the dilatation and the dilator sheath was taken out. The intraoperative fluoroscopy conformation was done for proper placement of the tip of the Perma-Cath. The tip of the Perma-Cath was at tracheal bifurcation on the fluoro and there was a good blood return from both channels and the both channels were flushed with heparin flush as well as straight heparin and after that the right IJ insertion site was closed with 4-0 Monocryl interrupted sutures and the infraclavicular incision site was also closed with 4-0 Monocryl and dry sterile dressings was applied. The patient tolerated the procedure well. The patient was reversed from anesthesia and sent to the postanesthesia care unit in a stable condition. Gareth Del Cid MD
[2017-11-26] MEDS: Albuterol-Ipratrop 3 mg / 0.5 (3 ml) UD INH SCH ×3 (02:55→19:25)
[2017-11-26 06:23] LABS: BASO # 0.1 K/uL (0.0-0.2); BASO % 0.3 % (0.0-2.0); EOS # 0.4 K/uL (0.0-0.7); EOS % 2.5 % (0.0-4.0); HEMOGLOBIN 8.7 g/dL (12.0-18.0); LYMPH # 1.5 K/uL (1.0-4.3); LYMPH % 10.5 % (20.0-40.0); MEAN CELL VOLUME 92.3 fL (80.0-94.0); MEAN CORPUSCULAR HEMOGLOBIN 30.1 pg (27.0-31.0); MEAN CORPUSCULAR HGB CONC 32.6 g/dL (33.0-37.0); MEAN PLATELET VOLUME 10.2 fL (7.2-11.7); MONO # 1.1 K/uL (0.0-0.8); MONO % 7.9 % (0.0-10.0); NEUT # 11.3 K/uL (1.8-7.0); NEUT % 78.8 % (50.0-75.0); NRBC % 0.1 % (0.0-2.0); RBC 2.89 Mil/uL (4.40-5.90); RED CELL DISTRIBUTION WIDTH 13.7 % (11.5-14.5); WHITE BLOOD COUNT 14.4 K/uL (4.8-10.8)
[2017-11-26 06:39] LABS: ALB/GLOB RATIO 1.2 (1.0-2.1); ALBUMIN 3.2 g/dL (3.5-5.0); CALCIUM 8.1 mg/dl (8.6-10.4)
[2017-11-26] MEDS ORDERED: Potassium Chloride 20 mEq ER Tab PO ONE (07:00)
[2017-11-26] MEDS ORDERED: Metoprolol 1 mg/ml Inj IVP ONE (10:57)
[2017-11-26] MEDS: Pantoprazole 40 mg EC Tab PO SCH (11:02)
[2017-11-26] MEDS: (Novolin R) Insulin Human Regular 100 units/ml vial SC SCH ×4 (11:03→21:19)
[2017-11-26] MEDS: Multivitamin Vitamin B Complex (Nephro-Vite) Tab PO SCH (11:04)
[2017-11-26] MEDS: Ferric Sodium Gluconat Complex 62.5 mg/5 ml Vial IVPB SCH (11:09)
[2017-11-26] MEDS ORDERED: Sodium Chloride 0.9% 250 ML IV ONE (11:10)
--- NOTE | 2017-11-26 13:12 | CP.PCM.PN ---
<Bart Bedoya - Last Filed: 11/26/17 13:01> Subjective - Date & Time of Evaluation Date of Evaluation: 11/26/17 Time of Evaluation: 13:01 - Subjective Subjective: PGY-[address] Osman. No acute events noted overnight. Patient had his second HD yesterday. Runs of SVT noted. Stated he had 5 episodes of loose stool yesterday (will d/c stool softeners). Denied chest pain, palpitations, abdominal pain. Stated he felt okay after HD. Objective - Vital Signs/Intake and Output Vital Signs (last 24 hours): Temp Pulse Resp BP Pulse Ox 98.3 F 98 H 18 152/64 H 98 11/26/17 04:00 11/26/17 04:00 11/26/17 04:00 11/26/17 04:00 11/26/17 04:00 - Medications Medications: Current Medications Albuterol/Ipratropium (Duoneb 3 Mg/0.5 Mg (3 Ml) Ud) 3 ml INH RQ6 [facility] Last Admin: 11/26/17 07:55 Dose: 3 ml Aspirin (Aspirin Chewable) 81 mg PO DAILY [facility] Last Admin: 11/26/17 11:02 Dose: 81 mg Calcium Acetate (Phoslo) 1,334 mg PO TID [facility] Last Admin: 11/26/17 11:02 Dose: 1,334 mg Dextrose (Dextrose 50% Inj) 0 ml IV STAT PRN; Protocol PRN Reason: Hypoglycemia Protocol Dextrose (Glutose 15) 0 gm PO ONCE PRN; Protocol PRN Reason: Hypoglycemia Protocol Diltiazem HCl (Cardizem) 30 mg PO TID [facility] Last Admin: 11/26/17 11:02 Dose: 30 mg Epoetin Jed (Procrit) 10,000 unit SC MWF [facility] Last Admin: 11/25/17 12:36 Dose: 10,000 unit Ferric Sodium Gluconate Complex (Ferrlecit) 125 mg IVPB DAILY [facility] Stop: 11/30/17 10:01 Last Admin: 11/26/17 11:09 Dose: 125 mg Glucagon (Glucagen Diagnostic Kit) 0 mg IM STAT PRN; Protocol PRN Reason: Hypoglycemia Protocol Heparin Sodium (Porcine) (Heparin) 5,000 units SC Q12 [facility] Last Admin: 11/26/17 11:04 Dose: 5,000 units Ceftriaxone Sodium 1 gm/ (Sodium Chloride) 100 mls @ 100 mls/hr IVPB DAILY [facility] PRN Reason: Protocol Last Admin: 11/26/17 11:08 Dose: 100 mls/hr Dextrose (Dextrose 5% In Water 1000 Ml) 1,000 mls @ 0 mls/hr IV .Q0M PRN; Protocol; Per Protocol PRN Reason: Hypoglycemia Protocol Insulin Human Regular (Novolin R) 0 unit SC ACHS [facility] PRN Reason: Protocol Last Admin: 11/26/17 11:03 Dose: Not Given Metoclopramide HCl (Reglan) 10 mg PO ACHS [facility] Last Admin: 11/26/17 11:02 Dose: 10 mg Metoprolol Succinate (Toprol Xl) 100 mg PO DAILY [facility] Nicotine (Nicoderm Cq) 1 patch TD DAILY [facility] Last Admin: 11/26/17 11:04 Dose: 1 patch Pantoprazole Sodium (Protonix Ec Tab) 40 mg PO DAILY [facility] Last Admin: 11/26/17 11:02 Dose: 40 mg Rosuvastatin Calcium (Crestor) 10 mg PO HS [facility] Last Admin: 11/25/17 21:52 Dose: 10 mg Vitamin B Complex/Vit C/Folic Acid (Nephro-Avelino) 1 tab PO 0800 [facility] Last Admin: 11/26/17 11:04 Dose: 1 tab - Labs Labs: 11/26/17 06:18 11/26/17 06:19 PT 12.1 SECONDS (9.7-12.2) 11/23/17 12:53 INR 1.1 11/23/17 12:53 APTT 26 SECONDS (21-34) 11/23/17 12:53 - Additional Findings Additional findings: - Constitutional Appears: Well, No Acute Distress, Other (obese) - Head Exam Head Exam: ATRAUMATIC, NORMAL INSPECTION - Eye Exam Eye Exam: EOMI Pupil Exam: PERRL - ENT Exam ENT Exam: Mucous Membranes Moist - Neck Exam Neck Exam: Full ROM, Normal Inspection. absent: Tenderness - Respiratory Exam Respiratory Exam: Clear to Ausculation Bilateral, NORMAL BREATHING PATTERN. absent: Rales, Rhonchi, Wheezes - Cardiovascular Exam Cardiovascular Exam: Tachycardia, REGULAR RHYTHM, +S1, +S2. absent: JVD, Murmur - GI/Abdominal Exam GI & Abdominal Exam: Soft, Normal Bowel Sounds. absent: Distended, Firm, Guarding, Rigid, Tenderness - Extremities Exam Extremities Exam: Full ROM, Normal Capillary Refill, Normal Inspection. absent : Tenderness - Neurological Exam Neurological Exam: Alert, Awake, Oriented x3 - Psychiatric Exam Psychiatric exam: Normal Affect, Normal Mood - Skin Skin Exam: Intact, Normal Color, Warm Assessment and Plan - Assessment and Plan (Free Text) Assessment: Assessment: This is a 62 year old male with PMHx of CKD, HTN, HLD, T2DM, CAD with PCI intervention (2012) admitted reported having an increase in his renal function numbers, causing a change from metformin to glipizide by PMD x 2 months ago. Patient started feeling nausea, vomiting, abdominal pain, weakness, fatigue x 2 weeks. Prior to admission patient was unable to move, paramedics arrived at the scene and he was found to have sugars of 24. Patient was admitted for acute renal failure: Plan: MEENA on CKD (stage unknown), now in ARF Likely diabetic kidney disease Dr. Balbuena consulted Dr. Del Cid consulted for permacath placement * Permacath placed 11/24 - had successful dialysis after placement hepatitis panel negative, hiv negative, serum immunofixation negative, kappa/ lambda negative f/u anca, lupus Started on bicarb drip @ 150cc/hr - now discontinued Phoslo given Procit 10,000u sc mwf Ferrlicit 125mg ivp qd for 8 days Supraventricular Tachycardia Consult cardiology, Dr Levi 20 min runs of SVT with rate in 150s x20 minutes Start cardizem 30mg po tid f/u ekg f/u echo CAD AR in 2012 -> with PCI asa 81mg po qd metoprolol succinate 100mg po qd rosuvastatin 10mg po hs HTN metoprolol succinate 100mg po qd HLD rosuvastatin 10mg po hs Tobacco Use Disorder Smoking Cessation encouraged Nicotine Patch daily Duonebs Q6H Constipation, Resolved colace 100mg po tid discontinued dulcolax 10MG po prn discontinued Cholelithiasis and distended gallbladder noted on CT Scan Abdominal US ordered: cholelithiasis, no CBD dilatation Hypoglycemia Hypoglycemic protocol in place T2DM Accuchecks HA1C 6.5 Previously on metformin, instructed by PCP to stop and take Glipizide instead x2 months ago Carb Consistent Diet Secondary hyperparathyroidism Given Calcium gluconate x2 doses UTI - Gram + Cocci Afebrile, normotensive, leukocytosis with left shift, no bandemia, lactate 1.0, procal normal UA, UC reordered, washburn cultures - negative to date CT chest/ab/pelv: No active pulmonary disease. Clear lungs. Cholelithiasis and distended gallbladder. If clinically indicated, correlation with right upper quadrant ultrasound may be performed. Large exophytic simple cyst in the interpolar region of the right kidney. Extensive nonspecific perinephric fat stranding which may be a sequela of remote infection. Started Rocephin 1 gram IVP daily 11/23 Anemia of Renal Disease Ferrlicit 125mg ivp qd for 8 days Prophylaxis: Protonix SCDs, Hep Q12 PT/OT Permacath placed 11/24 Renal diet Disposition: SW consult for outpt HD placement with Dr Carla Osman, Bart Bedoya DO, PGY-2 <Gil Osman H - Last Filed: 11/26/17 13:52> Objective - Vital Signs/Intake and Output Vital Signs (last 24 hours): Temp Pulse Resp BP Pulse Ox 98.3 F 98 H 18 152/64 H 98 11/26/17 04:00 11/26/17 04:00 11/26/17 04:00 11/26/17 04:00 11/26/17 04:00 - Medications Medications: Current Medications Albuterol/Ipratropium (Duoneb 3 Mg/0.5 Mg (3 Ml) Ud) 3 ml INH RQ6 [facility] Last Admin: 11/26/17 07:55 Dose: 3 ml Aspirin (Aspirin Chewable) 81 mg PO DAILY [facility] Last Admin: 11/26/17 11:02 Dose: 81 mg Calcium Acetate (Phoslo) 1,334 mg PO TID [facility] Last Admin: 11/26/17 11:02 Dose: 1,334 mg Dextrose (Dextrose 50% Inj) 0 ml IV STAT PRN; Protocol PRN Reason: Hypoglycemia Protocol Dextrose (Glutose 15) 0 gm PO ONCE PRN; Protocol PRN Reason: Hypoglycemia Protocol Diltiazem HCl (Cardizem) 30 mg PO TID [facility] Last Admin: 11/26/17 11:02 Dose: 30 mg Epoetin Jed (Procrit) 10,000 unit SC MWF [facility] Last Admin: 11/25/17 12:36 Dose: 10,000 unit Ferric Sodium Gluconate Complex (Ferrlecit) 125 mg IVPB DAILY [facility] Stop: 11/30/17 10:01 Last Admin: 11/26/17 11:09 Dose: 125 mg Glucagon (Glucagen Diagnostic Kit) 0 mg IM STAT PRN; Protocol PRN Reason: Hypoglycemia Protocol Heparin Sodium (Porcine) (Heparin) 5,000 units SC Q12 [facility] Last Admin: 11/26/17 11:04 Dose: 5,000 units Ceftriaxone Sodium 1 gm/ (Sodium Chloride) 100 mls @ 100 mls/hr IVPB DAILY [facility] PRN Reason: Protocol Last Admin: 11/26/17 11:08 Dose: 100 mls/hr Dextrose (Dextrose 5% In Water 1000 Ml) 1,000 mls @ 0 mls/hr IV .Q0M PRN; Protocol; Per Protocol PRN Reason: Hypoglycemia Protocol Insulin Human Regular (Novolin R) 0 unit SC [facility] PRN Reason: Protocol Last Admin: 11/26/17 11:03 Dose: Not Given Metoclopramide HCl (Reglan) 10 mg PO [facility] Last Admin: 11/26/17 11:02 Dose: 10 mg Metoprolol Succinate (Toprol Xl) 100 mg PO DAILY [facility] Nicotine (Nicoderm Cq) 1 patch TD DAILY [facility] Last Admin: 11/26/17 11:04 Dose: 1 patch Pantoprazole Sodium (Protonix Ec Tab) 40 mg PO DAILY [facility] Last Admin: 11/26/17 11:02 Dose: 40 mg Rosuvastatin Calcium (Crestor) 10 mg PO HS [facility] Last Admin: 11/25/17 21:52 Dose: 10 mg Vitamin B Complex/Vit C/Folic Acid (Nephro-Avelino) 1 tab PO 0800 [facility] Last Admin: 11/26/17 11:04 Dose: 1 tab - Labs Labs: 11/26/17 06:18 11/26/17 06:19 PT 12.1 SECONDS (9.7-12.2) 11/23/17 12:53 INR 1.1 11/23/17 12:53 APTT 26 SECONDS (21-34) 11/23/17 12:53 Attending/Attestation - Attestation Notes (Text): Medical attending: Patient was seen and examined by me, agrees the above note by the infertility medical assistant. The patient reported that he felt fine overnight, in the morning reported having a sensation of palpitations. Reviewed the telemetry showed that he did have short run of what appeared to be sinus tachycardia. It lasted for about 4 minutes and then it broke on its own. He denies chest pain, denies shortness of breath at rest. He had some further questions with regards to his hemodialysis. As we continued talking he explained to me that he believes that he had one cardiac [place]. He does not really remember the optometrist he was seen before. Because of these runs of sinus tachycardia as well as the history of stenting as well as the history of this chronic kidney disease with an order a 2-D echo. Were also try to get a cardiology evaluation. My concern is he may possibly have a very low ejection fraction and not be aware of it Thank you very much, Gil Osman
--- NOTE | 2017-11-26 14:13 | CP.PCM.PN ---
Subjective - Date & Time of Evaluation Date of Evaluation: 11/26/17 Time of Evaluation: 14:13 - Subjective Subjective: renal follow up note pe: vs noted gen: nad sclera: anicteric op: clear neck: supple no thyromegaly cv:+s1+s2 no rub abd soft no orgnomegaly lungs CTA b/l ext trace edema neuro: A+OX3 very faint asterixis psych: nml affect gu: weinberg skin no rash imp: arf / acidosis /anemia of renal disease/ UTI? / diabetic kidney disease/ secondary hyperpara/hypokalemia/smoker/obesity/CKD stage 3/4 plan: hd mwf schedule via permacath gn work up sent start epogen, IV iron and nephrovite for anemia. continue phos binders lytes reviewed SW consult for outpt HD placement with Dr Aguirre Objective - Vital Signs/Intake and Output Vital Signs (last 24 hours): Temp Pulse Resp BP Pulse Ox 98.3 F 98 H 18 152/64 H 98 11/26/17 04:00 11/26/17 04:00 11/26/17 04:00 11/26/17 04:00 11/26/17 04:00 - Medications Medications: Current Medications Albuterol/Ipratropium (Duoneb 3 Mg/0.5 Mg (3 Ml) Ud) 3 ml INH RQ6 [facility] Last Admin: 11/26/17 07:55 Dose: 3 ml Aspirin (Aspirin Chewable) 81 mg PO DAILY [facility] Last Admin: 11/26/17 11:02 Dose: 81 mg Calcium Acetate (Phoslo) 1,334 mg PO TID [facility] Last Admin: 11/26/17 11:02 Dose: 1,334 mg Dextrose (Dextrose 50% Inj) 0 ml IV STAT PRN; Protocol PRN Reason: Hypoglycemia Protocol Dextrose (Glutose 15) 0 gm PO ONCE PRN; Protocol PRN Reason: Hypoglycemia Protocol Diltiazem HCl (Cardizem) 30 mg PO TID [facility] Last Admin: 11/26/17 11:02 Dose: 30 mg Epoetin Jed (Procrit) 10,000 unit SC MWF [facility] Last Admin: 11/25/17 12:36 Dose: 10,000 unit Ferric Sodium Gluconate Complex (Ferrlecit) 125 mg IVPB DAILY [facility] Stop: 11/30/17 10:01 Last Admin: 11/26/17 11:09 Dose: 125 mg Glucagon (Glucagen Diagnostic Kit) 0 mg IM STAT PRN; Protocol PRN Reason: Hypoglycemia Protocol Heparin Sodium (Porcine) (Heparin) 5,000 units SC Q12 [facility] Last Admin: 11/26/17 11:04 Dose: 5,000 units Ceftriaxone Sodium 1 gm/ (Sodium Chloride) 100 mls @ 100 mls/hr IVPB DAILY [facility] PRN Reason: Protocol Last Admin: 11/26/17 11:08 Dose: 100 mls/hr Dextrose (Dextrose 5% In Water 1000 Ml) 1,000 mls @ 0 mls/hr IV .Q0M PRN; Protocol; Per Protocol PRN Reason: Hypoglycemia Protocol Insulin Human Regular (Novolin R) 0 unit SC ACHS [facility] PRN Reason: Protocol Last Admin: 11/26/17 11:03 Dose: Not Given Metoclopramide HCl (Reglan) 10 mg PO ACHS [facility] Last Admin: 11/26/17 11:02 Dose: 10 mg Metoprolol Succinate (Toprol Xl) 100 mg PO DAILY [facility] Nicotine (Nicoderm Cq) 1 patch TD DAILY [facility] Last Admin: 11/26/17 11:04 Dose: 1 patch Pantoprazole Sodium (Protonix Ec Tab) 40 mg PO DAILY [facility] Last Admin: 11/26/17 11:02 Dose: 40 mg Rosuvastatin Calcium (Crestor) 10 mg PO HS [facility] Last Admin: 11/25/17 21:52 Dose: 10 mg Vitamin B Complex/Vit C/Folic Acid (Nephro-Avelino) 1 tab PO 0800 [facility] Last Admin: 11/26/17 11:04 Dose: 1 tab - Labs Labs: 11/26/17 06:18 11/26/17 06:19 PT 12.1 SECONDS (9.7-12.2) 11/23/17 12:53 INR 1.1 11/23/17 12:53 APTT 26 SECONDS (21-34) 11/23/17 12:53
--- NOTE | 2017-11-27 00:06 | CP.PCM.CON ---
History of Present Illness - History of Present Illness History of Present Illness: 62 M hx of CAD s/p stent, HTN, CKD on HD admitted for altered Mental status and possible sepsis Consult requested for SVT Denies chest pain and dyspnea With PO cardizem no SVT noted so far Physical examination - Additional Findings Additional findings: - Constitutional Appears: Well, No Acute Distress, Other (obese) - Head Exam Head Exam: ATRAUMATIC, NORMAL INSPECTION - Eye Exam Eye Exam: EOMI Pupil Exam: PERRL - ENT Exam ENT Exam: Mucous Membranes Moist - Neck Exam Neck Exam: Full ROM, Normal Inspection. absent: Tenderness - Respiratory Exam Respiratory Exam: Clear to Ausculation Bilateral, NORMAL BREATHING PATTERN. absent: Rales, Rhonchi, Wheezes - Cardiovascular Exam Cardiovascular Exam: Tachycardia, REGULAR RHYTHM, +S1, +S2. absent: JVD, Murmur - GI/Abdominal Exam GI & Abdominal Exam: Soft, Normal Bowel Sounds. absent: Distended, Firm, Guarding, Rigid, Tenderness - Extremities Exam Extremities Exam: Full ROM, Normal Capillary Refill, Normal Inspection. absent : Tenderness - Neurological Exam Neurological Exam: Alert, Awake, Oriented x3 - Psychiatric Exam Psychiatric exam: Normal Affect, Normal Mood - Skin Skin Exam: Intact, Normal Color, Warm Past Patient History - Infectious Disease Hx of Infectious Diseases: None - Past Social History Smoking Status: Heavy Smoker > 10 Cigarettes Daily - CARDIAC Hx Cardiac Disorders: Yes (CAD, Coronary stentx1) Hx Congestive Heart Failure: Yes Hx Hypercholesterolemia: Yes Hx Hypertension: Yes - RENAL Other/Comment: MEENA - ENDOCRINE/METABOLIC Hx Diabetes Mellitus Type 2: Yes - MUSCULOSKELETAL/RHEUMATOLOGICAL Hx Falls: Yes - PSYCHIATRIC Hx Substance Use: No - SURGICAL HISTORY Hx Surgeries: Yes Hx Coronary Stent: Yes - ANESTHESIA Hx Anesthesia: Yes Hx Anesthesia Reactions: No Meds Allergies/Adverse Reactions: Allergies Allergy/AdvReac Type Severity Reaction Status Date / Time No Known Allergies Allergy Verified 11/22/17 00:10 - Medications Medications: Current Medications Albuterol/Ipratropium (Duoneb 3 Mg/0.5 Mg (3 Ml) Ud) 3 ml INH RQ6 [facility] Last Admin: 11/26/17 19:25 Dose: 3 ml Aspirin (Aspirin Chewable) 81 mg PO DAILY [facility] Last Admin: 11/26/17 11:02 Dose: 81 mg Calcium Acetate (Phoslo) 1,334 mg PO TID [facility] Last Admin: 11/26/17 18:55 Dose: 1,334 mg Dextrose (Dextrose 50% Inj) 0 ml IV STAT PRN; Protocol PRN Reason: Hypoglycemia Protocol Dextrose (Glutose 15) 0 gm PO ONCE PRN; Protocol PRN Reason: Hypoglycemia Protocol Diltiazem HCl (Cardizem) 30 mg PO TID [facility] Last Admin: 11/26/17 18:55 Dose: 30 mg Epoetin Jed (Procrit) 10,000 unit SC MWF [facility] Last Admin: 11/25/17 12:36 Dose: 10,000 unit Ferric Sodium Gluconate Complex (Ferrlecit) 125 mg IVPB DAILY [facility] Stop: 11/30/17 10:01 Last Admin: 11/26/17 11:09 Dose: 125 mg Glucagon (Glucagen Diagnostic Kit) 0 mg IM STAT PRN; Protocol PRN Reason: Hypoglycemia Protocol Heparin Sodium (Porcine) (Heparin) 5,000 units SC Q12 [facility] Last Admin: 11/26/17 21:21 Dose: 5,000 units Ceftriaxone Sodium 1 gm/ (Sodium Chloride) 100 mls @ 100 mls/hr IVPB DAILY [facility] PRN Reason: Protocol Last Admin: 11/26/17 11:08 Dose: 100 mls/hr Dextrose (Dextrose 5% In Water 1000 Ml) 1,000 mls @ 0 mls/hr IV .Q0M PRN; Protocol; Per Protocol PRN Reason: Hypoglycemia Protocol Insulin Human Regular (Novolin R) 0 unit SC [facility] PRN Reason: Protocol Last Admin: 11/26/17 21:19 Dose: Not Given Metoclopramide HCl (Reglan) 10 mg PO [facility] Last Admin: 11/26/17 21:20 Dose: 10 mg Metoprolol Succinate (Toprol Xl) 100 mg PO DAILY [facility] Nicotine (Nicoderm Cq) 1 patch TD DAILY [facility] Last Admin: 11/26/17 11:04 Dose: 1 patch Pantoprazole Sodium (Protonix Ec Tab) 40 mg PO DAILY [facility] Last Admin: 11/26/17 11:02 Dose: 40 mg Rosuvastatin Calcium (Crestor) 10 mg PO HS [facility] Last Admin: 11/26/17 21:21 Dose: 10 mg Vitamin B Complex/Vit C/Folic Acid (Nephro-Avelino) 1 tab PO 0800 [facility] Last Admin: 11/26/17 11:04 Dose: 1 tab Results - Vital Signs Recent Vital Signs: Last Vital Signs Temp 98.2 F 11/26/17 20:00 Pulse 114 H 11/26/17 18:21 Resp 12 11/26/17 18:21 BP 161/82 H 11/26/17 18:07 Pulse Ox 98 11/26/17 18:21 - Labs Result Diagrams: 11/29/17 07:43 11/29/17 07:43 Labs: Laboratory Results - last 24 hr 11/22/17 11/26/17 11/26/17 13:45 06:18 06:19 WBC 14.4 H RBC 2.89 L Hgb 8.7 L Hct 26.7 L MCV 92.3 MCH 30.1 MCHC 32.6 L RDW 13.7 Plt Count 236 MPV 10.2 Neut % (Auto) 78.8 H Lymph % (Auto) 10.5 L [place] % (Auto) 7.9 Eos % (Auto) 2.5 Baso % (Auto) 0.3 Neut # (Auto) 11.3 H Lymph # (Auto) 1.5 [place] # (Auto) 1.1 H Eos # (Auto) 0.4 Baso # (Auto) 0.1 Sodium 143 Potassium 3.4 L Chloride 101 Carbon Dioxide 28 Anion Gap 18 BUN 29 H Creatinine 4.9 H Est GFR ( Amer) 15 Est GFR (Non-Af Amer) 12 POC Glucose (mg/dL) Random Glucose 145 H Calcium 8.1 L Phosphorus 4.0 Magnesium 2.0 Total Bilirubin 0.5 AST 16 L D ALT 21 D Alkaline Phosphatase 82 Total Protein 6.0 L Albumin 3.2 L Globulin 2.8 Albumin/Globulin Ratio 1.2 Whole Blood Arsenic <3 Lead Sample Type Venous Whole Blood Lead 2 Mercury <4 11/26/17 11/26/17 11/26/17 07:26 11:21 16:03 WBC RBC Hgb Hct MCV MCH MCHC RDW Plt Count MPV Neut % (Auto) Lymph % (Auto) [place] % (Auto) Eos % (Auto) Baso % (Auto) Neut # (Auto) Lymph # (Auto) [place] # (Auto) Eos # (Auto) Baso # (Auto) Sodium Potassium Chloride Carbon Dioxide Anion Gap BUN Creatinine Est GFR ( Amer) Est GFR (Non-Af Amer) POC Glucose (mg/dL) 165 H 253 H 257 H Random Glucose Calcium Phosphorus Magnesium Total Bilirubin AST ALT Alkaline Phosphatase Total Protein Albumin Globulin Albumin/Globulin Ratio Whole Blood Arsenic Lead Sample Type Whole Blood Lead Mercury 11/26/17 21:17 WBC RBC Hgb Hct MCV MCH MCHC RDW Plt Count MPV Neut % (Auto) Lymph % (Auto) [place] % (Auto) Eos % (Auto) Baso % (Auto) Neut # (Auto) Lymph # (Auto) [place] # (Auto) Eos # (Auto) Baso # (Auto) Sodium Potassium Chloride Carbon Dioxide Anion Gap BUN Creatinine Est GFR ( Amer) Est GFR (Non-Af Amer) POC Glucose (mg/dL) 180 H Random Glucose Calcium Phosphorus Magnesium Total Bilirubin AST ALT Alkaline Phosphatase Total Protein Albumin Globulin Albumin/Globulin Ratio Whole Blood Arsenic Lead Sample Type Whole Blood Lead Mercury Assessment & Plan - Assessment and Plan (Free Text) Assessment: This is a 62 year old male with PMHx of CKD, HTN, HLD, T2DM, CAD with PCI intervention (2012) admitted reported having an increase in his renal function numbers, causing a change from metformin to glipizide by PMD x 2 months ago. Patient started feeling nausea, vomiting, abdominal pain, weakness, fatigue x 2 weeks. Prior to admission patient was unable to move, paramedics arrived at the scene and he was found to have sugars of 24. Patient was admitted for acute renal failure: Plan: MEENA on CKD, now in ARF Likely diabetic kidney disease Dr. Balbuena consulted Dr. Del Cid consulted for permacath placement * Permacath placed 11/24 - had successful dialysis after placement hepatitis panel negative, hiv negative, serum immunofixation negative, kappa/ lambda negative f/u anca, lupus, lab markers Started on bicarb drip @ 150cc/hr - now discontinued Phoslo given Procit 10,000u sc mwf Ferrlicit 125mg ivp qd for 8 days Supraventricular Tachycardia 20 min runs of SVT with rate in 150s x20 minutes On cardizem 30mg po tid f/u echo CAD [place] in 2012 -> with PCI asa 81mg po qd metoprolol succinate 100mg po qd rosuvastatin 10mg po hs HTN metoprolol succinate 100mg po qd HLD rosuvastatin 10mg po hs Tobacco Use Disorder Smoking Cessation encouraged Nicotine Patch daily Duonebs Q6H Constipation, Resolved colace 100mg po tid discontinued dulcolax 10MG po prn discontinued Cholelithiasis and distended gallbladder noted on CT Scan Abdominal US ordered: cholelithiasis, no CBD dilatation Hypoglycemia Hypoglycemic protocol in place T2DM Accuchecks HA1C 6.5 Previously on metformin, instructed by PCP to stop and take Glipizide instead x2 months ago Carb Consistent Diet Secondary hyperparathyroidism Given Calcium gluconate x2 doses UTI - Gram + Cocci Afebrile, normotensive, leukocytosis with left shift, no bandemia, lactate 1.0, procal normal UA, UC reordered, washburn cultures - negative to date CT chest/ab/pelv: No active pulmonary disease. Clear lungs. Cholelithiasis and distended gallbladder. If clinically indicated, correlation with right upper quadrant ultrasound may be performed. Large exophytic simple cyst in the interpolar region of the right kidney. Extensive nonspecific perinephric fat stranding which may be a sequela of remote infection. Started Rocephin 1 gram IVP daily started 11/23 Anemia of Renal Disease Ferrlicit 125mg ivp qd for 8 days Prophylaxis: Protonix SCDs, Hep Q12 PT/OT Permacath placed 11/24 Renal diet
[2017-11-27] MEDS: Albuterol-Ipratrop 3 mg / 0.5 (3 ml) UD INH SCH ×4 (01:12→19:45)
[2017-11-27 02:34] LABS: ANCA SCREEN NEGATIVE (NEGATIVE)
[2017-11-27 06:23] LABS: BASO # 0.1 K/uL (0.0-0.2); BASO % 0.5 % (0.0-2.0); EOS # 0.5 K/uL (0.0-0.7); EOS % 3.1 % (0.0-4.0); HEMOGLOBIN 8.9 g/dL (12.0-18.0); LYMPH # 1.6 K/uL (1.0-4.3); LYMPH % 9.4 % (20.0-40.0); MEAN CELL VOLUME 94.6 fL (80.0-94.0); MEAN CORPUSCULAR HGB CONC 31.7 g/dL (33.0-37.0); MEAN PLATELET VOLUME 9.8 fL (7.2-11.7); MONO # 1.2 K/uL (0.0-0.8); NEUT # 13.8 K/uL (1.8-7.0); PLATELET COUNT 249 K/uL (130-400); RBC 2.96 Mil/uL (4.40-5.90); RED CELL DISTRIBUTION WIDTH 13.7 % (11.5-14.5); WHITE BLOOD COUNT 17.2 K/uL (4.8-10.8)
[2017-11-27 06:43] LABS: ALB/GLOB RATIO 1.1 (1.0-2.1); ALBUMIN 3.2 g/dL (3.5-5.0); CALCIUM 8.4 mg/dl (8.6-10.4)
[2017-11-27] MEDS ORDERED: Potassium Chloride 20 mEq ER Tab PO ONE (07:26)
--- NOTE | 2017-11-27 07:30 | CP.PCM.PN ---
<Bart Bedoya R - Last Filed: 11/27/17 11:23> Subjective - Date & Time of Evaluation Date of Evaluation: 11/27/17 Time of Evaluation: 07:28 - Subjective Subjective: PGY-[address] Osman. No acute events noted overnight. Girlfriend at bedside. Stated he felt better sitting in the chair today. Did not offer any new complaints, stated he felt well overall. Understood process was underway for him to get connected with a HD center. HR elevated in 100s but denies palpitations or chest pain, was seen by Dr Levi. Objective - Vital Signs/Intake and Output Vital Signs (last 24 hours): Temp Pulse Resp BP Pulse Ox 97.5 F L 96 H 19 159/73 H 96 11/27/17 04:00 11/27/17 04:00 11/27/17 04:00 11/27/17 04:00 11/27/17 04:00 - Medications Medications: Current Medications Albuterol/Ipratropium (Duoneb 3 Mg/0.5 Mg (3 Ml) Ud) 3 ml INH RQ6 [facility] Last Admin: 11/27/17 01:12 Dose: Not Given Aspirin (Aspirin Chewable) 81 mg PO DAILY [facility] Last Admin: 11/26/17 11:02 Dose: 81 mg Calcium Acetate (Phoslo) 1,334 mg PO TID [facility] Last Admin: 11/26/17 18:55 Dose: 1,334 mg Dextrose (Dextrose 50% Inj) 0 ml IV STAT PRN; Protocol PRN Reason: Hypoglycemia Protocol Dextrose (Glutose 15) 0 gm PO ONCE PRN; Protocol PRN Reason: Hypoglycemia Protocol Diltiazem HCl (Cardizem) 30 mg PO TID [facility] Last Admin: 11/26/17 18:55 Dose: 30 mg Epoetin Jed (Procrit) 10,000 unit SC MWF [facility] Last Admin: 11/25/17 12:36 Dose: 10,000 unit Ferric Sodium Gluconate Complex (Ferrlecit) 125 mg IVPB DAILY [facility] Stop: 11/30/17 10:01 Last Admin: 11/26/17 11:09 Dose: 125 mg Glucagon (Glucagen Diagnostic Kit) 0 mg IM STAT PRN; Protocol PRN Reason: Hypoglycemia Protocol Heparin Sodium (Porcine) (Heparin) 5,000 units SC Q12 [facility] Last Admin: 11/26/17 21:21 Dose: 5,000 units Ceftriaxone Sodium 1 gm/ (Sodium Chloride) 100 mls @ 100 mls/hr IVPB DAILY [facility] PRN Reason: Protocol Last Admin: 11/26/17 11:08 Dose: 100 mls/hr Dextrose (Dextrose 5% In Water 1000 Ml) 1,000 mls @ 0 mls/hr IV .Q0M PRN; Protocol; Per Protocol PRN Reason: Hypoglycemia Protocol Insulin Human Regular (Novolin R) 0 unit SC ACHS [facility] PRN Reason: Protocol Last Admin: 11/26/17 21:19 Dose: Not Given Metoclopramide HCl (Reglan) 10 mg PO ACHS [facility] Last Admin: 11/26/17 21:20 Dose: 10 mg Metoprolol Succinate (Toprol Xl) 100 mg PO DAILY [facility] Nicotine (Nicoderm Cq) 1 patch TD DAILY [facility] Last Admin: 11/26/17 11:04 Dose: 1 patch Pantoprazole Sodium (Protonix Ec Tab) 40 mg PO DAILY [facility] Last Admin: 11/26/17 11:02 Dose: 40 mg Potassium Chloride (K-Dur 20 Meq Er Tab) 40 meq PO ONCE ONE Stop: 11/27/17 07:27 Rosuvastatin Calcium (Crestor) 10 mg PO HS [facility] Last Admin: 11/26/17 21:21 Dose: 10 mg Vitamin B Complex/Vit C/Folic Acid (Nephro-Avelino) 1 tab PO 0800 [facility] Last Admin: 11/26/17 11:04 Dose: 1 tab - Labs Labs: 11/27/17 06:14 11/27/17 06:14 PT 12.1 SECONDS (9.7-12.2) 11/23/17 12:53 INR 1.1 11/23/17 12:53 APTT 26 SECONDS (21-34) 11/23/17 12:53 - Additional Findings Additional findings: - Constitutional Appears: Well, No Acute Distress, Other (obese) - Head Exam Head Exam: ATRAUMATIC, NORMAL INSPECTION - Eye Exam Eye Exam: EOMI Pupil Exam: PERRL - ENT Exam ENT Exam: Mucous Membranes Moist - Neck Exam Neck Exam: Full ROM, Normal Inspection. absent: Tenderness - Respiratory Exam Respiratory Exam: Clear to Ausculation Bilateral, NORMAL BREATHING PATTERN. absent: Rales, Rhonchi, Wheezes - Cardiovascular Exam Cardiovascular Exam: Tachycardia, REGULAR RHYTHM, +S1, +S2. absent: JVD, Murmur - GI/Abdominal Exam GI & Abdominal Exam: Soft, Normal Bowel Sounds. absent: Distended, Firm, Guarding, Rigid, Tenderness - Extremities Exam Extremities Exam: Full ROM, Normal Capillary Refill, Normal Inspection. absent : Tenderness - Neurological Exam Neurological Exam: Alert, Awake, Oriented x3 - Psychiatric Exam Psychiatric exam: Normal Affect, Normal Mood - Skin Skin Exam: Intact, Normal Color, Warm Assessment and Plan - Assessment and Plan (Free Text) Assessment: Assessment: This is a 62 year old male with PMHx of CKD, HTN, HLD, T2DM, CAD with PCI intervention (2012) admitted reported having an increase in his renal function numbers, causing a change from metformin to glipizide by PMD x 2 months ago. Patient started feeling nausea, vomiting, abdominal pain, weakness, fatigue x 2 weeks. Prior to admission patient was unable to move, paramedics arrived at the scene and he was found to have sugars of 24. Patient was admitted for acute renal failure: Plan: MEENA on CKD, now in ARF Likely diabetic kidney disease Dr. Balbuena consulted Dr. Del Cid consulted for permacath placement * Permacath placed 11/24 - had successful dialysis after placement hepatitis panel negative, hiv negative, serum immunofixation negative, kappa/ lambda negative f/u anca, lupus, lab markers Started on bicarb drip @ 150cc/hr - now discontinued Phoslo given Procit 10,000u sc mwf Ferrlicit 125mg ivp qd for 8 days Supraventricular Tachycardia Consult cardiology, Dr Levi * seen by Dr Levi - continue po cardizem 20 min runs of SVT with rate in 150s x20 minutes Start cardizem 30mg po tid f/u echo CAD [place] in 2012 -> with PCI asa 81mg po qd metoprolol succinate 100mg po qd rosuvastatin 10mg po hs HTN metoprolol succinate 100mg po qd HLD rosuvastatin 10mg po hs Tobacco Use Disorder Smoking Cessation encouraged Nicotine Patch daily Duonebs Q6H Constipation, Resolved colace 100mg po tid discontinued dulcolax 10MG po prn discontinued Cholelithiasis and distended gallbladder noted on CT Scan Abdominal US ordered: cholelithiasis, no CBD dilatation Hypoglycemia Hypoglycemic protocol in place T2DM Accuchecks HA1C 6.5 Previously on metformin, instructed by PCP to stop and take Glipizide instead x2 months ago Carb Consistent Diet Secondary hyperparathyroidism Given Calcium gluconate x2 doses UTI - Gram + Cocci Afebrile, normotensive, leukocytosis with left shift, no bandemia, lactate 1.0, procal normal UA, UC reordered, washburn cultures - negative to date CT chest/ab/pelv: No active pulmonary disease. Clear lungs. Cholelithiasis and distended gallbladder. If clinically indicated, correlation with right upper quadrant ultrasound may be performed. Large exophytic simple cyst in the interpolar region of the right kidney. Extensive nonspecific perinephric fat stranding which may be a sequela of remote infection. Started Rocephin 1 gram IVP daily started 11/23 Anemia of Renal Disease Ferrlicit 125mg ivp qd for 8 days Prophylaxis: Protonix SCDs, Hep Q12 PT/OT Permacath placed 11/24 Renal diet Disposition: SW consult for outpt HD placement with Dr Aguirre Patient shared that his girlfriend, Jade ([phone]) has agreed to be his healthcare proxy. DW Dr. Osman, Bart Bedoya DO, PGY-2 <Gil Osman H - Last Filed: 11/27/17 17:12> Objective - Vital Signs/Intake and Output Vital Signs (last 24 hours): Temp Pulse Resp BP Pulse Ox 98.9 F 114 H 14 131/75 98 11/27/17 12:00 11/27/17 12:00 11/27/17 12:00 11/27/17 12:00 11/27/17 12:00 Intake and Output: 11/27/17 11/27/17 06:59 18:59 Intake Total 180 410 Output Total 300 Balance -120 410 - Medications Medications: Current Medications Albuterol/Ipratropium (Duoneb 3 Mg/0.5 Mg (3 Ml) Ud) 3 ml INH RQ6 [facility] Last Admin: 11/27/17 13:45 Dose: 3 ml Aspirin (Aspirin Chewable) 81 mg PO DAILY [facility] Last Admin: 11/27/17 09:57 Dose: 81 mg Calcium Acetate (Phoslo) 1,334 mg PO TID [facility] Last Admin: 11/27/17 14:06 Dose: 1,334 mg Dextrose (Dextrose 50% Inj) 0 ml IV STAT PRN; Protocol PRN Reason: Hypoglycemia Protocol Dextrose (Glutose 15) 0 gm PO ONCE PRN; Protocol PRN Reason: Hypoglycemia Protocol Diltiazem HCl (Cardizem) 30 mg PO TID [facility] Last Admin: 11/27/17 14:06 Dose: 30 mg Epoetin Jed (Procrit) 10,000 unit SC MWF [facility] Last Admin: 11/27/17 13:51 Dose: Not Given Ferric Sodium Gluconate Complex (Ferrlecit) 125 mg IVPB DAILY [facility] Stop: 11/30/17 10:01 Last Admin: 11/27/17 11:21 Dose: 125 mg Glucagon (Glucagen Diagnostic Kit) 0 mg IM STAT PRN; Protocol PRN Reason: Hypoglycemia Protocol Heparin Sodium (Porcine) (Heparin) 5,000 units SC Q12 [facility] Last Admin: 11/27/17 09:58 Dose: 5,000 units Ceftriaxone Sodium 1 gm/ (Sodium Chloride) 100 mls @ 100 mls/hr IVPB DAILY [facility] PRN Reason: Protocol Last Admin: 11/27/17 09:51 Dose: 100 mls/hr Dextrose (Dextrose 5% In Water 1000 Ml) 1,000 mls @ 0 mls/hr IV .Q0M PRN; Protocol; Per Protocol PRN Reason: Hypoglycemia Protocol Insulin Human Regular (Novolin R) 0 unit SC [facility] PRN Reason: Protocol Last Admin: 11/27/17 11:21 Dose: 2 unit Metoclopramide HCl (Reglan) 10 mg PO ACHS [facility] Last Admin: 11/27/17 11:32 Dose: Not Given Metoprolol Succinate (Toprol Xl) 100 mg PO DAILY [facility] Last Admin: 11/27/17 09:59 Dose: 100 mg Nicotine (Nicoderm Cq) 1 patch TD DAILY [facility] Last Admin: 11/27/17 09:58 Dose: 1 patch Pantoprazole Sodium (Protonix Ec Tab) 40 mg PO DAILY [facility] Last Admin: 11/27/17 09:58 Dose: 40 mg Rosuvastatin Calcium (Crestor) 10 mg PO HS [facility] Last Admin: 11/26/17 21:21 Dose: 10 mg Vitamin B Complex/Vit C/Folic Acid (Nephro-Avelino) 1 tab PO 0800 [facility] Last Admin: 11/27/17 08:12 Dose: 1 tab - Labs Labs: 11/27/17 06:14 11/27/17 06:14 PT 12.1 SECONDS (9.7-12.2) 11/23/17 12:53 INR 1.1 11/23/17 12:53 APTT 26 SECONDS (21-34) 11/23/17 12:53 Attending/Attestation - Attestation I have personally seen and examined this patient.: Yes I have fully participated in the care of the patient.: Yes I have reviewed all pertinent clinical information, including history, physical exam and plan: Yes Notes (Text): 11/27/17 17:12 Medical attending: Patient was seen and examined by me, agrees the above note by the medical assisting program director. His girlfriend was present at bedside, today she did most of the talking she was very anxious with regards to where the patient will be going from here. There was a caseworkers present with facet we explained to her that at some point he's can have to have hemodialysis arranged outpatient and he would probably need to go to some type of a subacute rehabilitation as he is been bedbound for quite some time. Gil Osman
[2017-11-27] MEDS: (Novolin R) Insulin Human Regular 100 units/ml vial SC SCH ×4 (08:12→21:50)
[2017-11-27] MEDS: Multivitamin Vitamin B Complex (Nephro-Vite) Tab PO SCH (08:12)
[2017-11-27 08:19] LABS: EOSINOPHIL 2 % (0-4); LYMPHOCYTE 6 % (20-40); MONOCYTE 4 % (0-10); NEUTROPHIL 88 % (50-75); TOTAL CELLS COUNTED 100
[2017-11-27 08:20] LABS: HYPOCHROMIC SLIGHT; PLATELET ESTIMATE NORMAL (NORMAL); POLYCHROMIC SLIGHT
[2017-11-27] MEDS: Pantoprazole 40 mg EC Tab PO SCH (09:58)
[2017-11-27] MEDS: Metoprolol Succinate 100 mg XL Tab PO SCH (09:59)
[2017-11-27] MEDS: Ferric Sodium Gluconat Complex 62.5 mg/5 ml Vial IVPB SCH (11:21)
--- NOTE | 2017-11-27 13:26 | CP.PCM.PN ---
Subjective - Date & Time of Evaluation Date of Evaluation: 11/27/17 Time of Evaluation: 11:10 - Subjective Subjective: Patient is out of bed sitting in the chair and his at the bedside. Patient stated this is the first time that there is feeling much better after to dialysis. With serum creatinine 5.7 Patient and his asks so many question I spend a lot of time with the family explaining the dialysis concept. Objective - Vital Signs/Intake and Output Vital Signs (last 24 hours): Temp Pulse Resp BP Pulse Ox 98.9 F 114 H 14 131/75 98 11/27/17 12:00 11/27/17 12:00 11/27/17 12:00 11/27/17 12:00 11/27/17 12:00 Intake and Output: 11/27/17 11/27/17 06:59 18:59 Intake Total 180 410 Output Total 300 Balance -120 410 - Medications Medications: Current Medications Albuterol/Ipratropium (Duoneb 3 Mg/0.5 Mg (3 Ml) Ud) 3 ml INH RQ6 [facility] Last Admin: 11/27/17 07:36 Dose: 3 ml Aspirin (Aspirin Chewable) 81 mg PO DAILY [facility] Last Admin: 11/27/17 09:57 Dose: 81 mg Calcium Acetate (Phoslo) 1,334 mg PO TID [facility] Last Admin: 11/27/17 09:58 Dose: 1,334 mg Dextrose (Dextrose 50% Inj) 0 ml IV STAT PRN; Protocol PRN Reason: Hypoglycemia Protocol Dextrose (Glutose 15) 0 gm PO ONCE PRN; Protocol PRN Reason: Hypoglycemia Protocol Diltiazem HCl (Cardizem) 30 mg PO TID [facility] Last Admin: 11/27/17 09:58 Dose: 30 mg Epoetin Jed (Procrit) 10,000 unit SC MWF [facility] Last Admin: 11/25/17 12:36 Dose: 10,000 unit Ferric Sodium Gluconate Complex (Ferrlecit) 125 mg IVPB DAILY [facility] Stop: 11/30/17 10:01 Last Admin: 11/27/17 11:21 Dose: 125 mg Glucagon (Glucagen Diagnostic Kit) 0 mg IM STAT PRN; Protocol PRN Reason: Hypoglycemia Protocol Heparin Sodium (Porcine) (Heparin) 5,000 units SC Q12 [facility] Last Admin: 11/27/17 09:58 Dose: 5,000 units Ceftriaxone Sodium 1 gm/ (Sodium Chloride) 100 mls @ 100 mls/hr IVPB DAILY [facility] PRN Reason: Protocol Last Admin: 11/27/17 09:51 Dose: 100 mls/hr Dextrose (Dextrose 5% In Water 1000 Ml) 1,000 mls @ 0 mls/hr IV .Q0M PRN; Protocol; Per Protocol PRN Reason: Hypoglycemia Protocol Insulin Human Regular (Novolin R) 0 unit SC ACHS [facility] PRN Reason: Protocol Last Admin: 11/27/17 11:21 Dose: 2 unit Metoclopramide HCl (Reglan) 10 mg PO ACHS [facility] Last Admin: 11/27/17 11:32 Dose: Not Given Metoprolol Succinate (Toprol Xl) 100 mg PO DAILY [facility] Last Admin: 11/27/17 09:59 Dose: 100 mg Nicotine (Nicoderm Cq) 1 patch TD DAILY [facility] Last Admin: 11/27/17 09:58 Dose: 1 patch Pantoprazole Sodium (Protonix Ec Tab) 40 mg PO DAILY [facility] Last Admin: 11/27/17 09:58 Dose: 40 mg Rosuvastatin Calcium (Crestor) 10 mg PO HS [facility] Last Admin: 11/26/17 21:21 Dose: 10 mg Vitamin B Complex/Vit C/Folic Acid (Nephro-Avelino) 1 tab PO 0800 [facility] Last Admin: 11/27/17 08:12 Dose: 1 tab - Labs Labs: 11/27/17 06:14 11/27/17 06:14 PT 12.1 SECONDS (9.7-12.2) 11/23/17 12:53 INR 1.1 11/23/17 12:53 APTT 26 SECONDS (21-34) 11/23/17 12:53 - Constitutional Appears: No Acute Distress - ENT Exam ENT Exam: Mucous Membranes Moist - Neck Exam Neck Exam: absent: Lymphadenopathy - Respiratory Exam Respiratory Exam: NORMAL BREATHING PATTERN. absent: Chest Wall Tenderness - Cardiovascular Exam Cardiovascular Exam: absent: Gallop - GI/Abdominal Exam GI & Abdominal Exam: Soft, Normal Bowel Sounds - Extremities Exam Extremities Exam: absent: Calf Tenderness - Back Exam Back Exam: absent: CVA tenderness (L) - Neurological Exam Neurological Exam: Alert - Skin Skin Exam: absent: Cyanosis Assessment and Plan (1) CAD (coronary artery disease) Status: Acute (2) HTN (hypertension) Status: Acute (3) Chronic kidney disease, stage V requiring chronic dialysis Status: Acute (4) End stage renal disease Assessment & Plan: Patient improving with end stage renal disease started on dialysis through right subclavian catheter Continue hemodialysis for tomorrow No dialysis for today Decrease leg edema somewhat and patient feeling much better Anemia continue EPO Hyperphosphatemia continue phosphorus binder Secondary hyperparathyroidism waiting for PTH Status: Acute
[2017-11-27] MEDS: Epoetin Alfa 10,000 unit/ml Dialysis SC SCH (13:51)
--- NOTE | 2017-11-27 22:34 | CP.PCM.PN ---
Subjective - Date & Time of Evaluation Date of Evaluation: 11/27/17 Time of Evaluation: 14:05 - Subjective Subjective: Patient seen and evaluated No additional cardiac events noted Physical Examination - Constitutional Appears: Well, No Acute Distress, Other (obese) - Head Exam Head Exam: ATRAUMATIC, NORMAL INSPECTION - Eye Exam Eye Exam: EOMI Pupil Exam: PERRL - ENT Exam ENT Exam: Mucous Membranes Moist - Neck Exam Neck Exam: Full ROM, Normal Inspection. absent: Tenderness - Respiratory Exam Respiratory Exam: Clear to Ausculation Bilateral, NORMAL BREATHING PATTERN. absent: Rales, Rhonchi, Wheezes - Cardiovascular Exam Cardiovascular Exam: Tachycardia, REGULAR RHYTHM, +S1, +S2. absent: JVD, Murmur - GI/Abdominal Exam GI & Abdominal Exam: Soft, Normal Bowel Sounds. absent: Distended, Firm, Guarding, Rigid, Tenderness - Extremities Exam Extremities Exam: Full ROM, Normal Capillary Refill, Normal Inspection. absent : Tenderness - Neurological Exam Neurological Exam: Alert, Awake, Oriented x3 - Psychiatric Exam Psychiatric exam: Normal Affect, Normal Mood - Skin Skin Exam: Intact, Normal Color, Warm Objective - Vital Signs/Intake and Output Vital Signs (last 24 hours): Temp Pulse Resp BP Pulse Ox 98.2 F 94 H 18 134/67 97 11/27/17 20:00 11/27/17 20:00 11/27/17 20:00 11/27/17 20:00 11/27/17 20:00 Intake and Output: 11/27/17 11/28/17 18:59 06:59 Intake Total 810 Output Total 400 Balance 410 - Medications Medications: Current Medications Albuterol/Ipratropium (Duoneb 3 Mg/0.5 Mg (3 Ml) Ud) 3 ml INH RQ6 [facility] Last Admin: 11/27/17 19:45 Dose: 3 ml Aspirin (Aspirin Chewable) 81 mg PO DAILY [facility] Last Admin: 11/27/17 09:57 Dose: 81 mg Calcium Acetate (Phoslo) 1,334 mg PO TID [facility] Last Admin: 11/27/17 17:03 Dose: 1,334 mg Dextrose (Dextrose 50% Inj) 0 ml IV STAT PRN; Protocol PRN Reason: Hypoglycemia Protocol Dextrose (Glutose 15) 0 gm PO ONCE PRN; Protocol PRN Reason: Hypoglycemia Protocol Diltiazem HCl (Cardizem) 30 mg PO TID [facility] Last Admin: 11/27/17 17:03 Dose: 30 mg Epoetin Jed (Procrit) 10,000 unit SC MWF [facility] Last Admin: 11/27/17 13:51 Dose: Not Given Ferric Sodium Gluconate Complex (Ferrlecit) 125 mg IVPB DAILY [facility] Stop: 11/30/17 10:01 Last Admin: 11/27/17 11:21 Dose: 125 mg Glucagon (Glucagen Diagnostic Kit) 0 mg IM STAT PRN; Protocol PRN Reason: Hypoglycemia Protocol Heparin Sodium (Porcine) (Heparin) 5,000 units SC Q12 [facility] Last Admin: 11/27/17 21:48 Dose: 5,000 units Ceftriaxone Sodium 1 gm/ (Sodium Chloride) 100 mls @ 100 mls/hr IVPB DAILY [facility] PRN Reason: Protocol Last Admin: 11/27/17 09:51 Dose: 100 mls/hr Dextrose (Dextrose 5% In Water 1000 Ml) 1,000 mls @ 0 mls/hr IV .Q0M PRN; Protocol; Per Protocol PRN Reason: Hypoglycemia Protocol Insulin Human Regular (Novolin R) 0 unit SC [facility] PRN Reason: Protocol Last Admin: 11/27/17 21:50 Dose: 2 unit Metoclopramide HCl (Reglan) 10 mg PO [facility] Last Admin: 11/27/17 21:48 Dose: 10 mg Metoprolol Succinate (Toprol Xl) 100 mg PO DAILY [facility] Last Admin: 11/27/17 09:59 Dose: 100 mg Nicotine (Nicoderm Cq) 1 patch TD DAILY [facility] Last Admin: 11/27/17 09:58 Dose: 1 patch Pantoprazole Sodium (Protonix Ec Tab) 40 mg PO DAILY [facility] Last Admin: 11/27/17 09:58 Dose: 40 mg Rosuvastatin Calcium (Crestor) 10 mg PO HS [facility] Last Admin: 11/27/17 21:48 Dose: 10 mg Vitamin B Complex/Vit C/Folic Acid (Nephro-Avelino) 1 tab PO 0800 [facility] Last Admin: 11/27/17 08:12 Dose: 1 tab - Labs Labs: 11/27/17 06:14 11/27/17 06:14 PT 12.1 SECONDS (9.7-12.2) 11/23/17 12:53 INR 1.1 11/23/17 12:53 APTT 26 SECONDS (21-34) 11/23/17 12:53 Assessment and Plan - Assessment and Plan (Free Text) Assessment: This is a 62 year old male with PMHx of CKD, HTN, HLD, T2DM, CAD with PCI intervention (2012) admitted reported having an increase in his renal function numbers, causing a change from metformin to glipizide by PMD x 2 months ago. Patient started feeling nausea, vomiting, abdominal pain, weakness, fatigue x 2 weeks. Prior to admission patient was unable to move, paramedics arrived at the scene and he was found to have sugars of 24. Patient was admitted for acute renal failure: Plan: MEENA on CKD, now in ARF Likely diabetic kidney disease Dr. Balbuena consulted Dr. Del Cid consulted for permacath placement * Permacath placed 11/24 - had successful dialysis after placement hepatitis panel negative, hiv negative, serum immunofixation negative, kappa/ lambda negative f/u anca, lupus, lab markers Started on bicarb drip @ 150cc/hr - now discontinued Phoslo given Procit 10,000u sc mwf Ferrlicit 125mg ivp qd for 8 days Supraventricular Tachycardia 20 min runs of SVT with rate in 150s x20 minutes On cardizem 30mg po tid f/u echo CAD NC in 2012 -> with PCI asa 81mg po qd metoprolol succinate 100mg po qd rosuvastatin 10mg po hs HTN metoprolol succinate 100mg po qd HLD rosuvastatin 10mg po hs Tobacco Use Disorder Smoking Cessation encouraged Nicotine Patch daily Duonebs Q6H Constipation, Resolved colace 100mg po tid discontinued dulcolax 10MG po prn discontinued Cholelithiasis and distended gallbladder noted on CT Scan Abdominal US ordered: cholelithiasis, no CBD dilatation Hypoglycemia Hypoglycemic protocol in place T2DM Accuchecks HA1C 6.5 Previously on metformin, instructed by PCP to stop and take Glipizide instead x2 months ago Carb Consistent Diet Secondary hyperparathyroidism Given Calcium gluconate x2 doses UTI - Gram + Cocci Afebrile, normotensive, leukocytosis with left shift, no bandemia, lactate 1.0, procal normal UA, UC reordered, washburn cultures - negative to date CT chest/ab/pelv: No active pulmonary disease. Clear lungs. Cholelithiasis and distended gallbladder. If clinically indicated, correlation with right upper quadrant ultrasound may be performed. Large exophytic simple cyst in the interpolar region of the right kidney. Extensive nonspecific perinephric fat stranding which may be a sequela of remote infection. Started Rocephin 1 gram IVP daily started 11/23 Anemia of Renal Disease Ferrlicit 125mg ivp qd for 8 days Prophylaxis: Protonix SCDs, Hep Q12 PT/OT Permacath placed 11/24 Renal diet
[2017-11-28] MEDS: Albuterol-Ipratrop 3 mg / 0.5 (3 ml) UD INH SCH ×4 (02:15→19:45)
[2017-11-28 06:47] LABS: BASO # 0.1 K/uL (0.0-0.2); BASO % 0.4 % (0.0-2.0); EOS # 0.5 K/uL (0.0-0.7); EOS % 2.6 % (0.0-4.0); HEMOGLOBIN 8.8 g/dL (12.0-18.0); LYMPH % 10.5 % (20.0-40.0); MEAN CELL VOLUME 94.8 fL (80.0-94.0); MEAN CORPUSCULAR HEMOGLOBIN 30.2 pg (27.0-31.0); MEAN CORPUSCULAR HGB CONC 31.8 g/dL (33.0-37.0); MEAN PLATELET VOLUME 9.6 fL (7.2-11.7); MONO # 1.1 K/uL (0.0-0.8); MONO % 5.6 % (0.0-10.0); NEUT # 15.3 K/uL (1.8-7.0); NEUT % 80.9 % (50.0-75.0); RBC 2.93 Mil/uL (4.40-5.90); RED CELL DISTRIBUTION WIDTH 13.5 % (11.5-14.5)
[2017-11-28 07:14] LABS: ALB/GLOB RATIO 1.3 (1.0-2.1); ALBUMIN 3.3 g/dL (3.5-5.0); CALCIUM 8.9 mg/dl (8.6-10.4)
[2017-11-28] MEDS: (Novolin R) Insulin Human Regular 100 units/ml vial SC SCH ×4 (08:28→22:03)
[2017-11-28] MEDS: Multivitamin Vitamin B Complex (Nephro-Vite) Tab PO SCH (08:28)
[2017-11-28] MEDS: Pantoprazole 40 mg EC Tab PO SCH (10:15)
[2017-11-28] MEDS: Metoprolol Succinate 100 mg XL Tab PO SCH (10:16)
--- NOTE | 2017-11-28 10:48 | CP.PCM.PN ---
Subjective - Date & Time of Evaluation Date of Evaluation: 11/28/17 Time of Evaluation: 10:15 - Subjective Subjective: Today when we walked into the room, the patient was talking with his girl friend Jade over speakerphone. She had a lot questions and demands. She asked the very same questions she asked that we talked about yesterday. Her questions were about case workers and social workers questions. I had to explain to her that unfortunately there is less staff in the hospital in the weekend but that hopefully there would be more answers this Thursday when they come back. Patient and Jade argued over the phone. The patient was not in any physical distress, he was anxious appearing during the phone discussion. The patient is scheduled to have 3rd HD today. Overnight had one high sugar of 400, it later came back down. Objective - Vital Signs/Intake and Output Vital Signs (last 24 hours): Temp Pulse Resp BP Pulse Ox 97.9 F 89 20 148/79 97 11/28/17 07:00 11/28/17 07:00 11/28/17 07:00 11/28/17 07:00 11/28/17 07:00 Intake and Output: 11/28/17 11/28/17 06:59 18:59 Intake Total 240 Output Total 200 Balance 40 - Medications Medications: Current Medications Albuterol/Ipratropium (Duoneb 3 Mg/0.5 Mg (3 Ml) Ud) 3 ml INH RQ6 [facility] Last Admin: 11/28/17 08:27 Dose: 3 ml Aspirin (Aspirin Chewable) 81 mg PO DAILY [facility] Last Admin: 11/28/17 10:15 Dose: 81 mg Calcium Acetate (Phoslo) 1,334 mg PO TID [facility] Last Admin: 11/28/17 10:15 Dose: 1,334 mg Dextrose (Dextrose 50% Inj) 0 ml IV STAT PRN; Protocol PRN Reason: Hypoglycemia Protocol Dextrose (Glutose 15) 0 gm PO ONCE PRN; Protocol PRN Reason: Hypoglycemia Protocol Diltiazem HCl (Cardizem) 30 mg PO TID [facility] Last Admin: 11/28/17 10:16 Dose: Not Given Docusate Sodium (Colace) 100 mg PO DAILY [facility] Epoetin Jed (Procrit) 10,000 unit SC MWF [facility] Last Admin: 11/27/17 13:51 Dose: Not Given Ferric Sodium Gluconate Complex (Ferrlecit) 125 mg IVPB DAILY [facility] Stop: 11/30/17 10:01 Last Admin: 11/27/17 11:21 Dose: 125 mg Glucagon (Glucagen Diagnostic Kit) 0 mg IM STAT PRN; Protocol PRN Reason: Hypoglycemia Protocol Heparin Sodium (Porcine) (Heparin) 5,000 units SC Q12 [facility] Last Admin: 11/28/17 10:15 Dose: 5,000 units Ceftriaxone Sodium 1 gm/ (Sodium Chloride) 100 mls @ 100 mls/hr IVPB DAILY [facility] PRN Reason: Protocol Last Admin: 11/28/17 10:14 Dose: 100 mls/hr Dextrose (Dextrose 5% In Water 1000 Ml) 1,000 mls @ 0 mls/hr IV .Q0M PRN; Protocol; Per Protocol PRN Reason: Hypoglycemia Protocol Insulin Human Regular (Novolin R) 0 unit SC [facility] PRN Reason: Protocol Last Admin: 11/28/17 08:28 Dose: 1 unit Metoclopramide HCl (Reglan) 10 mg PO ACHS [facility] Last Admin: 11/28/17 06:55 Dose: 10 mg Metoprolol Succinate (Toprol Xl) 100 mg PO DAILY [facility] Last Admin: 11/28/17 10:16 Dose: Not Given Nicotine (Nicoderm Cq) 1 patch TD DAILY [facility] Last Admin: 11/28/17 10:15 Dose: 1 patch Pantoprazole Sodium (Protonix Ec Tab) 40 mg PO DAILY [facility] Last Admin: 11/28/17 10:15 Dose: 40 mg Rosuvastatin Calcium (Crestor) 10 mg PO HS [facility] Last Admin: 11/27/17 21:48 Dose: 10 mg Vitamin B Complex/Vit C/Folic Acid (Nephro-Avelino) 1 tab PO 0800 [facility] Last Admin: 11/28/17 08:28 Dose: 1 tab - Labs Labs: 11/28/17 06:36 11/28/17 06:36 PT 12.1 SECONDS (9.7-12.2) 11/23/17 12:53 INR 1.1 11/23/17 12:53 APTT 26 SECONDS (21-34) 11/23/17 12:53 - Constitutional Appears: No Acute Distress, Unkempt - Head Exam Head Exam: NORMAL INSPECTION, NORMOCEPHALIC - Eye Exam Eye Exam: EOMI, Normal appearance - ENT Exam ENT Exam: Mucous Membranes Moist - Respiratory Exam Respiratory Exam: Clear to Ausculation Bilateral, NORMAL BREATHING PATTERN - Cardiovascular Exam Cardiovascular Exam: REGULAR RHYTHM - GI/Abdominal Exam GI & Abdominal Exam: Soft, Normal Bowel Sounds. absent: Guarding, Rigid, Tenderness - Neurological Exam Neurological Exam: Alert, Awake, Oriented x3 Neuro motor strength exam: Left Upper Extremity: 5, Right Upper Extremity: 5, Left Lower Extremity: 4, Right Lower Extremity: 4 - Psychiatric Exam Psychiatric exam: Depressed, Flat Affect - Skin Skin Exam: Pallor, Warm Assessment and Plan - Assessment and Plan (Free Text) Assessment: Assessment: This is a 62 year old male with PMHx of CKD, HTN, HLD, T2DM, CAD with PCI intervention (2012) admitted reported having an increase in his renal function numbers, causing a change from metformin to glipizide by PMD x 2 months ago. Patient started feeling nausea, vomiting, abdominal pain, weakness, fatigue x 2 weeks. Prior to admission patient was unable to move, paramedics arrived at the scene and he was found to have sugars of 24. Patient was admitted for acute renal failure: Plan: MEENA on CKD, now in ARF 11/28: Patient is pending third HD later today. As I explained to the patient's girl friend repeatedly - we still are pending where the patient will be going to for outpatient HD and also where to go for LIZ. Likely diabetic kidney disease Dr. Balbuena consulted Dr. Del Cid consulted for permacath placement * Permacath placed 11/24 - had successful dialysis after placement Phoslo given Procit 10,000u sc mwf Ferrlicit 125mg ivp qd for 8 days Supraventricular Tachycardia 11/28: Patient denied chest pain and palpitation. The telemetry currently in the 80s to 90s NSR. No recored sinus tachycardia or episodes of SVT overnight Consult cardiology, Dr Levi * seen by Dr Levi - continue po cardizem 20 min runs of SVT with rate in 150s x20 minutes Start cardizem 30mg po tid f/u echo CAD 11/28: No chest pain, echo pending final read at this time. [place] in 2012 -> with PCI asa 81mg po qd metoprolol succinate 100mg po qd rosuvastatin 10mg po hs HTN 11/28: Systolics in the 140s. Continue to monitr. Cardizem 30 mg PO TID metoprolol succinate 100mg po qd HLD rosuvastatin 10mg po hs Tobacco Use Disorder Smoking Cessation encouraged Nicotine Patch daily Duonebs Q6H Constipation, Resolved colace 100mg po tid discontinued dulcolax 10MG po prn discontinued Cholelithiasis and distended gallbladder noted on CT Scan Abdominal US ordered: cholelithiasis, no CBD dilatation Hypoglycemia 11/28 Since admission has been stable. His accucheks have been mostly inbetween 100 to [address] T2DM Accuchecks HA1C 6.5 Previously on metformin, instructed by PCP to stop and take Glipizide instead x2 months ago Carb Consistent Diet Secondary hyperparathyroidism Given Calcium gluconate x2 doses UTI - Gram + Cocci Afebrile, normotensive, leukocytosis with left shift, no bandemia, lactate 1.0, procal normal UA, UC reordered, washburn cultures - negative to date CT chest/ab/pelv: No active pulmonary disease. Clear lungs. Cholelithiasis and distended gallbladder. If clinically indicated, correlation with right upper quadrant ultrasound may be performed. Large exophytic simple cyst in the interpolar region of the right kidney. Extensive nonspecific perinephric fat stranding which may be a sequela of remote infection. Started Rocephin 1 gram IVP daily started 11/23 Anemia of Renal Disease Ferrlicit 125mg ivp qd for 8 days Prophylaxis: Protonix SCDs, Hep Q12 PT/OT Permacath placed 11/24 Renal diet
[2017-11-28] MEDS: Ferric Sodium Gluconat Complex 62.5 mg/5 ml Vial IVPB SCH (11:02)
[2017-11-28] MEDS ORDERED: Epoetin Alfa 10,000 unit/ml Dialysis IV ONE (15:34)
--- NOTE | 2017-11-28 16:19 | CP.PCM.PN ---
Subjective - Date & Time of Evaluation Date of Evaluation: 11/28/17 Time of Evaluation: 16:18 - Subjective Subjective: renal follow up note pe: vs noted gen: nad sclera: anicteric op: clear neck: supple no thyromegaly cv:+s1+s2 no rub abd soft no orgnomegaly lungs CTA b/l ext trace edema neuro: A+OX3 very faint asterixis psych: nml affect gu: weinberg skin no rash imp: arf / acidosis /anemia of renal disease/ UTI? / diabetic kidney disease/ secondary hyperpara/hypokalemia/smoker/obesity/CKD stage 3/4 plan: hd mwf schedule via permacath gn work up sent continue epogen, IV iron and nephrovite for anemia. continue phos binders lytes reviewed SW consult for outpt HD placement with Dr Aguirre Objective - Vital Signs/Intake and Output Vital Signs (last 24 hours): Temp Pulse Resp BP Pulse Ox 98.2 F 97 H 18 105/75 96 11/28/17 14:45 11/28/17 14:45 11/28/17 14:45 11/28/17 15:45 11/28/17 14:45 Intake and Output: 11/28/17 11/28/17 06:59 18:59 Intake Total 240 600 Output Total 200 200 Balance 40 400 - Medications Medications: Current Medications Albuterol/Ipratropium (Duoneb 3 Mg/0.5 Mg (3 Ml) Ud) 3 ml INH RQ6 [facility] Last Admin: 11/28/17 13:58 Dose: 3 ml Aspirin (Aspirin Chewable) 81 mg PO DAILY [facility] Last Admin: 11/28/17 10:15 Dose: 81 mg Calcium Acetate (Phoslo) 1,334 mg PO TID [facility] Last Admin: 11/28/17 14:41 Dose: Not Given Dextrose (Dextrose 50% Inj) 0 ml IV STAT PRN; Protocol PRN Reason: Hypoglycemia Protocol Dextrose (Glutose 15) 0 gm PO ONCE PRN; Protocol PRN Reason: Hypoglycemia Protocol Diltiazem HCl (Cardizem) 30 mg PO TID [facility] Last Admin: 11/28/17 14:40 Dose: Not Given Docusate Sodium (Colace) 100 mg PO DAILY [facility] Last Admin: 11/28/17 11:02 Dose: 100 mg Epoetin Jed (Procrit) 10,000 unit SC MWF [facility] Last Admin: 11/27/17 13:51 Dose: Not Given Ferric Sodium Gluconate Complex (Ferrlecit) 125 mg IVPB DAILY [facility] Stop: 11/30/17 10:01 Last Admin: 11/28/17 11:02 Dose: 125 mg Glucagon (Glucagen Diagnostic Kit) 0 mg IM STAT PRN; Protocol PRN Reason: Hypoglycemia Protocol Heparin Sodium (Porcine) (Heparin) 5,000 units SC Q12 [facility] Last Admin: 11/28/17 10:15 Dose: 5,000 units Ceftriaxone Sodium 1 gm/ (Sodium Chloride) 100 mls @ 100 mls/hr IVPB DAILY [facility] PRN Reason: Protocol Last Admin: 11/28/17 10:14 Dose: 100 mls/hr Dextrose (Dextrose 5% In Water 1000 Ml) 1,000 mls @ 0 mls/hr IV .Q0M PRN; Protocol; Per Protocol PRN Reason: Hypoglycemia Protocol Insulin Human Regular (Novolin R) 0 unit SC ACHS [facility] PRN Reason: Protocol Last Admin: 11/28/17 12:20 Dose: 2 unit Metoclopramide HCl (Reglan) 10 mg PO ACHS [facility] Last Admin: 11/28/17 12:21 Dose: 10 mg Metoprolol Succinate (Toprol Xl) 100 mg PO DAILY [facility] Last Admin: 11/28/17 10:16 Dose: Not Given Nicotine (Nicoderm Cq) 1 patch TD DAILY [facility] Last Admin: 11/28/17 10:15 Dose: 1 patch Pantoprazole Sodium (Protonix Ec Tab) 40 mg PO DAILY [facility] Last Admin: 11/28/17 10:15 Dose: 40 mg Rosuvastatin Calcium (Crestor) 10 mg PO HS [facility] Last Admin: 11/27/17 21:48 Dose: 10 mg Vitamin B Complex/Vit C/Folic Acid (Nephro-Avelino) 1 tab PO 0800 [facility] Last Admin: 11/28/17 08:28 Dose: 1 tab - Labs Labs: 11/28/17 06:36 11/28/17 06:36 PT 12.1 SECONDS (9.7-12.2) 11/23/17 12:53 INR 1.1 11/23/17 12:53 APTT 26 SECONDS (21-34) 11/23/17 12:53
--- NOTE | 2017-11-28 23:48 | CP.PCM.PN ---
Subjective - Date & Time of Evaluation Date of Evaluation: 11/28/17 Time of Evaluation: 14:10 - Subjective Subjective: Patient seen and evaluated No more episodes of arrhythmias Physical examination - Additional Findings Additional findings: - Constitutional Appears: Well, No Acute Distress, Other (obese) - Head Exam Head Exam: ATRAUMATIC, NORMAL INSPECTION - Eye Exam Eye Exam: EOMI Pupil Exam: PERRL - ENT Exam ENT Exam: Mucous Membranes Moist - Neck Exam Neck Exam: Full ROM, Normal Inspection. absent: Tenderness - Respiratory Exam Respiratory Exam: Clear to Ausculation Bilateral, NORMAL BREATHING PATTERN. absent: Rales, Rhonchi, Wheezes - Cardiovascular Exam Cardiovascular Exam: Tachycardia, REGULAR RHYTHM, +S1, +S2. absent: JVD, Murmur - GI/Abdominal Exam GI & Abdominal Exam: Soft, Normal Bowel Sounds. absent: Distended, Firm, Guarding, Rigid, Tenderness - Extremities Exam Extremities Exam: Full ROM, Normal Capillary Refill, Normal Inspection. absent : Tenderness - Neurological Exam Neurological Exam: Alert, Awake, Oriented x3 - Psychiatric Exam Psychiatric exam: Normal Affect, Normal Mood - Skin Skin Exam: Intact, Normal Color, Warm Objective - Vital Signs/Intake and Output Vital Signs (last 24 hours): Temp Pulse Resp BP Pulse Ox 99.0 F 97 H 20 148/71 95 11/28/17 18:33 11/28/17 18:33 11/28/17 18:33 11/28/17 18:33 11/28/17 18:33 Intake and Output: 11/28/17 11/29/17 18:59 06:59 Intake Total 600 320 Output Total 200 Balance 400 320 - Medications Medications: Current Medications Albuterol/Ipratropium (Duoneb 3 Mg/0.5 Mg (3 Ml) Ud) 3 ml INH RQ6 [facility] Last Admin: 11/28/17 19:45 Dose: 3 ml Aspirin (Aspirin Chewable) 81 mg PO DAILY [facility] Last Admin: 11/28/17 10:15 Dose: 81 mg Calcium Acetate (Phoslo) 1,334 mg PO TID [facility] Last Admin: 11/28/17 17:58 Dose: 1,334 mg Dextrose (Dextrose 50% Inj) 0 ml IV STAT PRN; Protocol PRN Reason: Hypoglycemia Protocol Dextrose (Glutose 15) 0 gm PO ONCE PRN; Protocol PRN Reason: Hypoglycemia Protocol Diltiazem HCl (Cardizem) 30 mg PO TID [facility] Last Admin: 11/28/17 17:58 Dose: 30 mg Docusate Sodium (Colace) 100 mg PO DAILY [facility] Last Admin: 11/28/17 11:02 Dose: 100 mg Epoetin Jed (Procrit) 10,000 unit SC MWF [facility] Last Admin: 11/27/17 13:51 Dose: Not Given Ferric Sodium Gluconate Complex (Ferrlecit) 125 mg IVPB DAILY [facility] Stop: 11/30/17 10:01 Last Admin: 11/28/17 11:02 Dose: 125 mg Glucagon (Glucagen Diagnostic Kit) 0 mg IM STAT PRN; Protocol PRN Reason: Hypoglycemia Protocol Heparin Sodium (Porcine) (Heparin) 5,000 units SC Q12 [facility] Last Admin: 11/28/17 21:53 Dose: 5,000 units Ceftriaxone Sodium 1 gm/ (Sodium Chloride) 100 mls @ 100 mls/hr IVPB DAILY [facility] PRN Reason: Protocol Last Admin: 11/28/17 10:14 Dose: 100 mls/hr Dextrose (Dextrose 5% In Water 1000 Ml) 1,000 mls @ 0 mls/hr IV .Q0M PRN; Protocol; Per Protocol PRN Reason: Hypoglycemia Protocol Insulin Human Regular (Novolin R) 0 unit SC [facility] PRN Reason: Protocol Last Admin: 11/28/17 22:03 Dose: Not Given Metoclopramide HCl (Reglan) 10 mg PO ACHS [facility] Last Admin: 11/28/17 21:53 Dose: 10 mg Metoprolol Succinate (Toprol Xl) 100 mg PO DAILY [facility] Last Admin: 11/28/17 10:16 Dose: Not Given Nicotine (Nicoderm Cq) 1 patch TD DAILY [facility] Last Admin: 11/28/17 10:15 Dose: 1 patch Pantoprazole Sodium (Protonix Ec Tab) 40 mg PO DAILY [facility] Last Admin: 11/28/17 10:15 Dose: 40 mg Rosuvastatin Calcium (Crestor) 10 mg PO HS [facility] Last Admin: 11/28/17 21:53 Dose: 10 mg Vitamin B Complex/Vit C/Folic Acid (Nephro-Avelino) 1 tab PO 0800 [facility] Last Admin: 11/28/17 08:28 Dose: 1 tab - Labs Labs: 11/28/17 06:36 11/28/17 06:36 PT 12.1 SECONDS (9.7-12.2) 11/23/17 12:53 INR 1.1 11/23/17 12:53 APTT 26 SECONDS (21-34) 11/23/17 12:53 Assessment and Plan - Assessment and Plan (Free Text) Assessment: This is a 62 year old male with PMHx of CKD, HTN, HLD, T2DM, CAD with PCI intervention (2012) admitted reported having an increase in his renal function numbers, causing a change from metformin to glipizide by PMD x 2 months ago. Patient started feeling nausea, vomiting, abdominal pain, weakness, fatigue x 2 weeks. Prior to admission patient was unable to move, paramedics arrived at the scene and he was found to have sugars of 24. Patient was admitted for acute renal failure: Plan: MEENA on CKD, now in ARF Likely diabetic kidney disease Dr. Balbuena consulted Dr. Del Cid consulted for permacath placement * Permacath placed 11/24 - had successful dialysis after placement hepatitis panel negative, hiv negative, serum immunofixation negative, kappa/ lambda negative f/u anca, lupus, lab markers Started on bicarb drip @ 150cc/hr - now discontinued Phoslo given Procit 10,000u sc mwf Ferrlicit 125mg ivp qd for 8 days Supraventricular Tachycardia 20 min runs of SVT with rate in 150s x20 minutes On cardizem 30mg po tid f/u echo CAD [place] in 2012 -> with PCI asa 81mg po qd metoprolol succinate 100mg po qd rosuvastatin 10mg po hs HTN metoprolol succinate 100mg po qd HLD rosuvastatin 10mg po hs Tobacco Use Disorder Smoking Cessation encouraged Nicotine Patch daily Duonebs Q6H Constipation, Resolved colace 100mg po tid discontinued dulcolax 10MG po prn discontinued Cholelithiasis and distended gallbladder noted on CT Scan Abdominal US ordered: cholelithiasis, no CBD dilatation Hypoglycemia Hypoglycemic protocol in place T2DM Accuchecks HA1C 6.5 Previously on metformin, instructed by PCP to stop and take Glipizide instead x2 months ago Carb Consistent Diet Secondary hyperparathyroidism Given Calcium gluconate x2 doses UTI - Gram + Cocci Afebrile, normotensive, leukocytosis with left shift, no bandemia, lactate 1.0, procal normal UA, UC reordered, washburn cultures - negative to date CT chest/ab/pelv: No active pulmonary disease. Clear lungs. Cholelithiasis and distended gallbladder. If clinically indicated, correlation with right upper quadrant ultrasound may be performed. Large exophytic simple cyst in the interpolar region of the right kidney. Extensive nonspecific perinephric fat stranding which may be a sequela of remote infection. Started Rocephin 1 gram IVP daily started 11/23 Anemia of Renal Disease Ferrlicit 125mg ivp qd for 8 days Prophylaxis: Protonix SCDs, Hep Q12 PT/OT Permacath placed 11/24 Renal diet
[2017-11-29] MEDS: Albuterol-Ipratrop 3 mg / 0.5 (3 ml) UD INH SCH ×2 (04:52→20:03)
[2017-11-29] MEDS: (Novolin R) Insulin Human Regular 100 units/ml vial SC SCH ×4 (07:42→21:24)
[2017-11-29] MEDS: Multivitamin Vitamin B Complex (Nephro-Vite) Tab PO SCH (07:46)
[2017-11-29 07:51] LABS: BASO # 0.2 K/uL (0.0-0.2); BASO % 0.8 % (0.0-2.0); EOS # 0.5 K/uL (0.0-0.7); EOS % 2.3 % (0.0-4.0); HEMOGLOBIN 8.6 g/dL (12.0-18.0); LYMPH # 2.4 K/uL (1.0-4.3); LYMPH % 11.2 % (20.0-40.0); MEAN CELL VOLUME 95.6 fL (80.0-94.0); MEAN CORPUSCULAR HEMOGLOBIN 30.7 pg (27.0-31.0); MEAN CORPUSCULAR HGB CONC 32.1 g/dL (33.0-37.0); MEAN PLATELET VOLUME 9.4 fL (7.2-11.7); MONO # 1.4 K/uL (0.0-0.8); MONO % 6.4 % (0.0-10.0); NEUT # 17.1 K/uL (1.8-7.0); NEUT % 79.3 % (50.0-75.0); RBC 2.8 Mil/uL (4.40-5.90); RED CELL DISTRIBUTION WIDTH 13.7 % (11.5-14.5); WHITE BLOOD COUNT 21.6 K/uL (4.8-10.8)
[2017-11-29 08:19] LABS: ALB/GLOB RATIO 1.2 (1.0-2.1); ALBUMIN 3.3 g/dL (3.5-5.0); CALCIUM 8.7 mg/dl (8.6-10.4)
--- NOTE | 2017-11-29 09:05 | CP.PCM.PN ---
Subjective - Date & Time of Evaluation Date of Evaluation: 11/29/17 Time of Evaluation: 08:45 - Subjective Subjective: Patient was seen and examined by me. He was able to on his own walk to the bathroom and reported ok with bowel movment. He denied pain, denied shortness of breath, denied chest pain, denied abominal pain, denied headache, he tolerated his diet He had his third HD yesterday. Patient explained that as of right now his girlfriend Jade is under a lot of stress only because of her own health concerns as well. They are under a lot of stress at this time. Today WBC remains high. Will check blood cultures again, a portable CXRAY and also Procalcitonin. Remains on the IV rocephin. Also stool for C Diff. He denied fevers and there were none recorded. Objective - Vital Signs/Intake and Output Vital Signs (last 24 hours): Temp Pulse Resp BP Pulse Ox 98.2 F 99 H 20 151/75 H 97 11/29/17 04:20 11/29/17 04:20 11/29/17 04:20 11/29/17 04:20 11/28/17 23:10 Intake and Output: 11/29/17 11/29/17 06:59 18:59 Intake Total 420 Output Total 100 Balance 320 - Medications Medications: Current Medications Albuterol/Ipratropium (Duoneb 3 Mg/0.5 Mg (3 Ml) Ud) 3 ml INH RQ6 [facility] Last Admin: 11/29/17 04:52 Dose: Not Given Aspirin (Aspirin Chewable) 81 mg PO DAILY [facility] Last Admin: 11/28/17 10:15 Dose: 81 mg Calcium Acetate (Phoslo) 1,334 mg PO TID [facility] Last Admin: 11/28/17 17:58 Dose: 1,334 mg Dextrose (Dextrose 50% Inj) 0 ml IV STAT PRN; Protocol PRN Reason: Hypoglycemia Protocol Dextrose (Glutose 15) 0 gm PO ONCE PRN; Protocol PRN Reason: Hypoglycemia Protocol Diltiazem HCl (Cardizem) 30 mg PO TID [facility] Last Admin: 11/28/17 17:58 Dose: 30 mg Docusate Sodium (Colace) 100 mg PO DAILY [facility] Last Admin: 11/28/17 11:02 Dose: 100 mg Epoetin Jed (Procrit) 10,000 unit SC MWF [facility] Last Admin: 11/27/17 13:51 Dose: Not Given Ferric Sodium Gluconate Complex (Ferrlecit) 125 mg IVPB DAILY [facility] Stop: 11/30/17 10:01 Last Admin: 11/28/17 11:02 Dose: 125 mg Glucagon (Glucagen Diagnostic Kit) 0 mg IM STAT PRN; Protocol PRN Reason: Hypoglycemia Protocol Heparin Sodium (Porcine) (Heparin) 5,000 units SC Q12 [facility] Last Admin: 11/28/17 21:53 Dose: 5,000 units Ceftriaxone Sodium 1 gm/ (Sodium Chloride) 100 mls @ 100 mls/hr IVPB DAILY [facility] PRN Reason: Protocol Last Admin: 11/28/17 10:14 Dose: 100 mls/hr Dextrose (Dextrose 5% In Water 1000 Ml) 1,000 mls @ 0 mls/hr IV .Q0M PRN; Protocol; Per Protocol PRN Reason: Hypoglycemia Protocol Insulin Human Regular (Novolin R) 0 unit SC [facility] PRN Reason: Protocol Last Admin: 11/29/17 07:42 Dose: Not Given Metoclopramide HCl (Reglan) 10 mg PO [facility] Last Admin: 11/29/17 06:35 Dose: 10 mg Metoprolol Succinate (Toprol Xl) 100 mg PO DAILY [facility] Last Admin: 11/28/17 10:16 Dose: Not Given Nicotine (Nicoderm Cq) 1 patch TD DAILY [facility] Last Admin: 11/28/17 10:15 Dose: 1 patch Pantoprazole Sodium (Protonix Ec Tab) 40 mg PO DAILY [facility] Last Admin: 11/28/17 10:15 Dose: 40 mg Rosuvastatin Calcium (Crestor) 10 mg PO HS [facility] Last Admin: 11/28/17 21:53 Dose: 10 mg Vitamin B Complex/Vit C/Folic Acid (Nephro-Avelino) 1 tab PO 0800 [facility] Last Admin: 11/29/17 07:46 Dose: 1 tab - Labs Labs: 11/29/17 07:43 11/29/17 07:43 PT 12.1 SECONDS (9.7-12.2) 11/23/17 12:53 INR 1.1 11/23/17 12:53 APTT 26 SECONDS (21-34) 11/23/17 12:53 - Constitutional Appears: No Acute Distress, Unkempt, Chronically Ill - Head Exam Head Exam: NORMAL INSPECTION, NORMOCEPHALIC - Eye Exam Eye Exam: EOMI, Normal appearance - ENT Exam ENT Exam: Mucous Membranes Moist - Respiratory Exam Respiratory Exam: Clear to Ausculation Bilateral, NORMAL BREATHING PATTERN - Cardiovascular Exam Cardiovascular Exam: REGULAR RHYTHM - GI/Abdominal Exam GI & Abdominal Exam: Soft, Normal Bowel Sounds. absent: Firm, Guarding, Rigid, Tenderness - Neurological Exam Neurological Exam: Alert, Awake, Oriented x3 Neuro motor strength exam: Left Upper Extremity: 5, Right Upper Extremity: 5, Left Lower Extremity: 4, Right Lower Extremity: 4 - Psychiatric Exam Psychiatric exam: Flat Affect - Skin Skin Exam: Pallor, Warm Assessment and Plan - Assessment and Plan (Free Text) Assessment: Assessment: This is a 62 year old male with PMHx of CKD, HTN, HLD, T2DM, CAD with PCI intervention (2012) admitted reported having an increase in his renal function numbers, causing a change from metformin to glipizide by PMD x 2 months ago. Patient started feeling nausea, vomiting, abdominal pain, weakness, fatigue x 2 weeks. Prior to admission patient was unable to move, paramedics arrived at the scene and he was found to have sugars of 24. Patient was admitted for acute renal failure: Plan: MEENA on CKD, now in ARF 11/29: Uneventful night. Tolerated HD well yesterday. K and serum bicarb stable. 11/28: Patient is pending third HD later today. As I explained to the patient's girl friend repeatedly - we still are pending where the patient will be going to for outpatient HD and also where to go for LIZ. Dr. Balbuena consulted Dr. Del Cid consulted for permacath placement * Permacath placed 11/24 - had successful dialysis after placement Phoslo given Procit 10,000u sc mwf Ferrlicit 125mg ivp qd for 8 days Supraventricular Tachycardia 11/29: Patient reported walking in his room on his own. It takes effort he says. Would benefit from ongoing PT/OT. On telemetry he has sinus tachycardia at times. 11/28: Patient denied chest pain and palpitation. The telemetry currently in the 80s to 90s NSR. No recored sinus tachycardia or episodes of SVT overnight Consult cardiology, Dr Levi * seen by Dr Levi - kiko cook 20 min runs of SVT with rate in 150s x20 minutes Start cardizem 30mg po tid f/u echo CAD 11/28: No chest pain, echo pending final read at this time. AR in 2012 -> with PCI asa 81mg po qd metoprolol succinate 100mg po qd rosuvastatin 10mg po hs HTN 11/28: Systolics in the 140s. Continue to monitr. Cardizem 30 mg PO TID metoprolol succinate 100mg po qd HLD rosuvastatin 10mg po hs Tobacco Use Disorder Smoking Cessation encouraged Nicotine Patch daily Duonebs Q6H Constipation, Resolved colace 100mg po tid discontinued dulcolax 10MG po prn discontinued Cholelithiasis and distended gallbladder noted on CT Scan Abdominal US ordered: cholelithiasis, no CBD dilatation Hypoglycemia 11/29: The accuchecks have been 120s to low 200s. 11/28 Since admission has been stable. His accucheks have been mostly inbetween 100 to [address] Secondary hyperparathyroidism Given Calcium gluconate x2 doses UTI - Gram + Cocci 11/29: Reapeat cultures pending. Remains on rocpehin. Afebrile, normotensive, leukocytosis with left shift, no bandemia, lactate 1.0, procal normal UA, UC reordered, washburn cultures - negative to date CT chest/ab/pelv: No active pulmonary disease. Clear lungs. Cholelithiasis and distended gallbladder. If clinically indicated, correlation with right upper quadrant ultrasound may be performed. Large exophytic simple cyst in the interpolar region of the right kidney. Extensive nonspecific perinephric fat stranding which may be a sequela of remote infection. Started Rocephin 1 gram IVP daily started 11/23 Anemia of Renal Disease Ferrlicit 125mg ivp qd for 8 days Prophylaxis: Protonix SCDs, Hep Q12 PT/OT Permacath placed 11/24 Renal diet
--- NOTE | 2017-11-29 10:11 | RAD ---
HISTORY: Shortness of breath COMPARISON: Comparison chest 11/24/2017 FINDINGS: Re- demonstrated is a right IJ dialysis catheter with tips in the SVC unchanged. LUNGS: Minimal increased vascularity suggesting mild chronic compensated pulmonary venous though improved from prior study. Rule out mild fluid overload PLEURA: No significant pleural effusion identified, no pneumothorax apparent. CARDIOVASCULAR: Normal. OSSEOUS STRUCTURES: No significant abnormalities. VISUALIZED UPPER ABDOMEN: Normal. OTHER FINDINGS: None. IMPRESSION: Minimal increased vascularity suggesting mild chronic compensated pulmonary venous congestion although improved from prior study. Rule out mild fluid overload.
[2017-11-29] MEDS: Ferric Sodium Gluconat Complex 62.5 mg/5 ml Vial IVPB SCH (10:35)
[2017-11-29] MEDS: Pantoprazole 40 mg EC Tab PO SCH (10:35)
[2017-11-29] MEDS: Metoprolol Succinate 100 mg XL Tab PO SCH (10:35)
--- NOTE | 2017-11-29 23:50 | CP.PCM.PN ---
Subjective - Date & Time of Evaluation Date of Evaluation: 11/29/17 Time of Evaluation: 16:45 - Subjective Subjective: Patient seen and evaluated denies chest pain and dyspnea Physical examination - Additional Findings Additional findings: - Constitutional Appears: Well, No Acute Distress, Other (obese) - Head Exam Head Exam: ATRAUMATIC, NORMAL INSPECTION - Eye Exam Eye Exam: EOMI Pupil Exam: PERRL - ENT Exam ENT Exam: Mucous Membranes Moist - Neck Exam Neck Exam: Full ROM, Normal Inspection. absent: Tenderness - Respiratory Exam Respiratory Exam: Clear to Ausculation Bilateral, NORMAL BREATHING PATTERN. absent: Rales, Rhonchi, Wheezes - Cardiovascular Exam Cardiovascular Exam: Tachycardia, REGULAR RHYTHM, +S1, +S2. absent: JVD, Murmur - GI/Abdominal Exam GI & Abdominal Exam: Soft, Normal Bowel Sounds. absent: Distended, Firm, Guarding, Rigid, Tenderness - Extremities Exam Extremities Exam: Full ROM, Normal Capillary Refill, Normal Inspection. absent : Tenderness - Neurological Exam Neurological Exam: Alert, Awake, Oriented x3 - Psychiatric Exam Psychiatric exam: Normal Affect, Normal Mood - Skin Skin Exam: Intact, Normal Color, Warm Objective - Vital Signs/Intake and Output Vital Signs (last 24 hours): Temp Pulse Resp BP Pulse Ox 97.6 F 97 H 20 109/65 95 11/29/17 15:09 11/29/17 15:09 11/29/17 15:09 11/29/17 15:09 11/29/17 15:09 - Medications Medications: Current Medications Albuterol/Ipratropium (Duoneb 3 Mg/0.5 Mg (3 Ml) Ud) 3 ml INH RQ6 [facility] Last Admin: 11/29/17 20:03 Dose: 3 ml Aspirin (Aspirin Chewable) 81 mg PO DAILY [facility] Last Admin: 11/29/17 10:35 Dose: 81 mg Calcium Acetate (Phoslo) 1,334 mg PO TID [facility] Last Admin: 11/29/17 17:07 Dose: 1,334 mg Dextrose (Dextrose 50% Inj) 0 ml IV STAT PRN; Protocol PRN Reason: Hypoglycemia Protocol Dextrose (Glutose 15) 0 gm PO ONCE PRN; Protocol PRN Reason: Hypoglycemia Protocol Diltiazem HCl (Cardizem) 30 mg PO TID [facility] Last Admin: 11/29/17 17:07 Dose: 30 mg Docusate Sodium (Colace) 100 mg PO DAILY [facility] Last Admin: 11/29/17 10:35 Dose: 100 mg Epoetin Jed (Procrit) 10,000 unit SC [facility] Last Admin: 11/27/17 13:51 Dose: Not Given Ferric Sodium Gluconate Complex (Ferrlecit) 125 mg IVPB DAILY [facility] Stop: 11/30/17 10:01 Last Admin: 11/29/17 10:35 Dose: 125 mg Glucagon (Glucagen Diagnostic Kit) 0 mg IM STAT PRN; Protocol PRN Reason: Hypoglycemia Protocol Heparin Sodium (Porcine) (Heparin) 5,000 units SC Q12 [facility] Last Admin: 11/29/17 21:48 Dose: 5,000 units Ceftriaxone Sodium 1 gm/ (Sodium Chloride) 100 mls @ 100 mls/hr IVPB DAILY [facility] PRN Reason: Protocol Last Admin: 11/29/17 10:38 Dose: 100 mls/hr Dextrose (Dextrose 5% In Water 1000 Ml) 1,000 mls @ 0 mls/hr IV .Q0M PRN; Protocol; Per Protocol PRN Reason: Hypoglycemia Protocol Insulin Human Regular (Novolin R) 0 unit SC [facility] PRN Reason: Protocol Last Admin: 11/29/17 21:24 Dose: Not Given Metoclopramide HCl (Reglan) 10 mg PO [facility] Last Admin: 11/29/17 21:48 Dose: 10 mg Metoprolol Succinate (Toprol Xl) 100 mg PO DAILY [facility] Last Admin: 11/29/17 10:35 Dose: 100 mg Nicotine (Nicoderm Cq) 1 patch TD DAILY [facility] Last Admin: 11/29/17 13:06 Dose: 1 patch Pantoprazole Sodium (Protonix Ec Tab) 40 mg PO DAILY [facility] Last Admin: 11/29/17 10:35 Dose: 40 mg Rosuvastatin Calcium (Crestor) 10 mg PO HS [facility] Last Admin: 11/29/17 21:48 Dose: 10 mg Vitamin B Complex/Vit C/Folic Acid (Nephro-Avelino) 1 tab PO 0800 [facility] Last Admin: 11/29/17 07:46 Dose: 1 tab - Labs Labs: 11/29/17 07:43 11/29/17 07:43 PT 12.1 SECONDS (9.7-12.2) 11/23/17 12:53 INR 1.1 11/23/17 12:53 APTT 26 SECONDS (21-34) 11/23/17 12:53 Assessment and Plan - Assessment and Plan (Free Text) Assessment: This is a 62 year old male with PMHx of CKD, HTN, HLD, T2DM, CAD with PCI intervention (2012) admitted reported having an increase in his renal function numbers, causing a change from metformin to glipizide by PMD x 2 months ago. Patient started feeling nausea, vomiting, abdominal pain, weakness, fatigue x 2 weeks. Prior to admission patient was unable to move, paramedics arrived at the scene and he was found to have sugars of 24. Patient was admitted for acute renal failure: Plan: MEENA on CKD, now in ARF Likely diabetic kidney disease Dr. Balbuena consulted Dr. Del Cid consulted for permacath placement * Permacath placed 11/24 - had successful dialysis after placement hepatitis panel negative, hiv negative, serum immunofixation negative, kappa/ lambda negative f/u anca, lupus, lab markers Started on bicarb drip @ 150cc/hr - now discontinued Phoslo given Procit 10,000u sc mwf Ferrlicit 125mg ivp qd for 8 days Supraventricular Tachycardia 20 min runs of SVT with rate in 150s x20 minutes On cardizem 30mg po tid f/u echo CAD [place] in 2012 -> with PCI asa 81mg po qd metoprolol succinate 100mg po qd rosuvastatin 10mg po hs HTN metoprolol succinate 100mg po qd HLD rosuvastatin 10mg po hs Tobacco Use Disorder Smoking Cessation encouraged Nicotine Patch daily Duonebs Q6H Constipation, Resolved colace 100mg po tid discontinued dulcolax 10MG po prn discontinued Cholelithiasis and distended gallbladder noted on CT Scan Abdominal US ordered: cholelithiasis, no CBD dilatation Hypoglycemia Hypoglycemic protocol in place T2DM Accuchecks HA1C 6.5 Previously on metformin, instructed by PCP to stop and take Glipizide instead x2 months ago Carb Consistent Diet Secondary hyperparathyroidism Given Calcium gluconate x2 doses UTI - Gram + Cocci Afebrile, normotensive, leukocytosis with left shift, no bandemia, lactate 1.0, procal normal UA, UC reordered, washburn cultures - negative to date CT chest/ab/pelv: No active pulmonary disease. Clear lungs. Cholelithiasis and distended gallbladder. If clinically indicated, correlation with right upper quadrant ultrasound may be performed. Large exophytic simple cyst in the interpolar region of the right kidney. Extensive nonspecific perinephric fat stranding which may be a sequela of remote infection. Started Rocephin 1 gram IVP daily started 11/23 Anemia of Renal Disease Ferrlicit 125mg ivp qd for 8 days Prophylaxis: Protonix SCDs, Hep Q12 PT/OT Permacath placed 11/24 Renal diet
[2017-11-30] MEDS: Albuterol-Ipratrop 3 mg / 0.5 (3 ml) UD INH SCH ×4 (01:27→20:23)
[2017-11-30 07:25] LABS: BASO # 0.1 K/uL (0.0-0.2); BASO % 0.5 % (0.0-2.0); EOS # 0.8 K/uL (0.0-0.7); EOS % 3.3 % (0.0-4.0); HEMOGLOBIN 8.9 g/dL (12.0-18.0); LYMPH # 2.5 K/uL (1.0-4.3); LYMPH % 10.6 % (20.0-40.0); MEAN CELL VOLUME 95.6 fL (80.0-94.0); MEAN CORPUSCULAR HEMOGLOBIN 30.7 pg (27.0-31.0); MEAN CORPUSCULAR HGB CONC 32.2 g/dL (33.0-37.0); MEAN PLATELET VOLUME 9.2 fL (7.2-11.7); MONO # 1.6 K/uL (0.0-0.8); MONO % 6.7 % (0.0-10.0); NEUT # 18.4 K/uL (1.8-7.0); NEUT % 78.9 % (50.0-75.0); RBC 2.9 Mil/uL (4.40-5.90); RED CELL DISTRIBUTION WIDTH 13.8 % (11.5-14.5); WHITE BLOOD COUNT 23.3 K/uL (4.8-10.8)
[2017-11-30 07:48] LABS: ALB/GLOB RATIO 1.2 (1.0-2.1); ALBUMIN 3.6 g/dL (3.5-5.0); CALCIUM 9.4 mg/dl (8.6-10.4)
[2017-11-30] MEDS: (Novolin R) Insulin Human Regular 100 units/ml vial SC SCH ×4 (08:13→21:54)
[2017-11-30] MEDS: Multivitamin Vitamin B Complex (Nephro-Vite) Tab PO SCH (08:14)
[2017-11-30] MEDS: Metoprolol Succinate 100 mg XL Tab PO SCH (10:45)
[2017-11-30] MEDS: Ferric Sodium Gluconat Complex 62.5 mg/5 ml Vial IVPB SCH (10:46)
[2017-11-30] MEDS: Pantoprazole 40 mg EC Tab PO SCH (10:47)
--- NOTE | 2017-11-30 12:33 | CP.PCM.PN ---
<Huy Noriega M - Last Filed: 11/30/17 21:16> Subjective - Date & Time of Evaluation Date of Evaluation: 11/30/17 Time of Evaluation: 10:25 - Subjective Subjective: PGY [address] Marin Pt was examined at bedside. Pt appeared in no acute distress. Pt informed that he had 3 loose bowel movements today. 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 Pt did not have any further complaints. Pt denies chest pain, difficulty breathing, headaches, nausea, vomiting. Objective - Vital Signs/Intake and Output Vital Signs (last 24 hours): Temp Pulse Resp BP Pulse Ox 98.0 F 81 18 125/72 97 11/30/17 07:00 11/30/17 07:00 11/30/17 07:00 11/30/17 07:00 11/30/17 07:00 Intake and Output: 11/30/17 11/30/17 06:59 18:59 Intake Total 50 Balance 50 - Medications Medications: Current Medications Albuterol/Ipratropium (Duoneb 3 Mg/0.5 Mg (3 Ml) Ud) 3 ml INH RQ6 [facility] Last Admin: 11/30/17 07:38 Dose: 3 ml Aspirin (Aspirin Chewable) 81 mg PO DAILY [facility] Last Admin: 11/30/17 10:47 Dose: 81 mg Calcium Acetate (Phoslo) 1,334 mg PO TID [facility] Last Admin: 11/30/17 10:46 Dose: 1,334 mg Dextrose (Dextrose 50% Inj) 0 ml IV STAT PRN; Protocol PRN Reason: Hypoglycemia Protocol Dextrose (Glutose 15) 0 gm PO ONCE PRN; Protocol PRN Reason: Hypoglycemia Protocol Diltiazem HCl (Cardizem) 30 mg PO TID [facility] Last Admin: 11/30/17 11:17 Dose: 30 mg Docusate Sodium (Colace) 100 mg PO DAILY [facility] Last Admin: 11/30/17 11:08 Dose: Not Given Epoetin Jed (Procrit) 10,000 unit IV TTS [facility] Epoetin Jed (Procrit) 2,000 u IV TTS [facility] Epoetin Jed (Procrit) 3,000 unit IV TTS [facility] Glucagon (Glucagen Diagnostic Kit) 0 mg IM STAT PRN; Protocol PRN Reason: Hypoglycemia Protocol Heparin Sodium (Porcine) (Heparin) 5,000 units SC Q12 [facility] Last Admin: 11/30/17 10:49 Dose: 5,000 units Ceftriaxone Sodium 1 gm/ (Sodium Chloride) 100 mls @ 100 mls/hr IVPB DAILY [facility] PRN Reason: Protocol Last Admin: 11/30/17 10:45 Dose: 100 mls/hr Insulin Human Regular (Novolin R) 0 unit SC ACHS [facility] PRN Reason: Protocol Last Admin: 11/30/17 12:17 Dose: 3 unit Metoprolol Succinate (Toprol Xl) 100 mg PO DAILY [facility] Last Admin: 11/30/17 10:45 Dose: 100 mg Nicotine (Nicoderm Cq) 1 patch TD DAILY [facility] Last Admin: 11/30/17 11:17 Dose: 1 patch Pantoprazole Sodium (Protonix Ec Tab) 40 mg PO DAILY [facility] Last Admin: 11/30/17 10:47 Dose: 40 mg Rosuvastatin Calcium (Crestor) 10 mg PO HS [facility] Last Admin: 11/29/17 21:48 Dose: 10 mg Vitamin B Complex/Vit C/Folic Acid (Nephro-Avelino) 1 tab PO 0800 [facility] Last Admin: 11/30/17 08:14 Dose: 1 tab - Labs Labs: 11/30/17 07:12 11/30/17 07:12 PT 12.1 SECONDS (9.7-12.2) 11/23/17 12:53 INR 1.1 11/23/17 12:53 APTT 26 SECONDS (21-34) 11/23/17 12:53 - Constitutional Appears: No Acute Distress, Unkempt - Head Exam Head Exam: NORMAL INSPECTION - Eye Exam Eye Exam: EOMI, Normal appearance - ENT Exam ENT Exam: Mucous Membranes Moist - Respiratory Exam Respiratory Exam: Clear to Ausculation Bilateral, NORMAL BREATHING PATTERN - Cardiovascular Exam Cardiovascular Exam: REGULAR RHYTHM, +S1, +S2 - GI/Abdominal Exam GI & Abdominal Exam: Soft, Normal Bowel Sounds. absent: Firm - Extremities Exam Extremities Exam: Normal Inspection Additional comments: Skin intack sole and interdigits of feet - Psychiatric Exam Psychiatric exam: Normal Affect, Normal Mood - Skin Skin Exam: Dry, Intact, Normal Color Assessment and Plan - Assessment and Plan (Free Text) Assessment: This is a 62 year old male with PMHx of CKD, HTN, HLD, T2DM, CAD with PCI intervention (2012) admitted reported having an increase in his renal function numbers, causing a change from metformin to glipizide by PMD x 2 months ago. Patient started feeling nausea, vomiting, abdominal pain, weakness, fatigue x 2 weeks. Prior to admission patient was unable to move, paramedics arrived at the scene and he was found to have sugars of 24. Patient was admitted for acute renal failure: Plan: Hyperglycemia 11/30: 10 units Lantus tonight at bedtime for hypergylcemia 11/29: The accuchecks have been 120s to low 200s. 11/28 Since admission has been stable. His accucheks have been mostly inbetween 100 to [address] Loose bowel movements 11/30: Pt had 3 loose bowel movements today, f/u c diff toxin results MEENA on CKD, now in ARF 11/29: Uneventful night. Tolerated HD well yesterday. K and serum bicarb stable. 11/28: Patient is pending third HD later today. As I explained to the patient's girl friend repeatedly - we still are pending where the patient will be going to for outpatient HD and also where to go for LIZ. Dr. Balbuena consulted Dr. Del Cid consulted for permacath placement * Permacath placed 11/24 - had successful dialysis after placement Phoslo given Procit 10,000u sc mwf Ferrlicit 125mg ivp qd for 8 days Supraventricular Tachycardia 11/30: Patient reported walking in his room on his own. 11/29: It takes effort he says. Would benefit from ongoing PT/OT. On telemetry he has sinus tachycardia at times. 11/28: Patient denied chest pain and palpitation. The telemetry currently in the 80s to 90s NSR. No recored sinus tachycardia or episodes of SVT overnight Consult cardiology, Dr Levi * seen by Dr Levi - continue po cardizem 20 min runs of SVT with rate in 150s x20 minutes Start cardizem 30mg po tid f/u echo CAD 11/28: No chest pain, echo pending final read at this time. [place] in 2012 -> with PCI asa 81mg po qd metoprolol succinate 100mg po qd rosuvastatin 10mg po hs HTN 11/28: Systolics in the 140s. Continue to monitr. Cardizem 30 mg PO TID metoprolol succinate 100mg po qd HLD rosuvastatin 10mg po hs Tobacco Use Disorder Smoking Cessation encouraged Nicotine Patch daily Duonebs Q6H Constipation, Resolved colace 100mg po tid discontinued dulcolax 10MG po prn discontinued Cholelithiasis and distended gallbladder noted on CT Scan Abdominal US ordered: cholelithiasis, no CBD dilatation Secondary hyperparathyroidism Given Calcium gluconate x2 doses UTI - Gram + Cocci 11/29: Repeat cultures pending. Remains on rocpehin. Afebrile, normotensive, leukocytosis with left shift, no bandemia, lactate 1.0, procal normal UA, UC reordered, washburn cultures - negative to date CT chest/ab/pelv: No active pulmonary disease. Clear lungs. Cholelithiasis and distended gallbladder. If clinically indicated, correlation with right upper quadrant ultrasound may be performed. Large exophytic simple cyst in the interpolar region of the right kidney. Extensive nonspecific perinephric fat stranding which may be a sequela of remote infection. Started Rocephin 1 gram IVP daily started 11/23 Anemia of Renal Disease Ferrlicit 125mg ivp qd for 8 days Prophylaxis: Protonix SCDs, Hep Q12 PT/OT Permacath placed 11/24 Renal diet <Sara Marin - Last Filed: 12/01/17 17:43> Objective - Vital Signs/Intake and Output Vital Signs (last 24 hours): Temp Pulse Resp BP Pulse Ox 99.2 F 98 H 20 102/67 95 12/01/17 15:14 12/01/17 15:14 12/01/17 15:14 12/01/17 15:14 12/01/17 15:14 Intake and Output: 12/01/17 12/01/17 06:59 18:59 Intake Total 440 240 Output Total 610 245 Balance -170 -5 - Medications Medications: Current Medications Aspirin (Aspirin Chewable) 81 mg PO DAILY [facility] Last Admin: 12/01/17 09:49 Dose: 81 mg Calcium Acetate (Phoslo) 1,334 mg PO TID [facility] Last Admin: 12/01/17 14:53 Dose: Not Given Dextrose (Dextrose 50% Inj) 0 ml IV STAT PRN; Protocol PRN Reason: Hypoglycemia Protocol Dextrose (Glutose 15) 0 gm PO ONCE PRN; Protocol PRN Reason: Hypoglycemia Protocol Diltiazem HCl (Cardizem) 30 mg PO TID [facility] Last Admin: 12/01/17 14:52 Dose: Not Given Docusate Sodium (Colace) 100 mg PO DAILY [facility] Last Admin: 11/30/17 11:08 Dose: Not Given Epoetin Jed (Procrit) 10,000 unit IV TTS [facility] Last Admin: 12/01/17 13:21 Dose: 10,000 unit Epoetin Jed (Procrit) 2,000 u IV TTS [facility] Last Admin: 12/01/17 13:22 Dose: 2,000 u Epoetin Jed (Procrit) 3,000 unit IV TTS [facility] Last Admin: 12/01/17 13:22 Dose: 3,000 unit Glucagon (Glucagen Diagnostic Kit) 0 mg IM STAT PRN; Protocol PRN Reason: Hypoglycemia Protocol Heparin Sodium (Porcine) (Heparin) 5,000 units SC Q12 [facility] Last Admin: 12/01/17 10:00 Dose: Not Given Insulin Glargine (Lantus) 10 unit SC HS [facility] Last Admin: 11/30/17 21:54 Dose: 10 units Insulin Human Regular (Novolin R) 0 unit SC ACHS [facility] PRN Reason: Protocol Last Admin: 12/01/17 12:54 Dose: Not Given Metoprolol Succinate (Toprol Xl) 100 mg PO DAILY [facility] Last Admin: 12/01/17 09:49 Dose: 100 mg Nicotine (Nicoderm Cq) 1 patch TD DAILY [facility] Last Admin: 12/01/17 10:53 Dose: 1 patch Pantoprazole Sodium (Protonix Ec Tab) 40 mg PO DAILY [facility] Last Admin: 12/01/17 09:49 Dose: 40 mg Rosuvastatin Calcium (Crestor) 10 mg PO HS [facility] Last Admin: 11/30/17 21:52 Dose: 10 mg Vitamin B Complex/Vit C/Folic Acid (Nephro-Avelino) 1 tab PO 0800 [facility] Last Admin: 12/01/17 08:37 Dose: 1 tab - Labs Labs: 12/01/17 06:57 12/01/17 06:57 PT 12.1 SECONDS (9.7-12.2) 11/23/17 12:53 INR 1.1 11/23/17 12:53 APTT 26 SECONDS (21-34) 11/23/17 12:53 Attending/Attestation - Attestation I have personally seen and examined this patient.: Yes I have fully participated in the care of the patient.: Yes I have reviewed all pertinent clinical information, including history, physical exam and plan: Yes Notes (Text): Seen and examined,denies pain,no signs of infection and his wbc is persistently high. Repeat blood culture is negative.chest x ray without pneumonia,no cough, no Nausea,no vomting. I discussed his persistent high wbc with DR Franco titrator. patient states bonnie he has hereditary spastic paraplegia/mild form. his leg is weak. Patient needs rehab d/w resident and I agree with the documentation of the resident
--- NOTE | 2017-11-30 12:56 | CP.PCM.PN ---
Subjective - Date & Time of Evaluation Date of Evaluation: 11/30/17 Time of Evaluation: 12:51 - Subjective Subjective: RENAL CONSULT Note covering for Dr Ríos/Dr Aguirre 62 yo M w/ pmh of CKD, HTN, DM, CAD that prsented w/ MEENA. 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 A renal US was scheduled as an outpt but he developed hypoglycemic episode and altered mental status. He was found to have even worse kidney function and acidosis and admitted for further evaluation. He was recently on metformin but it was discontinued. He has had uremic symptoms of naussea and reduced appetite for about 2 weeks or so. He states he has been urinating normally. He endorses poor po intake last 24-48 hours. He denies any NSAID use. ROS: a full detailed ROS is negative except as in my HPI. denies CP/SOB/nausea/ vomitting. report of serum cr 2-3 range approx 3-4 months ago. 1 loose stool episode today PMHx: CKD Stage? HTN, HLD, DM, CAD w/stent, AR (2012), parapresis SurgHx: left knee surgery (1986), Cardiac stent (2012) FamHx: father on dialysis SocHx: + smoking hx, no etoh or ivdu all: nkda meds as below. pe: vs as below gen: nad sclera: anicteric op: clear neck: supple no thyromegaly cv:+s1+s2 no rub abd soft no orgnomegaly lungs CTA b/l ext 1-2+e edema neuro: A+OX3 no asterixis no focal deficit psych: nml affect skin no rash labs and imaging reviewed: Vot D 35 PTH 328 TSAT 34% Ferritin [address] imaging no hydronephrosis appreciated imp: arf / acidosis /anemia of renal disease/ UTI? / diabetic kidney disease/ secondary hyperpara/hypokalemia/smoker/obesity/CKD stage 3/4, SVT, hypoglycemia plan: GN work up serology negative no obstruction on imaging. Doubt if renal biopsy will help considering baseline advanced renal insufficiency. continue with HD via permacath TTS schedule started epogen, IV iron and nephrovite for anemia. PRBC as needed. anemia work up with SPEP/DREW and serum FLC assay negative continue with phos binders, last Phos 4.1 BP controlled on current meds leukocytosis work up ongoing SW consult for outpt HD placement with Dr Aguirre pt will likely need to continue with dialysis at discharge. Thanks for consult Please call if any Qs had d/w team and primary rubber grinder as well Objective - Vital Signs/Intake and Output Vital Signs (last 24 hours): Temp Pulse Resp BP Pulse Ox 98.0 F 81 18 125/72 97 11/30/17 07:00 11/30/17 07:00 11/30/17 07:00 11/30/17 07:00 11/30/17 07:00 Intake and Output: 11/30/17 11/30/17 06:59 18:59 Intake Total 50 Balance 50 - Medications Medications: Current Medications Albuterol/Ipratropium (Duoneb 3 Mg/0.5 Mg (3 Ml) Ud) 3 ml INH RQ6 [facility] Last Admin: 11/30/17 07:38 Dose: 3 ml Aspirin (Aspirin Chewable) 81 mg PO DAILY [facility] Last Admin: 11/30/17 10:47 Dose: 81 mg Calcium Acetate (Phoslo) 1,334 mg PO TID [facility] Last Admin: 11/30/17 10:46 Dose: 1,334 mg Dextrose (Dextrose 50% Inj) 0 ml IV STAT PRN; Protocol PRN Reason: Hypoglycemia Protocol Dextrose (Glutose 15) 0 gm PO ONCE PRN; Protocol PRN Reason: Hypoglycemia Protocol Diltiazem HCl (Cardizem) 30 mg PO TID [facility] Last Admin: 11/30/17 11:17 Dose: 30 mg Docusate Sodium (Colace) 100 mg PO DAILY [facility] Last Admin: 11/30/17 11:08 Dose: Not Given Epoetin Jed (Procrit) 10,000 unit IV TTS [facility] Epoetin Jed (Procrit) 2,000 u IV TTS [facility] Epoetin Jed (Procrit) 3,000 unit IV TTS [facility] Glucagon (Glucagen Diagnostic Kit) 0 mg IM STAT PRN; Protocol PRN Reason: Hypoglycemia Protocol Heparin Sodium (Porcine) (Heparin) 5,000 units SC Q12 [facility] Last Admin: 11/30/17 10:49 Dose: 5,000 units Ceftriaxone Sodium 1 gm/ (Sodium Chloride) 100 mls @ 100 mls/hr IVPB DAILY [facility] PRN Reason: Protocol Last Admin: 11/30/17 10:45 Dose: 100 mls/hr Insulin Human Regular (Novolin R) 0 unit SC ACHS [facility] PRN Reason: Protocol Last Admin: 11/30/17 12:17 Dose: 3 unit Metoprolol Succinate (Toprol Xl) 100 mg PO DAILY [facility] Last Admin: 11/30/17 10:45 Dose: 100 mg Nicotine (Nicoderm Cq) 1 patch TD DAILY [facility] Last Admin: 11/30/17 11:17 Dose: 1 patch Pantoprazole Sodium (Protonix Ec Tab) 40 mg PO DAILY [facility] Last Admin: 11/30/17 10:47 Dose: 40 mg Rosuvastatin Calcium (Crestor) 10 mg PO HS [facility] Last Admin: 11/29/17 21:48 Dose: 10 mg Vitamin B Complex/Vit C/Folic Acid (Nephro-Avelino) 1 tab PO 0800 [facility] Last Admin: 11/30/17 08:14 Dose: 1 tab - Labs Labs: 11/30/17 07:12 11/30/17 07:12 PT 12.1 SECONDS (9.7-12.2) 11/23/17 12:53 INR 1.1 11/23/17 12:53 APTT 26 SECONDS (21-34) 11/23/17 12:53
[2017-11-30] MEDS: (Lantus) Insulin Glargine, Recombinant SC SCH (21:54)
--- NOTE | 2017-11-30 23:40 | CP.PCM.PN ---
Subjective - Date & Time of Evaluation Date of Evaluation: 11/30/17 Time of Evaluation: 20:05 - Subjective Subjective: Patient seen and evaluated denies chest pain and dyspnea Physical examination - Additional Findings Additional findings: - Constitutional Appears: Well, No Acute Distress, Other (obese) - Head Exam Head Exam: ATRAUMATIC, NORMAL INSPECTION - Eye Exam Eye Exam: EOMI Pupil Exam: PERRL - ENT Exam ENT Exam: Mucous Membranes Moist - Neck Exam Neck Exam: Full ROM, Normal Inspection. absent: Tenderness - Respiratory Exam Respiratory Exam: Clear to Ausculation Bilateral, NORMAL BREATHING PATTERN. absent: Rales, Rhonchi, Wheezes - Cardiovascular Exam Cardiovascular Exam: Tachycardia, REGULAR RHYTHM, +S1, +S2. absent: JVD, Murmur - GI/Abdominal Exam GI & Abdominal Exam: Soft, Normal Bowel Sounds. absent: Distended, Firm, Guarding, Rigid, Tenderness - Extremities Exam Extremities Exam: Full ROM, Normal Capillary Refill, Normal Inspection. absent : Tenderness - Neurological Exam Neurological Exam: Alert, Awake, Oriented x3 - Psychiatric Exam Psychiatric exam: Normal Affect, Normal Mood - Skin Skin Exam: Intact, Normal Color, Warm Objective - Vital Signs/Intake and Output Vital Signs (last 24 hours): Temp Pulse Resp BP Pulse Ox 98.4 F 91 H 20 125/71 95 11/30/17 15:21 11/30/17 18:09 11/30/17 15:21 11/30/17 18:09 11/30/17 15:21 Intake and Output: 11/30/17 12/01/17 18:59 06:59 Intake Total 600 320 Output Total 350 310 Balance 250 10 - Medications Medications: Current Medications Albuterol/Ipratropium (Duoneb 3 Mg/0.5 Mg (3 Ml) Ud) 3 ml INH RQ6 [facility] Last Admin: 11/30/17 20:23 Dose: 3 ml Aspirin (Aspirin Chewable) 81 mg PO DAILY [facility] Last Admin: 11/30/17 10:47 Dose: 81 mg Calcium Acetate (Phoslo) 1,334 mg PO TID [facility] Last Admin: 11/30/17 18:04 Dose: 1,334 mg Dextrose (Dextrose 50% Inj) 0 ml IV STAT PRN; Protocol PRN Reason: Hypoglycemia Protocol Dextrose (Glutose 15) 0 gm PO ONCE PRN; Protocol PRN Reason: Hypoglycemia Protocol Diltiazem HCl (Cardizem) 30 mg PO TID [facility] Last Admin: 11/30/17 18:05 Dose: 30 mg Docusate Sodium (Colace) 100 mg PO DAILY [facility] Last Admin: 11/30/17 11:08 Dose: Not Given Epoetin Jed (Procrit) 10,000 unit IV TTS [facility] Epoetin Jed (Procrit) 2,000 u IV TTS [facility] Epoetin Jed (Procrit) 3,000 unit IV TTS [facility] Glucagon (Glucagen Diagnostic Kit) 0 mg IM STAT PRN; Protocol PRN Reason: Hypoglycemia Protocol Heparin Sodium (Porcine) (Heparin) 5,000 units SC Q12 [facility] Last Admin: 11/30/17 21:53 Dose: 5,000 units Ceftriaxone Sodium 1 gm/ (Sodium Chloride) 100 mls @ 100 mls/hr IVPB DAILY [facility] PRN Reason: Protocol Last Admin: 11/30/17 10:45 Dose: 100 mls/hr Insulin Glargine (Lantus) 10 unit SC HS [facility] Last Admin: 11/30/17 21:54 Dose: 10 units Insulin Human Regular (Novolin R) 0 unit SC ACHS [facility] PRN Reason: Protocol Last Admin: 11/30/17 21:54 Dose: Not Given Metoprolol Succinate (Toprol Xl) 100 mg PO DAILY [facility] Last Admin: 11/30/17 10:45 Dose: 100 mg Nicotine (Nicoderm Cq) 1 patch TD DAILY [facility] Last Admin: 11/30/17 11:17 Dose: 1 patch Pantoprazole Sodium (Protonix Ec Tab) 40 mg PO DAILY [facility] Last Admin: 11/30/17 10:47 Dose: 40 mg Rosuvastatin Calcium (Crestor) 10 mg PO HS [facility] Last Admin: 11/30/17 21:52 Dose: 10 mg Vitamin B Complex/Vit C/Folic Acid (Nephro-Avelino) 1 tab PO 0800 [facility] Last Admin: 11/30/17 08:14 Dose: 1 tab - Labs Labs: 11/30/17 07:12 11/30/17 07:12 PT 12.1 SECONDS (9.7-12.2) 11/23/17 12:53 INR 1.1 11/23/17 12:53 APTT 26 SECONDS (21-34) 11/23/17 12:53 Assessment and Plan - Assessment and Plan (Free Text) Assessment: This is a 62 year old male with PMHx of CKD, HTN, HLD, T2DM, CAD with PCI intervention (2012) admitted reported having an increase in his renal function numbers, causing a change from metformin to glipizide by PMD x 2 months ago. Patient started feeling nausea, vomiting, abdominal pain, weakness, fatigue x 2 weeks. Prior to admission patient was unable to move, paramedics arrived at the scene and he was found to have sugars of 24. Patient was admitted for acute renal failure: Plan: MEENA on CKD, now in ARF Likely diabetic kidney disease Dr. Balbuena consulted Dr. Del Cid consulted for permacath placement * Permacath placed 11/24 - had successful dialysis after placement hepatitis panel negative, hiv negative, serum immunofixation negative, kappa/ lambda negative f/u anca, lupus, lab markers Started on bicarb drip @ 150cc/hr - now discontinued Phoslo given Procit 10,000u sc mwf Ferrlicit 125mg ivp qd for 8 days Supraventricular Tachycardia 20 min runs of SVT with rate in 150s x20 minutes On cardizem 30mg po tid f/u echo CAD [place] in 2012 -> with PCI asa 81mg po qd metoprolol succinate 100mg po qd rosuvastatin 10mg po hs HTN metoprolol succinate 100mg po qd HLD rosuvastatin 10mg po hs Tobacco Use Disorder Smoking Cessation encouraged Nicotine Patch daily Duonebs Q6H Constipation, Resolved colace 100mg po tid discontinued dulcolax 10MG po prn discontinued Cholelithiasis and distended gallbladder noted on CT Scan Abdominal US ordered: cholelithiasis, no CBD dilatation Hypoglycemia Hypoglycemic protocol in place T2DM Accuchecks HA1C 6.5 Previously on metformin, instructed by PCP to stop and take Glipizide instead x2 months ago Carb Consistent Diet Secondary hyperparathyroidism Given Calcium gluconate x2 doses UTI - Gram + Cocci Afebrile, normotensive, leukocytosis with left shift, no bandemia, lactate 1.0, procal normal UA, UC reordered, washburn cultures - negative to date CT chest/ab/pelv: No active pulmonary disease. Clear lungs. Cholelithiasis and distended gallbladder. If clinically indicated, correlation with right upper quadrant ultrasound may be performed. Large exophytic simple cyst in the interpolar region of the right kidney. Extensive nonspecific perinephric fat stranding which may be a sequela of remote infection. Started Rocephin 1 gram IVP daily started 11/23 Anemia of Renal Disease Ferrlicit 125mg ivp qd for 8 days Prophylaxis: Protonix SCDs, Hep Q12 PT/OT Permacath placed 11/24 Renal diet
--- NOTE | 2017-12-01 00:11 | CARD ---
APPROVED REPORT EXAM: Two-dimensional and M-mode echocardiogram with Doppler and color Doppler. Other Information Quality : TDSRhythm : DS INDICATION Cardiac Disease: CAD RISK FACTORS Hypertension 2D DIMENSIONS IVSd1.0 (0.7-1.1cm)LVDd5.3 (3.9-5.9cm) PWd0.9 (0.7-1.1cm)LVDs4.1 (2.5-4.0cm) FS (%) 22.2 %LVEF (%)35.0 (>50%) M-Mode DIMENSIONS Left Atrium (MM)4.31 (2.5-4.0cm)IVSd0.99 (0.7-1.1cm) Aortic Root4.02 (2.2-3.7cm)LVDd6.69 (4.0-5.6cm) Aortic Cusp Exc.2.18 (1.5-2.0cm)PWd0.72 (0.7-1.1cm) FS (%) 23 %LVDs5.14 (2.0-3.8cm) LVEF (%)33 (>50%) Mitral Valve MV E Cpzlkeyd80.1cm/sMV A Yraqyutl993.6cm/sE/A ratio0.7 TDI E/Lateral E'0.0E/Medial E'0.0 <Conclusion> Suboptimal study Left ventricle: thickness: normal; size: normal;diffuse systolic dysfunciton; overall ejection fraction: 35%: diastolic filling pressures: normal Mitral valve: annulus: normal: leaflets: normal: excursion: normal; no significant trans-mitral gradient: mild incompetence: left atrium: normal Aortic valve: leaflets: normal: excursion: normal; no significant trans-aortic gradient: No significant incompetence: aortic root: normal Right sided chambers: normal; Pulmonary valve: normal; no significant incompetence; Tricuspid valve: normal; no significant incompetence: Intra-cardiac hemodynamics: pulmonary systolic pressures: normal; central venous pressures: normal No pericardial effusion
[2017-12-01] MEDS: Albuterol-Ipratrop 3 mg / 0.5 (3 ml) UD INH SCH ×2 (02:29→07:39)
--- NOTE | 2017-12-01 06:00 | CARD ---
APPROVED REPORT EKG Measurement Heart [id number] <Conclusion> Sinus tachycardia with frequent premature ventricular complexes Otherwise normal ECG
--- NOTE | 2017-12-01 07:07 | CP.PCM.PN ---
<Huy Noriega M - Last Filed: 12/01/17 12:27> Subjective - Date & Time of Evaluation Date of Evaluation: 12/01/17 Time of Evaluation: 08:25 - Subjective Subjective: PGY1 Resident Note for Dr. Marin Patient seen and examined at bedside. Pt was lying in bed in no acute distress and receving his duoneb treatment. Pt stated he had no complaints; no chest paim , shortness of breath, nausea, vomiting, headaches. His loose bowel moments that he had 3 episodes the day before has resolved. Objective - Vital Signs/Intake and Output Vital Signs (last 24 hours): Temp Pulse Resp BP Pulse Ox 97.5 F L 81 20 116/67 95 11/30/17 23:20 12/01/17 00:40 11/30/17 23:20 11/30/17 23:20 11/30/17 23:20 Intake and Output: 12/01/17 12/01/17 06:59 18:59 Intake Total 440 Output Total 610 Balance -170 - Medications Medications: Current Medications Albuterol/Ipratropium (Duoneb 3 Mg/0.5 Mg (3 Ml) Ud) 3 ml INH RQ6 [facility] Last Admin: 12/01/17 02:29 Dose: Not Given Aspirin (Aspirin Chewable) 81 mg PO DAILY [facility] Last Admin: 11/30/17 10:47 Dose: 81 mg Calcium Acetate (Phoslo) 1,334 mg PO TID [facility] Last Admin: 11/30/17 18:04 Dose: 1,334 mg Dextrose (Dextrose 50% Inj) 0 ml IV STAT PRN; Protocol PRN Reason: Hypoglycemia Protocol Dextrose (Glutose 15) 0 gm PO ONCE PRN; Protocol PRN Reason: Hypoglycemia Protocol Diltiazem HCl (Cardizem) 30 mg PO TID [facility] Last Admin: 11/30/17 18:05 Dose: 30 mg Docusate Sodium (Colace) 100 mg PO DAILY [facility] Last Admin: 11/30/17 11:08 Dose: Not Given Epoetin Jed (Procrit) 10,000 unit IV TTS [facility] Epoetin Jed (Procrit) 2,000 u IV TTS [facility] Epoetin Jed (Procrit) 3,000 unit IV TTS [facility] Glucagon (Glucagen Diagnostic Kit) 0 mg IM STAT PRN; Protocol PRN Reason: Hypoglycemia Protocol Heparin Sodium (Porcine) (Heparin) 5,000 units SC Q12 [facility] Last Admin: 11/30/17 21:53 Dose: 5,000 units Ceftriaxone Sodium 1 gm/ (Sodium Chloride) 100 mls @ 100 mls/hr IVPB DAILY [facility] PRN Reason: Protocol Last Admin: 11/30/17 10:45 Dose: 100 mls/hr Insulin Glargine (Lantus) 10 unit SC HS [facility] Last Admin: 11/30/17 21:54 Dose: 10 units Insulin Human Regular (Novolin R) 0 unit SC ACHS [facility] PRN Reason: Protocol Last Admin: 11/30/17 21:54 Dose: Not Given Metoprolol Succinate (Toprol Xl) 100 mg PO DAILY [facility] Last Admin: 11/30/17 10:45 Dose: 100 mg Nicotine (Nicoderm Cq) 1 patch TD DAILY [facility] Last Admin: 11/30/17 11:17 Dose: 1 patch Pantoprazole Sodium (Protonix Ec Tab) 40 mg PO DAILY [facility] Last Admin: 11/30/17 10:47 Dose: 40 mg Rosuvastatin Calcium (Crestor) 10 mg PO HS [facility] Last Admin: 11/30/17 21:52 Dose: 10 mg Vitamin B Complex/Vit C/Folic Acid (Nephro-Avelino) 1 tab PO 0800 [facility] Last Admin: 11/30/17 08:14 Dose: 1 tab - Labs Labs: 11/30/17 07:12 11/30/17 07:12 PT 12.1 SECONDS (9.7-12.2) 11/23/17 12:53 INR 1.1 11/23/17 12:53 APTT 26 SECONDS (21-34) 11/23/17 12:53 - Constitutional Appears: Well, No Acute Distress, Unkempt - Head Exam Head Exam: ATRAUMATIC - Eye Exam Eye Exam: EOMI, Normal appearance - ENT Exam ENT Exam: Mucous Membranes Moist - Neck Exam Neck Exam: Full ROM, Normal Inspection - Respiratory Exam Respiratory Exam: Clear to Ausculation Bilateral, NORMAL BREATHING PATTERN. absent: Rales, Rhonchi, Wheezes - Cardiovascular Exam Cardiovascular Exam: +S1, +S2. absent: Murmur - GI/Abdominal Exam GI & Abdominal Exam: Soft, Normal Bowel Sounds. absent: Firm - Extremities Exam Extremities Exam: Full ROM, Normal Inspection. absent: Calf Tenderness - Psychiatric Exam Psychiatric exam: Normal Affect, Normal Mood - Skin Skin Exam: Dry, Normal Color, Warm Assessment and Plan - Assessment and Plan (Free Text) Assessment: This is a 62 year old male with PMHx of CKD, HTN, HLD, T2DM, CAD with PCI intervention (2012) admitted reported having an increase in his renal function numbers, causing a change from metformin to glipizide by PMD x 2 months ago. Patient started feeling nausea, vomiting, abdominal pain, weakness, fatigue x 2 weeks. Prior to admission patient was unable to move, paramedics arrived at the scene and he was found to have sugars of 24. Patient was admitted for acute renal failure: Plan: Hypoglycemia 12/01: Accuchecks in 140s, continue to with lantus 11/30: 10 units Lantus tonight at bedtime for hypergylcemia 11/29: The accuchecks have been 120s to low 200s. 11/28 Since admission has been stable. His accucheks have been mostly inbetween 100 to [address] Loose bowel movements 12/01: Waiting on c diff toxin results; loose bowels self-resolved 11/30: Pt had 3 loose bowel movements today, f/u c diff toxin results [employer] on CKD, now in ARF 12/01: Pt scheduled for HD today, will f/u AM labs 11/29: Uneventful night. Tolerated HD well yesterday. K and serum bicarb stable. 11/28: Patient is pending third HD later today. As I explained to the patient's girl friend repeatedly - we still are pending where the patient will be going to for outpatient HD and also where to go for LIZ. Dr. Balbuena consulted Dr. Del Cid consulted for permacath placement * Permacath placed 11/24 - had successful dialysis after placement Phoslo given Procit 10,000u sc mwf Ferrlicit 125mg ivp qd for 8 days Supraventricular Tachycardia - resolved 12/01: Pt HR <95s, primarily in 80s 11/30: Patient reported walking in his room on his own. 11/29: It takes effort he says. Would benefit from ongoing PT/OT. On telemetry he has sinus tachycardia at times. 11/28: Patient denied chest pain and palpitation. The telemetry currently in the 80s to 90s NSR. No recored sinus tachycardia or episodes of SVT overnight Consult cardiology, Dr Levi * seen by Dr Levi - continue po cardizem 20 min runs of SVT with rate in 150s x20 minutes Start cardizem 30mg po tid f/u echo CAD 11/28: No chest pain, echo pending final read at this time. [place] in 2012 -> with PCI asa 81mg po qd metoprolol succinate 100mg po qd rosuvastatin 10mg po hs HTN 11/28: Systolics in the 140s. Continue to monitor. Cardizem 30 mg PO TID metoprolol succinate 100mg po qd HLD rosuvastatin 10mg po hs Tobacco Use Disorder Smoking Cessation encouraged Nicotine Patch daily Duonebs Q6H Constipation, Resolved colace 100mg po tid discontinued dulcolax 10MG po prn discontinued Cholelithiasis and distended gallbladder noted on CT Scan Abdominal US ordered: cholelithiasis, no CBD dilatation Secondary hyperparathyroidism Given Calcium gluconate x2 doses UTI - Gram + Cocci - Resolved 12/01: Rocephin discontinued 11/29: Repeat cultures pending. Remains on rocpehin. Afebrile, normotensive, leukocytosis with left shift, no bandemia, lactate 1.0, procal normal UA, UC reordered, washburn cultures - negative to date CT chest/ab/pelv: No active pulmonary disease. Clear lungs. Cholelithiasis and distended gallbladder. If clinically indicated, correlation with right upper quadrant ultrasound may be performed. Large exophytic simple cyst in the interpolar region of the right kidney. Extensive nonspecific perinephric fat stranding which may be a sequela of remote infection. Started Rocephin 1 gram IVP daily started 11/23 Anemia of Renal Disease Ferrlicit 125mg ivp qd for 8 days Prophylaxis: Protonix SCDs, Hep Q12 PT/OT Permacath placed 11/24 Renal diet <Sara Marin - Last Filed: 12/01/17 17:39> Objective - Vital Signs/Intake and Output Vital Signs (last 24 hours): Temp Pulse Resp BP Pulse Ox 99.2 F 98 H 20 102/67 95 12/01/17 15:14 12/01/17 15:14 12/01/17 15:14 12/01/17 15:14 12/01/17 15:14 Intake and Output: 07/03/18 07/03/18 06:59 18:59 Intake Total 440 240 Output Total 610 245 Balance -170 -5 - Medications Medications: Current Medications Aspirin (Aspirin Chewable) 81 mg PO DAILY [facility] Last Admin: 12/01/17 09:49 Dose: 81 mg Calcium Acetate (Phoslo) 1,334 mg PO TID [facility] Last Admin: 12/01/17 14:53 Dose: Not Given Dextrose (Dextrose 50% Inj) 0 ml IV STAT PRN; Protocol PRN Reason: Hypoglycemia Protocol Dextrose (Glutose 15) 0 gm PO ONCE PRN; Protocol PRN Reason: Hypoglycemia Protocol Diltiazem HCl (Cardizem) 30 mg PO TID [facility] Last Admin: 12/01/17 14:52 Dose: Not Given Docusate Sodium (Colace) 100 mg PO DAILY [facility] Last Admin: 11/30/17 11:08 Dose: Not Given Epoetin Jed (Procrit) 10,000 unit IV TTS [facility] Last Admin: 12/01/17 13:21 Dose: 10,000 unit Epoetin Jed (Procrit) 2,000 u IV TTS [facility] Last Admin: 12/01/17 13:22 Dose: 2,000 u Epoetin Jed (Procrit) 3,000 unit IV TTS [facility] Last Admin: 12/01/17 13:22 Dose: 3,000 unit Glucagon (Glucagen Diagnostic Kit) 0 mg IM STAT PRN; Protocol PRN Reason: Hypoglycemia Protocol Heparin Sodium (Porcine) (Heparin) 5,000 units SC Q12 [facility] Last Admin: 12/01/17 10:00 Dose: Not Given Insulin Glargine (Lantus) 10 unit SC HS [facility] Last Admin: 11/30/17 21:54 Dose: 10 units Insulin Human Regular (Novolin R) 0 unit SC ACHS [facility] PRN Reason: Protocol Last Admin: 12/01/17 12:54 Dose: Not Given Metoprolol Succinate (Toprol Xl) 100 mg PO DAILY [facility] Last Admin: 12/01/17 09:49 Dose: 100 mg Nicotine (Nicoderm Cq) 1 patch TD DAILY [facility] Last Admin: 12/01/17 10:53 Dose: 1 patch Pantoprazole Sodium (Protonix Ec Tab) 40 mg PO DAILY [facility] Last Admin: 12/01/17 09:49 Dose: 40 mg Rosuvastatin Calcium (Crestor) 10 mg PO HS [facility] Last Admin: 11/30/17 21:52 Dose: 10 mg Vitamin B Complex/Vit C/Folic Acid (Nephro-Avelino) 1 tab PO 0800 [facility] Last Admin: 12/01/17 08:37 Dose: 1 tab - Labs Labs: 12/01/17 06:57 12/01/17 06:57 PT 12.1 SECONDS (9.7-12.2) 11/23/17 12:53 INR 1.1 11/23/17 12:53 APTT 26 SECONDS (21-34) 11/23/17 12:53 Attending/Attestation - Attestation I have personally seen and examined this patient.: Yes I have fully participated in the care of the patient.: Yes I have reviewed all pertinent clinical information, including history, physical exam and plan: Yes Notes (Text): Patient was seen and examined after dialysis.Has no complain. He is looking forward to go home. Understand that he needs rehab Tolerating hemodialysis. Patient has no more svt. continue Cardizem and metoprolol D/s Dr Levi yesterday. Hi follow up appreciated. plan discussed with DR Caal also. His leukocytosis is improving. Seen by Dr Franco. we will d/c tele. continue current meds dischrage plan discussed with rehabilitation caseworker. She is working on discharge no signs of infection,off ceftriaxone,monitor cbc and follow DR franco's assessment D/W the resident and I agree his assessment and the plan documentation 12/01/17 17:34
[2017-12-01 07:12] LABS: BASO # 0.1 K/uL (0.0-0.2); BASO % 0.6 % (0.0-2.0); EOS # 0.8 K/uL (0.0-0.7); HEMOGLOBIN 8.7 g/dL (12.0-18.0); LYMPH # 1.8 K/uL (1.0-4.3); LYMPH % 9.4 % (20.0-40.0); MEAN CELL VOLUME 95.4 fL (80.0-94.0); MEAN CORPUSCULAR HEMOGLOBIN 31.2 pg (27.0-31.0); MEAN CORPUSCULAR HGB CONC 32.7 g/dL (33.0-37.0); MONO # 1.5 K/uL (0.0-0.8); MONO % 7.7 % (0.0-10.0); NEUT % 78.3 % (50.0-75.0); PLATELET COUNT 265 K/uL (130-400); RBC 2.77 Mil/uL (4.40-5.90); RED CELL DISTRIBUTION WIDTH 13.8 % (11.5-14.5); WHITE BLOOD COUNT 19.2 K/uL (4.8-10.8)
[2017-12-01 07:38] LABS: ALB/GLOB RATIO 1.3 (1.0-2.1); ALBUMIN 3.4 g/dL (3.5-5.0); CALCIUM 9.2 mg/dl (8.6-10.4)
[2017-12-01] MEDS: (Novolin R) Insulin Human Regular 100 units/ml vial SC SCH ×4 (08:00→21:29)
[2017-12-01] MEDS: Multivitamin Vitamin B Complex (Nephro-Vite) Tab PO SCH (08:37)
[2017-12-01 08:53] LABS: BANDS 2 % (0-2); EOSINOPHIL 2 % (0-4); LYMPHOCYTE 5 % (20-40); MONOCYTE 3 % (0-10); NEUTROPHIL 88 % (50-75); TOTAL CELLS COUNTED 100
[2017-12-01 08:54] LABS: HYPOCHROMIC SLIGHT; PLATELET ESTIMATE NORMAL (NORMAL); POLYCHROMIC SLIGHT
[2017-12-01] MEDS: Pantoprazole 40 mg EC Tab PO SCH (09:49)
[2017-12-01] MEDS: Metoprolol Succinate 100 mg XL Tab PO SCH (09:49)
--- NOTE | 2017-12-01 12:40 | CP.PCM.CON ---
History of Present Illness - History of Present Illness History of Present Illness: 62 year old male with a history of CAD s/p stent, DM, HTN, HL, admitted to [place] with hypoglycemia and transferred to [facility] for dialysis, with persistent leukocytosis and anemia. The patient is unaware of blood problems in the past. He denies abnormal bleeding and bruising. Past medical history: CAD s/p stent, DM, HTN, HL Past surgical history: Knee arthroscopy Family history: Denies hematologic and oncologic problems Social history: +tobacco, denies alcohol and illicit drug use Allergies: NKA Review of systems: All remaining review of systems including HEENT, cardiovascular, respiratory, gastrointestinal, genitourinary, musculoskeletal, dermatologic, neurologic, and psychiatric are negative unless mentioned in the HPI. Past Patient History - Infectious Disease Hx of Infectious Diseases: None - Past Social History Smoking Status: Heavy Smoker > 10 Cigarettes Daily - CARDIAC Hx Cardiac Disorders: Yes (CAD, Coronary stentx1) Hx Congestive Heart Failure: Yes Hx Hypercholesterolemia: Yes Hx Hypertension: Yes - RENAL Other/Comment: MEENA - ENDOCRINE/METABOLIC Hx Diabetes Mellitus Type 2: Yes - MUSCULOSKELETAL/RHEUMATOLOGICAL Hx Falls: Yes - PSYCHIATRIC Hx Substance Use: No - SURGICAL HISTORY Hx Surgeries: Yes Hx Coronary Stent: Yes - ANESTHESIA Hx Anesthesia: Yes Hx Anesthesia Reactions: No Meds Allergies/Adverse Reactions: Allergies Allergy/AdvReac Type Severity Reaction Status Date / Time No Known Allergies Allergy Verified 11/22/17 00:10 - Medications Medications: Current Medications Aspirin (Aspirin Chewable) 81 mg PO DAILY [facility] Last Admin: 12/01/17 09:49 Dose: 81 mg Calcium Acetate (Phoslo) 1,334 mg PO TID [facility] Last Admin: 12/01/17 09:49 Dose: 1,334 mg Dextrose (Dextrose 50% Inj) 0 ml IV STAT PRN; Protocol PRN Reason: Hypoglycemia Protocol Dextrose (Glutose 15) 0 gm PO ONCE PRN; Protocol PRN Reason: Hypoglycemia Protocol Diltiazem HCl (Cardizem) 30 mg PO TID [facility] Last Admin: 12/01/17 10:53 Dose: 30 mg Docusate Sodium (Colace) 100 mg PO DAILY [facility] Last Admin: 11/30/17 11:08 Dose: Not Given Epoetin Jed (Procrit) 10,000 unit IV TTS [facility] Epoetin Jed (Procrit) 2,000 u IV TTS [facility] Epoetin Jed (Procrit) 3,000 unit IV TTS [facility] Glucagon (Glucagen Diagnostic Kit) 0 mg IM STAT PRN; Protocol PRN Reason: Hypoglycemia Protocol Heparin Sodium (Porcine) (Heparin) 5,000 units SC Q12 [facility] Last Admin: 12/01/17 10:00 Dose: Not Given Insulin Glargine (Lantus) 10 unit SC HS [facility] Last Admin: 11/30/17 21:54 Dose: 10 units Insulin Human Regular (Novolin R) 0 unit SC ACHS [facility] PRN Reason: Protocol Last Admin: 12/01/17 08:00 Dose: Not Given Metoprolol Succinate (Toprol Xl) 100 mg PO DAILY [facility] Last Admin: 12/01/17 09:49 Dose: 100 mg Nicotine (Nicoderm Cq) 1 patch TD DAILY [facility] Last Admin: 12/01/17 10:53 Dose: 1 patch Pantoprazole Sodium (Protonix Ec Tab) 40 mg PO DAILY [facility] Last Admin: 12/01/17 09:49 Dose: 40 mg Rosuvastatin Calcium (Crestor) 10 mg PO [facility] Last Admin: 11/30/17 21:52 Dose: 10 mg Vitamin B Complex/Vit C/Folic Acid (Nephro-Avelino) 1 tab PO 0800 [facility] Last Admin: 12/01/17 08:37 Dose: 1 tab Physical Exam - Head Exam Head Exam: ATRAUMATIC - Eye Exam Eye Exam: Normal appearance - ENT Exam ENT Exam: Mucous Membranes Dry - Respiratory Exam Respiratory Exam: NORMAL BREATHING PATTERN - Cardiovascular Exam Cardiovascular Exam: +S1, +S2 - GI/Abdominal Exam GI & Abdominal Exam: Normal Bowel Sounds - Extremities Exam Extremities exam: Positive for: pedal edema - Neurological Exam Neurological exam: Oriented x3 - Psychiatric Exam Psychiatric exam: Normal Affect, Normal Mood - Skin Skin Exam: Warm Results - Vital Signs Recent Vital Signs: Last Vital Signs Temp 97.8 F 12/01/17 11:30 Pulse 82 12/01/17 12:35 Resp 18 12/01/17 12:35 BP 129/60 12/01/17 12:35 Pulse Ox 96 12/01/17 12:35 - Labs Result Diagrams: 12/01/17 06:57 12/01/17 06:57 Labs: Laboratory Results - last 24 hr 11/30/17 11/30/17 11/30/17 07:12 17:01 21:37 WBC RBC Hgb Hct MCV MCH MCHC RDW Plt Count MPV Neut % (Auto) Lymph % (Auto) [place] % (Auto) Eos % (Auto) Baso % (Auto) Neut # (Auto) Lymph # (Auto) [place] # (Auto) Eos # (Auto) Baso # (Auto) Neutrophils % (Manual) Band Neutrophils % Lymphocytes % (Manual) Monocytes % (Manual) Eosinophils % (Manual) Platelet Estimate Polychromasia Hypochromasia (manual) Sodium Potassium Chloride Carbon Dioxide Anion Gap BUN Creatinine Est GFR ( Amer) Est GFR (Non-Af Amer) POC Glucose (mg/dL) 317 H 167 H Random Glucose Calcium Total Bilirubin AST ALT Alkaline Phosphatase Total Protein Albumin Globulin Albumin/Globulin Ratio Procalcitonin 4.61 H 12/01/17 12/01/17 12/01/17 06:31 06:57 06:57 WBC 19.2 H RBC 2.77 L Hgb 8.7 L Hct 26.5 L MCV 95.4 H MCH 31.2 H MCHC 32.7 L RDW 13.8 Plt Count 265 MPV 9.0 Neut % (Auto) 78.3 H Lymph % (Auto) 9.4 L [place] % (Auto) 7.7 Eos % (Auto) 4.0 Baso % (Auto) 0.6 Neut # (Auto) 15.0 H Lymph # (Auto) 1.8 [place] # (Auto) 1.5 H Eos # (Auto) 0.8 H Baso # (Auto) 0.1 Neutrophils % (Manual) 88 H Band Neutrophils % 2 Lymphocytes % (Manual) 5 L Monocytes % (Manual) 3 Eosinophils % (Manual) 2 Platelet Estimate Normal Polychromasia Slight Hypochromasia (manual) Slight Sodium 139 Potassium 3.8 Chloride 99 Carbon Dioxide 27 Anion Gap 17 BUN 36 H Creatinine 6.9 H Est GFR ( Amer) 10 Est GFR (Non-Af Amer) 8 POC Glucose (mg/dL) 140 H Random Glucose 150 H Calcium 9.2 Total Bilirubin 0.5 AST 42 ALT 22 Alkaline Phosphatase 71 Total Protein 6.0 L Albumin 3.4 L Globulin 2.6 Albumin/Globulin Ratio 1.3 Procalcitonin 12/01/17 11:31 WBC RBC Hgb Hct MCV MCH MCHC RDW Plt Count MPV Neut % (Auto) Lymph % (Auto) [place] % (Auto) Eos % (Auto) Baso % (Auto) Neut # (Auto) Lymph # (Auto) [place] # (Auto) Eos # (Auto) Baso # (Auto) Neutrophils % (Manual) Band Neutrophils % Lymphocytes % (Manual) Monocytes % (Manual) Eosinophils % (Manual) Platelet Estimate Polychromasia Hypochromasia (manual) Sodium Potassium Chloride Carbon Dioxide Anion Gap BUN Creatinine Est GFR ( Amer) Est GFR (Non-Af Amer) POC Glucose (mg/dL) 244 H Random Glucose Calcium Total Bilirubin AST ALT Alkaline Phosphatase Total Protein Albumin Globulin Albumin/Globulin Ratio Procalcitonin Assessment & Plan (1) Leukocytosis Assessment and Plan: predominant neutrophilia likely reactive if persists, will send peripheral blood flow cytometery Status: Acute (2) Anemia Assessment and Plan: anemia of CKD Procrit per renal Thank you for this interesting consult. Status: Acute
[2017-12-01] MEDS: Epoetin Alfa 10,000 unit/ml Dialysis IV SCH (13:21)
[2017-12-01] MEDS: Epoetin Alfa Dialysis 3000 UNIT/ML Inj IV SCH (13:22)
[2017-12-01] MEDS: Epoetin Alfa Dialysis 2000 U/ML Inj IV SCH (13:22)
--- NOTE | 2017-12-01 16:50 | CP.PCM.PN ---
Subjective - Date & Time of Evaluation Date of Evaluation: 12/01/17 Time of Evaluation: 16:50 - Subjective Subjective: RENAL CONSULT Note covering for Dr Ríos/Dr Aguirre 62 yo M w/ pmh of CKD, HTN, DM, CAD that prsented w/ MEENA. Pt recently went to his [facility] this past thursday - [place] was drawn and he was found to have a Cr of 7. A renal US was scheduled as an outpt but he developed hypoglycemic episode and altered mental status. He was found to have even worse kidney function and acidosis and admitted for further evaluation. He was recently on metformin but it was discontinued. He has had uremic symptoms of naussea and reduced appetite for about 2 weeks or so. He states he has been urinating normally. He endorses poor po intake last 24-48 hours. He denies any NSAID use. ROS: a full detailed ROS is negative except as in my HPI. denies CP/SOB/nausea/ vomitting. report of serum cr 2-3 range approx 3-4 months ago. 1 loose stool episode today PMHx: CKD Stage? HTN, HLD, DM, CAD w/stent, [place] (2012), parapresis SurgHx: left knee surgery (1986), Cardiac stent (2012) FamHx: father on dialysis SocHx: + smoking hx, no etoh or ivdu all: nkda meds as below. pe: vs as below . seen on HD gen: nad sclera: anicteric op: clear neck: supple no thyromegaly cv:+s1+s2 no rub abd soft no orgnomegaly lungs CTA b/l with few weehze ext 1-2+e edema neuro: A+OX3 no asterixis no focal deficit psych: nml affect skin no rash labs and imaging reviewed: Vot D 35 PTH 328 TSAT 34% Ferritin [address] imaging no hydronephrosis appreciated imp: arf / acidosis /anemia of renal disease/ UTI? / diabetic kidney disease/ secondary hyperpara/hypokalemia/smoker/obesity/CKD stage 3/4, SVT, hypoglycemia plan: GN work up serology negative no obstruction on imaging. Doubt if renal biopsy will help considering baseline advanced renal insufficiency. continue with HD via permacath TTS schedule started epogen, IV iron and nephrovite for anemia. PRBC as needed. anemia work up with SPEP/DREW and serum FLC assay negative continue with phos binders, last Phos 4.1 BP controlled on current meds leukocytosis work up ongoing SW consult for outpt HD placement with Dr Aguirre pt will need to continue with dialysis at discharge. Thanks for consult Please call if any Qs had d/w team and primary pe[facility]er as well Objective - Vital Signs/Intake and Output Vital Signs (last 24 hours): Temp Pulse Resp BP Pulse Ox 99.2 F 98 H 20 102/67 95 12/01/17 15:14 12/01/17 15:14 12/01/17 15:14 12/01/17 15:14 12/01/17 15:14 Intake and Output: 12/01/17 12/01/17 06:59 18:59 Intake Total 440 240 Output Total 610 245 Balance -170 -5 - Medications Medications: Current Medications Aspirin (Aspirin Chewable) 81 mg PO DAILY [facility] Last Admin: 12/01/17 09:49 Dose: 81 mg Calcium Acetate (Phoslo) 1,334 mg PO TID [facility] Last Admin: 12/01/17 14:53 Dose: Not Given Dextrose (Dextrose 50% Inj) 0 ml IV STAT PRN; Protocol PRN Reason: Hypoglycemia Protocol Dextrose (Glutose 15) 0 gm PO ONCE PRN; Protocol PRN Reason: Hypoglycemia Protocol Diltiazem HCl (Cardizem) 30 mg PO TID [facility] Last Admin: 12/01/17 14:52 Dose: Not Given Docusate Sodium (Colace) 100 mg PO DAILY [facility] Last Admin: 11/30/17 11:08 Dose: Not Given Epoetin Jed (Procrit) 10,000 unit IV TTS [facility] Last Admin: 12/01/17 13:21 Dose: 10,000 unit Epoetin Jed (Procrit) 2,000 u IV TTS [facility] Last Admin: 12/01/17 13:22 Dose: 2,000 u Epoetin Jed (Procrit) 3,000 unit IV TTS [facility] Last Admin: 12/01/17 13:22 Dose: 3,000 unit Glucagon (Glucagen Diagnostic Kit) 0 mg IM STAT PRN; Protocol PRN Reason: Hypoglycemia Protocol Heparin Sodium (Porcine) (Heparin) 5,000 units SC Q12 [facility] Last Admin: 12/01/17 10:00 Dose: Not Given Insulin Glargine (Lantus) 10 unit SC HS [facility] Last Admin: 11/30/17 21:54 Dose: 10 units Insulin Human Regular (Novolin R) 0 unit SC [facility] PRN Reason: Protocol Last Admin: 12/01/17 12:54 Dose: Not Given Metoprolol Succinate (Toprol Xl) 100 mg PO DAILY [facility] Last Admin: 12/01/17 09:49 Dose: 100 mg Nicotine (Nicoderm Cq) 1 patch TD DAILY [facility] Last Admin: 12/01/17 10:53 Dose: 1 patch Pantoprazole Sodium (Protonix Ec Tab) 40 mg PO DAILY [facility] Last Admin: 12/01/17 09:49 Dose: 40 mg Rosuvastatin Calcium (Crestor) 10 mg PO [facility] Last Admin: 11/30/17 21:52 Dose: 10 mg Vitamin B Complex/Vit C/Folic Acid (Nephro-Avelino) 1 tab PO 0800 [facility] Last Admin: 12/01/17 08:37 Dose: 1 tab - Labs Labs: 12/01/17 06:57 12/01/17 06:57 PT 12.1 SECONDS (9.7-12.2) 11/23/17 12:53 INR 1.1 11/23/17 12:53 APTT 26 SECONDS (21-34) 11/23/17 12:53
--- NOTE | 2017-12-01 20:35 | CP.PCM.PN ---
Subjective - Date & Time of Evaluation Date of Evaluation: 12/01/17 Time of Evaluation: 17:10 - Subjective Subjective: Patient seen and evaluated denies chest pain and dyspnea Physical examination - Additional Findings Additional findings: - Constitutional Appears: Well, No Acute Distress, Other (obese) - Head Exam Head Exam: ATRAUMATIC, NORMAL INSPECTION - Eye Exam Eye Exam: EOMI Pupil Exam: PERRL - ENT Exam ENT Exam: Mucous Membranes Moist - Neck Exam Neck Exam: Full ROM, Normal Inspection. absent: Tenderness - Respiratory Exam Respiratory Exam: Clear to Ausculation Bilateral, NORMAL BREATHING PATTERN. absent: Rales, Rhonchi, Wheezes - Cardiovascular Exam Cardiovascular Exam: Tachycardia, REGULAR RHYTHM, +S1, +S2. absent: JVD, Murmur - GI/Abdominal Exam GI & Abdominal Exam: Soft, Normal Bowel Sounds. absent: Distended, Firm, Guarding, Rigid, Tenderness - Extremities Exam Extremities Exam: Full ROM, Normal Capillary Refill, Normal Inspection. absent : Tenderness - Neurological Exam Neurological Exam: Alert, Awake, Oriented x3 - Psychiatric Exam Psychiatric exam: Normal Affect, Normal Mood - Skin Skin Exam: Intact, Normal Color, Warm Objective - Vital Signs/Intake and Output Vital Signs (last 24 hours): Temp Pulse Resp BP Pulse Ox 99.2 F 99 H 20 102/67 95 12/01/17 15:14 12/01/17 15:40 12/01/17 15:14 12/01/17 15:14 12/01/17 15:14 Intake and Output: 12/01/17 12/02/17 18:59 06:59 Intake Total 240 Output Total 245 Balance -5 - Medications Medications: Current Medications Aspirin (Aspirin Chewable) 81 mg PO DAILY [facility] Last Admin: 12/01/17 09:49 Dose: 81 mg Calcium Acetate (Phoslo) 1,334 mg PO TID [facility] Last Admin: 12/01/17 17:40 Dose: 1,334 mg Dextrose (Dextrose 50% Inj) 0 ml IV STAT PRN; Protocol PRN Reason: Hypoglycemia Protocol Dextrose (Glutose 15) 0 gm PO ONCE PRN; Protocol PRN Reason: Hypoglycemia Protocol Diltiazem HCl (Cardizem) 30 mg PO TID [facility] Last Admin: 12/01/17 17:40 Dose: 30 mg Docusate Sodium (Colace) 100 mg PO DAILY [facility] Last Admin: 11/30/17 11:08 Dose: Not Given Epoetin Jed (Procrit) 10,000 unit IV TTS [facility] Last Admin: 12/01/17 13:21 Dose: 10,000 unit Epoetin Jed (Procrit) 2,000 u IV TTS [facility] Last Admin: 12/01/17 13:22 Dose: 2,000 u Epoetin Jed (Procrit) 3,000 unit IV TTS [facility] Last Admin: 12/01/17 13:22 Dose: 3,000 unit Glucagon (Glucagen Diagnostic Kit) 0 mg IM STAT PRN; Protocol PRN Reason: Hypoglycemia Protocol Heparin Sodium (Porcine) (Heparin) 5,000 units SC Q12 [facility] Last Admin: 12/01/17 10:00 Dose: Not Given Insulin Glargine (Lantus) 10 unit SC HS [facility] Last Admin: 11/30/17 21:54 Dose: 10 units Insulin Human Regular (Novolin R) 0 unit SC ACHS [facility] PRN Reason: Protocol Last Admin: 12/01/17 17:41 Dose: 2 unit Metoprolol Succinate (Toprol Xl) 100 mg PO DAILY [facility] Last Admin: 12/01/17 09:49 Dose: 100 mg Nicotine (Nicoderm Cq) 1 patch TD DAILY [facility] Last Admin: 12/01/17 10:53 Dose: 1 patch Pantoprazole Sodium (Protonix Ec Tab) 40 mg PO DAILY [facility] Last Admin: 12/01/17 09:49 Dose: 40 mg Rosuvastatin Calcium (Crestor) 10 mg PO HS [facility] Last Admin: 11/30/17 21:52 Dose: 10 mg Vitamin B Complex/Vit C/Folic Acid (Nephro-Avelino) 1 tab PO 0800 [facility] Last Admin: 12/01/17 08:37 Dose: 1 tab - Labs Labs: 12/01/17 06:57 12/01/17 06:57 PT 12.1 SECONDS (9.7-12.2) 11/23/17 12:53 INR 1.1 11/23/17 12:53 APTT 26 SECONDS (21-34) 11/23/17 12:53 Assessment and Plan - Assessment and Plan (Free Text) Assessment: This is a 62 year old male with PMHx of CKD, HTN, HLD, T2DM, CAD with PCI intervention (2012) admitted reported having an increase in his renal function numbers, causing a change from metformin to glipizide by PMD x 2 months ago. Patient started feeling nausea, vomiting, abdominal pain, weakness, fatigue x 2 weeks. Prior to admission patient was unable to move, paramedics arrived at the scene and he was found to have sugars of 24. Patient was admitted for acute renal failure: Plan: MEENA on CKD, now in ARF Likely diabetic kidney disease Dr. Balbuena consulted Dr. Del Cid consulted for permacath placement * Permacath placed 11/24 - had successful dialysis after placement hepatitis panel negative, hiv negative, serum immunofixation negative, kappa/ lambda negative f/u anca, lupus, lab markers Started on bicarb drip @ 150cc/hr - now discontinued Phoslo given Procit 10,000u sc mwf Ferrlicit 125mg ivp qd for 8 days Supraventricular Tachycardia 20 min runs of SVT with rate in 150s x20 minutes On cardizem 30mg po tid f/u echo CAD [place] in 2012 -> with PCI asa 81mg po qd metoprolol succinate 100mg po qd rosuvastatin 10mg po hs HTN metoprolol succinate 100mg po qd HLD rosuvastatin 10mg po hs Tobacco Use Disorder Smoking Cessation encouraged Nicotine Patch daily Duonebs Q6H Constipation, Resolved colace 100mg po tid discontinued dulcolax 10MG po prn discontinued Cholelithiasis and distended gallbladder noted on CT Scan Abdominal US ordered: cholelithiasis, no CBD dilatation Hypoglycemia Hypoglycemic protocol in place T2DM Accuchecks HA1C 6.5 Previously on metformin, instructed by PCP to stop and take Glipizide instead x2 months ago Carb Consistent Diet Secondary hyperparathyroidism Given Calcium gluconate x2 doses UTI - Gram + Cocci Afebrile, normotensive, leukocytosis with left shift, no bandemia, lactate 1.0, procal normal UA, UC reordered, washburn cultures - negative to date CT chest/ab/pelv: No active pulmonary disease. Clear lungs. Cholelithiasis and distended gallbladder. If clinically indicated, correlation with right upper quadrant ultrasound may be performed. Large exophytic simple cyst in the interpolar region of the right kidney. Extensive nonspecific perinephric fat stranding which may be a sequela of remote infection. Started Rocephin 1 gram IVP daily started 11/23 Anemia of Renal Disease Ferrlicit 125mg ivp qd for 8 days Prophylaxis: Protonix SCDs, Hep Q12 PT/OT Permacath placed 11/24 Renal diet
[2017-12-01] MEDS: (Lantus) Insulin Glargine, Recombinant SC SCH (21:36)
--- NOTE | 2017-12-02 06:55 | CP.PCM.PN ---
Subjective - Date & Time of Evaluation Date of Evaluation: 12/02/17 Time of Evaluation: 07:30 - Subjective Subjective: PGY1 Resident note for Dr. Marin. Pt seen and examined at bedside. Pt lying comfortably in bed in no acute distress. Pt has no overnight complaints, denies headaches, vision changes, chest pain, difficulty breathing, constipation. Objective - Vital Signs/Intake and Output Vital Signs (last 24 hours): Temp Pulse Resp BP Pulse Ox 97.6 F 78 20 123/70 97 12/01/17 23:10 12/01/17 23:10 12/01/17 23:10 12/01/17 23:10 12/01/17 23:10 Intake and Output: 12/01/17 12/02/17 18:59 06:59 Intake Total 240 Output Total 245 Balance -5 - Medications Medications: Current Medications Aspirin (Aspirin Chewable) 81 mg PO DAILY [facility] Last Admin: 12/01/17 09:49 Dose: 81 mg Calcium Acetate (Phoslo) 1,334 mg PO TID [facility] Last Admin: 12/01/17 17:40 Dose: 1,334 mg Dextrose (Dextrose 50% Inj) 0 ml IV STAT PRN; Protocol PRN Reason: Hypoglycemia Protocol Dextrose (Glutose 15) 0 gm PO ONCE PRN; Protocol PRN Reason: Hypoglycemia Protocol Diltiazem HCl (Cardizem) 30 mg PO TID [facility] Last Admin: 12/01/17 17:40 Dose: 30 mg Docusate Sodium (Colace) 100 mg PO DAILY [facility] Last Admin: 11/30/17 11:08 Dose: Not Given Epoetin Jed (Procrit) 10,000 unit IV TTS [facility] Last Admin: 12/01/17 13:21 Dose: 10,000 unit Epoetin Jed (Procrit) 2,000 u IV TTS [facility] Last Admin: 12/01/17 13:22 Dose: 2,000 u Epoetin Jed (Procrit) 3,000 unit IV TTS [facility] Last Admin: 12/01/17 13:22 Dose: 3,000 unit Glucagon (Glucagen Diagnostic Kit) 0 mg IM STAT PRN; Protocol PRN Reason: Hypoglycemia Protocol Heparin Sodium (Porcine) (Heparin) 5,000 units SC Q12 [facility] Last Admin: 12/01/17 21:28 Dose: 5,000 units Insulin Glargine (Lantus) 10 unit SC HS [facility] Last Admin: 12/01/17 21:36 Dose: 10 units Insulin Human Regular (Novolin R) 0 unit SC ACHS [facility] PRN Reason: Protocol Last Admin: 12/01/17 21:29 Dose: Not Given Metoprolol Succinate (Toprol Xl) 100 mg PO DAILY [facility] Last Admin: 12/01/17 09:49 Dose: 100 mg Nicotine (Nicoderm Cq) 1 patch TD DAILY [facility] Last Admin: 12/01/17 10:53 Dose: 1 patch Pantoprazole Sodium (Protonix Ec Tab) 40 mg PO DAILY [facility] Last Admin: 12/01/17 09:49 Dose: 40 mg Rosuvastatin Calcium (Crestor) 10 mg PO HS [facility] Last Admin: 12/01/17 21:28 Dose: 10 mg Vitamin B Complex/Vit C/Folic Acid (Nephro-Avelino) 1 tab PO 0800 [facility] Last Admin: 12/01/17 08:37 Dose: 1 tab - Labs Labs: 12/01/17 06:57 12/01/17 06:57 PT 12.1 SECONDS (9.7-12.2) 11/23/17 12:53 INR 1.1 11/23/17 12:53 APTT 26 SECONDS (21-34) 11/23/17 12:53 - Constitutional Appears: Well, No Acute Distress - Head Exam Head Exam: NORMAL INSPECTION - Eye Exam Eye Exam: Normal appearance - ENT Exam ENT Exam: Mucous Membranes Moist - Respiratory Exam Respiratory Exam: Clear to Ausculation Bilateral, NORMAL BREATHING PATTERN. absent: Rhonchi, Wheezes, Respiratory Distress - Cardiovascular Exam Cardiovascular Exam: +S1, +S2 - GI/Abdominal Exam GI & Abdominal Exam: Soft, Normal Bowel Sounds - Neurological Exam Neurological Exam: Alert, Awake, Oriented x3 - Skin Skin Exam: Dry, Normal Color Assessment and Plan - Assessment and Plan (Free Text) Assessment: MEENA on CKD, now in ARF 12/02: Pt labs steady - will discuss w/ S/W for possible DC 12/03 12/01: Pt scheduled for HD today, will f/u AM labs 11/29: Uneventful night. Tolerated HD well yesterday. K and serum bicarb stable. 11/28: Patient is pending third HD later today. As I explained to the patient's girl friend repeatedly - we still are pending where the patient will be going to for outpatient HD and also where to go for LIZ. Dr. Balbuena consulted Dr. Del Cid consulted for permacath placement * Permacath placed 11/24 - had successful dialysis after placement Phoslo given Procit 10,000u sc mwf Ferrlicit 125mg ivp qd for 8 days Hypoglycemia 12/01: Accuchecks in 140s, continue to with lantus 11/30: 10 units Lantus tonight at bedtime for hypergylcemia 11/29: The accuchecks have been 120s to low 200s. 11/28 Since admission has been stable. His accucheks have been mostly inbetween 100 to [address] Loose bowel movements 12/01: Waiting on c diff toxin results; loose bowels self-resolved 11/30: Pt had 3 loose bowel movements today, f/u c diff toxin results Supraventricular Tachycardia - resolved 12/01: Pt HR <95s, primarily in 80s 11/30: Patient reported walking in his room on his own. 11/29: It takes effort he says. Would benefit from ongoing PT/OT. On telemetry he has sinus tachycardia at times. 11/28: Patient denied chest pain and palpitation. The telemetry currently in the 80s to 90s NSR. No recored sinus tachycardia or episodes of SVT overnight Consult cardiology, Dr Levi * seen by Dr Levi - continue po cardizem 20 min runs of SVT with rate in 150s x20 minutes Start cardizem 30mg po tid f/u echo CAD 11/28: No chest pain, echo pending final read at this time. [place] in 2012 -> with PCI asa 81mg po qd metoprolol succinate 100mg po qd rosuvastatin 10mg po hs HTN 11/28: Systolics in the 140s. Continue to monitor. Cardizem 30 mg PO TID metoprolol succinate 100mg po qd HLD rosuvastatin 10mg po hs Tobacco Use Disorder Smoking Cessation encouraged Nicotine Patch daily Duonebs Q6H Constipation, Resolved colace 100mg po tid discontinued dulcolax 10MG po prn discontinued Cholelithiasis and distended gallbladder noted on CT Scan Abdominal US ordered: cholelithiasis, no CBD dilatation Secondary hyperparathyroidism Given Calcium gluconate x2 doses UTI - Gram + Cocci - Resolved 12/02: WBC downtrending 18.6 > 19.2> 23.3 12/01: Rocephin discontinued 11/29: Repeat cultures pending. Remains on rocpehin. Afebrile, normotensive, leukocytosis with left shift, no bandemia, lactate 1.0, procal normal UA, UC reordered, washburn cultures - negative to date CT chest/ab/pelv: No active pulmonary disease. Clear lungs. Cholelithiasis and distended gallbladder. If clinically indicated, correlation with right upper quadrant ultrasound may be performed. Large exophytic simple cyst in the interpolar region of the right kidney. Extensive nonspecific perinephric fat stranding which may be a sequela of remote infection. Started Rocephin 1 gram IVP daily started 11/23 Anemia of Renal Disease Ferrlicit 125mg ivp qd for 8 days Prophylaxis: Protonix SCDs, Hep Q12 PT/OT Permacath placed 11/24 Renal diet
[2017-12-02 06:59] LABS: BASO # 0.1 K/uL (0.0-0.2); BASO % 0.5 % (0.0-2.0); EOS # 0.5 K/uL (0.0-0.7); EOS % 2.8 % (0.0-4.0); HEMOGLOBIN 9.3 g/dL (12.0-18.0); LYMPH # 2.1 K/uL (1.0-4.3); LYMPH % 11.3 % (20.0-40.0); MEAN CELL VOLUME 97.1 fL (80.0-94.0); MEAN CORPUSCULAR HEMOGLOBIN 31.1 pg (27.0-31.0); MEAN CORPUSCULAR HGB CONC 32.1 g/dL (33.0-37.0); MEAN PLATELET VOLUME 9.4 fL (7.2-11.7); MONO # 1.2 K/uL (0.0-0.8); MONO % 6.6 % (0.0-10.0); NEUT # 14.6 K/uL (1.8-7.0); NEUT % 78.8 % (50.0-75.0); RBC 2.98 Mil/uL (4.40-5.90); RED CELL DISTRIBUTION WIDTH 13.7 % (11.5-14.5); WHITE BLOOD COUNT 18.6 K/uL (4.8-10.8)
[2017-12-02] MEDS: (Novolin R) Insulin Human Regular 100 units/ml vial SC SCH ×4 (07:48→21:49)
[2017-12-02 07:51] LABS: ALB/GLOB RATIO 1.3 (1.0-2.1); ALBUMIN 3.4 g/dL (3.5-5.0); CALCIUM 8.9 mg/dl (8.6-10.4)
[2017-12-02] MEDS: Multivitamin Vitamin B Complex (Nephro-Vite) Tab PO SCH (08:10)
[2017-12-02] MEDS: Pantoprazole 40 mg EC Tab PO SCH (09:56)
[2017-12-02] MEDS: Metoprolol Succinate 100 mg XL Tab PO SCH (09:56)
--- NOTE | 2017-12-02 12:19 | CP.PCM.PN ---
Subjective - Date & Time of Evaluation Date of Evaluation: 12/02/17 Time of Evaluation: 12:18 - Subjective Subjective: RENAL CONSULT Note covering for Dr Ríos/Dr Aguirre 62 yo M w/ pmh of CKD, HTN, DM, CAD that prsented w/ MEENA. Pt recently went to his crepe box tender this past thursday - [place] was drawn and he was found to have a Cr of 7. A renal US was scheduled as an outpt but he developed hypoglycemic episode and altered mental status. He was found to have even worse kidney function and acidosis and admitted for further evaluation. He was recently on metformin but it was discontinued. He has had uremic symptoms of naussea and reduced appetite for about 2 weeks or so. He states he has been urinating normally. He endorses poor po intake last 24-48 hours. He denies any NSAID use. ROS: a full detailed ROS is negative except as in my HPI. denies CP/SOB/nausea/ vomitting. report of serum cr 2-3 range approx 3-4 months ago. 1 loose stool episode today PMHx: CKD Stage? HTN, HLD, DM, CAD w/stent, [place] (2012), parapresis SurgHx: left knee surgery (1986), Cardiac stent (2012) FamHx: father on dialysis SocHx: + smoking hx, no etoh or ivdu all: nkda meds as below. pe: vs as below . gen: nad sclera: anicteric op: clear neck: supple no thyromegaly cv:+s1+s2 no rub abd soft no orgnomegaly lungs CTA b/l with few weehze ext 1-2+e edema neuro: A+OX3 no asterixis no focal deficit psych: nml affect skin no rash labs and imaging reviewed: Vot D 35 PTH 328 TSAT 34% Ferritin [address] imaging no hydronephrosis appreciated imp: arf / acidosis /anemia of renal disease/ UTI? / diabetic kidney disease/ secondary hyperpara/hypokalemia/smoker/obesity/CKD stage 3/4, SVT, hypoglycemia plan: GN work up serology negative no obstruction on imaging. Doubt if renal biopsy will help considering baseline advanced renal insufficiency. continue with HD via permacath TTS schedule started epogen, IV iron and nephrovite for anemia. PRBC as needed. anemia work up with SPEP/DREW and serum FLC assay negative continue with phos binders, last Phos 4.1 BP controlled on current meds leukocytosis work up ongoing SW consult for outpt HD placement with Dr Aguirre pt will need to continue with dialysis at discharge. Thanks for consult Please call if any Qs had d/w team and primary crepe box tender as well Objective - Vital Signs/Intake and Output Vital Signs (last 24 hours): Temp Pulse Resp BP Pulse Ox 98 F 83 20 131/74 97 12/02/17 07:00 12/02/17 09:58 12/02/17 07:00 12/02/17 09:58 12/02/17 07:00 - Medications Medications: Current Medications Aspirin (Aspirin Chewable) 81 mg PO DAILY [facility] Last Admin: 12/02/17 09:56 Dose: 81 mg Calcium Acetate (Phoslo) 1,334 mg PO TID [facility] Last Admin: 12/02/17 09:56 Dose: 1,334 mg Dextrose (Dextrose 50% Inj) 0 ml IV STAT PRN; Protocol PRN Reason: Hypoglycemia Protocol Dextrose (Glutose 15) 0 gm PO ONCE PRN; Protocol PRN Reason: Hypoglycemia Protocol Diltiazem HCl (Cardizem) 30 mg PO TID [facility] Last Admin: 12/02/17 09:56 Dose: 30 mg Docusate Sodium (Colace) 100 mg PO DAILY [facility] Last Admin: 11/30/17 11:08 Dose: Not Given Epoetin Jed (Procrit) 10,000 unit IV TTS [facility] Last Admin: 12/01/17 13:21 Dose: 10,000 unit Epoetin Jed (Procrit) 2,000 u IV TTS [facility] Last Admin: 12/01/17 13:22 Dose: 2,000 u Epoetin Jed (Procrit) 3,000 unit IV TTS [facility] Last Admin: 12/01/17 13:22 Dose: 3,000 unit Glucagon (Glucagen Diagnostic Kit) 0 mg IM STAT PRN; Protocol PRN Reason: Hypoglycemia Protocol Insulin Glargine (Lantus) 10 unit SC [facility] Last Admin: 12/01/17 21:36 Dose: 10 units Insulin Human Regular (Novolin R) 0 unit SC [facility] PRN Reason: Protocol Last Admin: 12/02/17 07:48 Dose: Not Given Metoprolol Succinate (Toprol Xl) 100 mg PO DAILY [facility] Last Admin: 12/02/17 09:56 Dose: 100 mg Nicotine (Nicoderm Cq) 1 patch TD DAILY [facility] Last Admin: 12/02/17 09:56 Dose: 1 patch Pantoprazole Sodium (Protonix Ec Tab) 40 mg PO DAILY [facility] Last Admin: 12/02/17 09:56 Dose: 40 mg Rosuvastatin Calcium (Crestor) 10 mg PO HS [facility] Last Admin: 12/01/17 21:28 Dose: 10 mg Vitamin B Complex/Vit C/Folic Acid (Nephro-Avelino) 1 tab PO 0800 [facility] Last Admin: 12/02/17 08:10 Dose: 1 tab - Labs Labs: 12/02/17 06:51 12/02/17 06:51 PT 12.1 SECONDS (9.7-12.2) 11/23/17 12:53 INR 1.1 11/23/17 12:53 APTT 26 SECONDS (21-34) 11/23/17 12:53
[2017-12-02] MEDS: (Lantus) Insulin Glargine, Recombinant SC SCH (21:52)
--- NOTE | 2017-12-03 06:54 | CP.PCM.PN ---
Objective - Vital Signs/Intake and Output Vital Signs (last 24 hours): Temp Pulse Resp BP Pulse Ox 97.4 F L 80 20 131/71 95 12/02/17 23:15 12/02/17 23:15 12/02/17 23:15 12/02/17 23:15 12/02/17 23:15 Intake and Output: 12/02/17 12/03/17 18:59 06:59 Intake Total 100 Output Total 700 Balance -600 - Medications Medications: Current Medications Aspirin (Aspirin Chewable) 81 mg PO DAILY [facility] Last Admin: 12/02/17 09:56 Dose: 81 mg Calcium Acetate (Phoslo) 1,334 mg PO TID [facility] Last Admin: 12/02/17 17:08 Dose: 1,334 mg Dextrose (Dextrose 50% Inj) 0 ml IV STAT PRN; Protocol PRN Reason: Hypoglycemia Protocol Dextrose (Glutose 15) 0 gm PO ONCE PRN; Protocol PRN Reason: Hypoglycemia Protocol Diltiazem HCl (Cardizem) 30 mg PO TID [facility] Last Admin: 12/02/17 17:08 Dose: 30 mg Docusate Sodium (Colace) 100 mg PO DAILY [facility] Last Admin: 11/30/17 11:08 Dose: Not Given Epoetin Jed (Procrit) 10,000 unit IV TTS [facility] Last Admin: 12/01/17 13:21 Dose: 10,000 unit Epoetin Jed (Procrit) 2,000 u IV TTS [facility] Last Admin: 12/01/17 13:22 Dose: 2,000 u Epoetin Jed (Procrit) 3,000 unit IV TTS [facility] Last Admin: 12/01/17 13:22 Dose: 3,000 unit Glucagon (Glucagen Diagnostic Kit) 0 mg IM STAT PRN; Protocol PRN Reason: Hypoglycemia Protocol Insulin Glargine (Lantus) 10 unit SC HS [facility] Last Admin: 12/02/17 21:52 Dose: 10 units Insulin Human Regular (Novolin R) 0 unit SC ACHS [facility] PRN Reason: Protocol Last Admin: 12/02/17 21:49 Dose: Not Given Metoprolol Succinate (Toprol Xl) 100 mg PO DAILY [facility] Last Admin: 12/02/17 09:56 Dose: 100 mg Nicotine (Nicoderm Cq) 1 patch TD DAILY [facility] Last Admin: 12/02/17 09:56 Dose: 1 patch Pantoprazole Sodium (Protonix Ec Tab) 40 mg PO DAILY [facility] Last Admin: 12/02/17 09:56 Dose: 40 mg Rosuvastatin Calcium (Crestor) 10 mg PO HS [facility] Last Admin: 12/02/17 21:52 Dose: 10 mg Vitamin B Complex/Vit C/Folic Acid (Nephro-Avelino) 1 tab PO 0800 [facility] Last Admin: 12/02/17 08:10 Dose: 1 tab - Labs Labs: 12/02/17 06:51 12/02/17 06:51 PT 12.1 SECONDS (9.7-12.2) 11/23/17 12:53 INR 1.1 11/23/17 12:53 APTT 26 SECONDS (21-34) 11/23/17 12:53
[2017-12-03 07:37] LABS: BASO # 0.1 K/uL (0.0-0.2); BASO % 0.6 % (0.0-2.0); EOS # 0.5 K/uL (0.0-0.7); HEMOGLOBIN 9.5 g/dL (12.0-18.0); LYMPH % 11.4 % (20.0-40.0); MEAN CELL VOLUME 96.8 fL (80.0-94.0); MEAN CORPUSCULAR HEMOGLOBIN 31.4 pg (27.0-31.0); MEAN CORPUSCULAR HGB CONC 32.5 g/dL (33.0-37.0); MEAN PLATELET VOLUME 9.6 fL (7.2-11.7); MONO # 1.4 K/uL (0.0-0.8); MONO % 7.9 % (0.0-10.0); NEUT # 13.6 K/uL (1.8-7.0); NEUT % 77.1 % (50.0-75.0); RBC 3.03 Mil/uL (4.40-5.90); RED CELL DISTRIBUTION WIDTH 14.7 % (11.5-14.5); WHITE BLOOD COUNT 17.6 K/uL (4.8-10.8)
[2017-12-03] MEDS: (Novolin R) Insulin Human Regular 100 units/ml vial SC SCH ×4 (07:37→21:42)
[2017-12-03 08:12] LABS: ALB/GLOB RATIO 1.3 (1.0-2.1); ALBUMIN 3.6 g/dL (3.5-5.0); CALCIUM 9.2 mg/dl (8.6-10.4)
[2017-12-03] MEDS: Multivitamin Vitamin B Complex (Nephro-Vite) Tab PO SCH (08:16)
[2017-12-03] MEDS: Epoetin Alfa Dialysis 2000 U/ML Inj IV SCH (10:43)
[2017-12-03] MEDS: Epoetin Alfa Dialysis 3000 UNIT/ML Inj IV SCH (10:44)
[2017-12-03] MEDS: Epoetin Alfa 10,000 unit/ml Dialysis IV SCH (10:45)
--- NOTE | 2017-12-03 11:33 | CP.PCM.PN ---
Subjective - Date & Time of Evaluation Date of Evaluation: 12/03/17 Time of Evaluation: 11:31 - Subjective Subjective: RENAL CONSULT Note covering for Dr Ríos/Dr Aguirre 62 yo M w/ pmh of CKD, HTN, DM, CAD that prsented w/ MEENA. Pt recently went to his efficiency manager this past thursday - bloowork was drawn and he was found to have a Cr of 7. A renal US was scheduled as an outpt but he developed hypoglycemic episode and altered mental status. He was found to have even worse kidney function and acidosis and admitted for further evaluation. He was recently on metformin but it was discontinued. He has had uremic symptoms of naussea and reduced appetite for about 2 weeks or so. He states he has been urinating normally. He endorses poor po intake last 24-48 hours. He denies any NSAID use. ROS: a full detailed ROS is negative except as in my HPI. denies CP/SOB/nausea/ vomitting. report of serum cr 2-3 range approx 3-4 months ago. 1 loose stool episode today PMHx: CKD Stage? HTN, HLD, DM, CAD w/stent, [place] (2012), parapresis SurgHx: left knee surgery (1986), Cardiac stent (2012) FamHx: father on dialysis SocHx: + smoking hx, no etoh or ivdu all: nkda meds as below. pe: vs as below . seen on HD gen: nad sclera: anicteric op: clear neck: supple no thyromegaly cv:+s1+s2 no rub abd soft no orgnomegaly lungs CTA b/l with few weehze ext 1+ edema neuro: A+OX3 no asterixis no focal deficit psych: nml affect skin no rash labs and imaging reviewed: Vot D 35 PTH 328 TSAT 34% Ferritin [address] imaging no hydronephrosis appreciated imp: arf / acidosis /anemia of renal disease/ UTI? / diabetic kidney disease/ secondary hyperpara/hypokalemia/smoker/obesity/CKD stage 3/4, SVT, hypoglycemia plan: GN work up serology negative no obstruction on imaging. Doubt if renal biopsy will help considering baseline advanced renal insufficiency. continue with HD via permacath TTS schedule started epogen, IV iron and nephrovite for anemia. PRBC as needed. anemia work up with SPEP/DREW and serum FLC assay negative continue with phos binders, last Phos 4.8 BP controlled on current meds leukocytosis work up ongoing SW consult for outpt HD placement with Dr Aguirre pt will need to continue with dialysis at discharge. no evidence of significant renal recovery at present vascular surgery follow up for AVF Thanks for consult Please call if any Qs had d/w team and primary efficiency manager as well Objective - Vital Signs/Intake and Output Vital Signs (last 24 hours): Temp Pulse Resp BP Pulse Ox 97.3 F L 88 16 121/75 98 12/03/17 09:50 12/03/17 10:36 12/03/17 10:36 12/03/17 10:36 12/03/17 10:36 Intake and Output: 12/03/17 12/03/17 06:59 18:59 Intake Total 100 Output Total 700 Balance -600 - Medications Medications: Current Medications Aspirin (Aspirin Chewable) 81 mg PO DAILY [facility] Last Admin: 12/02/17 09:56 Dose: 81 mg Calcium Acetate (Phoslo) 1,334 mg PO TID [facility] Last Admin: 12/03/17 10:34 Dose: Not Given Dextrose (Dextrose 50% Inj) 0 ml IV STAT PRN; Protocol PRN Reason: Hypoglycemia Protocol Dextrose (Glutose 15) 0 gm PO ONCE PRN; Protocol PRN Reason: Hypoglycemia Protocol Diltiazem HCl (Cardizem) 30 mg PO TID [facility] Last Admin: 12/03/17 10:34 Dose: Not Given Docusate Sodium (Colace) 100 mg PO DAILY [facility] Last Admin: 11/30/17 11:08 Dose: Not Given Epoetin Jed (Procrit) 10,000 unit IV TTS [facility] Last Admin: 12/03/17 10:45 Dose: 10,000 unit Epoetin Jed (Procrit) 2,000 u IV [facility] Last Admin: 12/03/17 10:43 Dose: 2,000 u Epoetin Jed (Procrit) 3,000 unit IV TTS [facility] Last Admin: 12/03/17 10:44 Dose: 3,000 unit Glucagon (Glucagen Diagnostic Kit) 0 mg IM STAT PRN; Protocol PRN Reason: Hypoglycemia Protocol Insulin Glargine (Lantus) 10 unit SC [facility] Last Admin: 12/02/17 21:52 Dose: 10 units Insulin Human Regular (Novolin R) 0 unit SC ACHS [facility] PRN Reason: Protocol Last Admin: 12/03/17 07:37 Dose: Not Given Metoprolol Succinate (Toprol Xl) 100 mg PO DAILY [facility] Last Admin: 12/02/17 09:56 Dose: 100 mg Nicotine (Nicoderm Cq) 1 patch TD DAILY [facility] Last Admin: 12/02/17 09:56 Dose: 1 patch Pantoprazole Sodium (Protonix Ec Tab) 40 mg PO DAILY [facility] Last Admin: 12/02/17 09:56 Dose: 40 mg Rosuvastatin Calcium (Crestor) 10 mg PO HS [facility] Last Admin: 12/02/17 21:52 Dose: 10 mg Vitamin B Complex/Vit C/Folic Acid (Nephro-Avelino) 1 tab PO 0800 [facility] Last Admin: 12/03/17 08:16 Dose: 1 tab - Labs Labs: 12/03/17 07:00 12/03/17 07:00 PT 12.1 SECONDS (9.7-12.2) 11/23/17 12:53 INR 1.1 11/23/17 12:53 APTT 26 SECONDS (21-34) 11/23/17 12:53
[2017-12-03] MEDS: Pantoprazole 40 mg EC Tab PO SCH (13:55)
[2017-12-03] MEDS: Metoprolol Succinate 100 mg XL Tab PO SCH (13:55)
--- NOTE | 2017-12-03 15:25 | CP.PCM.DIS ---
Provider - Provider Date of Admission: 11/22/17 05:06 Attending physician: Sara Marin MD Primary care physician: Dr. Tin Chris Consults: Cardiology: Dr. Levi General Surgery: Dr. Del Cid Nephro: Dr. Caal/Dr. Fowler/Dr. Balbuena Time Spent in preparation of Discharge (in minutes): 40 Hospital Course - Lab Results Lab Results: Micro Results 11/29/17 11:16 Blood-Venous Blood Culture - Preliminary NO GROWTH AFTER 4 DAYS 11/29/17 11:16 Blood-Venous Blood Culture - Preliminary NO GROWTH AFTER 4 DAYS 11/28/17 06:37 Nose MRSA Culture - Final MRSA NOT DETECTED 11/23/17 08:38 Blood-Venous Blood Culture - Final NO GROWTH AFTER 5 DAYS 11/23/17 08:38 Blood-Venous Gram Stain - Final TEST NOT PERFORMED 11/23/17 08:38 Blood-Venous Blood Culture - Final NO GROWTH AFTER 5 DAYS 11/23/17 08:38 Blood-Venous Gram Stain - Final TEST NOT PERFORMED 11/23/17 08:38 Urine,Clean Catch Urine Culture - Final Gram Positive Cocci 11/22/17 15:30 Naris MRSA Culture (Admit) - Final MRSA NOT DETECTED Most Recent Lab Values WBC 17.6 K/uL (4.8-10.8) H 12/03/17 07:00 RBC 3.03 Mil/uL (4.40-5.90) L 12/03/17 07:00 Hgb 9.5 g/dL (12.0-18.0) L 12/03/17 07:00 Hct 29.3 % (35.0-51.0) L 12/03/17 07:00 MCV 96.8 fL (80.0-94.0) H 12/03/17 07:00 MCH 31.4 pg (27.0-31.0) H 12/03/17 07:00 MCHC 32.5 g/dL (33.0-37.0) L 12/03/17 07:00 RDW 14.7 % (11.5-14.5) H 12/03/17 07:00 Plt Count 240 K/uL (130-400) 12/03/17 07:00 MPV 9.6 fL (7.2-11.7) 12/03/17 07:00 Neut % (Auto) 77.1 % (50.0-75.0) H 12/03/17 07:00 Lymph % (Auto) 11.4 % (20.0-40.0) L 12/03/17 07:00 Fannin % (Auto) 7.9 % (0.0-10.0) 12/03/17 07:00 Eos % (Auto) 3.0 % (0.0-4.0) 12/03/17 07:00 Baso % (Auto) 0.6 % (0.0-2.0) 12/03/17 07:00 Neut # (Auto) 13.6 K/uL (1.8-7.0) H 12/03/17 07:00 Lymph # (Auto) 2.0 K/uL (1.0-4.3) 12/03/17 07:00 Fannin # (Auto) 1.4 K/uL (0.0-0.8) H 12/03/17 07:00 Eos # (Auto) 0.5 K/uL (0.0-0.7) 12/03/17 07:00 Baso # (Auto) 0.1 K/uL (0.0-0.2) 12/03/17 07:00 Neutrophils % (Manual) 88 % (50-75) H 12/01/17 06:57 Band Neutrophils % 2 % (0-2) 12/01/17 06:57 Lymphocytes % (Manual) 5 % (20-40) L 12/01/17 06:57 Monocytes % (Manual) 3 % (0-10) 12/01/17 06:57 Eosinophils % (Manual) 2 % (0-4) 12/01/17 06:57 Differential Comment 11/29/17 07:43 Platelet Estimate Normal (NORMAL) 12/01/17 06:57 RBC Morphology Normal 11/24/17 06:32 Polychromasia Slight 12/01/17 06:57 Hypochromasia (manual) Slight 12/01/17 06:57 PT 12.1 SECONDS (9.7-12.2) 11/23/17 12:53 INR 1.1 11/23/17 12:53 APTT 26 SECONDS (21-34) 11/23/17 12:53 pO2 37 mm/Hg (30-55) 11/22/17 05:45 VBG pH 7.12 (7.32-7.43) L* 11/22/17 05:45 VBG pCO2 32 mmHg (40-60) L 11/22/17 05:45 VBG HCO3 9.7 mmol/L 11/22/17 05:45 VBG Total CO2 11.4 mmol/L (22-28) L 11/22/17 05:45 VBG O2 Sat (Calc) 71.5 % (40-65) H 11/22/17 05:45 VBG Base Excess -17.8 mmol/L (0.0-2.0) L 11/22/17 05:45 VBG Potassium 4.1 mmol/L (3.6-5.2) 11/22/17 05:45 Sodium 141.0 mmol/l (132-148) 11/22/17 05:45 Chloride 114.0 mmol/L (98-107) H 11/22/17 05:45 Glucose 96 mg/dl (75-110) 11/22/17 05:45 Lactate 1.0 mmol/L (0.7-2.1) 11/22/17 05:45 Crit Value Called To Dr mays 11/22/17 05:45 Crit Value Called By Nick rt 11/22/17 05:45 Crit Value Read Back Y 11/22/17 05:45 Blood Gas Notified Time 600 11/22/17 05:45 Sodium 139 mmol/L (132-148) 12/03/17 07:00 Potassium 4.0 mmol/L (3.6-5.2) 12/03/17 07:00 Chloride 99 mmol/L (98-107) 12/03/17 07:00 Carbon Dioxide 27 mmol/L (22-30) 12/03/17 07:00 Anion Gap 17 (10-20) 12/03/17 07:00 BUN 37 mg/dL (9-20) H 12/03/17 07:00 Creatinine 5.9 mg/dL (0.8-1.5) H 12/03/17 07:00 Est GFR ( Amer) 12 12/03/17 07:00 Est GFR (Non-Af Amer) 10 12/03/17 07:00 POC Glucose (mg/dL) 143 mg/dL (65-110) H 12/03/17 11:53 Random Glucose 124 mg/dL (75-110) H 12/03/17 07:00 Hemoglobin A1c 6.5 % (4.2-6.5) 11/22/17 13:45 Calcium 9.2 mg/dl (8.6-10.4) 12/03/17 07:00 Phosphorus 4.8 mg/dL (2.5-4.5) H 12/03/17 07:00 Magnesium 1.9 mg/dL (1.6-2.3) 12/03/17 07:00 Iron 63 ug/dL (49-181) 11/22/17 18:08 TIBC 185 ug/dL (250-450) L 11/22/17 18:08 % Saturation 34 (20-55) 11/22/17 18:08 Ferritin 140.0 ng/mL 11/22/17 18:08 Total Bilirubin 0.6 mg/dL (0.2-1.3) 12/03/17 07:00 AST 61 U/L (17-59) H D 12/03/17 07:00 ALT 62 U/L (21-72) 12/03/17 07:00 Alkaline Phosphatase 78 U/L (38-126) 12/03/17 07:00 Total Creatine Kinase 206 U/L (55-170) H 11/22/17 18:08 Troponin I 0.0660 ng/mL (0.00-0.120) 11/22/17 06:16 NT-Pro-B Natriuret Pep 25891 pg/mL (0-900) H 11/22/17 06:16 Total Protein 6.3 g/dL (6.3-8.3) 12/03/17 07:00 Albumin 3.6 g/dL (3.5-5.0) 12/03/17 07:00 Globulin 2.8 gm/dL (2.2-3.9) 12/03/17 07:00 Albumin/Globulin Ratio 1.3 (1.0-2.1) 12/03/17 07:00 Vitamin B12 335 pg/mL (239-931) 11/22/17 13:45 25-OH Vitamin D Total 35.7 NG/ML (30.0-100.0) 11/22/17 18:08 Folate 6.1 ng/mL 11/22/17 13:45 Procalcitonin 4.61 NG/ML (0.19-0.49) H 11/30/17 07:12 TSH 3rd Generation 0.42 mIU/L (0.46-4.68) L 11/22/17 13:45 PTH Intact Whole Molec 328 pg/mL (14-64) H 11/22/17 18:08 Venous Blood Potassium 4.1 mmol/L (3.6-5.2) 11/22/17 05:45 Urine Color Colorless (YELLOW) 11/23/17 08:38 Urine Clarity Clear (Clear) 11/23/17 08:38 Urine pH 5.0 (5.0-8.0) 11/23/17 08:38 Ur Specific [place] 1.005 (1.003-1.030) 11/23/17 08:38 Urine Protein Negative mg/dL (NEGATIVE) 11/23/17 08:38 Urine Glucose (UA) 1+ mg/dL (Normal) H 11/23/17 08:38 Urine Ketones Negative mg/dL (NEGATIVE) 11/23/17 08:38 Urine Blood 1+ (NEGATIVE) H 11/23/17 08:38 Urine Nitrate Negative (NEGATIVE) 11/23/17 08:38 Urine Bilirubin Negative (NEGATIVE) 11/23/17 08:38 Urine Urobilinogen Normal mg/dL (0.2-1.0) 11/23/17 08:38 Ur Leukocyte Esterase Neg Carlos/uL (Negative) 11/23/17 08:38 Urine WBC (Auto) 1 /hpf (0-5) 11/23/17 08:38 Urine RBC (Auto) 11 /hpf (0-3) H 11/23/17 08:38 Ur Squamous Epith Cells 1 /hpf (0-5) 11/22/17 13:45 Urine Bacteria Rare (<OCC) 11/23/17 08:38 Whole Blood Arsenic <3 mcg/L (<23) 11/22/17 13:45 Lead Sample Type Venous 11/22/17 13:45 Whole Blood Lead 2 mcg/dL (<5) 11/22/17 13:45 Mercury <4 mcg/L (<=10) 11/22/17 13:45 Serum Immunofixation Not detected (Not Detected) 11/22/17 18:08 Urine Immunofixation Not detected (Not Detected) 11/23/17 06:23 Rheumatoid Factor <14 IU/mL (<14) 11/24/17 13:54 YESENIA Screen Negative (NEGATIVE) 11/24/17 13:54 YESENIA Titer TNP 11/24/17 13:54 YESENIA Pattern TNP 11/24/17 13:54 ANCA Screen Negative (NEGATIVE) 11/24/17 13:54 c-ANCA Titer TNP 11/24/17 13:54 Proteinase 3 (PR3) <1.0 AI (<1.0) 11/24/17 13:54 p-ANCA Titer TNP 11/24/17 13:54 Atypical p-ANCA Titer TNP 11/24/17 13:54 Myeloperoxidase Ab <1.0 AI (<1.0) 11/24/17 13:54 SS-A Antibody <1.0 neg AI (<1.0 NEGATIVE) 11/24/17 13:54 SS-B Antibody <1.0 neg AI (<1.0 NEGATIVE) 11/24/17 13:54 Sm (Mulligan) Antibody <1.0 neg AI (<1.0 NEGATIVE) 11/24/17 13:54 SM/SODA [employer]Y HOUSE OPERATOR Antibody <1.0 neg AI (<1.0 NEGATIVE) 11/24/17 13:54 Scl-70 Antibody <1.0 neg AI (<1.0 NEGATIVE) 11/24/17 13:54 Anti-ds DNA Titer (Crith) TNP 11/24/17 13:54 Anti-ds DNA (Crithidia) Negative (NEGATIVE) 11/24/17 13:54 Ribosomal P Prot Ab 1.4 pos AI (<1.0 NEGATIVE) H 11/24/17 13:54 Anti-Mitochondrial Titr TNP 11/24/17 13:54 Anti-Mitochondrial Ab Negative (NEGATIVE) 11/24/17 13:54 Actin IgG Antibody <20 U 11/24/17 13:54 Striated Muscle Ab TNP 11/24/17 13:54 Myocardial Ab Titer TNP 11/24/17 13:54 Anti-Myocardial Ab Negative (NEGATIVE) 11/24/17 13:54 Reticulin Ab Titer TNP 11/24/17 13:54 Reticulin IgA Antibody Negative (NEGATIVE) 11/24/17 13:54 Thyroperoxidase Ab <1 IU/mL (<9) 11/24/17 13:54 Anti-Parietal Cell Ab <20.0 U 11/24/17 13:54 Complement C3 103 mg/dL (82-185) 11/24/17 13:54 Complement C4 24 mg/dL (15-53) 11/24/17 13:54 Tot Mccarthy/Lambda Ratio 1.94 (1.29-2.55) 11/22/17 18:08 Mccarthy Light Chain Anal 182 mg/dL (176-443) 11/22/17 18:08 Lambda Light Chain Anal 94 mg/dL (91-240) 11/22/17 18:08 Hep Bs Antigen Negative (NEGATIVE) 11/24/17 13:54 Hep Bs Antibody Negative (NEGATIVE) 11/24/17 13:54 Hep B Core IgM Ab Negative (NEGATIVE) 11/24/17 13:54 Hepatitis C Antibody Negative (NEGATIVE) 11/24/17 13:54 HIV 1&2 Antibody Screen Negative (NEGATIVE) 11/24/17 13:54 Blood Type AB NEGATIVE 11/23/17 08:38 Blood Type Confirm AB NEGATIVE 11/23/17 08:38 Antibody Screen Negative 11/23/17 08:38 - Hospital Course Hospital Course: Patient is a 62 year old male with a past medical history of DM, HTN, HLD, CAD w /stent, and [place] (2012), who was transferred from [facility] to [facility] for ARF possibly requiring dialysis. Patient recently went to his PMD who told him his creatinine was increasing. Patient was directed to stop taking his metformin 500mg BID and to continue taking his Glipizide 5mg PO daily approximately 2 months ago. He has been taking his glipizide on an as-needed basis depending on his glucometer readings. He has noticed a decreased appetite over the last few weeks for unknown reasons. On Thursday afternoon, he took his medications, started to feel weak and unable to move. He called his longtime partner to let her know and then the he woke up Thursday afternoon with his partner and paramedics surrounding him. He states he was able to hear them, but unable to move or speak. EMS took his glucose which was 24 and was given an amp of D50. Patient was taken to [facility], labs were drawn and showed worsening kidney function. Patient currently feels better but still weak and feels very dehydrated. Patient denies chest pain, dyspnea, abdominal pain, nausea, vomiting, leg pain and swelling. During his hospital course, a a right sided catheter was inserted for dialysis access for worsening kidney function. The blood sugar levels were monitored and adjusted initially with a insulin sliding scale that was later adjusted to Lantus 10 units SC HS QD. During his stay, the pt began having chest pain/ SVT episodes during which his medications were continued including cardizem and metoprolol that helped control medical condition. Additionally, pt had workup for glomerulonephritis by nephrology that was negative. Lastly pt had a elevated white blood count ~23, during which time blood cultures, urine cultures were obtained to find source of potential infection. Urine culture was postive for gram positive cocci and was treated with ceftriaxone. Blood cultures came back negative X4. Pt white blood cell is trending down at time of discharge and heme/onc believe it is likely due to neutrophilia reactive. Due to body habbitus, subacute rehab was recommended and agreed upon by the patient. Patient is stable for discharge to subacute rehab per Dr. Marin. Pt will be discharged to subacute rehab and will need dialysis T//Thu. Pt will need to follow up for eventual AV-fistula placement outpatient. Pt will need to follow up with his child custody evaluator & music publisher in 1-2 weeks. Pt will also need to see his primary physician in 1-2 weeks. If he does not have one, [facility] can [facility] [place]. -Located at [address] [place] [address]. [place] [address] -Please call [phone]. PT has an elevated WBC count in the 17s on D/C. The WBC is trending downward from 23s to now 17s and pt does not have a fever for past 4+ days. Pt had 2 blood cultures that were both negative and was seen by heme/onc likely neutrophilia reactive. Pt should follow up with primary doctor to trend results. PT has completed a course of ceftriaxone 12/01. If patient experiences any new or worsening symptoms, he should go to his nearest emergency facility. Pt is discharged with the following medications: Aspirin 81 mg PO QD Phoslo 1334 mg PO TID Duocusate 100 mg PO QD Lantus 10 units SC HS QD Nicotine 7mg/24 hr 1 patch QD Protonix 40 mg PO QD Crestor 10 mg bedtime PO QD Nephro-Avelino 1 tab PO QD Cardizem 30 mg TID PO Metoprolol 100mg PO QD Pt should no longer continue his home medications that he was taking to prior to admission. Only take the above medications as directed. Discharge Exam - Head Exam Head Exam: NORMAL INSPECTION - Eye Exam Eye Exam: EOMI, Normal appearance - ENT Exam ENT Exam: Mucous Membranes Moist - Respiratory Exam Respiratory Exam: NORMAL BREATHING PATTERN. absent: Decreased Breath Sounds, Rales, Rhonchi, Wheezes - Cardiovascular Exam Cardiovascular Exam: +S1, +S2 - Neurological Exam Neurological exam: Alert, Oriented x3 - Psychiatric Exam Psychiatric exam: Normal Mood - Skin Skin Exam: Dry, Normal Color Discharge Plan - Follow Up Plan Condition: GUARDED Disposition: REHAB FACILITY/REHAB UNIT Instructions: Dialysis Diet , Heart Failure, Adult (DC), Coronary Heart Disease (DC), End Stage Kidney Disease (DC), Dialysis Catheter (DC), Dialysis and Diet Additional Instructions: Patient is stable for discharge to subacute rehab per Dr. Marin. Pt will be discharged to subacute rehab and will need dialysis T//Thu. Pt will need to follow up for eventual AV-fistula placement outpatient. Pt will need to follow up with his child custody evaluator & music publisher in 1-2 weeks. Pt will also need to see his primary physician in 1-2 weeks. If he does not have one, he can visit the [facility] in [place]. -Located at [address] [place] [address]. [place] [address] -Please call [phone]. PT has an elevated WBC count in the 17s on D/C. The WBC is trending downward from 23s to now 17s and pt does not have a fever for past 4+ days. Pt had 2 blood cultures that were both negative and was seen by heme/onc likely neutrophilia reactive. Pt should follow up with primary doctor to trend results. PT has completed a course of ceftriaxone 12/01. If patient experiences any new or worsening symptoms, he should go to his nearest emergency facility. Pt is discharged with the following medications: Aspirin 81 mg PO QD Phoslo 1334 mg PO TID Duocusate 100 mg PO QD Lantus 10 units SC HS QD Nicotine 7mg/24 hr 1 patch QD Protonix 40 mg PO QD Crestor 10 mg bedtime PO QD Nephro-Avelino 1 tab PO QD Cardizem 30 mg TID PO Metoprolol 100mg PO QD Pt should no longer continue his home medications that he was taking to prior to admission. Only take the above medications as directed. Referrals: José Miguel Levi MD [Staff Provider] - Ernst Caal MD [Staff Provider] - Kedar Morocho Jr., MD [Staff Provider] - Yamilet Kramer MD [Staff Provider] - Clinical Quality Measures - CQM - Heart Failure Ejection Fraction: Less Than 40 % Left Ventricular Function to be assessed after discharge: No WINDY Inhibitor Prescribed: No Contraindication/Reason for not providing: Not clinically indicated. Beta-Joselin Prescribed: Metoprolol Succinate Angiotensin II Receptor Joselin Prescribed: No Contraindication/Reason for not providing: Not clinically indicated. AnticoagulationTherapy for Atrial Fibrillation/Atrialflutter: No Contraindication/Reason for not providing: Not clinically indicated. Aldosterone Antagonist Prescribed: No Contraindication/Reason for not providing: Not clinically indicated. Hydralazine Nitrate Prescribed: No Contraindication/Reason for not providing: Not clinically indicated. Implantable Cardioverter Defibrillator Therapy: No Contraindication/Reason for not providing: Not clinically indicated. Cardiac Resynchronization Therapy Prescribed: No Contraindication/Reason for not providing: Not clinically indicated. Will be discharged to: Group Home Facility Follow Up Date (must be within 7 days from discharge): 12/09/17 Follow Up Time: 09:00
[2017-12-03 16:32] VITALS: BP 119/66; PULSE 90; RESP 20; TEMP 98.4; O2SAT 94
[2017-12-03] MEDS: (Lantus) Insulin Glargine, Recombinant SC SCH (21:43)
--- NOTE | 2017-12-04 00:04 | CP.PCM.PN ---
Subjective - Date & Time of Evaluation Date of Evaluation: 12/02/17 Time of Evaluation: 08:20 - Subjective Subjective: Patient seen and evaluated denies chest pain and dyspnea Physical examination - Additional Findings Additional findings: - Constitutional Appears: Well, No Acute Distress, Other (obese) - Head Exam Head Exam: ATRAUMATIC, NORMAL INSPECTION - Eye Exam Eye Exam: EOMI Pupil Exam: PERRL - ENT Exam ENT Exam: Mucous Membranes Moist - Neck Exam Neck Exam: Full ROM, Normal Inspection. absent: Tenderness - Respiratory Exam Respiratory Exam: Clear to Ausculation Bilateral, NORMAL BREATHING PATTERN. absent: Rales, Rhonchi, Wheezes - Cardiovascular Exam Cardiovascular Exam: Tachycardia, REGULAR RHYTHM, +S1, +S2. absent: JVD, Murmur - GI/Abdominal Exam GI & Abdominal Exam: Soft, Normal Bowel Sounds. absent: Distended, Firm, Guarding, Rigid, Tenderness - Extremities Exam Extremities Exam: Full ROM, Normal Capillary Refill, Normal Inspection. absent : Tenderness - Neurological Exam Neurological Exam: Alert, Awake, Oriented x3 - Psychiatric Exam Psychiatric exam: Normal Affect, Normal Mood - Skin Skin Exam: Intact, Normal Color, Warm Objective - Vital Signs/Intake and Output Vital Signs (last 24 hours): Temp Pulse Resp BP Pulse Ox 98.4 F 90 20 119/66 94 L 12/03/17 15:29 12/03/17 15:29 12/03/17 15:29 12/03/17 15:29 12/03/17 15:29 Intake and Output: 12/03/17 12/04/17 18:59 06:59 Intake Total 400 Output Total 100 Balance 300 - Labs Labs: 12/03/17 07:00 12/03/17 07:00 PT 12.1 SECONDS (9.7-12.2) 11/23/17 12:53 INR 1.1 11/23/17 12:53 APTT 26 SECONDS (21-34) 11/23/17 12:53 Assessment and Plan - Assessment and Plan (Free Text) Assessment: This is a 62 year old male with PMHx of CKD, HTN, HLD, T2DM, CAD with PCI intervention (2012) admitted reported having an increase in his renal function numbers, causing a change from metformin to glipizide by PMD x 2 months ago. Patient started feeling nausea, vomiting, abdominal pain, weakness, fatigue x 2 weeks. Prior to admission patient was unable to move, paramedics arrived at the scene and he was found to have sugars of 24. Patient was admitted for acute renal failure: Plan: MEENA on CKD, now in ARF Likely diabetic kidney disease Dr. Balbuena consulted Dr. Del Cid consulted for permacath placement * Permacath placed 11/24 - had successful dialysis after placement hepatitis panel negative, hiv negative, serum immunofixation negative, kappa/ lambda negative f/u anca, lupus, lab markers Started on bicarb drip @ 150cc/hr - now discontinued Phoslo given Procit 10,000u sc mwf Ferrlicit 125mg ivp qd for 8 days Supraventricular Tachycardia 20 min runs of SVT with rate in 150s x20 minutes On cardizem 30mg po tid f/u echo CAD CO in 2012 -> with PCI asa 81mg po qd metoprolol succinate 100mg po qd rosuvastatin 10mg po hs HTN metoprolol succinate 100mg po qd HLD rosuvastatin 10mg po hs Tobacco Use Disorder Smoking Cessation encouraged Nicotine Patch daily Duonebs Q6H Constipation, Resolved colace 100mg po tid discontinued dulcolax 10MG po prn discontinued Cholelithiasis and distended gallbladder noted on CT Scan Abdominal US ordered: cholelithiasis, no CBD dilatation Hypoglycemia Hypoglycemic protocol in place T2DM Accuchecks HA1C 6.5 Previously on metformin, instructed by PCP to stop and take Glipizide instead x2 months ago Carb Consistent Diet Secondary hyperparathyroidism Given Calcium gluconate x2 doses UTI - Gram + Cocci Afebrile, normotensive, leukocytosis with left shift, no bandemia, lactate 1.0, procal normal UA, UC reordered, washburn cultures - negative to date CT chest/ab/pelv: No active pulmonary disease. Clear lungs. Cholelithiasis and distended gallbladder. If clinically indicated, correlation with right upper quadrant ultrasound may be performed. Large exophytic simple cyst in the interpolar region of the right kidney. Extensive nonspecific perinephric fat stranding which may be a sequela of remote infection. Started Rocephin 1 gram IVP daily started 11/23 Anemia of Renal Disease Ferrlicit 125mg ivp qd for 8 days Prophylaxis: Protonix SCDs, Hep Q12 PT/OT Permacath placed 11/24 Renal diet
== END 2017-12-03 22:42 | DRG 674 ==
LOC: C.ER 03:49 → C.9I 05:06 → C.6T 11-27 23:58
PROVIDERS: ADMIT Internal Medicine; ATTEND Internal Medicine
PROC: 02HV33Z Insertion of Infusion Device into Superior Vena Cava, Percutaneous Approach (ICD-10-PCS; 2017-11-24)
PROC: B518ZZA Fluoroscopy of Superior Vena Cava, Guidance (ICD-10-PCS; 2017-11-24)
PROC: 0JH60XZ Insertion of Tunneled Vascular Access Device into Chest Subcutaneous Tissue and Fascia, Open Approach (ICD-10-PCS; principal; 2017-11-24 09:00)
PROC: 5A1D70Z Performance of Urinary Filtration, Intermittent, Less than 6 Hours Per Day (ICD-10-PCS; 2017-11-25)
PROC: 5A1D70Z Performance of Urinary Filtration, Intermittent, Less than 6 Hours Per Day (ICD-10-PCS; 2017-11-28)
PROC: 5A1D70Z Performance of Urinary Filtration, Intermittent, Less than 6 Hours Per Day (ICD-10-PCS; 2017-12-03)
DX: N17.9 Acute kidney failure, unspecified (principal); N39.0 Urinary tract infection, site not specified; T83.511A Infection and inflammatory reaction due to indwelling urethral catheter, initial encounter; E87.2 Acidosis; I13.2 Hypertensive heart and chronic kidney disease with heart failure and with stage 5 chronic kidney disease, or end stage renal disease; I47.1 Supraventricular tachycardia; I48.92 Unspecified atrial flutter; N18.6 End stage renal disease; D63.1 Anemia in chronic kidney disease; G11.4 Hereditary spastic paraplegia; E11.22 Type 2 diabetes mellitus with diabetic chronic kidney disease; E11.42 Type 2 diabetes mellitus with diabetic polyneuropathy; E11.649 Type 2 diabetes mellitus with hypoglycemia without coma; E86.0 Dehydration; E87.6 Hypokalemia; I25.10 Atherosclerotic heart disease of native coronary artery without angina pectoris; I49.3 Ventricular premature depolarization; E83.39 Other disorders of phosphorus metabolism; E78.00 Pure hypercholesterolemia, unspecified; I50.9 Heart failure, unspecified; N25.81 Secondary hyperparathyroidism of renal origin; K80.20 Calculus of gallbladder without cholecystitis without obstruction; E66.01 Morbid (severe) obesity due to excess calories; N28.1 Cyst of kidney, acquired; E78.5 Hyperlipidemia, unspecified; K59.00 Constipation, unspecified; Z79.4 Long term (current) use of insulin; Z79.82 Long term (current) use of aspirin; Z79.899 Other long term (current) drug therapy; I25.2 Old myocardial infarction; Z95.5 Presence of coronary angioplasty implant and graft

== ENCOUNTER 2018-01-06 08:12 | Day surgery (SDC) | payer BC ==
[2017-12-30 08:25] VITALS: BMI 31.0
[2018-01-06] MEDS ORDERED: HYDROmorphone 0.5 mg/0.5 ml ISec IVP PRN (10:26)
[2018-01-06] MEDS ORDERED: Sodium Chloride 0.9% 500 ML IV ONE ×3 (10:30→11:40)
[2018-01-06] MEDS ORDERED: HEPARIN-NS 5,000 UNITS/500 ML 5,000 UNIT/500 ML BAG IV ONE (10:34)
[2018-01-06] MEDS ORDERED: ceFAZolin IV 2 gm in Dextrose 2 GM/50 ML BAG IVPB ONE (10:34)
[2018-01-06] MEDS ORDERED: Midazolam 2 MG/2 ML VIAL ONE (10:35)
[2018-01-06] MEDS ORDERED: Propofol 10 mg/ml Inj (20 ML) ONE (10:36)
[2018-01-06 10:49] LABS: ALB/GLOB RATIO 1.4 (1.0-2.1); ALBUMIN 4.3 g/dL (3.5-5.0); CALCIUM 8.7 mg/dl (8.6-10.4)
--- NOTE | 2018-01-06 12:20 | PCM.SURG1 ---
Surgeon's Initial Post Op Note - Surgeon's Notes Surgeon: flakita Apartment Groundskeeper: 0 Type of Anesthesia: General LMA Anesthesia Administered By: kassandra Pre-Operative Diagnosis: renal failure Operative Findings: no surface veins seen on Us Post-Operative Diagnosis: same Operation Performed: av fistula left arm bracial to antecubital/basilic vein Specimen/Specimens Removed: 0 Estimated Blood Loss: EBL {In ML}: 10 Blood Products Given: N/A Drains Used: No Drains Post-Op Condition: Good Date of Surgery/Procedure: 01/06/18 Time of Surgery/Procedure: 12:20
[2018-01-06] MEDS ORDERED: Oxycodone/Acetaminophen 5/325 mg Tab PO PRN (12:26)
[2018-01-06 13:28] VITALS: O2SAT 97
[2018-01-06 15:15] VITALS: BP 110/60; PULSE 85; RESP 20; TEMP 97.9
--- NOTE | 2018-01-06 23:01 | OP ---
Copied To: Kedar Morocho Jr., MD Attending MD: Kedar Morocho Jr., MD PROCEDURE DATE: 01/06/2018 PREOPERATIVE DIAGNOSIS: Renal failure. POSTOPERATIVE DIAGNOSIS: Renal failure. PROCEDURE CARRIED OUT: Arteriovenous fistula, left elbow; brachial to antecubital vein; leading to basilic vein. SURGEON: Kedar Morocho Jr., MD LOGISTICS PLANNER: None. ANESTHESIA: General. ANESTHESIA ADMINISTERED BY: Hank Nuñez MD INDICATIONS: A 62-year-old male with renal insufficiency, presently dialyzed catheter. OPERATIVE FINDINGS: Fistula was created between the brachial artery and the end of the antecubital vein leading into the basilic vein. At the end of the procedure, there was good pulse at the wrist and there was good flow through the fistula. DESCRIPTION OF PROCEDURE: Patient was given general anesthesia and intravenous antibiotics. Vein mapping was carried down in the operating room with no cephalic or superficial veins being seen. We then had to go to the basilic vein and then we eventually went to the antecubital vein in the antecubital fossa and anastomosed this in an end-to-side fashion using loupe magnification and heparin anticoagulation to the adjacent brachial artery. This was done in an end-to-side fashion. This vessel led directly to the basilic vein. We then able to obtain hemostasis and ascertain there was good palpable pulse at the wrist and good flow through the fistula. We then closed the wounds with Monocryl and nylon sutures, closed the skin with skin clips. Blood loss for the procedure was 10 mL. OPERATION CARRIED OUT: Brachial median antecubital/basilic vein fistula, left elbow. It is likely that this will require mobilization and elevation in the future. Kedar Morocho Jr., MD cc: MD Ernst Whittington MD
== END 2018-01-06 14:20 | disposition home or self-care (01) ==
LOC: C.SDS 08:12
PROVIDERS: ATTEND Surgery Vascular Surgery
DX: I12.0 Hypertensive chronic kidney disease with stage 5 chronic kidney disease or end stage renal disease (principal); N18.6 End stage renal disease; Z99.2 Dependence on renal dialysis
CPT/HCPCS: 36415; 36821; 80053; 82948; J0690; J1644; J2001; J2250; J2704; J3010; J7030

== ENCOUNTER 2018-01-27 06:02 | Day surgery (SDC) | payer BC ==
[2017-12-30 08:25] VITALS: BMI 31.0
[2018-01-27] MEDS ORDERED: HEPARIN-NS 5,000 UNITS/500 ML 5,000 UNIT/500 ML BAG IV ONE (06:58)
[2018-01-27] MEDS ORDERED: Lidocaine 2% MPF (5 ml) Inj ONE (06:58)
[2018-01-27] MEDS ORDERED: ceFAZolin 1 gm FROZEN Premix 0 GM/0 ML ML IVPB ONE (06:59)
[2018-01-27] MEDS ORDERED: ceFAZolin IV 1 gm in Dextrose 2 GM/100 ML BAG IVPB ONE (07:24)
[2018-01-27 07:41] LABS: CALCIUM 8.9 mg/dl (8.6-10.4)
[2018-01-27] MEDS ORDERED: Midazolam 2 MG/2 ML VIAL ONE (07:55)
--- NOTE | 2018-01-27 08:40 | PCM.SURG1 ---
Surgeon's Initial Post Op Note - Surgeon's Notes Surgeon: flakita Commercial Photographer: 0 Type of Anesthesia: IV Sedation Anesthesia Administered By: maik Pre-Operative Diagnosis: renal failure/ failing HD catheter Operative Findings: new catheter placed Post-Operative Diagnosis: same Operation Performed: placement of permacath right jugular Specimen/Specimens Removed: old catheter discarded Estimated Blood Loss: EBL {In ML}: 10 Blood Products Given: N/A Drains Used: No Drains Post-Op Condition: Good Date of Surgery/Procedure: 01/27/18 Time of Surgery/Procedure: 08:40
--- NOTE | 2018-01-27 09:21 | RAD ---
Date of service: 01/27/2018 HISTORY: permacath COMPARISON: Frontal chest 11/29/2017. FINDINGS: LUNGS: Tunneled right central venous dialysis catheter remains in apparent position. No interval pulmonary disease appreciated bilaterally. PLEURA: No significant pleural effusion identified, no pneumothorax apparent. CARDIOVASCULAR: Normal. OSSEOUS STRUCTURES: No significant abnormalities. VISUALIZED UPPER ABDOMEN: Normal. OTHER FINDINGS: None. IMPRESSION: No interval acute cardiopulmonary disease appreciated. Right central venous dialysis catheter unchanged in position.
--- NOTE | 2018-01-27 09:25 | RAD ---
Date of service: 01/27/2018 PROCEDURE: Intraoperative Fluoroscopy. HISTORY: RENAL FAILURE FINDINGS: Fluoroscopic assistance was provided for right-sided PermCath placement. Please refer to the operative report from CHRISTOPH Cardoso.
[2018-01-27 09:51] VITALS: O2SAT 95
[2018-01-27 11:22] VITALS: BP 114/58; PULSE 87; RESP 16; TEMP 98.4
--- NOTE | 2018-01-27 20:21 | OP ---
Copied To: Kedar Morocho Jr., MD Attending MD: Kedar Morocho Jr., MD PROCEDURE DATE: 01/27/2018 PREOPERATIVE DIAGNOSIS: Renal failure. POSTOPERATIVE DIAGNOSIS: Renal failure. PROCEDURE CARRIED OUT: Removal of old Permcath and placement of new Permcath via right jugular vein with C-arm fluoroscopy. SURGEON: Kedar Morocho Jr., MD ASSISTANTS: None. ANESTHESIOLOGIST: Dr. sTe. INDICATIONS FOR PROCEDURE: The patient is a middle aged man with renal insufficiency who has a fistula maturing in his left arm, the previously placed catheter which is half way in and half way out, the cuff is out exposed. OPERATIVE FINDINGS: Catheter was still in the vein. A cut down was made in the neck. The vessel was identified. A wire placed through it. Then, a new sheath dilator was placed over this and then the catheter was down on the right chest wall. So, to originate on the right chest wall, we went through the jugular vein and terminated in the superior vena cava. It was sutured to the skin. There was good inflow and outflow and the procedure was terminated. Blood loss for the procedure was less than 10 mL. Operation carried out, removal of old and placement of new Permcath right jugular vein. Kedar Morocho Jr., MD
== END 2018-01-27 11:03 | disposition home or self-care (01) ==
LOC: C.SDS 06:02
PROVIDERS: ATTEND Surgery Vascular Surgery
DX: N18.6 End stage renal disease (principal)
CPT/HCPCS: 36415; 36581; 71045; 77001; 80048; J0690; J2250; J3010

== ENCOUNTER 2018-03-31 06:20 | Day surgery (SDC) | payer BC ==
[2017-12-30 08:25] VITALS: BMI 31.0
[2018-03-31] MEDS ORDERED: ceFAZolin 1 gm in NS 2 GM/200 ML BAG IVPB ONE (06:54)
[2018-03-31] MEDS ORDERED: Iohexol 240 (50 ml) ONE (06:54)
[2018-03-31] MEDS ORDERED: HEPARIN-NS 5,000 UNITS/500 ML 5,000 UNIT/500 ML BAG IV ONE (06:54)
[2018-03-31 07:54] LABS: CALCIUM 8.4 mg/dl (8.6-10.4)
[2018-03-31] MEDS ORDERED: Propofol 10 mg/ml Inj (20 ML) ONE (08:05)
[2018-03-31] MEDS ORDERED: Midazolam 2 MG/2 ML VIAL ONE (08:05)
--- NOTE | 2018-03-31 09:46 | PCM.SURG1 ---
Surgeon's Initial Post Op Note - Surgeon's Notes Surgeon: flakita Seismograph Operator: 0 Type of Anesthesia: General LMA Anesthesia Administered By: murali Pre-Operative Diagnosis: renal failure/immature avf left arm Operative Findings: 8mm basilic vein. fistulagram no kizzy anastomotic stenosis Post-Operative Diagnosis: same Operation Performed: fistulagram/ revision avf with basilic vein transposition Specimen/Specimens Removed: o Estimated Blood Loss: EBL {In ML}: 50 Blood Products Given: N/A Drains Used: No Drains Post-Op Condition: Good Date of Surgery/Procedure: 03/31/18 Time of Surgery/Procedure: 09:46
[2018-03-31] MEDS ORDERED: Oxycodone/Acetaminophen 5/325 mg Tab PO PRN (09:47)
--- NOTE | 2018-03-31 09:48 | RAD ---
Date of service: 03/31/2018 PROCEDURE: Intraoperative Fluoroscopy. HISTORY: INMATURE AV FISTULA FINDINGS: Fluoroscopic assistance was provided. Fluoroscopy time = 31.3 sec. Radiation dose = 0.86924 mGy-cm. Please refer to the operative report from CHRISTOPH Cardoso.
[2018-03-31] MEDS ORDERED: HYDROmorphone 0.5 mg/0.5 ml ISec IVP PRN (09:49)
[2018-03-31 11:21] VITALS: BP 105/58; PULSE 54; RESP 20; TEMP 97; O2SAT 98
--- NOTE | 2018-03-31 21:36 | OP ---
PROCEDURE DATE: 03/31/2018 PREOPERATIVE DIAGNOSES: Immature fistula, left arm; renal failure. POSTOPERATIVE DIAGNOSES: Immature fistula, left arm; renal failure. PROCEDURE CARRIED OUT: Revision of arteriovenous fistula and intraoperative fistulogram. SURGEON: Kedar Morocho Jr., MD ASSISTANTS: None. ANESTHESIOLOGIST: Jerri Allen CRNA. INDICATIONS: A 62-year-old man with renal insufficiency, personally dialyzing on catheter. Basilic vein showed fistula, left arm, good size, but fairly deep and also the preoperative ultrasound suggested that there is a perianastomotic stenosis. OPERATIVE FINDINGS: Angiogram done after elevation of the fistula showed no evidence of perianastomotic stenosis. There were some residual tributaries or branches in the perianastomotic area, but no evidence of any significant stenosis. The outflow was good with imaging up to superior vena cava, which did not show any evidence of any thrombosis or stenosis. The vein was of good size measuring approximately 8 mm in diameter. PROCEDURE: The patient was given general anesthesia and intravenous antibiotics. The vein was marked. Dissected free. All the visible tributaries were ligated, divided with heavy silk sutures. After this had been done, the subcutaneous tissues were closed. A fistulogram was then taken at that point with the above-mentioned findings. After obtaining hemostasis, we then closed the wounds with Monocryl and nylon sutures and closed the skin with skin clips. Blood loss for the procedure was less than 50 mL. OPERATION CARRIED OUT: 1. Revision of arteriovenous fistula, left arm with elevation. 2. Intraoperative fistulogram. Kedar Morocho Jr., MD cc:
== END 2018-03-31 12:11 | disposition home or self-care (01) ==
LOC: C.SDS 06:20
PROVIDERS: ATTEND Surgery Vascular Surgery
DX: N18.6 End stage renal disease (principal); N28.9 Disorder of kidney and ureter, unspecified
CPT/HCPCS: 36415; 36832; 80048; 82948; J0690; J1170; J1644; J2250; J3010